=== PATIENT | female | born 1970 | race Native Hawaiian/Other Pacific Islander ===

== ENCOUNTER 2019-11-15 07:18 | Outpatient (REF) | payer OTHER, SELFPAY ==
[2019-11-15 07:58] LABS: MANUAL DIFF FLAG NO
[2019-11-15 08:08] LABS: Basophils Absolute Auto 0.1 X10*3/uL (0.0-0.2); Basophils Percent Auto 0.4 % (0-2); Eosinophils Absolute Auto 0.3 X10*3/uL (0.0-0.4); Eosinophils Percent Auto 1.7 % (0-4); Hematocrit 41.5 % (37-47); Hemoglobin 13.8 g/dl (12.0-16.0); Imm Gran Abs Auto 0.11 X10*3/uL (0.00-0.03); Imm Gran Pct Auto 0.7 % (0.0-0.4); Lymphocytes Absolute Auto 3.3 X10*3/uL (1.2-4.9); Lymphocytes Percent Auto 21.1 % (20-40); Mean Corpuscular HGB Conc 33.3 g/dl (31.0-35.0); Mean Corpuscular Hemoglobin 30.5 pg (27.0-33.0); Mean Corpuscular Volume 91.8 fL (80-98); Monocytes Absolute Auto 0.9 X10*3/uL (0.1-1.2); Monocytes Percent Auto 5.6 % (2-11); Neutrophils Absolute Auto 10.9 X10*3/uL (2.0-8.3); Neutrophils Percent Auto 70.5 % (45-73); Platelet Count 336 X10*3/uL (160-400); Red Blood Count 4.52 X10*6/uL (4.20-5.50); Red Cell Distribution Width 14.7 % (11.0-16.0); White Blood Count 15.4 X10*3/uL (4.8-10.8)
[2019-11-15 08:21] LABS: Estimated Average Glucose 126 mg/dL; Hemoglobin A1C 151.6235 umol/L
[2019-11-15 08:46] LABS: Alanine Aminotransferase 26 U/L (0-31); Albumin Level 4.1 g/dL (3.5-5.0); Alkaline Phosphatase 69 U/L (39-117); Anion Gap 11 (12-20); Aspartate Amino Transferase 15 U/L (5-31); B Type Natriuretic Peptide < 10 pg/mL (<100); Bilirubin Total 0.6 mg/dL (0.0-1.0); Blood Urea Nitrogen 15 mg/dL (9-16); Calcium 8.9 mg/dL (8.4-10.2); Carbon Dioxide 28 mmol/L (22-29); Chloride 103 mmol/L (96-108); Cholesterol 181 mg/dL; Estimated Glomerular Filt Rate > 60; Glucose Fasting 120 mg/dL (60-99); HDL Cholesterol 47 mg/dL; LDL Cholesterol Calculated 109 mg/dl; Potassium 4.3 mmol/l (3.3-5.1); Sodium 138 mmol/L (135-145); Total Protein 6.6 g/dL (6.5-8.0); Triglycerides 125 mg/dL
[2019-11-15 08:50] LABS: Vitamin D 25-OH Total 23.4 ng/mL (>30)
[2019-11-15 09:10] LABS: Erythrocyte Sedimentation Rate 6 MM/HR (0-20)
[2019-11-15 09:11] LABS: Folate 9.9 ng/mL (> or = 4.0); Vitamin B12 275 pg/mL (200-900)
== END 2019-11-15 07:19 | disposition home or self-care (01) ==
LOC: HO.LAB 07:18
PROVIDERS: PCP Internal Medicine; Visit Provider Internal Medicine
DX: R73.01 Impaired fasting glucose (principal); E78.00 Pure hypercholesterolemia, unspecified; K21.9 Gastro-esophageal reflux disease without esophagitis; J45.20 Mild intermittent asthma, uncomplicated; M96.1 Postlaminectomy syndrome, not elsewhere classified; M25.569 Pain in unspecified knee
CPT/HCPCS: 36415; 80053; 80061; 82306; 82607; 82746; 83036; 83880; 85025; 85652

== ENCOUNTER → 2020-03-12 12:57 | Outpatient (REF) | payer OTHER, SELFPAY ==
--- NOTE | 2020-03-12 12:59 | ECG_ITS ---
Hook-up date: 2020-03-12 13:11:00 Duration: 47:59:00 Test Indications: PALPITATIONS Medications: [id number] QRS complexes 14 Ventricular ectopics which represent <1 % of total QRS comp. 4 Supraventricular ectopics which represent <1 % of total QRS comp. * Paced QRS complexs which represent % of total QRS comp. VENTRICULAR ECTOPY 14 Isolated 0 Bigeminal Cycles 0 Couplets 0 Runs 0 Beats in Runs * Beats LONGEST at * BPM at :: -- * Beats FASTEST at * BPM at :: -- SUPRAVENTRICULAR ECTOPY 4 Isolated 0 Couplets 0 Runs 0 Beats in Runs * Beats LONGEST at * BPM at :: -- * Beats FASTEST at * BPM at :: -- HEART RATES 77 MIN at 00:01:16 2020-03-13 98 AVG 147 MAX at 18:16:56 2020-03-12 LONGEST RR 0.8880 secs at 05:57:39 2020-03-13 S-T LEVELS Channel 1 - 128 mm at 13:11:00 2020-03-12 - 128 mm at 13:11:00 2020-03-12 Channel 2 - 128 mm at 13:11:00 2020-03-12 - 128 mm at 13:11:00 2020-03-12 Channel 3 - 128 mm at 03:23:01 -- - 128 mm at 03:23:01 Basic rhythm Normal sinus rhythm No long pause or profound bradycardia Frequent Sinus tachycardia , 47% of time HR > 100 bpm Rare Premature ventricular complexes Patient did not report any symptoms in the diary Referred By: Duke Hale Overread By: IMMANUEL SHOEMAKER MD
== END ==
LOC: HO.CARD 12:57
PROVIDERS: PCP Internal Medicine; Visit Provider Internal Medicine
DX: R00.2 Palpitations (principal)
CPT/HCPCS: 93225; 93226

== ENCOUNTER 2020-05-01 08:26 | Outpatient (REF) | payer OTHER, SELFPAY ==
[2020-05-01 09:07] LABS: MANUAL DIFF FLAG NO
[2020-05-01 09:10] LABS: Basophils Absolute Auto 0.1 X10*3/uL (0.0-0.2); Basophils Percent Auto 0.5 % (0-2); Eosinophils Absolute Auto 0.2 X10*3/uL (0.0-0.4); Hematocrit 41.6 % (37-47); Hemoglobin 14.1 g/dl (12.0-16.0); Imm Gran Abs Auto 0.18 X10*3/uL (0.00-0.03); Imm Gran Pct Auto 0.9 % (0.0-0.4); Lymphocytes Absolute Auto 4.5 X10*3/uL (1.2-4.9); Lymphocytes Percent Auto 23.1 % (20-40); Mean Corpuscular HGB Conc 33.9 g/dl (31.0-35.0); Mean Corpuscular Hemoglobin 30.6 pg (27.0-33.0); Mean Corpuscular Volume 90.2 fL (80-98); Mean Platelet Volume 9.9 fL (9.4-12.3); Monocytes Absolute Auto 1.1 X10*3/uL (0.1-1.2); Monocytes Percent Auto 5.8 % (2-11); Neutrophils Absolute Auto 13.4 X10*3/uL (2.0-8.3); Neutrophils Percent Auto 68.7 % (45-73); Platelet Count 344 X10*3/uL (160-400); Red Blood Count 4.61 X10*6/uL (4.20-5.50); Red Cell Distribution Width 14.9 % (11.0-16.0); White Blood Count 19.4 X10*3/uL (4.8-10.8)
[2020-05-01 09:53] LABS: Glucose Urine UA NEG (NEG); Leukocyte Esterase Urine NEG (NEG); Nitrite Urine NEG (NEG); PH 6.5 (5.0-8.0); Specific Gravity - Urine 1.025 (1.005-1.025); Urine Blood 1+ (NEG); Urine Ketones 5 MG/DL (NEG); Urine Protein NEG (NEG-TRACE)
[2020-05-01 09:54] LABS: Alanine Aminotransferase 57 U/L (0-31); Albumin Level 4.6 g/dL (3.5-5.0); Alkaline Phosphatase 71 U/L (39-117); Anion Gap 12 (12-20); Aspartate Amino Transferase 21 U/L (5-31); Bilirubin Total 0.5 mg/dL (0.0-1.0); Blood Urea Nitrogen 21 mg/dL (9-16); Calcium 9.7 mg/dL (8.4-10.2); Carbon Dioxide 26 mmol/L (22-29); Chloride 102 mmol/L (96-108); Estimated Glomerular Filt Rate > 60; Glucose Random 105 mg/dL (60-115); Potassium 4.3 mmol/L (3.3-5.1); Sodium 136 mmol/L (135-145); Total Protein 7.7 g/dL (6.5-8.0)
[2020-05-01 09:55] LABS: Estimated Average Glucose 131 mg/dL; Hemoglobin A1c % 6.2 %
[2020-05-01 09:58] LABS: Appearance Urine CLEAR; Color Urine YELLOW
[2020-05-01 10:06] LABS: Free T4 (Free Thyroxine) 0.93 ng/dL (0.71-1.85); Thyroid Stimulating Hormone 0.68 uIU/mL (0.32-4.0)
[2020-05-01 10:11] LABS: Bacteria Urine TRACE /LPF; Squamous Epithelial Cell Urine 1+ /LPF; WBC Urine 0-2 /HPF (0-4)
[2020-05-01 11:15] LABS: Folate > 20.0 ng/mL (> or = 4.0); Vitamin B12 728 pg/mL (200-900)
== END 2020-05-01 08:27 | disposition home or self-care (01) ==
LOC: HO.LAB 08:26
PROVIDERS: PCP Internal Medicine; Visit Provider Internal Medicine
DX: R73.02 Impaired glucose tolerance (oral) (principal); E53.8 Deficiency of other specified B group vitamins; R00.2 Palpitations; D72.829 Elevated white blood cell count, unspecified
CPT/HCPCS: 36415; 80053; 81001; 82607; 82746; 83036; 84439; 84443; 85025

== ENCOUNTER 2020-05-16 07:30 | Outpatient (REF) | payer OTHER, SELFPAY ==
[2020-05-16 07:57] LABS: MANUAL DIFF FLAG NO
[2020-05-16 07:59] LABS: Basophils Absolute Auto 0.1 X10*3/uL (0.0-0.2); Basophils Percent Auto 0.5 % (0-2); Eosinophils Absolute Auto 0.2 X10*3/uL (0.0-0.4); Hematocrit 40.7 % (37-47); Hemoglobin 13.5 g/dl (12.0-16.0); Imm Gran Abs Auto 0.06 X10*3/uL (0.00-0.03); Imm Gran Pct Auto 0.5 % (0.0-0.4); Lymphocytes Absolute Auto 3.2 X10*3/uL (1.2-4.9); Lymphocytes Percent Auto 26.5 % (20-40); Mean Corpuscular HGB Conc 33.2 g/dl (31.0-35.0); Mean Corpuscular Hemoglobin 30.9 pg (27.0-33.0); Mean Corpuscular Volume 93.1 fL (80-98); Mean Platelet Volume 9.4 fL (9.4-12.3); Monocytes Absolute Auto 0.7 X10*3/uL (0.1-1.2); Monocytes Percent Auto 5.7 % (2-11); Neutrophils Absolute Auto 7.9 X10*3/uL (2.0-8.3); Neutrophils Percent Auto 64.8 % (45-73); Platelet Count 297 X10*3/uL (160-400); Red Blood Count 4.37 X10*6/uL (4.20-5.50); Red Cell Distribution Width 14.9 % (11.0-16.0); White Blood Count 12.2 X10*3/uL (4.8-10.8)
[2020-05-16 08:10] LABS: Glucose Urine UA NEG (NEG); Leukocyte Esterase Urine NEG (NEG); Nitrite Urine NEG (NEG); PH 7.5 (5.0-8.0); Specific Gravity - Urine 1.015 (1.005-1.025); Urine Blood 1+ (NEG); Urine Ketones NEG (NEG); Urine Protein NEG (NEG-TRACE)
[2020-05-16 08:12] LABS: Appearance Urine CLEAR; Color Urine YELLOW
[2020-05-16 08:30] LABS: Alanine Aminotransferase 53 U/L (0-31); Albumin Level 4.2 g/dL (3.5-5.0); Alkaline Phosphatase 68 U/L (39-117); Anion Gap 9 (12-20); Aspartate Amino Transferase 26 U/L (5-31); Bilirubin Total 0.7 mg/dL (0.0-1.0); Blood Urea Nitrogen 15 mg/dL (9-16); Calcium 9.2 mg/dL (8.4-10.2); Carbon Dioxide 31 mmol/L (22-29); Chloride 104 mmol/L (96-108); Estimated Glomerular Filt Rate > 60; Glucose Random 111 mg/dL (60-115); Potassium 4.4 mmol/L (3.3-5.1); Sodium 140 mmol/L (135-145); Total Protein 7.1 g/dL (6.5-8.0)
[2020-05-16 08:37] LABS: Bacteria Urine TRACE /LPF; Squamous Epithelial Cell Urine 1+ /LPF; WBC Urine 0-2 /HPF (0-4)
== END 2020-05-16 07:31 | disposition home or self-care (01) ==
LOC: HO.LAB 07:30
PROVIDERS: PCP Internal Medicine; Visit Provider Internal Medicine
DX: R73.02 Impaired glucose tolerance (oral) (principal); D72.829 Elevated white blood cell count, unspecified
CPT/HCPCS: 36415; 80053; 81001; 85025

== ENCOUNTER → 2020-09-18 14:24 | Outpatient (REF) | payer OTHER, SELFPAY | LOC: HO.SL 14:24 | PROVIDERS: PCP Internal Medicine; Visit Provider Internal Medicine | DX: R06.81 Apnea, not elsewhere classified (principal) | CPT/HCPCS: 95806 ==

== ENCOUNTER 2020-11-13 09:46 | Outpatient (REF) | payer OTHER, SELFPAY ==
--- NOTE | ~2020-11-13 | MM_ITS ---
EXAMINATION: MM SCREENING DIGITAL BREAST TOMOSYNTHESIS, BILATERAL CLINICAL INFORMATION: Screening. Asymptomatic. The lifetime risk of breast cancer based on the Tyrer-Cuzick Model is 13%. COMPARISON: Mammography: 04/29/2017, 05/22/2013 TECHNIQUE: Digital breast tomosynthesis is performed in both the craniocaudal and mediolateral oblique views along with computer-aided detection (CAD). Synthesized 2D images are generated from the tomosynthesis. Additional right MLO view is provided. FINDINGS: There are scattered areas of fibroglandular density (ACR BI-RADS breast composition Category b). There are no significant masses, abnormal calcifications, or other abnormalities. Parenchymal pattern is similar to prior studies. No significant changes. MM/MM tomosynthesis screening BI IMPRESSION: No mammographic evidence of malignancy. ASSESSMENT: BI-RADS 1: Negative RECOMMENDATION: Routine annual mammography screening. This patient's information was entered into a reminder system with a target due date for their next mammogram.
[2020-11-13 11:53] LABS: Appearance Urine HAZY; Color Urine YELLOW; Glucose Urine UA NEG (NEG); Leukocyte Esterase Urine NEG (NEG); Nitrite Urine NEG (NEG); PH 7.5 (5.0-8.0); Urine Blood TRACE (NEG); Urine Ketones NEG (NEG); Urine Protein NEG (NEG-TRACE)
[2020-11-13 12:27] LABS: RBC Urine 0-2 /HPF (0); Squamous Epithelial Cell Urine 2+ /LPF; WBC Urine 0 /HPF (0-4)
[2020-11-13 12:28] LABS: Bacteria Urine 1+ /LPF
== END 2020-11-13 09:47 | disposition home or self-care (01) ==
LOC: HO.MAMMO 09:46
PROVIDERS: PCP Internal Medicine; Visit Provider Internal Medicine
DX: Z12.31 Encounter for screening mammogram for malignant neoplasm of breast (principal); R73.02 Impaired glucose tolerance (oral)
CPT/HCPCS: 77063; 77067; 81001

== ENCOUNTER 2021-01-22 09:50 | Outpatient (REF) | payer OTHER, SELFPAY ==
[2021-01-22 10:07] LABS: MANUAL DIFF FLAG NO
[2021-01-22 10:20] LABS: Basophils Absolute Auto 0.1 X10*3/uL (0.0-0.2); Basophils Percent Auto 0.6 % (0-2); Eosinophils Absolute Auto 0.2 X10*3/uL (0.0-0.4); Eosinophils Percent Auto 1.9 % (0-4); Hematocrit 43.3 % (37.0-47.0); Hemoglobin 14.3 g/dl (12.0-16.0); Imm Gran Abs Auto 0.05 X10*3/uL (0.00-0.03); Imm Gran Pct Auto 0.5 % (0.0-0.4); Lymphocytes Absolute Auto 3.6 X10*3/uL (1.2-4.9); Lymphocytes Percent Auto 34.8 % (20-40); Mean Corpuscular Hemoglobin 30.5 pg (27.0-33.0); Mean Corpuscular Volume 92.3 fL (80.0-98.0); Mean Platelet Volume 9.8 fL (9.4-12.3); Monocytes Absolute Auto 0.7 X10*3/uL (0.1-1.2); Monocytes Percent Auto 6.9 % (2-11); Neutrophils Absolute Auto 5.7 x10*3/uL (2.0-8.3); Neutrophils Percent Auto 55.3 % (45-73); Platelet Count 310 X10*3/uL (160-400); Red Blood Count 4.69 X10*6/uL (4.20-5.50); Red Cell Distribution Width 13.8 % (11.0-16.0); White Blood Count 10.3 X10*3/uL (4.8-10.8)
[2021-01-22 10:59] LABS: Alanine Aminotransferase 65 U/L (0-31); Albumin Level 4.5 g/dL (3.5-5.0); Alkaline Phosphatase 88 U/L (39-117); Anion Gap 11 (12-20); Aspartate Amino Transferase 34 U/L (5-31); Bilirubin Total 0.3 mg/dL (0.0-1.0); Blood Urea Nitrogen 16 mg/dL (9-16); Calcium 9.8 mg/dL (8.4-10.2); Carbon Dioxide 27 mmol/L (22-29); Chloride 106 mmol/L (96-108); Cholesterol 220 mg/dL; Estimated Glomerular Filt Rate > 60; Glucose Random 108 mg/dL (60-115); HDL Cholesterol 50 mg/dL; LDL Cholesterol Calculated 143 mg/dl; Potassium 4.8 mmol/L (3.3-5.1); Sodium 139 mmol/L (135-145); Total Protein 7.6 g/dL (6.5-8.0); Triglycerides 139 mg/dL
[2021-01-22 11:23] LABS: Free T4 (Free Thyroxine) 0.89 ng/dL (0.71-1.85); Thyroid Stimulating Hormone 0.34 uIU/mL (0.32-4.0); Vitamin D 25-OH Total 28.4 ng/mL (>30)
[2021-01-22 11:38] LABS: Vitamin B12 439 pg/mL (200-900)
[2021-01-22 14:25] LABS: Estimated Average Glucose 137 mg/dL; Hemoglobin A1c % 6.4 %
== END 2021-01-22 09:51 | disposition home or self-care (01) ==
LOC: HO.LAB 09:50
PROVIDERS: PCP Internal Medicine; Visit Provider Internal Medicine
DX: R73.02 Impaired glucose tolerance (oral) (principal); E78.00 Pure hypercholesterolemia, unspecified
CPT/HCPCS: 36415; 80053; 80061; 82306; 82607; 82746; 83036; 84439; 84443; 85025

== ENCOUNTER 2021-06-19 18:18 | Outpatient (REF) | payer OTHER, SELFPAY ==
[2021-06-19 19:32] LABS: Amphetamine Screen Urine Not Detected (Not Detect); Barbiturates, Urine Not Detected (Not Detect); Benzodiazepines Screen Urine Not Detected (Not Detect); Cannabinoid Screen Urine Not Detected (Not Detect); Cocaine Screen Urine Not Detected (Not Detect); Fentanyl, urine Not Detected (Not Detect); Opiate Screen Urine POSITIVE (Not Detect); Phencyclidine Screen Urine Not Detected (Not Detect)
[2021-06-26 08:31] LABS: Oxycodone, Ur 3823; Oxymorphone, Ur 6021
[2021-06-26 08:32] LABS: Alphahydroxymidazolam,GCMS Ur NEGATIVE; Alphahydroxytriazolam, GCMS Ur NEGATIVE; Alprazolam, GCMS Urine NEGATIVE; Aminoclonazepam, GCMS Urine NEGATIVE; Codeine, Ur NEGATIVE; Flurazepam Metabolite,GCMS Ur NEGATIVE; Hydrocodone, Ur NEGATIVE; Hydromorphone, Ur NEGATIVE; Lorazepam GCMS Urine NEGATIVE; Morphine, Ur NEGATIVE; Nordiazepam, GCMS Urine NEGATIVE; Norhydrocodone, Ur NEGATIVE; Noroxycodone, Ur 8634; Oxazepam, GCMS Urine NEGATIVE; Temazepam, GCMS Urine NEGATIVE
== END 2021-06-19 18:19 | disposition home or self-care (01) ==
LOC: HO.LNP 18:18
PROVIDERS: Visit Provider Internal Medicine
DX: F11.90 Opioid use, unspecified, uncomplicated (principal); M96.1 Postlaminectomy syndrome, not elsewhere classified; R73.02 Impaired glucose tolerance (oral)
CPT/HCPCS: 80307; 80346; 80364; 80365

== ENCOUNTER 2021-09-21 09:51 | Outpatient (REF) | payer OTHER, SELFPAY ==
[2021-09-21 10:22] LABS: Estimated Average Glucose 146 mg/dL; Hemoglobin A1c % 6.7 %
[2021-09-21 10:49] LABS: Alanine Aminotransferase 47 U/L (0-31); Albumin Level 4.6 g/dL (3.5-5.0); Alkaline Phosphatase 90 U/L (39-117); Anion Gap 13 (12-20); Aspartate Amino Transferase 29 U/L (5-31); Bilirubin Total 0.7 mg/dL (0.0-1.0); Blood Urea Nitrogen 17 mg/dL (9-16); Calcium 9.6 mg/dL (8.4-10.2); Carbon Dioxide 27 mmol/L (22-29); Chloride 103 mmol/L (96-108); Cholesterol 196 mg/dL; Estimated Glomerular Filt Rate > 60; Glucose Random 101 mg/dL (60-115); HDL Cholesterol 50 mg/dL; LDL Cholesterol Calculated 119 mg/dl; Potassium 4.4 mmol/L (3.3-5.1); Sodium 139 mmol/L (135-145); Total Protein 7.5 g/dL (6.5-8.0); Triglycerides 135 mg/dL
[2021-09-21 11:02] LABS: Amphetamine Screen Urine Not Detected (Not Detect)
[2021-09-21 11:12] LABS: Free T4 (Free Thyroxine) 0.98 ng/dL (0.71-1.85); Thyroid Stimulating Hormone 0.28 uIU/mL (0.32-4.0)
[2021-09-21 11:34] LABS: Appearance Urine CLEAR; Color Urine YELLOW; Glucose Urine UA NEG (NEG); Leukocyte Esterase Urine NEG (NEG); Nitrite Urine NEG (NEG); PH 6.5 (5.0-8.0); Specific Gravity - Urine 1.025 (1.005-1.025); Urine Blood 1+ (NEG); Urine Ketones 5 MG/DL (NEG); Urine Protein NEG (NEG-TRACE)
[2021-09-21 12:09] LABS: Squamous Epithelial Cell Urine 1+ /LPF
[2021-09-21 12:10] LABS: Bacteria Urine TRACE /LPF
[2021-09-21 12:11] LABS: Mucus Urine TRACE /LPF; WBC Urine 0-2 /HPF (0-4)
== END 2021-09-21 09:52 | disposition home or self-care (01) ==
LOC: HO.LAB 09:51
PROVIDERS: PCP Internal Medicine; Visit Provider Internal Medicine
DX: R73.02 Impaired glucose tolerance (oral) (principal); F11.90 Opioid use, unspecified, uncomplicated; E78.00 Pure hypercholesterolemia, unspecified
CPT/HCPCS: 80053; 80061; 80307; 81001; 83036; 84439; 84443

== ENCOUNTER 2022-02-22 09:13 | Outpatient (REF) | payer OTHER, SELFPAY ==
[2022-02-22 10:25] LABS: Appearance Urine Clear; Color Urine Dark Yellow; Glucose Urine UA Negative (Negative); Leukocyte Esterase Urine Negative (Negative); Nitrite Urine Negative (Negative); Specific Gravity - Urine 1.025 (1.005-1.025); UMIC TRIGGER UA YES; Urine Blood Trace (Negative); Urine Ketones Trace mg/dL (Negative); Urine Protein Trace mg/dL (Neg-Trace)
[2022-02-22 10:28] LABS: Bacteria Urine None Seen (None Seen); Hyaline Casts Urine 0-2 /LPF (0-2); Squamous Epithelial Cell Urine 0-2 /HPF (0-2); WBC Urine 0-5 /HPF (0-5)
[2022-02-22 11:18] LABS: Estimated Average Glucose 148 mg/dL; Hemoglobin A1c % 6.8 %
[2022-02-22 11:19] LABS: Alanine Aminotransferase 36 U/L (0-31); Albumin Level 4.5 g/dL (3.5-5.0); Alkaline Phosphatase 99 U/L (39-117); Anion Gap 13 (12-20); Aspartate Amino Transferase 21 U/L (5-31); Bilirubin Total 0.6 mg/dL (0.0-1.0); Blood Urea Nitrogen 15 mg/dL (9-16); Calcium 10.3 mg/dL (8.4-10.2); Carbon Dioxide 27 mmol/L (22-29); Chloride 103 mmol/L (96-108); Cholesterol 224 mg/dL; Estimated Glomerular Filt Rate > 60; Glucose Random 105 mg/dL (60-115); HDL Cholesterol 61 mg/dL; LDL Cholesterol Calculated 141 mg/dl; Potassium 4.7 mmol/L (3.3-5.1); Sodium 138 mmol/L (135-145); Total Protein 7.5 g/dL (6.5-8.0); Triglycerides 112 mg/dL
[2022-02-22 12:05] LABS: Free T4 (Free Thyroxine) 0.86 ng/dL (0.71-1.85); Thyroid Stimulating Hormone 0.51 uIU/mL (0.32-4.0)
== END 2022-02-22 09:14 | disposition home or self-care (01) ==
LOC: HO.LAB 09:13
PROVIDERS: PCP Internal Medicine; Visit Provider Internal Medicine
DX: R73.02 Impaired glucose tolerance (oral) (principal); E78.00 Pure hypercholesterolemia, unspecified; R79.89 Other specified abnormal findings of blood chemistry
CPT/HCPCS: 36415; 80053; 80061; 81001; 83036; 84439; 84443

== ENCOUNTER 2022-05-21 10:59 | Outpatient (REF) | payer OTHER, SELFPAY ==
--- NOTE | ~2022-05-21 | MM_ITS ---
EXAMINATION: MM SCREENING DIGITAL BREAST TOMOSYNTHESIS, BILATERAL CLINICAL INFORMATION: Screening. Asymptomatic. The lifetime risk of breast cancer based on the Tyrer-Cuzick Model is 13%. COMPARISON: Mammography: 11/13/2020, 04/29/2017, 05/22/2013 TECHNIQUE: Digital breast tomosynthesis is performed in both the craniocaudal and mediolateral oblique views along with computer-aided detection (CAD). Synthesized 2D images are generated from the tomosynthesis. FINDINGS: There are scattered areas of fibroglandular density (ACR BI-RADS breast composition Category b). There are no significant masses, abnormal calcifications, or other abnormalities. Parenchymal pattern is similar to prior studies. There is no developing density or architectural abnormality. The axilla and skin contours are unremarkable. No significant changes. MM/MM tomosynthesis screening BI IMPRESSION: No mammographic evidence of malignancy. ASSESSMENT: BI-RADS 1: Negative RECOMMENDATION: Routine annual mammography screening. This patient's information was entered into a reminder system with a target due date for their next mammogram.
== END 2022-05-21 11:00 | disposition home or self-care (01) ==
LOC: HO.MAMMO 10:59
PROVIDERS: PCP Internal Medicine; Visit Provider Internal Medicine
DX: Z12.31 Encounter for screening mammogram for malignant neoplasm of breast (principal)
CPT/HCPCS: 77063; 77067

== ENCOUNTER 2022-07-19 08:11 | Outpatient (REF) | payer OTHER, SELFPAY ==
[2022-07-19 08:25] LABS: MANUAL DIFF FLAG NO
[2022-07-19 08:40] LABS: Basophils Percent Auto 0.2 % (0-2); Eosinophils Absolute Auto 0.1 X10*3/uL (0.0-0.4); Eosinophils Percent Auto 0.3 % (0-4); Hematocrit 42.4 % (37.0-47.0); Imm Gran Abs Auto 0.16 X10*3/uL (0.00-0.03); Imm Gran Pct Auto 0.8 % (0.0-0.4); Lymphocytes Absolute Auto 3.7 X10*3/uL (1.2-4.9); Lymphocytes Percent Auto 18.1 % (20-40); Mean Corpuscular Hemoglobin 29.8 pg (27.0-33.0); Mean Corpuscular Volume 90.2 fL (80.0-98.0); Mean Platelet Volume 9.9 fL (9.4-12.3); Neutrophils Absolute Auto 15.7 x10*3/uL (2.0-8.3); Neutrophils Percent Auto 75.6 % (45-73); Platelet Count 291 X10*3/uL (160-400); Red Cell Distribution Width 14.3 % (11.0-16.0); White Blood Count 20.7 X10*3/uL (4.8-10.8)
[2022-07-19 08:50] LABS: Estimated Average Glucose 148 mg/dL; Hemoglobin A1c % 6.8 %
[2022-07-19 09:09] LABS: Alanine Aminotransferase 43 U/L (0-31); Albumin Level 4.4 g/dL (3.5-5.0); Alkaline Phosphatase 89 U/L (39-117); Anion Gap 12 (12-20); Aspartate Amino Transferase 20 U/L (5-31); Bilirubin Total 0.8 mg/dL (0.0-1.0); Blood Urea Nitrogen 19 mg/dL (9-16); Calcium 9.8 mg/dL (8.4-10.2); Carbon Dioxide 28 mmol/L (22-29); Chloride 105 mmol/L (96-108); Cholesterol 207 mg/dL; Estimated Glomerular Filt Rate > 60; Glucose Random 154 mg/dL (60-115); HDL Cholesterol 57 mg/dL; LDL Cholesterol Calculated 121 mg/dl; Sodium 141 mmol/L (135-145); Total Protein 7.3 g/dL (6.5-8.0); Triglycerides 148 mg/dL
== END 2022-07-19 08:12 | disposition home or self-care (01) ==
LOC: HO.LAB 08:11
PROVIDERS: PCP Internal Medicine; Visit Provider Internal Medicine
DX: E11.65 Type 2 diabetes mellitus with hyperglycemia (principal); E78.00 Pure hypercholesterolemia, unspecified
CPT/HCPCS: 36415; 80053; 80061; 83036; 85025

== ENCOUNTER 2022-10-20 13:22 | Outpatient (AMB) | payer OTHER, SELFPAY ==
[2022-10-20 13:39] VITALS: BP 136/72; PULSE 101; O2SAT 98; BMI 29.9
--- NOTE | 2022-10-20 13:39 | MHC.PC.OV ---
Vital Signs 10/20/22 13:39 Height 5 ft 1 in Weight 158 lb BMI 29.9 BP 136/72 Blood Pressure Location Lt brachial Position Sitting Pulse 101 H Pulse Source Pulse Oximeter Pulse Oximetry (%) 98 Oxygen Delivery Method Room Air Intake Visit Reasons: Med Review Allergies topiramate [From TOPAMAX] Allergy (Severe, Verified 10/20/22 13:42) RASH, ITCH, DIFF BREATHING pineapple [Pineapple] Allergy (Mild, Verified 10/20/22 13:42) THROAT SWELLING duloxetine [Cymbalta] Allergy (Unknown, Verified 10/20/22 13:42) dizziness,vomiting levetiracetam Allergy (Unknown, Verified 10/20/22 13:42) Hives milnacipran [Savella] Allergy (Unknown, Verified 10/20/22 13:42) rash pregabalin Allergy (Unknown, Verified 10/20/22 13:42) nausous quetiapine [Seroquel] Allergy (Unknown, Verified 10/20/22 13:42) Hives sumatriptan [Imitrex] Allergy (Unknown, Verified 10/20/22 13:42) rash simvastatin Adverse Reaction (Intermediate, Verified 10/20/22 13:42) Nausea and Vomiting Seafood Allergy (Mild, Uncoded 10/20/22 13:42) RASH Tobacco use date assessed: 10/20/22 HPI Med Review HPI Details 52-year-old overweight female smoker with diabetes mellitus hypertension situational depression obstructive sleep apnea asthma hypercholesterolemia and history of failed back syndrome on narcotic pain medication. Patient also has GERD comes in for follow-up. August 2022 last seen. Last hemoglobin A1c was 6.8 in July 2022 [facility] Medical History (Updated 10/20/22 @ 13:52 by Duke Hale MD) Acute bacterial pharyngitis Acute bacterial tonsillitis Acute gastroenteritis Asthma Bilateral hand pain Bipolar disorder Blood pressure elevated without history of HTN Breast cancer screening by mammogram Chronic interstitial cystitis Closed fibular fracture Colon cancer screening COVID-19 virus infection Dysuria Encounter for removal of maria r Failed back syndrome Folliculitis Gastroesophageal reflux disease Groin abscess Headache History of CREST syndrome History of seizures Hypercholesterolemia Insomnia Knee effusion, left Lateral malleolar fracture Leukocytosis Microscopic hematuria Palpitations Scalp laceration Shingles Subclinical hyperthyroidism Uterine fibroid Vitamin B 12 deficiency Witnessed apneic spells Wrist pain Surgical History History of carpal tunnel release History of section History of pelvic surgery History of tubal ligation Family History Father CVD (cardiovascular disease) Myocardial infarction Mother COPD (chronic obstructive pulmonary disease) Rheumatoid arthritis Renal failure Family/Other History of uterine cancer History of breast cancer History of ovarian cancer Other Mental health disorder Mental illness in member of household Social History Housing: Apartment Alcohol intake: former Patient Tobacco Use Status: Former Tobacco user Tobacco use type: Cigarette Cigarette Packs Per Day: 1 e-Cigarette/Vaping Use: Never Used Second Hand Smoke Exposure: No service: No Current occupational status: disabled Cognitive needs: No Hearing needs: No Vision needs: Yes Questionnaire Thrive Questionnaire Date Thrive assessed: 02/23/22 AUDIT C Alcohol Use Questionnaire (AUDIT-C) 1. How often do you have a drink containing alcohol?: Never 3. How often do you have six or more drinks on one occasion?: Never Total Score: 0 OLGA-7 AMB Questionnaire OLGA-7 Date OLGA - 7 assessed: 02/23/22 Source: Developed by Drs. Joshua Sorensen, Salma Nagy, Scot Luciano and colleagues, with an educational georges from [employer]. Physical exam (Primary Care) Vital Signs: Last Vital Signs Pulse 101 H 10/20/22 13:39 BP 136/72 10/20/22 13:39 Pulse Ox 98 10/20/22 13:39 Oxygen Delivery Method Room Air 10/20/22 13:39 BMI result Body Mass Index 29.9 Tobacco/Smoking Status: Tobacco use Status Tobacco use date assessed 10/20/22 10/20/22 13:44 Patient Tobacco Use Status Former Tobacco user 10/20/22 13:39 Tobacco use type Cigarette 10/20/22 13:39 e-Cigarette/Vaping Use Never Used 10/20/22 13:39 Thrive Assessment: Date of Thrive Assessment Date Thrive assessed 02/23/22 10/20/22 13:39 Const General: alert; No acute distress Eyes Conjunctivae: conjunctivae normal Resp Auscultation: clear to auscultation bilaterally Cardio Rate: regular rate Rhythm: regular rhythm GI Inspection: Yes normal to inspection Extrem General: Yes normal to inspection and No edema Results AMB Hemoglobin A1c AMB Hemoglobin A1c 6.7 % Last Edit by Alan Montana on 10/20/22 14:08 Assessment and Plan Assessment & Plan (1) Type 2 diabetes mellitus with hyperglycemia: Code(s): E11.65 - Type 2 diabetes mellitus with hyperglycemia Plan: Decrease the amount of carbohydrate intake, pasta, bread, rice and potatoes are all sugar and that is aside from all the sweet stuff, remember that fruits are good but they are Sweet also. Hemoglobin A1c goal of less than 6.5 patient is on metformin 500 mg twice a day (2) Overweight (BMI 25.0-29.9): Code(s): E66.3 - Overweight Plan: Diet and exercise (3) Tobacco abuse: Code(s): Z72.0 - Tobacco use Plan: Patient is strongly advised to stop! (4) Hypertension: Code(s): I10 - Essential (primary) hypertension Plan: Continue with blood pressure medication. Decrease salt intake and exercise patient takes lisinopril 5 mg once a day (5) Obstructive sleep apnea hypopnea, severe: Comment: CPAP Code(s): G47.33 - Obstructive sleep apnea (adult) (pediatric) Plan: Continue to use the CPAP more than 4 hours a night and benefits from this (6) Hypercholesterolemia: Code(s): E78.00 - Pure hypercholesterolemia, unspecified Plan: Avoid fried foods, chicken skin, eggs, butter margarine, pastries and meat. Be it pork or beef they have a lot of cholesterol LDL goal of less than 100. Patient is on pravastatin 40 mg once a day July 2022 121 (7) Gastroesophageal reflux disease: Code(s): K21.9 - Gastro-esophageal reflux disease without esophagitis Qualifiers: Esophagitis presence: without esophagitis Qualified Code(s): K21.9 - Gastro-esophageal reflux disease without esophagitis Plan: Avoid the foods that causes that usually spicy foods, tomato products, juices, coffee, soda and foods that your sensitive to. After eating do not lie down, allow 3-4 hours before in lie down. And keep the head of bed above 30 degrees to avoid the acid from going up. Stop smoking! 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 Novak, dorsal column stimulator Dr. Herrera 09/15/2011, 11/2015 Code(s): M96.1 - Postlaminectomy syndrome, not elsewhere classified Plan: Narcotic pain meds: Is being prescribed with the understanding that these medications are potentially addictive and should be used only when absolutely necessary and must always be secured. Any remaining pills should be safely disposed off appropriately. Patient is advised that narcotics can impaired judgment and one should not drive or operate heavy machinery while taking these medications. Never share these medications with anybody and do not leave them unattended. They will not be replaced under any circumstances. Orders: Orders AMB Hemoglobin A1c Today E11.65 - Type 2 diabetes mellitus with hyperglycemia Medications: Changed From metformin 500 mg PO BIDWMEAL 60 tabs 2RF E11.65 - Type 2 diabetes mellitus with hyperglycemia To metformin 1,000 mg PO BIDWMEAL 60 tabs 4RF E11.65 - Type 2 diabetes mellitus with hyperglycemia Refilled meloxicam 15 mg PO DAILY 90 days 90 tabs 1RF M96.1 - Postlaminectomy syndrome, not elsewhere classified Coding Level of Care Code Est Pt Level 4 (98566) Diagnoses Type 2 diabetes mellitus with hyperglycemia E11.65 Overweight (BMI 25.0-29.9) E66.3 Tobacco abuse Z72.0 Hypertension I10 Obstructive sleep apnea hypopnea, severe G47.33 Hypercholesterolemia E78.00 Gastroesophageal reflux disease K21.9 Esophagitis presence: without esophagitis Asthma J45.909 Situational depression F43.21 Failed back syndrome M96.1
== END 2022-10-20 14:37 | disposition home or self-care (01) ==
PROVIDERS: PCP Internal Medicine; Visit Provider Internal Medicine
DX: I10 Essential (primary) hypertension (principal); E11.65 Type 2 diabetes mellitus with hyperglycemia; K21.9 Gastro-esophageal reflux disease without esophagitis; F43.21 Adjustment disorder with depressed mood; J45.909 Unspecified asthma, uncomplicated; E66.3 Overweight; Z72.0 Tobacco use; G47.33 Obstructive sleep apnea (adult) (pediatric); E78.00 Pure hypercholesterolemia, unspecified; M96.1 Postlaminectomy syndrome, not elsewhere classified
CPT/HCPCS: 83036; 99214

== ENCOUNTER 2022-11-19 10:53 | Outpatient (AMB) | payer OTHER, SELFPAY ==
[2022-11-19 11:07] VITALS: BP 136/70; PULSE 88; O2SAT 98; BMI 28.7
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
== END 2022-11-19 12:26 | disposition home or self-care (01) ==
PROVIDERS: PCP Internal Medicine; Visit Provider Internal Medicine
DX: M96.1 Postlaminectomy syndrome, not elsewhere classified (principal); T30.0 Burn of unspecified body region, unspecified degree; E66.3 Overweight; Z68.28 Body mass index [BMI] 28.0-28.9, adult
CPT/HCPCS: 99214

== ENCOUNTER 2022-12-20 10:04 | Outpatient (AMB) | payer OTHER, SELFPAY ==
[2022-12-20 10:23] VITALS: BP 138/76; PULSE 80; O2SAT 98; BMI 28.7
--- NOTE | 2022-12-20 10:23 | MHC.PC.OV ---
Vital Signs 12/20/22 10:23 Height 5 ft 1 in Weight 152 lb BMI 28.7 BP 138/76 Blood Pressure Location Lt brachial Position Sitting Pulse 80 Pulse Source Pulse Oximeter Pulse Oximetry (%) 98 Oxygen Delivery Method Room Air Intake Visit Reasons: Med Review Allergies topiramate [From TOPAMAX] Allergy (Severe, Verified 12/20/22 10:24) RASH, ITCH, DIFF BREATHING pineapple [Pineapple] Allergy (Mild, Verified 12/20/22 10:24) THROAT SWELLING duloxetine [Cymbalta] Allergy (Unknown, Verified 12/20/22 10:24) dizziness,vomiting levetiracetam Allergy (Unknown, Verified 12/20/22 10:24) Hives milnacipran [Savella] Allergy (Unknown, Verified 12/20/22 10:24) rash pregabalin Allergy (Unknown, Verified 12/20/22 10:24) nausous quetiapine [Seroquel] Allergy (Unknown, Verified 12/20/22 10:24) Hives sumatriptan [Imitrex] Allergy (Unknown, Verified 12/20/22 10:24) rash simvastatin Adverse Reaction (Intermediate, Verified 12/20/22 10:24) Nausea and Vomiting Seafood Allergy (Mild, Uncoded 12/20/22 10:24) RASH Tobacco use date assessed: 10/20/22 Dental Screening Dental Screen Date: 12/20/22 Did you have a dental visit in the last 12 months?: Yes Did you have a dental problem in the last 6 months where you did not have access to dental care?: No Was dental information given to patient?: Patient has dentist HPI Med Review HPI Details 52-year-old overweight female smoker with diabetes mellitus hypercholesterolemia obstructive sleep apnea hypertension with failed back syndrome on narcotic pain medication. Comes in monthly for refill. Complains of having some swelling on the periungual area of the right pinky finger and right middle toe area patient does have manicure and pedicure done. Otherwise uses the CPAP regularly and feels better with it [facility] Medical History (Updated 12/20/22 @ 10:44 by Duke Hale MD) Acute bacterial tonsillitis Acute bacterial pharyngitis Acute gastroenteritis Shingles Encounter for removal of maria r Scalp laceration Knee effusion, left Blood pressure elevated without history of HTN Wrist pain COVID-19 virus infection Witnessed apneic spells Colon cancer screening Breast cancer screening by mammogram Dysuria Bilateral hand pain Folliculitis Headache Leukocytosis Palpitations Vitamin B 12 deficiency Groin abscess Closed fibular fracture Microscopic hematuria Insomnia Subclinical hyperthyroidism History of CREST syndrome Lateral malleolar fracture Chronic interstitial cystitis Uterine fibroid History of seizures Bipolar disorder Asthma Gastroesophageal reflux disease Hypercholesterolemia Failed back syndrome Surgical History History of pelvic surgery History of carpal tunnel release History of section History of tubal ligation Family History Father CVD (cardiovascular disease) Myocardial infarction Mother COPD (chronic obstructive pulmonary disease) Rheumatoid arthritis Renal failure Family/Other History of uterine cancer History of breast cancer History of ovarian cancer Other Mental health disorder Mental illness in member of household Social History Housing: Apartment Alcohol intake: former Patient Tobacco Use Status: Former Tobacco user Tobacco use type: Cigarette Cigarette Packs Per Day: 1 e-Cigarette/Vaping Use: Never Used Second Hand Smoke Exposure: No service: No Current occupational status: disabled Cognitive needs: No Hearing needs: No Vision needs: Yes Questionnaire PHQ-9 Over the last 2 weeks, how often have you been bothered by any of the following problems? 1. Little interest or pleasure in doing things: not at all 2. Feeling down, depressed, or hopeless: not at all 3. Trouble falling or staying asleep, or sleeping too much: not at all 4. Feeling tired or having little energy: not at all 5. Poor appetite or overeating: not at all 6. Feeling bad about yourself - or that you are a failure or have let yourself or your family down: not at all 7. Trouble concentrating on things, such as reading the newspaper or watching television: not at all 8. Moving or speaking so slowly that other people could have noticed. Or the opposite - being so fidgety or restless that you have been moving around a lot more than usual: not at all 9. Thoughts that you would be better off or of hurting yourself in some way: not at all Total score: 0 Depression Screening Interpretation: Negative Depression Screening Done: Yes Source: Developed by Drs. Joshua Sorensen, Salma Nagy, Scot Luciano and colleagues, with an educational georges from [employer]. Thrive Questionnaire Date Thrive assessed: 02/23/22 AUDIT C Alcohol Use Questionnaire (AUDIT-C) 1. How often do you have a drink containing alcohol?: Never 3. How often do you have six or more drinks on one occasion?: Never Total Score: 0 OLGA-7 AMB Questionnaire OLGA-7 Date OLGA - 7 assessed: 02/23/22 Source: Developed by Drs. Joshua Sorensen, Salma Nagy, Scot Luciano and colleagues, with an educational georges from [employer]. Physical exam (Primary Care) Vital Signs: Last Vital Signs Pulse 80 12/20/22 10:23 BP 138/76 12/20/22 10:23 Pulse Ox 98 12/20/22 10:23 Oxygen Delivery Method Room Air 12/20/22 10:23 BMI result Body Mass Index 28.7 Tobacco/Smoking Status: Tobacco use Status Tobacco use date assessed 10/20/22 12/20/22 10:25 Patient Tobacco Use Status Former Tobacco user 12/20/22 10:25 Tobacco use type Cigarette 12/20/22 10:25 e-Cigarette/Vaping Use Never Used 12/20/22 10:25 PHQ-9: PHQ-9 Score PHQ-9: Total score 0 12/20/22 10:30 Depression Screening Interpretation: Negative Thrive Assessment: Date of Thrive Assessment Date Thrive assessed 02/23/22 12/20/22 10:25 Const General: alert; No acute distress Eyes Conjunctivae: conjunctivae normal Resp Auscultation: clear to auscultation bilaterally Cardio Rate: regular rate Rhythm: regular rhythm GI Inspection: Yes normal to inspection Extrem Other: Right pinky finger mild redness in the periungual area mild redness on the 3rd right toe Assessment and Plan Assessment & Plan (1) Ingrown toenail: Code(s): L60.0 - Ingrowing nail Plan: and nail infection- antibiotic sent in declined podiatry referral (2) Tobacco abuse: Comment: stopped 12/16/2022 Code(s): Z72.0 - Tobacco use Plan: advised to continue with stopping smoking! (3) Type 2 diabetes mellitus with hyperglycemia: Code(s): E11.65 - Type 2 diabetes mellitus with hyperglycemia Plan: Decrease the amount of carbohydrate intake, pasta, bread, rice and potatoes are all sugar and that is aside from all the sweet stuff, remember that fruits are good but they are Sweet also. 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 Novak, dorsal column stimulator Dr. Herrera 09/15/2011, 11/2015 Code(s): M96.1 - Postlaminectomy syndrome, not elsewhere classified Plan: Narcotic pain meds: Is being prescribed with the understanding that these medications are potentially addictive and should be used only when absolutely necessary and must always be secured. Any remaining pills should be safely disposed off appropriately. Patient is advised that narcotics can impaired judgment and one should not drive or operate heavy machinery while taking these medications. Never share these medications with anybody and do not leave them unattended. They will not be replaced under any circumstances. Medications: New amoxicillin-pot clavulanate 875-125 mg 1 tab PO BID 14 tabs 0RF L60.0 - Ingrowing nail Refilled oxycodone-acetaminophen 7.5-325 mg (Percocet) partial fill upon request 1 tab PO Q8H PRN 84 tabs 0RF pain M96.1 - Postlaminectomy syndrome, not elsewhere classified meloxicam 15 mg PO DAILY 90 days 90 tabs 1RF M96.1 - Postlaminectomy syndrome, not elsewhere classified Discontinued oxycodone-acetaminophen 5-325 mg (Percocet) Partial Fill upon patient request. Discontinued Reason: Patient Completed Course 1 tab PO Q6H PRN 28 tabs 0RF pain Coding Level of Care Code Est Pt Level 4 (49326) Diagnoses Ingrown toenail L60.0 Tobacco abuse Z72.0 Type 2 diabetes mellitus with hyperglycemia E11.65 Obesity (BMI 30.0-34.9) E66.9 Obstructive sleep apnea hypopnea, severe G47.33 Failed back syndrome M96.1
== END 2022-12-20 13:40 | disposition home or self-care (01) ==
PROVIDERS: PCP Internal Medicine; Visit Provider Internal Medicine
DX: L60.0 Ingrowing nail (principal); E11.65 Type 2 diabetes mellitus with hyperglycemia; G47.33 Obstructive sleep apnea (adult) (pediatric); M96.1 Postlaminectomy syndrome, not elsewhere classified
CPT/HCPCS: 99214

== ENCOUNTER 2023-01-14 11:37 | Outpatient (AMB) | payer OTHER, SELFPAY ==
[2023-01-14 11:41] VITALS: BP 130/78; PULSE 89; O2SAT 100; BMI 28.5
--- NOTE | 2023-01-14 11:41 | MHC.PC.OV ---
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 Allergies topiramate [From TOPAMAX] Allergy (Severe, Verified 01/14/23 11:41) RASH, ITCH, DIFF BREATHING pineapple [Pineapple] Allergy (Mild, Verified 01/14/23 11:41) THROAT SWELLING duloxetine [Cymbalta] Allergy (Unknown, Verified 01/14/23 11:41) dizziness,vomiting levetiracetam Allergy (Unknown, Verified 01/14/23 11:41) Hives milnacipran [Savella] Allergy (Unknown, Verified 01/14/23 11:41) rash pregabalin Allergy (Unknown, Verified 01/14/23 11:41) nausous quetiapine [Seroquel] Allergy (Unknown, Verified 01/14/23 11:41) Hives sumatriptan [Imitrex] Allergy (Unknown, Verified 01/14/23 11:41) rash simvastatin Adverse Reaction (Intermediate, Verified 01/14/23 11:41) Nausea and Vomiting Seafood Allergy (Mild, Uncoded 01/14/23 11:41) RASH Medication List - Last Reconciled 01/14/23 by Duke Hale MD acetaminophen (Tylenol Extra Strength) 500 mg PO QID PRN albuterol sulfate 90 mcg/actuation (Ventolin HFA) 2 puffs inhalation Q6H PRN amitriptyline 10 mg PO BEDTIME [AUTOPAP 6-20 cm H20 humidified Air As directed] blood pressure monitor (Blood Pressure Kit) As directed blood sugar diagnostic (FreeStyle Lite Strips) As directed check the QD blood-glucose meter (FreeStyle Lite Meter kit) As directed cetirizine 10 mg PO DAILY cyanocobalamin (vitamin B-12) 1,000 mcg PO DAILY cyclobenzaprine 5 mg PO BEDTIME PRN 90 days diclofenac sodium 1% (Arthritis Pain (diclofenac)) 4 grams topical QID duloxetine 20 mg PO DAILY fluticasone propionate 50 mcg/actuation 1 spray intranasal DAILY folic acid 1 mg PO DAILY gabapentin 600 mg PO TID 90 days ketotifen fumarate 0.025%(0.035%) 1 drp ophthalmic (eye) BID lancets (FreeStyle Lancets) As directed check BS QD lidocaine 5% 2 patches topical DAILY 15 days lisinopril 5 mg PO DAILY lorazepam 0.5 mg PO DAILY PRN meloxicam 15 mg PO DAILY 90 days metformin 1,000 mg PO BIDWMEAL omeprazole 20 mg PO DAILY 90 days ondansetron HCl 4 mg PO Q6H oxycodone-acetaminophen 7.5-325 mg (Percocet) 1 tab PO Q8H PRN pravastatin 40 mg PO BEDTIME 90 days ranitidine HCl 300 mg PO BEDTIME silver sulfadiazine 1% (Silvadene) 1 appl topical BID valacyclovir 1,000 mg PO Q8H 7 days Tobacco use date assessed: 01/14/23 Dental Screening Dental Screen Date: 01/14/23 Did you have a dental visit in the last 12 months?: Yes Did you have a dental problem in the last 6 months where you did not have access to dental care?: No Was dental information given to patient?: Patient has dentist HPI Med Review HPI Details 52-year-old overweight female smoker with diabetes mellitus obstructive sleep apnea failed back syndrome coming in for follow-up. Last seen in December 2022 hemoglobin A1c today is 6.5. Patient is up-to-date with mammogram. Patient comes in for refill on the pain medication. complains of myalgia - has been diagnosed with fibromyalgia and using gabapentin stating a lot of stress at home does require refill on the pain medication as well as amitriptyline. Otherwise no nausea no vomiting no chest pains no shortness of breath no bowel problems. [facility] Medical History (Updated 01/14/23 @ 12:15 by Duke Hale MD) Acute bacterial tonsillitis Acute bacterial pharyngitis Acute gastroenteritis Shingles Encounter for removal of maria r Scalp laceration Knee effusion, left Blood pressure elevated without history of HTN Wrist pain COVID-19 virus infection Witnessed apneic spells Colon cancer screening Breast cancer screening by mammogram Dysuria Bilateral hand pain Folliculitis Headache Leukocytosis Palpitations Vitamin B 12 deficiency Groin abscess Closed fibular fracture Microscopic hematuria Insomnia Subclinical hyperthyroidism History of CREST syndrome Lateral malleolar fracture Chronic interstitial cystitis Uterine fibroid History of seizures Bipolar disorder Asthma Gastroesophageal reflux disease Hypercholesterolemia Failed back syndrome Surgical History History of pelvic surgery History of carpal tunnel release History of section History of tubal ligation Family History Father CVD (cardiovascular disease) Myocardial infarction Mother COPD (chronic obstructive pulmonary disease) Rheumatoid arthritis Renal failure Family/Other History of uterine cancer History of breast cancer History of ovarian cancer Other Mental health disorder Mental illness in member of household Social History Housing: Apartment Alcohol intake: former Patient Tobacco Use Status: Former Tobacco user Tobacco use type: Cigarette Cigarette Packs Per Day: 1 e-Cigarette/Vaping Use: Never Used Second Hand Smoke Exposure: No service: No Current occupational status: disabled Cognitive needs: No Hearing needs: No Vision needs: Yes Questionnaire PHQ-9 Over the last 2 weeks, how often have you been bothered by any of the following problems? 1. Little interest or pleasure in doing things: not at all 2. Feeling down, depressed, or hopeless: not at all 3. Trouble falling or staying asleep, or sleeping too much: not at all 4. Feeling tired or having little energy: not at all 5. Poor appetite or overeating: not at all 6. Feeling bad about yourself - or that you are a failure or have let yourself or your family down: not at all 7. Trouble concentrating on things, such as reading the newspaper or watching television: not at all 8. Moving or speaking so slowly that other people could have noticed. Or the opposite - being so fidgety or restless that you have been moving around a lot more than usual: not at all 9. Thoughts that you would be better off or of hurting yourself in some way: not at all Total score: 0 Depression Screening Interpretation: Negative Depression Screening Done: Yes Source: Developed by Drs. Joshua Sorensen, Salma Nagy, Scot Luciano and colleagues, with an educational georges from [employer]. Thrive Questionnaire Date Thrive assessed: 02/23/22 AUDIT C Alcohol Use Questionnaire (AUDIT-C) 1. How often do you have a drink containing alcohol?: Never 3. How often do you have six or more drinks on one occasion?: Never Total Score: 0 OLGA-7 AMB Questionnaire OLGA-7 Date OLGA - 7 assessed: 02/23/22 Source: Developed by Drs. Joshua Sorensen, Salma Nagy, Scot Luciano and colleagues, with an educational georges from [employer]. Physical exam (Primary Care) Vital Signs: Last Vital Signs Pulse 89 01/14/23 11:41 BP 130/78 01/14/23 11:41 Pulse Ox 100 01/14/23 11:41 Oxygen Delivery Method Room Air 01/14/23 11:41 BMI result Body Mass Index 28.5 Tobacco/Smoking Status: Tobacco use Status Tobacco use date assessed 01/14/23 01/14/23 11:43 Patient Tobacco Use Status Former Tobacco user 01/14/23 11:43 Tobacco use type Cigarette 01/14/23 11:43 e-Cigarette/Vaping Use Never Used 01/14/23 11:43 PHQ-9: PHQ-9 Score PHQ-9: Total score 0 01/14/23 12:01 Depression Screening Interpretation: Negative Thrive Assessment: Date of Thrive Assessment Date Thrive assessed 02/23/22 01/14/23 11:43 Const General: alert; No acute distress Eyes Conjunctivae: conjunctivae normal Resp Auscultation: clear to auscultation bilaterally Cardio Rate: regular rate Rhythm: regular rhythm GI Inspection: Yes normal to inspection Extrem General: Yes normal to inspection and No edema Results AMB Hemoglobin A1c AMB Hemoglobin A1c 6.5 % Last Edit by BART Chang on 01/14/23 12:02 Results Reviewed Results Reviewed: Laboratory Last Values Hgb A1c (Clinic) 6.5 % (4.0-6.0) H 01/14/23 11:13 Assessment and Plan Assessment & Plan (1) Overweight (BMI 25.0-29.9): Code(s): E66.3 - Overweight Plan: Diet and exercise (2) Tobacco abuse: Comment: stopped 12/16/2022 Code(s): Z72.0 - Tobacco use Plan: Patient has stopped smoking December 2022 (3) Type 2 diabetes mellitus with hyperglycemia: Code(s): E11.65 - Type 2 diabetes mellitus with hyperglycemia Plan: Decrease the amount of carbohydrate intake, pasta, bread, rice and potatoes are all sugar and that is aside from all the sweet stuff, remember that fruits are good but they are Sweet also. Hemoglobin A1c goal of less than 6.5. 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 Novak, dorsal column stimulator Dr. Herrera 09/15/2011, 11/2015 Code(s): M96.1 - Postlaminectomy syndrome, not elsewhere classified Plan: Narcotic pain meds: Is being prescribed with the understanding that these medications are potentially addictive and should be used only when absolutely necessary and must always be secured. Any remaining pills should be safely disposed off appropriately. Patient is advised that narcotics can impaired judgment and one should not drive or operate heavy machinery while taking these medications. Never share these medications with anybody and do not leave them unattended. They will not be replaced under any circumstances. (5) Hypercholesterolemia: Code(s): E78.00 - Pure hypercholesterolemia, unspecified Plan: Avoid fried foods, chicken skin, eggs, butter margarine, pastries and meat. Be it pork or beef they have a lot of cholesterol LDL goal of less than 100 mg and triglyceride of less than 150. Patient on pravastatin 40 mg once a day (6) Hypertension: Code(s): I10 - Essential (primary) hypertension Plan: Continue with blood pressure medication. Decrease salt intake and exercise patient on lisinopril 5 mg once a day (7) Obstructive sleep apnea hypopnea, severe: Comment: CPAP Code(s): G47.33 - Obstructive sleep apnea (adult) (pediatric) Plan: Uses CPAP more than 4 hours a night and benefits from this (8) Fibromyalgia: Code(s): M79.7 - Fibromyalgia Orders: Orders AMB Hemoglobin A1c Today E11.65 - Type 2 diabetes mellitus with hyperglycemia Medications: New duloxetine 20 mg PO DAILY 30 caps 3RF M79.7 - Fibromyalgia Refilled amitriptyline 10 mg PO BEDTIME 90 tabs 2RF R51.9 - Headache, unspecified oxycodone-acetaminophen 7.5-325 mg (Percocet) partial fill upon request 1 tab PO Q8H PRN 84 tabs 0RF pain M96.1 - Postlaminectomy syndrome, not elsewhere classified Coding Level of Care Code Est Pt Level 4 (36276) Diagnoses Overweight (BMI 25.0-29.9) E66.3 Tobacco abuse Z72.0 Type 2 diabetes mellitus with hyperglycemia E11.65 Failed back syndrome M96.1 Hypercholesterolemia E78.00 Hypertension I10 Obstructive sleep apnea hypopnea, severe G47.33 Fibromyalgia M79.7
== END 2023-01-14 12:21 | disposition home or self-care (01) ==
PROVIDERS: PCP Internal Medicine; Visit Provider Internal Medicine
DX: E11.65 Type 2 diabetes mellitus with hyperglycemia (principal); E66.3 Overweight; Z68.28 Body mass index [BMI] 28.0-28.9, adult; Z72.0 Tobacco use; M96.1 Postlaminectomy syndrome, not elsewhere classified; E78.00 Pure hypercholesterolemia, unspecified; I10 Essential (primary) hypertension; G47.33 Obstructive sleep apnea (adult) (pediatric); M79.7 Fibromyalgia
CPT/HCPCS: 83036; 99214

== ENCOUNTER 2023-03-11 10:43 | Outpatient (AMB) | payer OTHER, SELFPAY ==
--- NOTE | 2023-03-11 10:56 | MHC.PC.OV ---
Vital Signs 03/11/23 10:57 Height 5 ft 1 in Weight 160 lb 0.2 oz BMI 30.2 BP 122/80 Blood Pressure Location Lt brachial Position Sitting Pulse 95 Pulse Source Pulse Oximeter Pulse Oximetry (%) 97 Oxygen Delivery Method Room Air Intake Visit Reasons: Follow up Allergies topiramate [From TOPAMAX] Allergy (Severe, Verified 03/11/23 10:57) RASH, ITCH, DIFF BREATHING pineapple [Pineapple] Allergy (Mild, Verified 03/11/23 10:57) THROAT SWELLING duloxetine [Cymbalta] Allergy (Unknown, Verified 03/11/23 10:57) dizziness,vomiting levetiracetam Allergy (Unknown, Verified 03/11/23 10:57) Hives milnacipran [Savella] Allergy (Unknown, Verified 03/11/23 10:57) rash pregabalin Allergy (Unknown, Verified 03/11/23 10:57) nausous quetiapine [Seroquel] Allergy (Unknown, Verified 03/11/23 10:57) Hives sumatriptan [Imitrex] Allergy (Unknown, Verified 03/11/23 10:57) rash simvastatin Adverse Reaction (Intermediate, Verified 03/11/23 10:57) Nausea and Vomiting Seafood Allergy (Mild, Uncoded 03/11/23 10:57) RASH Tobacco use date assessed: 03/11/23 Dental Screening Dental Screen Date: 03/11/23 HPI Follow up HPI Details 52-year-old obese female smoker with diabetes mellitus failed back syndrome on narcotic pain medication hypertension obstructive sleep apnea coming in for follow-up. Last seen in January 2023. Noted weight gain. Mammograms up-to-date patient the concerns about the sugar being elevated patient on maximum of metformin discussed about the she additional medication but patient declined additional medication. Patient knows had indiscriminate eating during the holidays and will be behaving better. As for the blood work for cholesterol not done she had excuses of the car broke down her daughter had problems and so was not able to do the blood work. Patient knows to get blood work done. Patient needs refills on the narcotic pain medication and states had some problems with joint pains also has a history of fibromyalgia and wants a referral to Rheumatology. [facility], [facility] Medical History (Updated 03/11/23 @ 11:54 by Duke Hale MD) Tobacco abuse Acute bacterial tonsillitis Acute bacterial pharyngitis Acute gastroenteritis Shingles Encounter for removal of maria r Scalp laceration Knee effusion, left Blood pressure elevated without history of HTN Wrist pain COVID-19 virus infection Witnessed apneic spells Colon cancer screening Breast cancer screening by mammogram Dysuria Bilateral hand pain Folliculitis Headache Leukocytosis Palpitations Vitamin B 12 deficiency Groin abscess Closed fibular fracture Microscopic hematuria Insomnia Subclinical hyperthyroidism History of CREST syndrome Lateral malleolar fracture Chronic interstitial cystitis Uterine fibroid History of seizures Bipolar disorder Asthma Gastroesophageal reflux disease Hypercholesterolemia Failed back syndrome Surgical History History of pelvic surgery History of carpal tunnel release History of section History of tubal ligation Family History Father CVD (cardiovascular disease) Myocardial infarction Mother COPD (chronic obstructive pulmonary disease) Rheumatoid arthritis Renal failure Family/Other History of uterine cancer History of breast cancer History of ovarian cancer Other Mental health disorder Mental illness in member of household Social History Housing: Apartment Alcohol intake: former Patient Tobacco Use Status: Former Tobacco user Tobacco use type: Cigarette Cigarette Packs Per Day: 1 Cigarettes Per Day: 20.0 e-Cigarette/Vaping Use: Never Used Second Hand Smoke Exposure: No service: No Current occupational status: disabled Cognitive needs: No Hearing needs: No Vision needs: Yes Questionnaire Thrive Questionnaire Date Thrive assessed: 03/11/23 I am a: Patient What is your living situation today?: I have a steady place to live Within the past 12 months, did the food you bought not last and you didn't have the money to get more?: Never true Within the past 12 months, did you worry whether your food would run out before you got money to buy more?: Never true Do you have trouble paying for medicines?: No Do you have trouble getting transportation to medical appointments?: No Do you have trouble paying your heating and electricity bill?: No Do you have trouble taking care of your child, family member or friend?: No Do you have trouble with day-to-day activities such as bathing, preparing meals, shopping, managing finances, etc.?: No Are you currently unemployed and looking for a job?: No Are you interested in more education?: No Please select the resources that you would like help with: None THRIVE Score: 0 AUDIT C Alcohol Use Questionnaire (AUDIT-C) 1. How often do you have a drink containing alcohol?: Never 3. How often do you have six or more drinks on one occasion?: Never Total Score: 0 OLGA-7 AMB Questionnaire OLGA-7 Date OLGA - 7 assessed: 03/11/23 Source: Developed by Drs. Joshua Sorensen, Salma Nagy, Scot Luciano and colleagues, with an educational georges from [employer]. Physical exam (Primary Care) Vital Signs: Last Vital Signs Pulse 95 03/11/23 10:57 BP 122/80 03/11/23 10:57 Pulse Ox 97 03/11/23 10:57 Oxygen Delivery Method Room Air 03/11/23 10:57 BMI result Body Mass Index 30.2 Tobacco/Smoking Status: Tobacco use Status Tobacco use date assessed 03/11/23 03/11/23 10:58 Patient Tobacco Use Status Former Tobacco user 03/11/23 10:58 Tobacco use type Cigarette 03/11/23 10:58 e-Cigarette/Vaping Use Never Used 03/11/23 10:58 Thrive Assessment: Date of Thrive Assessment Date Thrive assessed 03/11/23 03/11/23 10:58 Const General: alert; No acute distress Eyes Conjunctivae: conjunctivae normal Resp Auscultation: clear to auscultation bilaterally Cardio Rate: regular rate Rhythm: regular rhythm GI Inspection: Yes normal to inspection Extrem General: Yes normal to inspection and No edema Results AMB Hemoglobin A1c AMB Hemoglobin A1c 6.7 % Last Edit by BART Chang on 03/11/23 11:23 Results Reviewed Results Reviewed: Laboratory Last Values Hgb A1c (Clinic) 6.7 % (4.0-6.0) H 03/11/23 10:56 Assessment and Plan Assessment & Plan (1) Type 2 diabetes mellitus with hyperglycemia: Code(s): E11.65 - Type 2 diabetes mellitus with hyperglycemia Plan: Decrease the amount of carbohydrate intake, pasta, bread, rice and potatoes are all sugar and that is aside from all the sweet stuff, remember that fruits are good but they are Sweet also. Hemoglobin A1c goal of less than 6.5 patient presently on metformin a 1000 mg twice a day (2) Obesity (BMI 30.0-34.9): Code(s): E66.9 - Obesity, unspecified Plan: Diet and exercise (3) Obstructive sleep apnea hypopnea, severe: Comment: CPAP Code(s): G47.33 - Obstructive sleep apnea (adult) (pediatric) Plan: Continue to use the CPAP more than 4 hours a night and benefits from the (4) Hypercholesterolemia: Code(s): E78.00 - Pure hypercholesterolemia, unspecified Plan: Avoid fried foods, chicken skin, eggs, butter margarine, pastries and meat. Be it pork or beef they have a lot of cholesterol LDL goal of less than 100 and triglyceride of less than 150 patient on pravastatin 40 mg at bedtime. 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 Novak, dorsal column stimulator Dr. Herrera 09/15/2011, 11/2015 Code(s): M96.1 - Postlaminectomy syndrome, not elsewhere classified Plan: Narcotic pain meds: Is being prescribed with the understanding that these medications are potentially addictive and should be used only when absolutely necessary and must always be secured. Any remaining pills should be safely disposed off appropriately. Patient is advised that narcotics can impaired judgment and one should not drive or operate heavy machinery while taking these medications. Never share these medications with anybody and do not leave them unattended. They will not be replaced under any circumstances. Orders: Orders AMB Hemoglobin A1c Today E11.65 - Type 2 diabetes mellitus with hyperglycemia Complete Blood Count Auto Diff Today D72.829 - Elevated white blood cell count, unspecified Referrals Rheumatology Referral M79.7 - Fibromyalgia Medications: Refilled cyclobenzaprine 5 mg PO BEDTIME PRN 90 tabs 2RF muscle spasm 90 days M96.1 - Postlaminectomy syndrome, not elsewhere classified oxycodone-acetaminophen 7.5-325 mg (Percocet) partial fill upon request 1 tab PO Q8H PRN 84 tabs 0RF pain M96.1 - Postlaminectomy syndrome, not elsewhere classified Coding Level of Care Code Est Pt Level 4 (27568) Diagnoses Type 2 diabetes mellitus with hyperglycemia E11.65 Obesity (BMI 30.0-34.9) E66.9 Obstructive sleep apnea hypopnea, severe G47.33 Hypercholesterolemia E78.00 Failed back syndrome M96.1
[2023-03-11 10:57] VITALS: BP 122/80; PULSE 95; O2SAT 97; BMI 30.2
== END 2023-03-11 12:25 | disposition home or self-care (01) ==
PROVIDERS: PCP Internal Medicine; Visit Provider Internal Medicine
DX: E11.65 Type 2 diabetes mellitus with hyperglycemia (principal); E66.9 Obesity, unspecified; Z68.30 Body mass index [BMI] 30.0-30.9, adult; G47.33 Obstructive sleep apnea (adult) (pediatric); E78.00 Pure hypercholesterolemia, unspecified; M96.1 Postlaminectomy syndrome, not elsewhere classified; I10 Essential (primary) hypertension
CPT/HCPCS: 83036; 99214

== ENCOUNTER 2023-04-06 07:57 | Outpatient (REF) | payer OTHER, SELFPAY ==
[2023-04-06 09:09] LABS: Estimated Average Glucose 134 mg/dL; Hemoglobin A1c % 6.3 % (<6.0)
[2023-04-06 09:16] LABS: Alanine Aminotransferase 25 U/L (0-31); Albumin Level 4.3 g/dL (3.5-5.0); Alkaline Phosphatase 74 U/L (39-117); Anion Gap 12 (12-20); Aspartate Amino Transferase 16 U/L (5-31); Bilirubin Total 0.4 mg/dL (0.0-1.0); Blood Urea Nitrogen 22 mg/dL (9-16); Calcium 9.5 mg/dL (8.4-10.2); Carbon Dioxide 28 mmol/L (22-29); Chloride 104 mmol/L (96-108); Cholesterol 182 mg/dL (<200); Estimated Glomerular Filt Rate > 60; Glucose Random 152 mg/dL (60-115); HDL Cholesterol 51 mg/dL (>40); LDL Cholesterol Calculated 107 mg/dL (<100); Potassium 4.3 mmol/L (3.3-5.1); Sodium 140 mmol/L (135-145); Total Protein 7.3 g/dL (6.5-8.0); Triglycerides 122 mg/dL (<150)
== END 2023-04-06 07:58 | disposition home or self-care (01) ==
LOC: HO.LAB 07:57
PROVIDERS: PCP Internal Medicine; Visit Provider Internal Medicine
DX: E11.65 Type 2 diabetes mellitus with hyperglycemia (principal); E78.00 Pure hypercholesterolemia, unspecified
CPT/HCPCS: 36415; 80053; 80061; 83036

== ENCOUNTER 2023-04-11 10:49 | Outpatient (AMB) | payer OTHER, SELFPAY ==
[2023-04-11 10:53] VITALS: BP 130/72; PULSE 89; O2SAT 95; BMI 31.0
--- NOTE | 2023-04-11 10:53 | A.OFFPC_ITS ---
Vital Signs 04/11/23 10:53 Height 5 ft 1 in Weight 164 lb 0.8 oz BMI 31.0 BP 130/72 Blood Pressure Location Lt brachial Position Sitting Pulse 89 Pulse Source Pulse Oximeter Pulse Oximetry (%) 95 Oxygen Delivery Method Room Air Intake Visit Reasons: Follow up Intake Note: Patient is here to follow up on medication. 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 President Required: No Allergies topiramate [From TOPAMAX] Allergy (Severe, Verified 04/11/23 10:53) RASH, ITCH, DIFF BREATHING pineapple [Pineapple] Allergy (Mild, Verified 04/11/23 10:53) THROAT SWELLING duloxetine [Cymbalta] Allergy (Unknown, Verified 04/11/23 10:53) dizziness,vomiting levetiracetam Allergy (Unknown, Verified 04/11/23 10:53) Hives milnacipran [Savella] Allergy (Unknown, Verified 04/11/23 10:53) rash pregabalin Allergy (Unknown, Verified 04/11/23 10:53) nausous quetiapine [Seroquel] Allergy (Unknown, Verified 04/11/23 10:53) Hives sumatriptan [Imitrex] Allergy (Unknown, Verified 04/11/23 10:53) rash simvastatin Adverse Reaction (Intermediate, Verified 04/11/23 10:53) Nausea and Vomiting Seafood Allergy (Mild, Uncoded 04/11/23 10:53) RASH Tobacco use date assessed: 04/11/23 HPI Follow up HPI Details 53-year-old obese female with diabetes m ellitus uncontrolled obstructive sleep apnea hypercholesterolemia failed back syndrome on narcotic pain medication last seen in February 2023. Hemoglobin A1c goal of less than 6.5 and her number in February was 6.7. Mammogram is up-to-date. Patient comes in for refill on the pain medication. [facility] Medical History (Updated 03/11/23 @ 11:54 by Duke Hale MD) Tobacco abuse Acute bacterial tonsillitis Acute bacterial pharyngitis Acute gastroenteritis Shingles Encounter for removal of maria r Scalp laceration Knee effusion, left Blood pressure elevated without history of HTN Wrist pain COVID-19 virus infection Witnessed apneic spells Colon cancer screening Breast cancer screening by mammogram Dysuria Bilateral hand pain Folliculitis Headache Leukocytosis Palpitations Vitamin B 12 deficiency Groin abscess Closed fibular fracture Microscopic hematuria Insomnia Subclinical hyperthyroidism History of CREST syndrome Lateral malleolar fracture Chronic interstitial cystitis Uterine fibroid History of seizures Bipolar disorder Asthma Gastroesophageal reflux disease Hypercholesterolemia Failed back syndrome Surgical History History of pelvic surgery History of carpal tunnel release History of section History of tubal ligation Family History Father CVD (cardiovascular disease) Myocardial infarction Mother COPD (chronic obstructive pulmonary disease) Rheumatoid arthritis Renal failure Family/Other History of uterine cancer History of breast cancer History of ovarian cancer Other Mental health disorder Mental illness in member of household Social History Housing: Apartment Alcohol intake: former Patient Tobacco Use Status: Former Tobacco user Tobacco use type: Cigarette Cigarette Packs Per Day: 1 Cigarettes Per Day: 20.0 e-Cigarette/Vaping Use: Never Used Second Hand Smoke Exposure: No service: No Current occupational status: disabled Cognitive needs: No Hearing needs: No Vision needs: Yes Questionnaire Thrive Questionnaire Date Thrive assessed: 03/11/23 AUDIT C Alcohol Use Questionnaire (AUDIT-C) 1. How often do you have a drink containing alcohol?: Never 3. How often do you have six or more drinks on one occasion?: Never Total Score: 0 OLGA-7 AMB Questionnaire OLGA-7 Date OLGA - 7 assessed: 03/11/23 Source: Developed by Drs. Joshua Sorensen, Salma Nagy, Scot Luciano and colleagues, with an educational georges from [employer]. Physical exam (Primary Care) Vital Signs: Last Vital Signs Pulse 89 04/11/23 10:53 BP 130/72 04/11/23 10:53 Pulse Ox 95 04/11/23 10:53 Oxygen Delivery Method Room Air 04/11/23 10:53 BMI result Body Mass Index 31.0 Tobacco/Smoking Status: Tobacco use Status Tobacco use date assessed 04/11/23 04/11/23 11:21 Patient Tobacco Use Status Former Tobacco user 04/11/23 11:21 Tobacco use type Cigarette 04/11/23 11:21 e-Cigarette/Vaping Use Never Used 04/11/23 11:21 Thrive Assessment: Date of Thrive Assessment Date Thrive assessed 03/11/23 04/11/23 11:21 Const General: alert; No acute distress Eyes Conjunctivae: conjunctivae normal Resp Auscultation: clear to auscultation bilaterally Cardio Rate: regular rate Rhythm: regular rhythm GI Inspection: Yes normal to inspection Extrem General: Yes normal to inspection and No edema Assessment and Plan Assessment & Plan (1) Type 2 diabetes mellitus with hyperglycemia: Code(s): E11.65 - Type 2 diabetes mellitus with hyperglycemia Plan: Decrease the amount of carbohydrate intake, pasta, bread, rice and potatoes are all sugar and that is aside from all the sweet stuff, remember that fruits are good but they are Sweet also. Hemoglobin A1c goal of less than 6.5 presently on metformin a 1000 mg twice a day (2) Hypertension: Code(s): I10 - Essential (primary) hypertension Plan: Continue with blood pressure medication. Decrease salt intake and exercise patient takes lisinopril 5 mg once a day (3) Obesity (BMI 30.0-34.9): Code(s): E66.9 - Obesity, unspecified Plan: Diet and exercise noted weight gain (4) Hypercholesterolemia: Code(s): E78.00 - Pure hypercholesterolemia, unspecified Plan: Avoid fried foods, chicken skin, eggs, butter margarine, pastries and meat. Be it pork or beef they have a lot of cholesterol LDL goal of less than 100 and triglyceride of less than 150 presently on pravastatin 40 mg once a day the LDL not at goal yet will increase the dose. 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 Novak, dorsal column stimulator Dr. Herrera 09/15/2011, 11/2015 Code(s): M96.1 - Postlaminectomy syndrome, not elsewhere classified Plan: Narcotic pain meds: Is being prescribed with the understanding that these medications are potentially addictive and should be used only when absolutely necessary and must always be secured. Any remaining pills should be safely disposed off appropriately. Patient is advised that narcotics can impaired judgment and one should not drive or operate heavy machinery while taking these medications. Never share these medications with anybody and do not leave them unattended. They will not be replaced under any circumstances. Orders: Orders Lipid Panel 3 Months E78.00 - Pure hypercholesterolemia, unspecified Hemoglobin A1c 3 Months E11.65 - Type 2 diabetes mellitus with hyperglycemia Comprehensive Met. Panel 3 Months E11.65 - Type 2 diabetes mellitus with hyperglycemia Medications: Changed From pravastatin 40 mg PO BEDTIME 90 days 90 tabs 1RF E78.00 - Pure hypercholesterolemia, unspecified To pravastatin 80 mg PO BEDTIME 90 days 90 tabs 1RF E78.00 - Pure hypercholesterolemia, unspecified Refilled oxycodone-acetaminophen 7.5-325 mg (Percocet) partial fill upon request 1 tab PO Q8H PRN 84 tabs 0RF pain M96.1 - Postlaminectomy syndrome, not elsewhere classified Coding Level of Care Code Est Pt Level 4 (99074) Diagnoses Type 2 diabetes mellitus with hyperglycemia E11.65 Hypertension I10 Obesity (BMI 30.0-34.9) E66.9 Hypercholesterolemia E78.00 Failed back syndrome M96.1
== END 2023-04-11 12:46 | disposition home or self-care (01) ==
PROVIDERS: PCP Internal Medicine; Visit Provider Internal Medicine
DX: E11.65 Type 2 diabetes mellitus with hyperglycemia (principal); I10 Essential (primary) hypertension; E66.9 Obesity, unspecified; Z68.31 Body mass index [BMI] 31.0-31.9, adult; E78.00 Pure hypercholesterolemia, unspecified; M96.1 Postlaminectomy syndrome, not elsewhere classified
CPT/HCPCS: 99214

== ENCOUNTER 2023-04-22 10:42 | Outpatient (AMB) | payer OTHER, SELFPAY ==
[2023-04-22 10:44] VITALS: BP 132/70; PULSE 95; O2SAT 96
--- NOTE | 2023-04-22 10:44 | MHC.PC.OV ---
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 Professor Required: No Allergies topiramate [From TOPAMAX] Allergy (Severe, Verified 04/22/23 10:44) RASH, ITCH, DIFF BREATHING pineapple [Pineapple] Allergy (Mild, Verified 04/22/23 10:44) THROAT SWELLING duloxetine [Cymbalta] Allergy (Unknown, Verified 04/22/23 10:44) dizziness,vomiting levetiracetam Allergy (Unknown, Verified 04/22/23 10:44) Hives milnacipran [Savella] Allergy (Unknown, Verified 04/22/23 10:44) rash pregabalin Allergy (Unknown, Verified 04/22/23 10:44) nausous quetiapine [Seroquel] Allergy (Unknown, Verified 04/22/23 10:44) Hives sumatriptan [Imitrex] Allergy (Unknown, Verified 04/22/23 10:44) rash simvastatin Adverse Reaction (Intermediate, Verified 04/22/23 10:44) Nausea and Vomiting Seafood Allergy (Mild, Uncoded 04/22/23 10:44) RASH Tobacco use date assessed: 04/22/23 Dental Screening Dental Screen Date: 04/22/23 HPI Vascular Referral, had fall on 04/19 HPI Details 53-year-old obese female with uncontrolled diabetes mellitus hypertension hypercholesterolemia with a failed back syndrome last seen in 04/11/2023 coming in for follow-up. Patient has an acute problem. Patient complains of left groin pain and keeps on insisting that she needs a vascular surgeon. Patient has had in 2009 problem on the spine and has had surgery and was told that the problem of the pain is because of an iliac aneurysm and so she had been following up with the vascular until the physician retired and now wants new vascular surgeon. Patient insists that the problem of the groin is because of the vascular problem declined physical therapy declined any x-rays declined any testing to be done. She also complains of having bilateral leg burning sensation with a check on the pulse and they were equal and strong. Discussed that this is not vascular and testing for the nerve advised. Discussed that this may be part of the diabetes problem or because of the chronic lumbar failed back syndrome part of it. [facility] Medical History (Updated 04/22/23 @ 11:13 by Duke Hale MD) Tobacco abuse Acute bacterial tonsillitis Acute bacterial pharyngitis Acute gastroenteritis Shingles Encounter for removal of maria r Scalp laceration Knee effusion, left Blood pressure elevated without history of HTN Wrist pain COVID-19 virus infection Witnessed apneic spells Colon cancer screening Breast cancer screening by mammogram Dysuria Bilateral hand pain Folliculitis Headache Leukocytosis Palpitations Vitamin B 12 deficiency Groin abscess Closed fibular fracture Microscopic hematuria Insomnia Subclinical hyperthyroidism History of CREST syndrome Lateral malleolar fracture Chronic interstitial cystitis Uterine fibroid History of seizures Bipolar disorder Asthma Gastroesophageal reflux disease Hypercholesterolemia Failed back syndrome Surgical History History of pelvic surgery History of carpal tunnel release History of section History of tubal ligation Family History Father CVD (cardiovascular disease) Myocardial infarction Mother COPD (chronic obstructive pulmonary disease) Rheumatoid arthritis Renal failure Family/Other History of uterine cancer History of breast cancer History of ovarian cancer Other Mental health disorder Mental illness in member of household Social History Housing: Apartment Alcohol intake: former Patient Tobacco Use Status: Former Tobacco user Tobacco use type: Cigarette Cigarette Packs Per Day: 1 Cigarettes Per Day: 20.0 e-Cigarette/Vaping Use: Never Used Second Hand Smoke Exposure: No service: No Current occupational status: disabled Cognitive needs: No Hearing needs: No Vision needs: Yes Questionnaire Thrive Questionnaire Date Thrive assessed: 03/11/23 AUDIT C Alcohol Use Questionnaire (AUDIT-C) 1. How often do you have a drink containing alcohol?: Never 3. How often do you have six or more drinks on one occasion?: Never Total Score: 0 OLGA-7 AMB Questionnaire OLGA-7 Date OLGA - 7 assessed: 03/11/23 Source: Developed by Drs. Joshua Sorensen, Salma Nagy, Scot Luciano and colleagues, with an educational georges from [employer]. Physical exam (Primary Care) Vital Signs: Last Vital Signs Pulse 95 04/22/23 10:44 BP 132/70 04/22/23 10:44 Pulse Ox 96 04/22/23 10:44 Oxygen Delivery Method Room Air 04/22/23 10:44 Tobacco/Smoking Status: Tobacco use Status Tobacco use date assessed 04/22/23 04/22/23 10:45 Patient Tobacco Use Status Former Tobacco user 04/22/23 10:45 Tobacco use type Cigarette 04/22/23 10:45 e-Cigarette/Vaping Use Never Used 04/22/23 10:45 Thrive Assessment: Date of Thrive Assessment Date Thrive assessed 03/11/23 04/22/23 10:45 Const General: alert; No acute distress Eyes Conjunctivae: conjunctivae normal Resp Auscultation: clear to auscultation bilaterally Cardio Rate: regular rate Rhythm: regular rhythm GI Inspection: Yes normal to inspection Extrem General: Yes normal to inspection and No edema Assessment and Plan Assessment & Plan (1) Iliac aneurysm: Code(s): I72.3 - Aneurysm of iliac artery Plan: PAtient insist of wanting to see vascular (2) Leg numbness: Comment: bilateral Code(s): R20.0 - Anesthesia of skin Plan: Numbness of the leg will do nerve conduction test and EMG. (3) Left groin pain: Code(s): R10.32 - Left lower quadrant pain Plan: Patient insist that the groin pain is from the iliac aneurysm. Referral to vascular surgeon done Orders: Orders NE electromyogram (EMG) Today R20.0 - Anesthesia of skin NE nerve conduction velocity Today R20.0 - Anesthesia of skin Referrals Vascular Surgery Referral I72.3 - Aneurysm of iliac artery Coding Level of Care Code Est Pt Level 4 (06260) Diagnoses Iliac aneurysm I72.3 Leg numbness R20.0 Left groin pain R10.32
== END 2023-04-22 12:43 | disposition home or self-care (01) ==
PROVIDERS: PCP Internal Medicine; Visit Provider Internal Medicine
DX: I72.3 Aneurysm of iliac artery (principal); R20.0 Anesthesia of skin; R10.32 Left lower quadrant pain
CPT/HCPCS: 99214

== ENCOUNTER 2023-05-06 10:48 | Outpatient (REF) | payer OTHER, SELFPAY ==
--- NOTE | 2023-05-06 10:50 | EMG_ITS ---
Chief complaint: Bilateral leg pain and numbness, history of lumbar fusion 2009 Reason for referral: Evaluate for neuropathy Referred by: Dr. Hale Procedure done: Bilateral lower extremity NCS/EMG Precautions and/or limitations: None The limb temperature was monitored continuously and remained between 32-36 degrees C during the performance of the NCS. Nerve Conduction Studies Anti Sensory Summary Table ?Stim Site NR Onset (ms) Norm Onset (ms) Peak (ms) Norm Peak (ms) O-P Amp (?V) Norm O-P Amp Site1 Site2 Delta-0 (ms) Dist (cm) Tamir (m/s) Norm Tamir (m/s) Left Sural Anti Sensory (Lat Mall) Calf ? 2.7 3.3 <4.0 19.4 >5.0 Calf Lat Mall 2.7 14.0 52 Right Sural Anti Sensory (Lat Mall) Calf ? 2.8 3.5 <4.0 10.2 >5.0 Calf Lat Mall 2.8 14.0 50 Motor Summary Table ?Stim Site NR Onset (ms) Norm Onset (ms) O-P Amp (mV) Norm O-P Amp iAmp (mV) Amp (1st) (%) Site1 Site2 Delta-0 (ms) Dist (cm) Tamir (m/s) Norm Tamir (m/s) Left Peroneal Motor (Ext Dig Brev) Ankle ? 4.0 <4.0 4.8 >2.5 6.1 100.0 Ankle Ext Dig Brev 4.0 0.0 B Fib ? 9.5 5.5 6.9 114.6 B Fib Ankle 5.5 30.0 55 >40 Poplt ? 10.4 5.5 6.9 114.6 Poplt B Fib 0.9 6.0 67 >40 Right Peroneal Motor (Ext Dig Brev) Ankle ? 3.8 <4.0 5.8 >2.5 7.3 100.0 Ankle Ext Dig Brev 3.8 0.0 B Fib ? 10.0 5.7 7.1 98.3 B Fib Ankle 6.2 32.0 52 >40 Poplt ? 10.5 5.9 7.9 101.7 Poplt B Fib 0.5 5.0 100 >40 Left Tibial Motor (Abd Lee Brev) Ankle ? 3.3 <5 5.2 >2.5 10.0 100.0 Ankle Abd Lee Brev 3.3 0.0 Knee ? 10.5 5.4 9.0 103.8 Knee Ankle 7.2 35.0 49 >40 Right Tibial Motor (Abd Lee Brev) Ankle ? 3.2 <5 7.4 >2.5 12.3 100.0 Ankle Abd Lee Brev 3.2 0.0 Knee ? 10.0 6.1 10.1 82.4 Knee Ankle 6.8 35.0 51 >40 EMG ?Side Muscle Nerve Root Ins Act Fibs Psw Amp Dur Poly Recrt Int Pat Comment Right AbdHallucis MedPlantar S1-2 Nml Nml Nml Nml Nml 0 Nml Complete Right AntTibialis Dp Br Peron L4-5 Nml Nml Nml Nml Nml 0 Nml Complete Right PostTibialis Tibial L5, S1 Nml Nml Nml Nml Nml 0 Nml Complete Right MedGastroc Tibial S1-2 Nml Nml Nml Nml Nml 0 Nml Complete Right VastusMed Femoral L2-4 Nml Nml Nml Nml Nml 0 Nml Complete Left AbdHallucis MedPlantar S1-2 Nml Nml Nml Nml Nml 0 Nml Complete Left AntTibialis Dp Br Peron L4-5 Nml Nml Nml Nml Nml 0 Nml Complete Left PostTibialis Tibial L5, S1 Nml Nml Nml Nml Nml 0 Nml Complete Left MedGastroc Tibial S1-2 Nml Nml Nml Nml Nml 0 Nml Complete Left VastusMed Femoral L2-4 Nml Nml Nml Nml Nml 0 Nml Complete FINDINGS: All motor and sensory nerves tested showed normal latencies, amplitudes and conduction velocities. Concentric needle EMG was performed in selected muscles of the bilateral lower extremity. Study delete did not reveal signs of electric abnormalities as shown in the table below. IMPRESSION: 1. This is a normal study. 2. There is no electrodiagnostic evidence for peroneal neuropathy, tibial neuropathy, lumbosacral plexopathy, lumbar radiculopathy, or peripheral neuropathy. Thank you for your kind referral. Berna Richards MD, KAREN Board Certified, [place] [employer] and [employer] (ABPMR) Board Certified, [place] [employer] Electrodiagnostic Medicine (ABEM) CODIN 64089 x 2 MTDD
== END 2023-05-06 10:49 | disposition home or self-care (01) ==
LOC: HO.NEURO 10:48
PROVIDERS: PCP Internal Medicine; Visit Provider Internal Medicine
DX: R20.0 Anesthesia of skin (principal)
CPT/HCPCS: 95886; 95909

== ENCOUNTER → 2023-05-06 10:50 | Outpatient (BNV) | payer OTHER, SELFPAY | PROVIDERS: PCP Internal Medicine; Visit Provider Physical Medicine & Rehabilitation | DX: M79.604 Pain in right leg (principal); M79.605 Pain in left leg; R20.2 Paresthesia of skin | CPT/HCPCS: 95886; 95909 ==

== ENCOUNTER 2023-05-10 11:11 | Outpatient (AMB) | payer OTHER, SELFPAY ==
[2023-05-10 11:16] VITALS: BP 132/78; PULSE 83; O2SAT 96
--- NOTE | 2023-05-10 11:16 | A.OFFPC_ITS ---
Vital Signs 05/10/23 11:16 Height 5 ft 1 in Weight 159 lb 0.8 oz BMI 30.0 BP 132/78 Blood Pressure Location Lt brachial Position Sitting Pulse 83 Pulse Source Pulse Oximeter Pulse Oximetry (%) 96 Oxygen Delivery Method Room Air Intake Visit Reasons: Follow up Intake Note: Patient is here to follow up Log Cooker Required: No Allergies topiramate [From TOPAMAX] Allergy (Severe, Verified 05/10/23 11:17) RASH, ITCH, DIFF BREATHING pineapple [Pineapple] Allergy (Mild, Verified 05/10/23 11:17) THROAT SWELLING duloxetine [Cymbalta] Allergy (Unknown, Verified 05/10/23 11:17) dizziness,vomiting levetiracetam Allergy (Unknown, Verified 05/10/23 11:17) Hives milnacipran [Savella] Allergy (Unknown, Verified 05/10/23 11:17) rash pregabalin Allergy (Unknown, Verified 05/10/23 11:17) nausous quetiapine [Seroquel] Allergy (Unknown, Verified 05/10/23 11:17) Hives sumatriptan [Imitrex] Allergy (Unknown, Verified 05/10/23 11:17) rash simvastatin Adverse Reaction (Intermediate, Verified 05/10/23 11:17) Nausea and Vomiting Seafood Allergy (Mild, Uncoded 05/10/23 11:17) RASH Medication List - Last Reconciled 05/10/23 by Duke Hale MD acetaminophen (Tylenol Extra Strength) 500 mg PO QID PRN albuterol sulfate 90 mcg/actuation (Ventolin HFA) 2 puffs inhalation Q6H PRN amitriptyline 10 mg PO BEDTIME [AUTOPAP 6-20 cm H20 humidified Air As directed] blood pressure monitor (Blood Pressure Kit) As directed blood sugar diagnostic (FreeStyle Lite Strips) As directed check the BS QD blood-glucose meter (FreeStyle Lite Meter kit) As directed cetirizine 10 mg PO DAILY cyanocobalamin (vitamin B-12) 1,000 mcg PO DAILY cyclobenzaprine 5 mg PO BEDTIME PRN 90 days diclofenac sodium 1% (Arthritis Pain (diclofenac)) 4 grams topical QID duloxetine 20 mg PO DAILY fluticasone propionate 50 mcg/actuation 1 spray intranasal DAILY folic acid 1 mg PO DAILY gabapentin 600 mg PO TID 90 days ketotifen fumarate 0.025%(0.035%) 1 drp ophthalmic (eye) BID lancets (FreeStyle Lancets) As directed check BS QD lidocaine 5% 2 patches topical DAILY 15 days lisinopril 5 mg PO DAILY lorazepam 0.5 mg PO DAILY PRN meloxicam 15 mg PO DAILY 90 days metformin 1,000 mg PO BID omeprazole 20 mg PO DAILY 90 days ondansetron HCl 4 mg PO Q6H oxycodone-acetaminophen 7.5-325 mg (Percocet) 1 tab PO Q8H PRN pravastatin 80 mg PO BEDTIME 90 days ranitidine HCl 300 mg PO BEDTIME silver sulfadiazine 1% (Silvadene) 1 appl topical BID valacyclovir 1,000 mg PO Q8H 7 days Tobacco use date assessed: 05/10/23 HPI Follow up HPI Details 53-year-old obese female with uncontroll ed diabetes mellitus hypercholesterolemia GERD obstructive sleep apnea hypertension and failed back syndrome comes in monthly for refill on the narcotic pain medication. Last seen in April 21 for concerns about groin pain and leg numbness. And nerve conduction test was requested this is negative. [facility] Medical History (Updated 04/22/23 @ 11:13 by Duke Hale MD) Tobacco abuse Acute bacterial tonsillitis Acute bacterial pharyngitis Acute gastroenteritis Shingles Encounter for removal of maria r Scalp laceration Knee effusion, left Blood pressure elevated without history of HTN Wrist pain COVID-19 virus infection Witnessed apneic spells Colon cancer screening Breast cancer screening by mammogram Dysuria Bilateral hand pain Folliculitis Headache Leukocytosis Palpitations Vitamin B 12 deficiency Groin abscess Closed fibular fracture Microscopic hematuria Insomnia Subclinical hyperthyroidism History of CREST syndrome Lateral malleolar fracture Chronic interstitial cystitis Uterine fibroid History of seizures Bipolar disorder Asthma Gastroesophageal reflux disease Hypercholesterolemia Failed back syndrome Surgical History History of pelvic surgery History of carpal tunnel release History of section History of tubal ligation Family History Father CVD (cardiovascular disease) Myocardial infarction Mother COPD (chronic obstructive pulmonary disease) Rheumatoid arthritis Renal failure Family/Other History of uterine cancer History of breast cancer History of ovarian cancer Other Mental health disorder Mental illness in member of household Social History Housing: Apartment Alcohol intake: former Patient Tobacco Use Status: Former Tobacco user Tobacco use type: Cigarette Cigarette Packs Per Day: 1 Cigarettes Per Day: 20.0 e-Cigarette/Vaping Use: Never Used Second Hand Smoke Exposure: No service: No Current occupational status: disabled Cognitive needs: No Hearing needs: No Vision needs: Yes Questionnaire Thrive Questionnaire Date Thrive assessed: 03/11/23 I am a: Patient What is your living situation today?: I have a steady place to live Within the past 12 months, did the food you bought not last and you didn't have the money to get more?: Never true Within the past 12 months, did you worry whether your food would run out before you got money to buy more?: Never true Do you have trouble paying for medicines?: No Do you have trouble getting transportation to medical appointments?: No Do you have trouble paying your heating and electricity bill?: No Do you have trouble taking care of your child, family member or friend?: No Do you have trouble with day-to-day activities such as bathing, preparing meals, shopping, managing finances, etc.?: No Are you currently unemployed and looking for a job?: No Are you interested in more education?: No Please select the resources that you would like help with: None THRIVE Score: 0 AUDIT C Alcohol Use Questionnaire (AUDIT-C) 1. How often do you have a drink containing alcohol?: Never 3. How often do you have six or more drinks on one occasion?: Never Total Score: 0 OLGA-7 AMB Questionnaire OLGA-7 Date OLGA - 7 assessed: 03/11/23 Source: Developed by Drs. Joshua Sorensen, Salma Nagy, Scot Luciano and colleagues, with an educational georges from [employer]. Physical exam (Primary Care) Vital Signs: Last Vital Signs Pulse 83 05/10/23 11:16 BP 132/78 05/10/23 11:16 Pulse Ox 96 05/10/23 11:16 Oxygen Delivery Method Room Air 05/10/23 11:16 BMI result Body Mass Index 30.0 Tobacco/Smoking Status: Tobacco use Status Tobacco use date assessed 05/10/23 05/10/23 11:17 Patient Tobacco Use Status Former Tobacco user 05/10/23 11:17 Tobacco use type Cigarette 05/10/23 11:17 e-Cigarette/Vaping Use Never Used 05/10/23 11:17 Thrive Assessment: Date of Thrive Assessment Date Thrive assessed 03/11/23 05/10/23 11:17 Const General: alert; No acute distress Eyes Conjunctivae: conjunctivae normal Resp Auscultation: clear to auscultation bilaterally Cardio Rate: regular rate Rhythm: regular rhythm GI Inspection: Yes normal to inspection Extrem General: Yes normal to inspection and No edema Assessment and Plan Assessment & Plan (1) Type 2 diabetes mellitus with hyperglycemia: Code(s): E11.65 - Type 2 diabetes mellitus with hyperglycemia Plan: Decrease the amount of carbohydrate intake, pasta, bread, rice and potatoes are all sugar and that is aside from all the sweet stuff, remember that fruits are good but they are Sweet also. Hemoglobin A1c goal of less than 6.5. Presently on metformin 1000 mg twice a day (2) Hypertension: Code(s): I10 - Essential (primary) hypertension Plan: Continue with blood pressure medication. Decrease salt intake and exercise patient on lisinopril 5 mg once a day (3) Hypercholesterolemia: Code(s): E78.00 - Pure hypercholesterolemia, unspecified Plan: Avoid fried foods, chicken skin, eggs, butter margarine, pastries and meat. 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 Novak, dorsal column stimulator Dr. Herrera 09/15/2011, 11/2015 Code(s): M96.1 - Postlaminectomy syndrome, not elsewhere classified Plan: Narcotic pain meds: Is being prescribed with the understanding that these medications are potentially addictive and should be used only when absolutely necessary and must always be secured. Any remaining pills should be safely disposed off appropriately. Patient is advised that narcotics can impaired judgment and one should not drive or operate heavy machinery while taking these medications. Never share these medications with anybody and do not leave them unattended. They will not be replaced under any circumstances. (5) Obesity (BMI 30.0-34.9): Code(s): E66.9 - Obesity, unspecified Plan: Noted weight loss, continue with diet and exercise Medications: Refilled oxycodone-acetaminophen 7.5-325 mg (Percocet) partial fill upon request 1 tab PO Q8H PRN 84 tabs 0RF pain M96.1 - Postlaminectomy syndrome, not elsewhere classified omeprazole 20 mg PO DAILY 90 caps 3RF 90 days K21.9 - Gastro-esophageal reflux disease without esophagitis Coding Level of Care Code Est Pt Level 4 (23984) Diagnoses Type 2 diabetes mellitus with hyperglycemia E11.65 Hypertension I10 Hypercholesterolemia E78.00 Failed back syndrome M96.1 Obesity (BMI 30.0-34.9) E66.9
== END 2023-05-10 12:47 | disposition home or self-care (01) ==
PROVIDERS: PCP Internal Medicine; Visit Provider Internal Medicine
DX: E11.65 Type 2 diabetes mellitus with hyperglycemia (principal); I10 Essential (primary) hypertension; E66.9 Obesity, unspecified; Z68.30 Body mass index [BMI] 30.0-30.9, adult; E78.00 Pure hypercholesterolemia, unspecified; M96.1 Postlaminectomy syndrome, not elsewhere classified
CPT/HCPCS: 99214

== ENCOUNTER 2023-06-10 11:05 | Outpatient (AMB) | payer OTHER, SELFPAY ==
--- NOTE | 2023-06-10 11:36 | MHC.PC.OV ---
Vital Signs 06/10/23 11:38 Height 5 ft 1 in Weight 157 lb 2 oz BMI 29.7 BP 138/90 H Blood Pressure Location Lt brachial Position Sitting Intake Visit Reasons: Follow up Intake Note: Patient is here to follow up on DM, HTN, Asthma. Filler And Trimmer Required: No Competitive Intelligence Analyst: Not Required per policy Accompanied by: Self / Same As Patient Allergies topiramate [From TOPAMAX] Allergy (Severe, Verified 06/10/23 11:38) RASH, ITCH, DIFF BREATHING pineapple [Pineapple] Allergy (Mild, Verified 06/10/23 11:38) THROAT SWELLING duloxetine [Cymbalta] Allergy (Unknown, Verified 06/10/23 11:38) dizziness,vomiting levetiracetam Allergy (Unknown, Verified 06/10/23 11:38) Hives milnacipran [Savella] Allergy (Unknown, Verified 06/10/23 11:38) rash pregabalin Allergy (Unknown, Verified 06/10/23 11:38) nausous quetiapine [Seroquel] Allergy (Unknown, Verified 06/10/23 11:38) Hives sumatriptan [Imitrex] Allergy (Unknown, Verified 06/10/23 11:38) rash simvastatin Adverse Reaction (Intermediate, Verified 06/10/23 11:38) Nausea and Vomiting Seafood Allergy (Mild, Uncoded 06/10/23 11:38) RASH Tobacco use date assessed: 06/10/23 Dental Screening Dental Screen Date: 04/22/23 HPI Follow up HPI Details 53-year-old overweight female with diabetes mellitus hypertension hypercholesterolemia coming in for follow-up has a history of failed back syndrome on narcotic pain medication. [facility] Medical History (Updated 04/22/23 @ 11:13 by Duke Hale MD) Tobacco abuse Acute bacterial tonsillitis Acute bacterial pharyngitis Acute gastroenteritis Shingles Encounter for removal of maria r Scalp laceration Knee effusion, left Blood pressure elevated without history of HTN Wrist pain COVID-19 virus infection Witnessed apneic spells Colon cancer screening Breast cancer screening by mammogram Dysuria Bilateral hand pain Folliculitis Headache Leukocytosis Palpitations Vitamin B 12 deficiency Groin abscess Closed fibular fracture Microscopic hematuria Insomnia Subclinical hyperthyroidism History of CREST syndrome Lateral malleolar fracture Chronic interstitial cystitis Uterine fibroid History of seizures Bipolar disorder Asthma Gastroesophageal reflux disease Hypercholesterolemia Failed back syndrome Surgical History History of pelvic surgery History of carpal tunnel release History of section History of tubal ligation Family History Father CVD (cardiovascular disease) Myocardial infarction Mother COPD (chronic obstructive pulmonary disease) Rheumatoid arthritis Renal failure Family/Other History of uterine cancer History of breast cancer History of ovarian cancer Other Mental health disorder Mental illness in member of household Social History Housing: Apartment Alcohol intake: former Patient Tobacco Use Status: Former Tobacco user Tobacco use type: Cigarette Cigarette Packs Per Day: 1 Cigarettes Per Day: 20.0 e-Cigarette/Vaping Use: Never Used Second Hand Smoke Exposure: No service: No Current occupational status: disabled Cognitive needs: No Hearing needs: No Vision needs: Yes Questionnaire PHQ-9 Over the last 2 weeks, how often have you been bothered by any of the following problems? 1. Little interest or pleasure in doing things: not at all 2. Feeling down, depressed, or hopeless: not at all 3. Trouble falling or staying asleep, or sleeping too much: not at all 4. Feeling tired or having little energy: not at all 5. Poor appetite or overeating: not at all 6. Feeling bad about yourself - or that you are a failure or have let yourself or your family down: not at all 7. Trouble concentrating on things, such as reading the newspaper or watching television: not at all 8. Moving or speaking so slowly that other people could have noticed. Or the opposite - being so fidgety or restless that you have been moving around a lot more than usual: not at all 9. Thoughts that you would be better off or of hurting yourself in some way: not at all Total score: 0 Depression Screening Interpretation: Negative Depression Screening Done: Yes Source: Developed by Drs. Joshua Sorensen, Salma Nagy, Scot Luciano and colleagues, with an educational georges from [employer]. Thrive Questionnaire Date Thrive assessed: 03/11/23 OLGA-7 AMB Questionnaire OLGA-7 Date OLGA - 7 assessed: 03/11/23 Source: Developed by Drs. Joshua Sorensen, Salma Nagy, Scot Luciano and colleagues, with an educational georges from [employer]. Physical exam (Primary Care) Vital Signs: Last Vital Signs BP 138/90 H 06/10/23 11:38 BMI result Body Mass Index 29.7 Tobacco/Smoking Status: Tobacco use Status Tobacco use date assessed 06/10/23 06/10/23 11:43 Patient Tobacco Use Status Former Tobacco user 06/10/23 11:43 Tobacco use type Cigarette 06/10/23 11:43 e-Cigarette/Vaping Use Never Used 06/10/23 11:43 PHQ-9: PHQ-9 Score PHQ-9: Total score 0 06/10/23 11:43 Depression Screening Interpretation: Negative Thrive Assessment: Date of Thrive Assessment Date Thrive assessed 03/11/23 06/10/23 11:43 Const General: alert; No acute distress Eyes Conjunctivae: conjunctivae normal Resp Auscultation: clear to auscultation bilaterally Cardio Rate: regular rate Rhythm: regular rhythm GI Inspection: Yes normal to inspection Extrem General: Yes normal to inspection and No edema Assessment and Plan Assessment & Plan (1) Failed back syndrome: Comment: L5-S1 a LIF 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 Novak, dorsal column stimulator Dr. Herrera 09/15/2011, 11/2015 Code(s): M96.1 - Postlaminectomy syndrome, not elsewhere classified Plan: Narcotic pain meds: Is being prescribed with the understanding that these medications are potentially addictive and should be used only when absolutely necessary and must always be secured. Any remaining pills should be safely disposed off appropriately. Patient is advised that narcotics can impaired judgment and one should not drive or operate heavy machinery while taking these medications. Never share these medications with anybody and do not leave them unattended. They will not be replaced under any circumstances. (2) Type 2 diabetes mellitus with hyperglycemia: Code(s): E11.65 - Type 2 diabetes mellitus with hyperglycemia Plan: Decrease the amount of carbohydrate intake, pasta, bread, rice and potatoes are all sugar and that is aside from all the sweet stuff, remember that fruits are good but they are Sweet also. Hemoglobin A1c goal of less than 6.5. Patient is at goal March 2023 last test 6.3 (3) Overweight (BMI 25.0-29.9): Code(s): E66.3 - Overweight Plan: Diet and exercise (4) Obstructive sleep apnea hypopnea, severe: Comment: CPAP Code(s): G47.33 - Obstructive sleep apnea (adult) (pediatric) Plan: Continue to use the CPAP more than 4 hours a night and benefits from the (5) Hypercholesterolemia: Code(s): E78.00 - Pure hypercholesterolemia, unspecified Plan: Avoid fried foods, chicken skin, eggs, butter margarine, pastries and meat. Be it pork or beef they have a lot of cholesterol LDL goal of less than 100 and triglyceride of less than 150 patient presently on pravastatin 80 mg once a day but the LDL was slightly above 100 continue to follow-up Medications: Refilled acetaminophen (Tylenol Extra Strength) 500 mg PO QID PRN 30 tabs 0RF pain R51.9 - Headache, unspecified oxycodone-acetaminophen 7.5-325 mg (Percocet) partial fill upon request 1 tab PO Q8H PRN 84 tabs 0RF pain M96.1 - Postlaminectomy syndrome, not elsewhere classified Coding Level of Care Code Est Pt Level 4 (64846) Diagnoses Failed back syndrome M96.1 Type 2 diabetes mellitus with hyperglycemia E11.65 Overweight (BMI 25.0-29.9) E66.3 Obstructive sleep apnea hypopnea, severe G47.33 Hypercholesterolemia E78.00
[2023-06-10 11:38] VITALS: BP 138/90; BMI 29.7
== END 2023-06-10 12:10 | disposition home or self-care (01) ==
PROVIDERS: PCP Internal Medicine; Visit Provider Internal Medicine
DX: E11.65 Type 2 diabetes mellitus with hyperglycemia (principal); M96.1 Postlaminectomy syndrome, not elsewhere classified; E66.3 Overweight; G47.33 Obstructive sleep apnea (adult) (pediatric); E78.00 Pure hypercholesterolemia, unspecified
CPT/HCPCS: 99214

== ENCOUNTER 2023-07-08 10:58 | Outpatient (AMB) | payer OTHER, SELFPAY ==
[2023-07-08 11:00] VITALS: BP 130/82; PULSE 90; O2SAT 95; BMI 29.7
--- NOTE | 2023-07-08 11:00 | MHC.PC.OV ---
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 Allergies topiramate [From TOPAMAX] Allergy (Severe, Verified 07/08/23 11:00) RASH, ITCH, DIFF BREATHING pineapple [Pineapple] Allergy (Mild, Verified 07/08/23 11:00) THROAT SWELLING duloxetine [Cymbalta] Allergy (Unknown, Verified 07/08/23 11:00) dizziness,vomiting levetiracetam Allergy (Unknown, Verified 07/08/23 11:00) Hives milnacipran [Savella] Allergy (Unknown, Verified 07/08/23 11:00) rash pregabalin Allergy (Unknown, Verified 07/08/23 11:00) nausous quetiapine [Seroquel] Allergy (Unknown, Verified 07/08/23 11:00) Hives sumatriptan [Imitrex] Allergy (Unknown, Verified 07/08/23 11:00) rash simvastatin Adverse Reaction (Intermediate, Verified 07/08/23 11:00) Nausea and Vomiting Seafood Allergy (Mild, Uncoded 07/08/23 11:00) RASH Tobacco use date assessed: 07/08/23 Dental Screening Dental Screen Date: 04/22/23 HPI Follow up HPI Details 53 year old female with a history of diabetes mellitus severe obstructive sleep apnea hypercholesterolemia and failed back syndrome on narcotic pain medication last seen last month year for refill. Hemoglobin A1c last tested March 22.3 [facility] Medical History (Updated 04/22/23 @ 11:13 by Duke Hale MD) Tobacco abuse Acute bacterial tonsillitis Acute bacterial pharyngitis Acute gastroenteritis Shingles Encounter for removal of maria r Scalp laceration Knee effusion, left Blood pressure elevated without history of HTN Wrist pain COVID-19 virus infection Witnessed apneic spells Colon cancer screening Breast cancer screening by mammogram Dysuria Bilateral hand pain Folliculitis Headache Leukocytosis Palpitations Vitamin B 12 deficiency Groin abscess Closed fibular fracture Microscopic hematuria Insomnia Subclinical hyperthyroidism History of CREST syndrome Lateral malleolar fracture Chronic interstitial cystitis Uterine fibroid History of seizures Bipolar disorder Asthma Gastroesophageal reflux disease Hypercholesterolemia Failed back syndrome Surgical History History of pelvic surgery History of carpal tunnel release History of section History of tubal ligation Family History Father CVD (cardiovascular disease) Myocardial infarction Mother COPD (chronic obstructive pulmonary disease) Rheumatoid arthritis Renal failure Family/Other History of uterine cancer History of breast cancer History of ovarian cancer Other Mental health disorder Mental illness in member of household Social History Housing: Apartment Alcohol intake: former Patient Tobacco Use Status: Former Tobacco user Tobacco use type: Cigarette Cigarette Packs Per Day: 1 Cigarettes Per Day: 20.0 e-Cigarette/Vaping Use: Never Used Second Hand Smoke Exposure: No service: No Current occupational status: disabled Cognitive needs: No Hearing needs: No Vision needs: Yes Questionnaire Thrive Questionnaire Date Thrive assessed: 03/11/23 AUDIT C Alcohol Use Questionnaire (AUDIT-C) 1. How often do you have a drink containing alcohol?: Never 3. How often do you have six or more drinks on one occasion?: Never Total Score: 0 OLGA-7 AMB Questionnaire OLGA-7 Date OLGA - 7 assessed: 03/11/23 Source: Developed by Drs. Joshua Sorensen, Salma Nagy, Scot Luciano and colleagues, with an educational georges from [employer]. Physical exam (Primary Care) Vital Signs: Last Vital Signs Pulse 90 07/08/23 11:00 BP 130/82 07/08/23 11:00 Pulse Ox 95 07/08/23 11:00 Oxygen Delivery Method Room Air 07/08/23 11:00 BMI result Body Mass Index 29.7 Tobacco/Smoking Status: Tobacco use Status Tobacco use date assessed 07/08/23 07/08/23 11:01 Patient Tobacco Use Status Former Tobacco user 07/08/23 11:01 Tobacco use type Cigarette 07/08/23 11:01 e-Cigarette/Vaping Use Never Used 07/08/23 11:01 Thrive Assessment: Date of Thrive Assessment Date Thrive assessed 03/11/23 07/08/23 11:01 Const General: alert; No acute distress Eyes Conjunctivae: conjunctivae normal Resp Auscultation: clear to auscultation bilaterally Cardio Rate: regular rate Rhythm: regular rhythm GI Inspection: Yes normal to inspection Extrem General: Yes normal to inspection and No edema Results AMB Hemoglobin A1c AMB Hemoglobin A1c 7.1 % Last Edit by BART Chang on 07/08/23 11:18 Assessment and Plan Assessment & Plan (1) Type 2 diabetes mellitus with hyperglycemia: Code(s): E11.65 - Type 2 diabetes mellitus with hyperglycemia Plan: Decrease the amount of carbohydrate intake, pasta, bread, rice and potatoes are all sugar and that is aside from all the sweet stuff, remember that fruits are good but they are Sweet also. Hemoglobin A1c goal of less than 6.5. Patient is taking metformin a 1000 mg twice a day (2) Overweight (BMI 25.0-29.9): Code(s): E66.3 - Overweight Plan: Diet and exercise (3) Hypercholesterolemia: Code(s): E78.00 - Pure hypercholesterolemia, unspecified Plan: Avoid fried foods, chicken skin, eggs, butter margarine, pastries and meat. Be it pork or beef they have a lot of cholesterol LDL goal of less than 100 and triglyceride of less than 150. Patient has been requested to get blood work done since the last test in March had an LDL of 107. On pravastatin 80 mg once a day Orders: Orders AMB Hemoglobin A1c Today E11.65 - Type 2 diabetes mellitus with hyperglycemia Medications: New dapagliflozin propanediol (Farxiga) 5 mg PO DAILY 30 tabs 4RF E11.65 - Type 2 diabetes mellitus with hyperglycemia Refilled oxycodone-acetaminophen 7.5-325 mg (Percocet) partial fill upon request 1 tab PO Q8H PRN 84 tabs 0RF pain M96.1 - Postlaminectomy syndrome, not elsewhere classified Coding Level of Care Code Est Pt Level 4 (44919) Diagnoses Type 2 diabetes mellitus with hyperglycemia E11.65 Overweight (BMI 25.0-29.9) E66.3 Hypercholesterolemia E78.00
== END 2023-07-08 13:52 | disposition home or self-care (01) ==
PROVIDERS: PCP Internal Medicine; Visit Provider Internal Medicine
DX: E11.65 Type 2 diabetes mellitus with hyperglycemia (principal); E66.3 Overweight; E78.00 Pure hypercholesterolemia, unspecified
CPT/HCPCS: 83036; 99214

== ENCOUNTER 2023-09-05 07:38 | Outpatient (REF) | payer OTHER, SELFPAY ==
[2023-09-05 08:08] LABS: Estimated Average Glucose 146 mg/dL; Hemoglobin A1c % 6.7 % (<6.0)
[2023-09-05 08:37] LABS: Alanine Aminotransferase 30 U/L (0-31); Albumin Level 4.3 g/dL (3.5-5.0); Alkaline Phosphatase 75 U/L (39-117); Anion Gap 13 (12-20); Aspartate Amino Transferase 17 U/L (5-31); Bilirubin Total 0.2 mg/dL (0.0-1.0); Blood Urea Nitrogen 22 mg/dL (9-16); Calcium 9.9 mg/dL (8.4-10.2); Carbon Dioxide 27 mmol/L (22-29); Chloride 106 mmol/L (96-108); Cholesterol 142 mg/dL (<200); Estimated Glomerular Filt Rate > 60; Glucose Random 148 mg/dL (60-115); HDL Cholesterol 51 mg/dL (>40); LDL Cholesterol Calculated 71 mg/dL (<100); Potassium 4.6 mmol/L (3.3-5.1); Sodium 141 mmol/L (135-145); Total Protein 7.2 g/dL (6.5-8.0); Triglycerides 101 mg/dL (<150)
== END 2023-09-05 07:39 | disposition home or self-care (01) ==
LOC: HO.LAB 07:38
PROVIDERS: PCP Internal Medicine; Visit Provider Internal Medicine
DX: E11.65 Type 2 diabetes mellitus with hyperglycemia (principal); E78.00 Pure hypercholesterolemia, unspecified
CPT/HCPCS: 36415; 80053; 80061; 83036

== ENCOUNTER 2023-09-09 10:45 | Outpatient (AMB) | payer OTHER, SELFPAY ==
[2023-09-09 11:08] VITALS: BP 146/90; PULSE 88; O2SAT 98; BMI 29.7
--- NOTE | 2023-09-09 11:08 | A.OFFPC_ITS ---
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 Allergies topiramate [From TOPAMAX] Allergy (Severe, Verified 07/08/23 11:00) RASH, ITCH, DIFF BREATHING pineapple [Pineapple] Allergy (Mild, Verified 07/08/23 11:00) THROAT SWELLING duloxetine [Cymbalta] Allergy (Unknown, Verified 07/08/23 11:00) dizziness,vomiting levetiracetam Allergy (Unknown, Verified 07/08/23 11:00) Hives milnacipran [Savella] Allergy (Unknown, Verified 07/08/23 11:00) rash pregabalin Allergy (Unknown, Verified 07/08/23 11:00) nausous quetiapine [Seroquel] Allergy (Unknown, Verified 07/08/23 11:00) Hives sumatriptan [Imitrex] Allergy (Unknown, Verified 07/08/23 11:00) rash simvastatin Adverse Reaction (Intermediate, Verified 07/08/23 11:00) Nausea and Vomiting Seafood Allergy (Mild, Uncoded 07/08/23 11:00) RASH Tobacco use date assessed: 07/08/23 Dental Screening Dental Screen Date: 04/22/23 HPI Follow up HPI Details 53-year-old overweight female with uncon trolled diabetes mellitus hypercholesterolemia failed back syndrome on narcotic pain medication coming in for refill. Last seen in June 2023. Patient's mammogram is due. And has a schedule next week. [facility] Medical History (Updated 09/09/23 @ 12:12 by Duke Hale MD) Breast cancer screening by mammogram Tobacco abuse Acute bacterial tonsillitis Acute bacterial pharyngitis Acute gastroenteritis Shingles Encounter for removal of maria r Scalp laceration Knee effusion, left Blood pressure elevated without history of HTN Wrist pain COVID-19 virus infection Witnessed apneic spells Colon cancer screening Dysuria Bilateral hand pain Folliculitis Headache Leukocytosis Palpitations Vitamin B 12 deficiency Groin abscess Closed fibular fracture Microscopic hematuria Insomnia Subclinical hyperthyroidism History of CREST syndrome Lateral malleolar fracture Chronic interstitial cystitis Uterine fibroid History of seizures Bipolar disorder Asthma Gastroesophageal reflux disease Hypercholesterolemia Failed back syndrome Surgical History History of pelvic surgery History of carpal tunnel release History of section History of tubal ligation Family History Father CVD (cardiovascular disease) Myocardial infarction Mother COPD (chronic obstructive pulmonary disease) Rheumatoid arthritis Renal failure Family/Other History of uterine cancer History of breast cancer History of ovarian cancer Other Mental health disorder Mental illness in member of household Social History Housing: Apartment Alcohol intake: former Patient Tobacco Use Status: Former Tobacco user Tobacco use type: Cigarette Cigarette Packs Per Day: 1 Cigarettes Per Day: 20.0 e-Cigarette/Vaping Use: Never Used Second Hand Smoke Exposure: No service: No Current occupational status: disabled Cognitive needs: No Hearing needs: No Vision needs: Yes Questionnaire Thrive Questionnaire Date Thrive assessed: 03/11/23 AUDIT C Alcohol Use Questionnaire (AUDIT-C) 1. How often do you have a drink containing alcohol?: Never 3. How often do you have six or more drinks on one occasion?: Never Total Score: 0 OLGA-7 AMB Questionnaire OLGA-7 Date OLGA - 7 assessed: 03/11/23 Source: Developed by Drs. Joshua Sorensen, Salma Nagy, Scot Luciano and colleagues, with an educational georges from [email or web address]. Physical exam (Primary Care) Vital Signs: Last Vital Signs Pulse 88 09/09/23 11:08 BP 146/90 H 09/09/23 11:08 Pulse Ox 98 09/09/23 11:08 Oxygen Delivery Method Room Air 09/09/23 11:08 BMI result Body Mass Index 29.7 Tobacco/Smoking Status: Tobacco use Status Tobacco use date assessed 07/08/23 09/09/23 11:13 Patient Tobacco Use Status Former Tobacco user 09/09/23 11:13 Tobacco use type Cigarette 09/09/23 11:13 e-Cigarette/Vaping Use Never Used 09/09/23 11:13 Thrive Assessment: Date of Thrive Assessment Date Thrive assessed 03/11/23 09/09/23 11:13 Const General: alert; No acute distress Eyes Conjunctivae: conjunctivae normal Resp Auscultation: clear to auscultation bilaterally Cardio Rate: regular rate Rhythm: regular rhythm GI Inspection: Yes normal to inspection Extrem General: Yes normal to inspection and No edema Assessment and Plan Assessment & Plan (1) Type 2 diabetes mellitus with hyperglycemia: Code(s): E11.65 - Type 2 diabetes mellitus with hyperglycemia Plan: Decrease the amount of carbohydrate intake, pasta, bread, rice and potatoes are all sugar and that is aside from all the sweet stuff, remember that fruits are good but they are Sweet also. Hemoglobin A1c goal of less than 6.5. Patient on Farxiga 5 mg once a day metformin 1000 mg twice a day aic still high increase farxiga (2) Hypercholesterolemia: Code(s): E78.00 - Pure hypercholesterolemia, unspecified Plan: Avoid fried foods, chicken skin, eggs, butter margarine, pastries and meat. 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 Novak, dorsal column stimulator Dr. Herrera 09/15/2011, 11/2015 Code(s): M96.1 - Postlaminectomy syndrome, not elsewhere classified Plan: Narcotic pain meds: Is being prescribed with the understanding that these medications are potentially addictive and should be used only when absolutely necessary and must always be secured. Any remaining pills should be safely disposed off appropriately. Patient is advised that narcotics can impaired judgment and one should not drive or operate heavy machinery while taking these medications. Never share these medications with anybody and do not leave them unattended. They will not be replaced under any circumstances. (4) Hypertension: Code(s): I10 - Essential (primary) hypertension Plan: Continue with blood pressure medication. Decrease salt intake and exercise on lisinopril 5 mg once a day. in pain for now and will continue to monitor (5) Tendon cysts: Comment: L wrist Code(s): M67.80 - Other specified disorders of synovium and tendon, unspecified site Plan: referral to ortho Orders: Referrals Orthopedics Referral M67.80 - Other specified disorders of synovium and tendon, unspecified site Medications: Changed From dapagliflozin propanediol (Farxiga) 5 mg PO DAILY 30 tabs 4RF E11.65 - Type 2 diabetes mellitus with hyperglycemia To dapagliflozin propanediol 10 mg PO DAILY 30 tabs 3RF E11.65 - Type 2 diabetes mellitus with hyperglycemia Coding Level of Care Code Est Pt Level 4 (75990) Diagnoses Type 2 diabetes mellitus with hyperglycemia E11.65 Hypercholesterolemia E78.00 Failed back syndrome M96.1 Hypertension I10 Tendon cysts M67.80
== END 2023-09-09 13:09 | disposition home or self-care (01) ==
PROVIDERS: PCP Internal Medicine; Visit Provider Internal Medicine
DX: E11.65 Type 2 diabetes mellitus with hyperglycemia (principal); E78.00 Pure hypercholesterolemia, unspecified; M96.1 Postlaminectomy syndrome, not elsewhere classified; I10 Essential (primary) hypertension; M67.80 Other specified disorders of synovium and tendon, unspecified site
CPT/HCPCS: 99214

== ENCOUNTER 2023-09-19 10:43 | Outpatient (AMB) | payer OTHER, SELFPAY ==
[2023-09-19 11:17] VITALS: BP 132/78; PULSE 78; O2SAT 96; BMI 30.2
--- NOTE | 2023-09-19 11:17 | MHC.OFFVIS ---
Vital Signs 09/19/23 11:17 Height 5 ft 1 in Weight 160 lb 0.889 oz BMI 30.2 BP 132/78 Blood Pressure Location Lt brachial Position Sitting Pulse 78 Pulse Source Pulse Oximeter Pulse Oximetry (%) 96 Oxygen Delivery Method Room Air Intake Visit Reasons: Fibromyalgia/CM Intake Note: New patient presents today for Fibromyalgia consult, internally referred by PCP Dr Hale. C/o pain in her whole body with swelling, symptoms started years ago. Has tried percocet, she states it helps her back, but her joints, not much, has tried GAbapentin, that does not work for her. Allergies topiramate [From TOPAMAX] Allergy (Severe, Verified 09/19/23 11:21) RASH, ITCH, DIFF BREATHING pineapple [Pineapple] Allergy (Mild, Verified 09/19/23 11:21) THROAT SWELLING duloxetine [Cymbalta] Allergy (Unknown, Verified 09/19/23 11:21) dizziness,vomiting levetiracetam Allergy (Unknown, Verified 09/19/23 11:21) Hives milnacipran [Savella] Allergy (Unknown, Verified 09/19/23 11:21) rash pregabalin Allergy (Unknown, Verified 09/19/23 11:21) nausous quetiapine [Seroquel] Allergy (Unknown, Verified 09/19/23 11:21) Hives sumatriptan [Imitrex] Allergy (Unknown, Verified 09/19/23 11:21) rash simvastatin Adverse Reaction (Intermediate, Verified 09/19/23 11:21) Nausea and Vomiting Seafood Allergy (Mild, Uncoded 09/19/23 11:21) RASH Medication List - Last Reconciled 09/19/23 by Zach Charles MD acetaminophen (Tylenol Extra Strength) 500 mg PO QID PRN albuterol sulfate 90 mcg/actuation (Ventolin HFA) 2 puffs inhalation Q6H PRN amitriptyline 10 mg PO BEDTIME [AUTOPAP 6-20 cm H20 humidified Air As directed] blood pressure monitor (Blood Pressure Kit) As directed blood sugar diagnostic (FreeStyle Lite Strips) As directed check the BS QD blood-glucose meter (FreeStyle Lite Meter kit) As directed cetirizine 10 mg PO DAILY cyanocobalamin (vitamin B-12) 1,000 mcg PO DAILY cyclobenzaprine 5 mg PO BEDTIME PRN 90 days dapagliflozin propanediol 10 mg PO DAILY diclofenac sodium 1% (Arthritis Pain (diclofenac)) 4 grams topical QID duloxetine 20 mg PO DAILY fluticasone propionate 50 mcg/actuation 1 spray intranasal DAILY folic acid 1 mg PO DAILY gabapentin 600 mg PO TID 90 days ketotifen fumarate 0.025%(0.035%) 1 drp ophthalmic (eye) BID lancets (FreeStyle Lancets) As directed check BS QD lidocaine 5% 2 patches topical DAILY 15 days lisinopril 5 mg PO DAILY lorazepam 0.5 mg PO DAILY PRN meloxicam 15 mg PO DAILY 90 days metformin 1,000 mg PO BID omeprazole 20 mg PO DAILY 90 days ondansetron HCl 4 mg PO Q6H oxycodone-acetaminophen 7.5-325 mg (Percocet) 1 tab PO Q8H PRN pravastatin 80 mg PO BEDTIME 90 days ranitidine HCl 300 mg PO BEDTIME silver sulfadiazine 1% (Silvadene) 1 appl topical BID valacyclovir 1,000 mg PO Q8H 7 days HPI Comments Details: This is a 53-year-old female with fibromyalgia and limited scleroderma who presents for follow-up. She was diagnosed in [address] Meraz but she never followed up afterwards. She states that she took multiple meds for fibromyalgia in the past, especially the Baez, she could not take it due to significant cognitive defects. She states that she has pain and swelling of her hands, wrists, knuckles, knees, ankle and feet. Morning stiffness lasting hours, she denies any significant acid reflux, denies any chest pain or shortness of breath. She has known significant degenerative disease of her spine and has a stimulator. [facility] Medical History Breast cancer screening by mammogram Tobacco abuse Acute bacterial tonsillitis Acute bacterial pharyngitis Acute gastroenteritis Shingles Encounter for removal of maria r Scalp laceration Knee effusion, left Blood pressure elevated without history of HTN Wrist pain COVID-19 virus infection Witnessed apneic spells Colon cancer screening Dysuria Bilateral hand pain Folliculitis Headache Leukocytosis Palpitations Vitamin B 12 deficiency Groin abscess Closed fibular fracture Microscopic hematuria Insomnia Subclinical hyperthyroidism History of CREST syndrome Lateral malleolar fracture Chronic interstitial cystitis Uterine fibroid History of seizures Bipolar disorder Asthma Gastroesophageal reflux disease Hypercholesterolemia Failed back syndrome Surgical History History of pelvic surgery History of carpal tunnel release History of section History of tubal ligation Family History Father CVD (cardiovascular disease) Myocardial infarction Mother COPD (chronic obstructive pulmonary disease) Rheumatoid arthritis Renal failure Family/Other History of uterine cancer History of breast cancer History of ovarian cancer Daughter Lupus Brother Lupus Other Mental health disorder Mental illness in member of household Social History Housing: Apartment Alcohol intake: former Patient Tobacco Use Status: Former Tobacco user Tobacco use type: Cigarette Cigarette Packs Per Day: 1 Cigarettes Per Day: 20.0 e-Cigarette/Vaping Use: Never Used Second Hand Smoke Exposure: No service: No Current occupational status: disabled Cognitive needs: No Hearing needs: No Vision needs: Yes Review of Systems Musc Reports back pain, Reports arthralgias, Reports joint swelling and Reports stiffness Physical Exam Vital Signs: Last Vital Signs Pulse 78 09/19/23 11:17 BP 132/78 09/19/23 11:17 Pulse Ox 96 09/19/23 11:17 Oxygen Delivery Method Room Air 09/19/23 11:17 BMI result Body Mass Index 30.2 Const General: cooperative, healthy appearing and comfortable Nutritional Appearance: overweight Orientation/consciousness: patient oriented x3 Limitations: no limitations HEENT Head: Yes normocephalic and Yes atraumatic Mouth: moist mucous membranes Resp Effort & Inspection: normal respiratory effort and able to speak in complete sentences Auscultation: clear to auscultation bilaterally Cardio Rate: regular rate Rhythm: regular rhythm Skin Other: Subtle telangiectasias on lower lip Neuro General: patient oriented x3 Extrem Other: Bilateral sclerodactyly Puffiness of MCPs, fingers, will are tender to palpation Bilateral elbow pain with full extension Bilateral knee pain with flexion-extension Normal nailfold capillaroscopy Assessment & Plan Assessment & Plan (1) Limited scleroderma: Comment: dx 2018 (Raynaud's, sclerodactyly, telangiectasias, ++ centromere antibody) Code(s): M34.9 - Systemic sclerosis, unspecified Category: Medical Plan: This is a 53-year-old female with limited scleroderma and fibromyalgia who presents for as a new patient. He is not on any DMARDs. On exam she has multiple swollen joints. Will need to start a DMARD. Has risks and benefits of hydroxychloroquine. Patient agreed to proceed. Start hydroxychloroquine 400 mg x 5 days a week and 200 mg x 2 days a week. Start prednisone taper Check labs . 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 Plan I spent 48 minutes reviewing patient's chart, evaluating patient, ordering diagnostic workup, counseling patient and documenting in the chart Orders: Orders Anti Extractable Nuclear Ag Today M32.9 - Systemic lupus erythematosus, unspecified Anti DNA DS Antibody Today M32.9 - Systemic lupus erythematosus, unspecified Complement C4 Today M32.9 - Systemic lupus erythematosus, unspecified Protein Creatinine Ratio, Ur Today M32.9 - Systemic lupus erythematosus, unspecified Complete Blood Count Auto Diff Today M32.9 - Systemic lupus erythematosus, unspecified Comprehensive Met. Panel Today M32.9 - Systemic lupus erythematosus, unspecified Hepatitis A,B,C Profile Today Z11.59 - Encounter for screening for other viral diseases Immunofixation Pnl, Serum Today M32.9 - Systemic lupus erythematosus, unspecified PFT pulmonary function test Today R06.02 - Shortness of breath NATHANIEL Reflex Titer and Pattern Today M32.9 - Systemic lupus erythematosus, unspecified Complement C3 Today M32.9 - Systemic lupus erythematosus, unspecified DNA Double Stranded-Crithidia Today M32.9 - Systemic lupus erythematosus, unspecified Erythrocyte Sedimentation Rate Today M32.9 - Systemic lupus erythematosus, unspecified C Reactive Protein Today M32.9 - Systemic lupus erythematosus, unspecified Sjogren's Antibodies Today M32.9 - Systemic lupus erythematosus, unspecified UA w Microscopic Today M32.9 - Systemic lupus erythematosus, unspecified Protein Electrophoresis, Serum Today M32.9 - Systemic lupus erythematosus, unspecified T Spot TB Today Z11.7 - Encounter for testing for latent tuberculosis infection CA echo transthoracic complete Today M34.9 - Systemic sclerosis, unspecified Medications: New prednisone Take 3 tabs daily for 1 week, 2 tabs daily for 1 week, 1 tab daily for 1 week then stop 42 tabs 0RF hydroxychloroquine Take 2 tabs a day x5 days a week and 1 tab a day x2 days a week 48 tabs 1RF Coding Level of Care Code New Pt Level 4 (51271) Diagnoses Limited scleroderma M34.9 Long-term use of hydroxychloroquine Z79.899
== END 2023-09-19 11:54 | disposition home or self-care (01) ==
PROVIDERS: PCP Internal Medicine; Visit Provider Student in an Organized Health Care Education/Training Program
DX: M34.9 Systemic sclerosis, unspecified (principal); Z79.899 Other long term (current) drug therapy
CPT/HCPCS: 99204

== ENCOUNTER → 2023-09-19 10:43 | Outpatient (BNVA) | payer OTHER, SELFPAY | PROVIDERS: PCP Internal Medicine; Visit Provider Student in an Organized Health Care Education/Training Program | DX: M79.7 Fibromyalgia (principal); M34.9 Systemic sclerosis, unspecified; M32.9 Systemic lupus erythematosus, unspecified; R06.02 Shortness of breath; Z79.899 Other long term (current) drug therapy | CPT/HCPCS: 99202 ==

== ENCOUNTER 2023-10-10 10:51 | Outpatient (AMB) | payer OTHER, SELFPAY ==
[2023-10-10 10:54] VITALS: BP 162/88; PULSE 89; O2SAT 96; BMI 29.5
--- NOTE | 2023-10-10 10:54 | A.OFFPC_ITS ---
Vital Signs 10/10/23 10:54 Height 5 ft 1 in Weight 156 lb BMI 29.5 BP 162/88 H Blood Pressure Location Lt brachial Position Sitting Pulse 89 Pulse Source Pulse Oximeter Pulse Oximetry (%) 96 Oxygen Delivery Method Room Air Intake Visit Reasons: Follow up Intake Note: Patient did drink coffee prior to coming in.\ Allergies topiramate [From TOPAMAX] Allergy (Severe, Verified 10/10/23 10:54) RASH, ITCH, DIFF BREATHING pineapple [Pineapple] Allergy (Mild, Verified 10/10/23 10:54) THROAT SWELLING duloxetine [Cymbalta] Allergy (Unknown, Verified 10/10/23 10:54) dizziness,vomiting levetiracetam Allergy (Unknown, Verified 10/10/23 10:54) Hives milnacipran [Savella] Allergy (Unknown, Verified 10/10/23 10:54) rash pregabalin Allergy (Unknown, Verified 10/10/23 10:54) nausous quetiapine [Seroquel] Allergy (Unknown, Verified 10/10/23 10:54) Hives sumatriptan [Imitrex] Allergy (Unknown, Verified 10/10/23 10:54) rash simvastatin Adverse Reaction (Intermediate, Verified 10/10/23 10:54) Nausea and Vomiting Seafood Allergy (Mild, Uncoded 10/10/23 10:54) RASH Tobacco use date assessed: 07/08/23 Dental Screening Dental Screen Date: 04/22/23 HPI Follow up HPI Details 53-year-old overweight female(noted 4 lb weight loss) with diabetes mellitus hypercholesterolemia hypertension and failed back syndrome coming in for follow-up. Patient is seen for refill on the narcotic pain medication but the same time following with diabetes. Last hemoglobin A1c was in August.7. Patient is due for mammogram. And colonoscopy. Review of the notes has seen Nephrology in 09/29/2023 diagnosis of hypertension has a diagnosis of crest syndrome workup being done for hematuria. Renal ultrasound and complement testing. Patient also has seen Rheumatology concern about diagnosis of limited scleroderma(Raynaud's, sclerodactyly, telangiectasias, +2 centromere antibody) advised to start on DMARD hydroxychloroquine 400 mg x5 days a week and 200 mg x 2 days a week and started on prednisone. PFSH Medical History Breast cancer screening by mammogram Tobacco abuse Acute bacterial tonsillitis Acute bacterial pharyngitis Acute gastroenteritis Shingles Encounter for removal of maria r Scalp laceration Knee effusion, left Blood pressure elevated without history of HTN Wrist pain COVID-19 virus infection Witnessed apneic spells Colon cancer screening Dysuria Bilateral hand pain Folliculitis Headache Leukocytosis Palpitations Vitamin B 12 deficiency Groin abscess Closed fibular fracture Microscopic hematuria Insomnia Subclinical hyperthyroidism History of CREST syndrome Lateral malleolar fracture Chronic interstitial cystitis Uterine fibroid History of seizures Bipolar disorder Asthma Gastroesophageal reflux disease Hypercholesterolemia Failed back syndrome Surgical History History of pelvic surgery History of carpal tunnel release History of section History of tubal ligation Family History Father CVD (cardiovascular disease) Myocardial infarction Mother COPD (chronic obstructive pulmonary disease) Rheumatoid arthritis Renal failure Family/Other History of uterine cancer History of breast cancer History of ovarian cancer Daughter Lupus Brother Lupus Other Mental health disorder Mental illness in member of household Social History Housing: Apartment Alcohol intake: former Patient Tobacco Use Status: Former Tobacco user Tobacco use type: Cigarette Cigarette Packs Per Day: 1 Cigarettes Per Day: 20.0 e-Cigarette/Vaping Use: Never Used Second Hand Smoke Exposure: No service: No Current occupational status: disabled Cognitive needs: No Hearing needs: No Vision needs: Yes Questionnaire PHQ-9 Over the last 2 weeks, how often have you been bothered by any of the following problems? 1. Little interest or pleasure in doing things: not at all 2. Feeling down, depressed, or hopeless: not at all 3. Trouble falling or staying asleep, or sleeping too much: not at all 4. Feeling tired or having little energy: not at all 5. Poor appetite or overeating: not at all 6. Feeling bad about yourself - or that you are a failure or have let yourself or your family down: not at all 7. Trouble concentrating on things, such as reading the newspaper or watching television: not at all 8. Moving or speaking so slowly that other people could have noticed. Or the opposite - being so fidgety or restless that you have been moving around a lot more than usual: not at all 9. Thoughts that you would be better off or of hurting yourself in some way: not at all Total score: 0 Depression Screening Interpretation: Negative Depression Screening Done: Yes Source: Developed by Drs. Joshua Sorensen, Scot Guerrero and colleagues, with an educational georges from [employer]. Thrive Questionnaire Date Thrive assessed: 03/11/23 AUDIT C Alcohol Use Questionnaire (AUDIT-C) 1. How often do you have a drink containing alcohol?: Never 3. How often do you have six or more drinks on one occasion?: Never Total Score: 0 OLGA-7 AMB Questionnaire OLGA-7 Date OLGA - 7 assessed: 03/11/23 Source: Developed by Drs. Joshua Sorensen, Salma Nagy, Scot Luciano and colleagues, with an educational georges from [employer]. Physical exam (Primary Care) Vital Signs: Last Vital Signs Pulse 89 10/10/23 10:54 BP 162/88 H 10/10/23 10:54 Pulse Ox 96 10/10/23 10:54 Oxygen Delivery Method Room Air 10/10/23 10:54 BMI result Body Mass Index 29.5 Tobacco/Smoking Status: Tobacco use Status Tobacco use date assessed 07/08/23 10/10/23 10:57 Patient Tobacco Use Status Former Tobacco user 10/10/23 10:57 Tobacco use type Cigarette 10/10/23 10:57 e-Cigarette/Vaping Use Never Used 10/10/23 10:57 PHQ-9: PHQ-9 Score PHQ-9: Total score 0 10/10/23 11:23 Depression Screening Interpretation: Negative Thrive Assessment: Date of Thrive Assessment Date Thrive assessed 03/11/23 10/10/23 10:57 Const General: alert; No acute distress Eyes Conjunctivae: conjunctivae normal Resp Auscultation: clear to auscultation bilaterally Cardio Rate: regular rate Rhythm: regular rhythm GI Inspection: Yes normal to inspection Extrem General: Yes normal to inspection and No edema Assessment and Plan Assessment & Plan (1) Limited scleroderma: Comment: dx 2018 (Raynaud's, sclerodactyly, telangiectasias, ++ centromere antibody) Code(s): M34.9 - Systemic sclerosis, unspecified Plan: Patient is being followed up by Rheumatology and has started on DMARDs hydroxychloroquine and prednisone (2) Breast cancer screening by mammogram: Code(s): Z12.31 - Encounter for screening mammogram for malignant neoplasm of breast Plan: Patient is reminded about the mammogram (3) Type 2 diabetes mellitus with hyperglycemia: Code(s): E11.65 - Type 2 diabetes mellitus with hyperglycemia Plan: Decrease the amount of carbohydrate intake, pasta, bread, rice and potatoes are all sugar and that is aside from all the sweet stuff, remember that fruits are good but they are Sweet also. Hemoglobin A1c is 6.7 and with the steroids though expect blood sugars to run up higher (4) Obstructive sleep apnea hypopnea, severe: Comment: CPAP Code(s): G47.33 - Obstructive sleep apnea (adult) (pediatric) Plan: Continue to use the CPAP more than 4 hours a night and benefits from this (5) Asthma: Comment: 30 years x1 pack per day quit July 2015 Code(s): J45.909 - Unspecified asthma, uncomplicated Plan: Continue with the inhalers as needed (6) Gastroesophageal reflux disease: Code(s): K21.9 - Gastro-esophageal reflux disease without esophagitis Qualifiers: Esophagitis presence: without esophagitis Qualified Code(s): K21.9 - Gastro-esophageal reflux disease without esophagitis Plan: Avoid the foods that causes that usually spicy foods, tomato products, juices, coffee, soda and foods that your sensitive to. After eating do not lie down, allow 3-4 hours before in lie down. And keep the head of bed above 30 degrees to avoid the acid from going up. (7) Hypercholesterolemia: Code(s): E78.00 - Pure hypercholesterolemia, unspecified Plan: Avoid fried foods, chicken skin, eggs, butter margarine, pastries and meat. Be it pork or beef they have a lot of cholesterol 09/03/2023 blood work is within normal limits on pravastatin 80 mg once a day LDL goal of less than 100. 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 Novak, dorsal column stimulator Dr. Herrera 09/15/2011, 11/2015 Code(s): M96.1 - Postlaminectomy syndrome, not elsewhere classified Plan: Narcotic pain meds: Is being prescribed with the understanding that these medications are potentially addictive and should be used only when absolutely necessary and must always be secured. Any remaining pills should be safely disposed off appropriately. Patient is advised that narcotics can impaired judgment and one should not drive or operate heavy machinery while taking these medications. Never share these medications with anybody and do not leave them unattended. They will not be replaced under any circumstances. Medications: Refilled oxycodone-acetaminophen 7.5-325 mg (Percocet) partial fill upon request 1 tab PO Q8H PRN 84 tabs 0RF pain M96.1 - Postlaminectomy syndrome, not elsewhere classified Discontinued prednisone Discontinued Reason: Patient Completed Course Take 3 tabs daily for 1 week, 2 tabs daily for 1 week, 1 tab daily for 1 week then stop 42 tabs 0RF Coding Level of Care Code Est Pt Level 4 (63912) Diagnoses Limited scleroderma M34.9 Breast cancer screening by mammogram Z12.31 Type 2 diabetes mellitus with hyperglycemia E11.65 Obstructive sleep apnea hypopnea, severe G47.33 Asthma J45.909 Gastroesophageal reflux disease without esophagitis K21.9 Esophagitis presence: without esophagitis Hypercholesterolemia E78.00 Failed back syndrome M96.1
== END 2023-10-10 16:05 | disposition home or self-care (01) ==
PROVIDERS: PCP Internal Medicine; Visit Provider Internal Medicine
DX: E11.65 Type 2 diabetes mellitus with hyperglycemia (principal); M34.9 Systemic sclerosis, unspecified; Z12.31 Encounter for screening mammogram for malignant neoplasm of breast; G47.33 Obstructive sleep apnea (adult) (pediatric); J45.909 Unspecified asthma, uncomplicated; K21.9 Gastro-esophageal reflux disease without esophagitis; E78.00 Pure hypercholesterolemia, unspecified; M96.1 Postlaminectomy syndrome, not elsewhere classified
CPT/HCPCS: 99214

== ENCOUNTER 2023-11-10 09:29 | Outpatient (REF) | payer OTHER, SELFPAY ==
[2023-11-10 09:58] LABS: MANUAL DIFF FLAG NO
[2023-11-10 11:00] LABS: Basophils Absolute Auto 0.1 X10*3/uL (0.0-0.2); Basophils Percent Auto 0.6 % (0-2); Eosinophils Absolute Auto 0.1 X10*3/uL (0.0-0.4); Eosinophils Percent Auto 1.3 % (0-4); Hematocrit 43.6 % (37.0-47.0); Hemoglobin 14.6 g/dl (12.0-16.0); Imm Gran Abs Auto 0.05 X10*3/uL (0.00-0.03); Imm Gran Pct Auto 0.5 % (0.0-0.4); Lymphocytes Absolute Auto 3.1 X10*3/uL (1.2-4.9); Lymphocytes Percent Auto 32.2 % (20-40); Mean Corpuscular HGB Conc 33.5 g/dl (31.0-35.0); Mean Corpuscular Hemoglobin 30.5 pg (27.0-33.0); Mean Platelet Volume 10.7 fL (9.4-12.3); Monocytes Absolute Auto 0.6 X10*3/uL (0.1-1.2); Monocytes Percent Auto 6.2 % (2-11); Neutrophils Absolute Auto 5.7 x10*3/uL (2.0-8.3); Neutrophils Percent Auto 59.2 % (45-73); Platelet Count 267 X10*3/uL (160-400); Red Blood Count 4.79 X10*6/uL (4.20-5.50); Red Cell Distribution Width 14.2 % (11.0-16.0); White Blood Count 9.7 X10*3/uL (4.8-10.8)
[2023-11-10 11:08] LABS: Appearance Urine Clear; Color Urine Yellow; Glucose Urine UA >=1000 mg/dL (Negative); Leukocyte Esterase Urine Negative (Negative); Nitrite Urine Negative (Negative); Specific Gravity - Urine 1.025 (1.005-1.025); UMIC TRIGGER UA YES; Urine Blood Trace (Negative); Urine Ketones Negative (Negative); Urine Protein Negative (Neg-Trace)
[2023-11-10 11:14] LABS: Bacteria Urine Trace (None Seen); Hyaline Casts Urine 0-2 /LPF (0-2); RBC Urine 0-2 /HPF (0-2); WBC Urine 0-5 /HPF (0-5)
[2023-11-10 11:23] LABS: Alanine Aminotransferase 33 U/L (0-31); Albumin Level 4.6 g/dL (3.5-5.0); Alkaline Phosphatase 77 U/L (39-117); Anion Gap 13 (12-20); Aspartate Amino Transferase 20 U/L (5-31); Bilirubin Total 0.4 mg/dL (0.0-1.0); Blood Urea Nitrogen 13 mg/dL (9-16); Calcium 9.9 mg/dL (8.4-10.2); Carbon Dioxide 25 mmol/L (22-29); Chloride 105 mmol/L (96-108); Estimated Glomerular Filt Rate > 60; Glucose Random 93 mg/dL (60-115); Potassium 4.3 mmol/L (3.3-5.1); Sodium 139 mmol/L (135-145); Total Protein 7.7 g/dL (6.5-8.0)
[2023-11-10 11:40] LABS: Creatinine Urine 80.21 mg/dL; Protein/Creatinine Ratio, Ur 0.14 (<0.2); Total Protein Urine Random 11 mg/dL (<12)
[2023-11-10 11:40] LABS: HBc Num1 0.14 S/CO (0.00-0.79); HBsAGNum1 0.43 S/CO (0.00-0.99); Hepatitis A Antibody IgM 0.11 Index (0-0.79); Hepatitis B Core Antibody Nonreactive (Nonreactive); Hepatitis B Surface Antigen Negative (Negative); ~HepC Num1 0.11 S/CO (0.00-0.79); ~Hepatitis A Antibody IgM Nonreactive (Nonreactive); ~Hepatitis B Surface Antibody NONREACTIVE (Nonreactive); ~Hepatitis C Antibody Nonreactive (Nonreactive)
[2023-11-10 11:48] LABS: Erythrocyte Sedimentation Rate 2 MM/HR (0-20)
[2023-11-11 14:27] LABS: Complement C3 156 mg/dL (83-193)
[2023-11-11 18:38] LABS: IgA 103 mg/dL (47-310); IgG 1144 mg/dL (600-1640); IgM 37 mg/dL (50-300)
[2023-11-13 05:39] LABS: TS Negative Control Passed; TS Panel A 0; TS Panel B 2; TS Positive Control Passed; TSpotTB Negative (Negative)
[2023-11-15 12:49] LABS: Prot Elec - Albumin 4.5 g/dL (3.8-4.8); Prot Elec - Alpha1 0.3 g/dL (0.2-0.3); Prot Elec - Alpha2 0.7 g/dL (0.5-0.9); Prot Elec - Beta 1 0.4 g/dL (0.4-0.6); Prot Elec - Beta 2 0.4 g/dL (0.2-0.5); Prot Elec - Gamma 1.1 g/dL (0.8-1.7); Prot Elec - Total Protein 7.3 g/dL (6.1-8.1)
[2023-11-15 17:33] LABS: DNAds, Crithidia Antibody Negative (Negative)
[2023-11-15 17:54] LABS: Anti DNA DS Antibody <1 IU/mL; Antibody to SS-A Antigen <1.0 NEG AI (<1.0 NEG); Antibody to SS-B Antigen <1.0 NEG AI (<1.0 NEG); SM/Ribonucleoprotein Ab <1.0 NEG AI (<1.0 NEG); Smith Protein <1.0 NEG AI (<1.0 NEG)
[2023-11-16 11:48] LABS: Anti Nuclear Antibody Pattern Nuclear, Centromere; Anti Nuclear Antibody Screen POSITIVE (NEGATIVE)
== END 2023-11-10 09:30 | disposition home or self-care (01) ==
LOC: HO.LAB 09:29
PROVIDERS: Absent Provider Student in an Organized Health Care Education/Training Program; PCP Internal Medicine; Visit Provider Internal Medicine
DX: M96.1 Postlaminectomy syndrome, not elsewhere classified (principal); E78.00 Pure hypercholesterolemia, unspecified; K21.9 Gastro-esophageal reflux disease without esophagitis; J45.909 Unspecified asthma, uncomplicated; G47.33 Obstructive sleep apnea (adult) (pediatric); E11.65 Type 2 diabetes mellitus with hyperglycemia; I10 Essential (primary) hypertension; M34.9 Systemic sclerosis, unspecified; Z79.891 Long term (current) use of opiate analgesic; Z79.899 Other long term (current) drug therapy; Z99.89 Dependence on other enabling machines and devices; M32.9 Systemic lupus erythematosus, unspecified; Z11.59 Encounter for screening for other viral diseases; Z11.7 Encounter for testing for latent tuberculosis infection
CPT/HCPCS: 36415; 80053; 81001; 82570; 82784; 84156; 84165; 85025; 85652; 86038; 86039; 86140; 86160; 86225; 86235; 86255; 86334; 86481; 86704; 86706; 86709; 86803; 87340; 96127; 99212

== ENCOUNTER 2023-11-10 10:15 | Outpatient (AMB) | payer OTHER, SELFPAY ==
--- NOTE | 2023-11-10 10:32 | A.OFFPC_ITS ---
Vital Signs 11/10/23 10:34 Height 5 ft 1 in Weight 154 lb BMI 29.1 BP 132/74 Blood Pressure Location Lt brachial Position Sitting Intake Visit Reasons: Med Follow Up District [facility] Administrator Required: No Accompanied by: Self / Same As Patient Allergies topiramate [From TOPAMAX] Allergy (Severe, Verified 11/10/23 10:37) RASH, ITCH, DIFF BREATHING pineapple [Pineapple] Allergy (Mild, Verified 11/10/23 10:37) THROAT SWELLING duloxetine [Cymbalta] Allergy (Unknown, Verified 11/10/23 10:37) dizziness,vomiting levetiracetam Allergy (Unknown, Verified 11/10/23 10:37) Hives milnacipran [Savella] Allergy (Unknown, Verified 11/10/23 10:37) rash pregabalin Allergy (Unknown, Verified 11/10/23 10:37) nausous quetiapine [Seroquel] Allergy (Unknown, Verified 11/10/23 10:37) Hives sumatriptan [Imitrex] Allergy (Unknown, Verified 11/10/23 10:37) rash simvastatin Adverse Reaction (Intermediate, Verified 11/10/23 10:37) Nausea and Vomiting Seafood Allergy (Mild, Uncoded 10/10/23 10:54) RASH Tobacco use date assessed: 07/08/23 Dental Screening Dental Screen Date: 04/22/23 HPI Med Follow Up HPI Details 53-year-old overweight female with faile d back syndrome on narcotic pain medication has history of diabetes mellitus obstructive sleep apnea asthma GERD hypercholesterolemia coming in for follow-up. Last seen in October 10 2023. Patient has limited scleroderma and has been followed up by Rheumatology in placed on hydroxychloroquine. Patient's mammogram is due . Patient does complain of back pain as well as joint pains but has seen Rheumatology was explained that this immune problem is causing it. Refill on narcotic pain medication today. [facility] Medical History Breast cancer screening by mammogram Tobacco abuse Acute bacterial tonsillitis Acute bacterial pharyngitis Acute gastroenteritis Shingles Encounter for removal of maria r Scalp laceration Knee effusion, left Blood pressure elevated without history of HTN Wrist pain COVID-19 virus infection Witnessed apneic spells Colon cancer screening Dysuria Bilateral hand pain Folliculitis Headache Leukocytosis Palpitations Vitamin B 12 deficiency Groin abscess Closed fibular fracture Microscopic hematuria Insomnia Subclinical hyperthyroidism History of CREST syndrome Lateral malleolar fracture Chronic interstitial cystitis Uterine fibroid History of seizures Bipolar disorder Asthma Gastroesophageal reflux disease Hypercholesterolemia Failed back syndrome Surgical History History of pelvic surgery History of carpal tunnel release History of section History of tubal ligation Family History Father CVD (cardiovascular disease) Myocardial infarction Mother COPD (chronic obstructive pulmonary disease) Rheumatoid arthritis Renal failure Family/Other History of uterine cancer History of breast cancer History of ovarian cancer Daughter Lupus Brother Lupus Other Mental health disorder Mental illness in member of household Social History Housing: Apartment Alcohol intake: former Patient Tobacco Use Status: Former Tobacco user Tobacco use type: Cigarette Cigarette Packs Per Day: 1 Cigarettes Per Day: 20.0 e-Cigarette/Vaping Use: Never Used Second Hand Smoke Exposure: No service: No Current occupational status: disabled Cognitive needs: No Hearing needs: No Vision needs: Yes Questionnaire PHQ-9 Over the last 2 weeks, how often have you been bothered by any of the following problems? 1. Little interest or pleasure in doing things: not at all 2. Feeling down, depressed, or hopeless: not at all 3. Trouble falling or staying asleep, or sleeping too much: not at all 4. Feeling tired or having little energy: not at all 5. Poor appetite or overeating: not at all 6. Feeling bad about yourself - or that you are a failure or have let yourself or your family down: not at all 7. Trouble concentrating on things, such as reading the newspaper or watching television: not at all 8. Moving or speaking so slowly that other people could have noticed. Or the opposite - being so fidgety or restless that you have been moving around a lot more than usual: not at all 9. Thoughts that you would be better off or of hurting yourself in some way: not at all Total score: 0 Source: Developed by Drs. Joshua L. Edu, Scot Guerrero and colleagues, with an educational georges from [employer]. Thrive Questionnaire Date Thrive assessed: 11/10/23 I am a: Patient What is your living situation today?: I have a steady place to live Within the past 12 months, did the food you bought not last and you didn't have the money to get more?: Never true Within the past 12 months, did you worry whether your food would run out before you got money to buy more?: Never true Do you have trouble paying for medicines?: No Do you have trouble getting transportation to medical appointments?: No Do you have trouble paying your heating and electricity bill?: No Do you have trouble taking care of your child, family member or friend?: No Do you have trouble with day-to-day activities such as bathing, preparing meals, shopping, managing finances, etc.?: No Are you currently unemployed and looking for a job?: No Are you interested in more education?: No Please select the resources that you would like help with: None Currently or been in a relationship where the following occur: No concerns rep orted THRIVE Score: 0 AUDIT C Alcohol Use Questionnaire (AUDIT-C) 1. How often do you have a drink containing alcohol?: Never Total Score: 0 OLGA-7 AMB Questionnaire OLGA-7 Date OLGA - 7 assessed: 11/10/23 Feeling nervous, anxious, or on edge: 0 = Not at all Not being able to stop or control worryin = Not at all Worrying too much about different things: 0 = Not at all Trouble relaxin = Not at all Being so restless that it is hard to sit still: 0 = Not at all Becoming easily annoyed or irritable: 0 = Not at all Feeling afraid as if something awful might happen: 0 = Not at all Total OLGA-7 score (0-4 normal; 5-9 mild; 10-14 moderate; 15-21 severe): 0 Source: Developed by Drs. Joshua Sorensen, Scot Guerrero and colleagues, with an educational georges from [employer]. Physical exam (Primary Care) Vital Signs: Last Vital Signs BP 132/74 11/10/23 10:34 BMI result Body Mass Index 29.1 Tobacco/Smoking Status: Tobacco use Status Tobacco use date assessed 07/08/23 11/10/23 10:35 Patient Tobacco Use Status Former Tobacco user 11/10/23 10:35 Tobacco use type Cigarette 11/10/23 10:35 e-Cigarette/Vaping Use Never Used 11/10/23 10:35 PHQ-9: PHQ-9 Score PHQ-9: Total score 0 11/10/23 10:35 Thrive Assessment: Date of Thrive Assessment Date Thrive assessed 11/10/23 11/10/23 10:35 Currently or been in a relationship where the following occur: No concerns reported Const General: alert; No acute distress Eyes Conjunctivae: conjunctivae normal Resp Auscultation: clear to auscultation bilaterally Cardio Rate: regular rate Rhythm: regular rhythm GI Inspection: Yes normal to inspection Extrem General: Yes normal to inspection and No edema Assessment and Plan Assessment & Plan (1) Failed back syndrome: Comment: L5-S1 a LIF 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 Novak, dorsal column stimulator Dr. Herrera 09/15/2011, 11/2015 Code(s): M96.1 - Postlaminectomy syndrome, not elsewhere classified Plan: Narcotic pain meds: Is being prescribed with the understanding that these medications are potentially addictive and should be used only when absolutely necessary and must always be secured. Any remaining pills should be safely disposed off appropriately. Patient is advised that narcotics can impaired judgment and one should not drive or operate heavy machinery while taking these medications. Never share these medications with anybody and do not leave them unattended. They will not be replaced under any circumstances. (2) Hypercholesterolemia: Code(s): E78.00 - Pure hypercholesterolemia, unspecified Plan: Avoid fried foods, chicken skin, eggs, butter margarine, pastries and meat. Be it pork or beef they have a lot of cholesterol August 2023 last blood work LDL goal of less than 100 and triglyceride of less than 150 patient is on pravastatin 80 mg once a day (3) Gastroesophageal reflux disease: Code(s): K21.9 - Gastro-esophageal reflux disease without esophagitis Qualifiers: Esophagitis presence: without esophagitis Qualified Code(s): K21.9 - Gastro-esophageal reflux disease without esophagitis Plan: Avoid the foods that causes that usually spicy foods, tomato products, juices, coffee, soda and foods that your sensitive to. After eating do not lie down, allow 3-4 hours before in lie down. And keep the head of bed above 30 degrees to avoid the acid from going up. (4) Asthma: Comment: 30 years x1 pack per day quit July 2015 Code(s): J45.909 - Unspecified asthma, uncomplicated Plan: Patient is on the inhalers albuterol as needed (5) Obstructive sleep apnea hypopnea, severe: Comment: CPAP Code(s): G47.33 - Obstructive sleep apnea (adult) (pediatric) Plan: Continue to use the CPAP more than 4 hours a night and benefits from this. (6) Type 2 diabetes mellitus with hyperglycemia: Comment: [facility] Code(s): E11.65 - Type 2 diabetes mellitus with hyperglycemia Plan: Decrease the amount of carbohydrate intake, pasta, bread, rice and potatoes are all sugar and that is aside from all the sweet stuff, remember that fruits are good but they are Sweet also. Hemoglobin A1c goal of less than 6.5. 09/03/2023 for last blood work on metformin (7) Hypertension: Code(s): I10 - Essential (primary) hypertension Plan: Continue with blood pressure medication. Decrease salt intake and exercise on lisinopril 5 mg once a day (8) Limited scleroderma: Comment: dx 2018 (Raynaud's, sclerodactyly, telangiectasias, ++ centromere antibody) Code(s): M34.9 - Systemic sclerosis, unspecified Plan: Continue to follow-up with Rheumatology discussed about eye exam with Plaquenil and folic acid (9) Breast cancer screening by mammogram: Code(s): Z12.31 - Encounter for screening mammogram for malignant neoplasm of breast Plan: Reminded about mammogram and colonoscopy Orders: Orders MM tomosynthesis screening BI Today Z12.31 - Encounter for screening mammogram for malignant neoplasm of breast Referrals Gastroenterology Referral Z12.11 - Encounter for screening for malignant neoplasm of colon Medications: Refilled oxycodone-acetaminophen 7.5-325 mg (Percocet) partial fill upon request 1 tab PO Q8H PRN 84 tabs 0RF pain M96.1 - Postlaminectomy syndrome, not elsewhere classified Coding Level of Care Code Est Pt Level 4 (84898) Complex EM visit Add On G2211 Diagnoses Failed back syndrome M96.1 Hypercholesterolemia E78.00 Gastroesophageal reflux disease without esophagitis K21.9 Esophagitis presence: without esophagitis Asthma J45.909 Obstructive sleep apnea hypopnea, severe G47.33 Type 2 diabetes mellitus with hyperglycemia E11.65 Hypertension I10 Limited scleroderma M34.9 Breast cancer screening by mammogram Z12.31
[2023-11-10 10:34] VITALS: BP 132/74; BMI 29.1
== END 2023-11-10 12:46 | disposition home or self-care (01) ==
PROVIDERS: PCP Internal Medicine; Visit Provider Internal Medicine
DX: E11.65 Type 2 diabetes mellitus with hyperglycemia (principal); M34.9 Systemic sclerosis, unspecified; M96.1 Postlaminectomy syndrome, not elsewhere classified; E78.00 Pure hypercholesterolemia, unspecified; K21.9 Gastro-esophageal reflux disease without esophagitis; J45.909 Unspecified asthma, uncomplicated; G47.33 Obstructive sleep apnea (adult) (pediatric); I10 Essential (primary) hypertension; Z12.31 Encounter for screening mammogram for malignant neoplasm of breast

== ENCOUNTER 2023-11-17 10:46 | Outpatient (AMB) | payer OTHER, SELFPAY ==
--- NOTE | 2023-11-17 10:50 | A.OFFVIS_ITS ---
Vital Signs 11/17/23 10:54 Height 5 ft 1 in Weight 153 lb 3.54 oz BMI 28.9 BP 122/80 Blood Pressure Location Lt brachial Position Sitting Pulse 89 Pulse Source Pulse Oximeter Pulse Oximetry (%) 96 Oxygen Delivery Method Room Air Intake Visit Reasons: scleroderma Intake Note: Patient presents for Scleroderma. Allergies topiramate [From TOPAMAX] Allergy (Severe, Verified 11/17/23 10:54) RASH, ITCH, DIFF BREATHING pineapple [Pineapple] Allergy (Mild, Verified 11/17/23 10:54) THROAT SWELLING duloxetine [Cymbalta] Allergy (Unknown, Verified 11/17/23 10:54) dizziness,vomiting levetiracetam Allergy (Unknown, Verified 11/17/23 10:54) Hives milnacipran [Savella] Allergy (Unknown, Verified 11/17/23 10:54) rash pregabalin Allergy (Unknown, Verified 11/17/23 10:54) nausous quetiapine [Seroquel] Allergy (Unknown, Verified 11/17/23 10:54) Hives sumatriptan [Imitrex] Allergy (Unknown, Verified 11/17/23 10:54) rash simvastatin Adverse Reaction (Intermediate, Verified 11/17/23 10:54) Nausea and Vomiting Seafood Allergy (Mild, Uncoded 10/10/23 10:54) RASH Medication List - Last Reconciled 11/17/23 by Zach Charles MD acetaminophen (Tylenol Extra Strength) 500 mg PO QID PRN albuterol sulfate 90 mcg/actuation (Ventolin HFA) 2 puffs inhalation Q6H PRN amitriptyline 10 mg PO BEDTIME [AUTOPAP 6-20 cm H20 humidified Air As directed] blood pressure monitor (Blood Pressure Kit) As directed blood sugar diagnostic (FreeStyle Lite Strips) As directed check the BS QD blood-glucose meter (FreeStyle Lite Meter kit) As directed cetirizine 10 mg PO DAILY cyanocobalamin (vitamin B-12) 1,000 mcg PO DAILY cyclobenzaprine 5 mg PO BEDTIME PRN 90 days dapagliflozin propanediol 10 mg PO DAILY diclofenac sodium 1% (Arthritis Pain (diclofenac)) 4 grams topical QID duloxetine 20 mg PO DAILY fluticasone propionate 50 mcg/actuation 1 spray intranasal DAILY folic acid 1 mg PO DAILY gabapentin 600 mg PO TID 90 days hydroxychloroquine Take 2 tabs a day x5 days a week and 1 tab a day x2 days a we ek ketotifen fumarate 0.025%(0.035%) 1 drp ophthalmic (eye) BID lancets (FreeStyle Lancets) As directed check BS QD lidocaine 5% 2 patches topical DAILY 15 days lisinopril 5 mg PO DAILY lorazepam 0.5 mg PO DAILY PRN meloxicam 15 mg PO DAILY 90 days metformin 1,000 mg PO BID omeprazole 40 mg PO BID ondansetron HCl 4 mg PO Q6H oxycodone-acetaminophen 7.5-325 mg (Percocet) 1 tab PO Q8H PRN pravastatin 80 mg PO BEDTIME 90 days silver sulfadiazine 1% (Silvadene) 1 appl topical BID valacyclovir 1,000 mg PO Q8H 7 days HPI Comments Details: 53-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 She has been taking hydroxychloroquine as prescribed for the last 2 months or so. She states that she feels about the same overall. She continues to have pain and morning stiffness and swelling of her hands. She states that her pains are better controlled now as she took her Percocet. Has not had any Raynaud's episodes. She states that it gets worse when it gets colder. She has significant acid reflux. She takes omeprazole 20 mg daily but it does not help much. She denies any dysphagia. She sleeps almost completely upright due to her significant back pain. Initial history: This is a 53-year-old female with fibromyalgia and limited scleroderma who presents for follow-up. She was diagnosed in [address] Meraz but she never followed up afterwards. She states that she took multiple meds for fibromyalgia in the past, especially gabapentin, she could not take it due to significant cognitive defects. She states that she has pain and swelling of her hands, wrists, knuckles, knees, ankle and feet. Morning stiffness lasting hours, she denies any significant acid reflux, denies any chest pain or shortness of breath. She has known significant degenerative disease of her spine and has a stimulator. [facility] Medical History Colon cancer screening Breast cancer screening by mammogram Tobacco abuse Acute bacterial tonsillitis Acute bacterial pharyngitis Acute gastroenteritis Shingles Encounter for removal of maria r Scalp laceration Knee effusion, left Blood pressure elevated without history of HTN Wrist pain COVID-19 virus infection Witnessed apneic spells Dysuria Bilateral hand pain Folliculitis Headache Leukocytosis Palpitations Vitamin B 12 deficiency Groin abscess Closed fibular fracture Microscopic hematuria Insomnia Subclinical hyperthyroidism History of CREST syndrome Lateral malleolar fracture Chronic interstitial cystitis Uterine fibroid History of seizures Bipolar disorder Asthma Gastroesophageal reflux disease Hypercholesterolemia Failed back syndrome Surgical History History of pelvic surgery History of carpal tunnel release History of section History of tubal ligation Family History Father CVD (cardiovascular disease) Myocardial infarction Mother COPD (chronic obstructive pulmonary disease) Rheumatoid arthritis Renal failure Family/Other History of uterine cancer History of breast cancer History of ovarian cancer Daughter Lupus Brother Lupus Other Mental health disorder Mental illness in member of household Social History Housing: Apartment Alcohol intake: former Patient Tobacco Use Status: Former Tobacco user Tobacco use type: Cigarette Cigarette Packs Per Day: 1 Cigarettes Per Day: 20.0 e-Cigarette/Vaping Use: Never Used Second Hand Smoke Exposure: No service: No Current occupational status: disabled Cognitive needs: No Hearing needs: No Vision needs: Yes Review of Systems Musc Reports back pain, Reports arthralgias, Reports joint swelling and Reports stiffness Physical Exam Vital Signs: Last Vital Signs Pulse 89 11/17/23 10:54 BP 122/80 11/17/23 10:54 Pulse Ox 96 11/17/23 10:54 Oxygen Delivery Method Room Air 11/17/23 10:54 BMI result Body Mass Index 28.9 Const General: cooperative, healthy appearing and comfortable Nutritional Appearance: overweight Orientation/consciousness: patient oriented x3 Limitations: no limitations HEENT Head: Yes normocephalic and Yes atraumatic Mouth: moist mucous membranes Resp Effort & Inspection: normal respiratory effort and able to speak in complete sentences Auscultation: clear to auscultation bilaterally Cardio Rate: regular rate Rhythm: regular rhythm Skin Other: Subtle telangiectasias on lower lip Neuro General: patient oriented x3 Extrem Other: Bilateral sclerodactyly Left 2nd and 3rd MCP puffiness Left 2nd and 3rd finger swelling and left 2nd through 5th PIP tenderness Right elbow pain with full extension Bilateral knee crepitus and pain with full flexion-extension Bilateral knee pain with flexion-extension Normal nailfold capillaroscopy Assessment & Plan Assessment & Plan (1) Limited scleroderma: Comment: dx 2018 (arthralgias, Raynaud's, sclerodactyly, telangiectasias, ++ centromere antibody) [facility] 09/2023 Code(s): M34.9 - Systemic sclerosis, unspecified Category: Medical Plan: This is a 53-year-old female with limited scleroderma and fibromyalgia who presents for follow-up. Has been taking hydroxychloroquine regularly for the last 2 months with improvement. There is less swollen and tender joints on exam. Continue with hydroxychloroquine as prescribed If no improvement, will consider adding methotrexate next visit We'll schedule PFTs and 2D echo. To screen for ILD/PAH Raynaud's has not been a problem recently Worsening GERD, no dysphagia, may have underlying esophageal dysmotility. Patient sleeps elevated almost upright due to her significant spinal arthritis. 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 Plan I spent 35 minutes reviewing patient's chart, evaluating patient, ordering diagnostic workup, counseling patient and documenting in the chart Orders: Orders Comprehensive Met. Panel 3 Months M32.9 - Systemic lupus erythematosus, unspecified C Reactive Protein 3 Months M32.9 - Systemic lupus erythematosus, unspecified Complete Blood Count Auto Diff 3 Months M32.9 - Systemic lupus erythematosus, unspecified Erythrocyte Sedimentation Rate 3 Months M32.9 - Systemic lupus erythematosus, unspecified Creatine Kinase Total 3 Months M32.9 - Systemic lupus erythematosus, unspecified UA w Microscopic 3 Months M32.9 - Systemic lupus erythematosus, unspecified Protein Creatinine Ratio, Ur 3 Months M32.9 - Systemic lupus erythematosus, unspecified Medications: Changed From omeprazole 20 mg PO DAILY 90 days 90 caps 3RF K21.9 - Gastro-esophageal reflux disease without esophagitis To omeprazole 30 minutes before meals 40 mg PO BID 180 caps 3RF K21.9 - Gastro-esophageal reflux disease without esophagitis Coding Level of Care Code Est Pt Level 5 (86961) Diagnoses Limited scleroderma M34.9 Long-term use of hydroxychloroquine Z79.899
[2023-11-17 10:54] VITALS: BP 122/80; PULSE 89; O2SAT 96; BMI 28.9
== END 2023-11-17 11:54 | disposition home or self-care (01) ==
PROVIDERS: PCP Internal Medicine; Visit Provider Student in an Organized Health Care Education/Training Program
DX: M34.9 Systemic sclerosis, unspecified (principal); Z79.899 Other long term (current) drug therapy
CPT/HCPCS: 99214

== ENCOUNTER → 2023-11-17 10:46 | Outpatient (BNVA) | payer OTHER, SELFPAY | PROVIDERS: PCP Internal Medicine; Visit Provider Student in an Organized Health Care Education/Training Program | DX: M34.9 Systemic sclerosis, unspecified (principal); Z79.899 Other long term (current) drug therapy | CPT/HCPCS: 99212 ==

== ENCOUNTER → 2023-12-07 10:12 | Outpatient (REF) | payer OTHER, SELFPAY | LOC: HO.CARD 10:12 | PROVIDERS: PCP Internal Medicine; Visit Provider Student in an Organized Health Care Education/Training Program | DX: Z13.89 Encounter for screening for other disorder (principal) ==

== ENCOUNTER 2024-01-09 09:58 | Outpatient (REF) | payer OTHER, SELFPAY ==
[2024-01-09 11:11] LABS: Blood Urea Nitrogen 14 mg/dL (9-16); Estimated Glomerular Filt Rate > 60
== END 2024-01-09 09:59 | disposition home or self-care (01) ==
LOC: HO.LAB 09:58
PROVIDERS: PCP Internal Medicine; Visit Provider Student in an Organized Health Care Education/Training Program
DX: R10.32 Left lower quadrant pain (principal)
CPT/HCPCS: 36415; 82565; 84520

== ENCOUNTER 2024-02-07 10:55 | Outpatient (AMB) | payer OTHER, SELFPAY ==
[2024-02-07 11:03] VITALS: BP 128/82; PULSE 93; O2SAT 96; BMI 29.9
--- NOTE | 2024-02-07 11:03 | MHC.PC.OV ---
Vital Signs 02/07/24 11:03 Height 5 ft 1 in Weight 158 lb 4 oz BMI 29.9 BP 128/82 Blood Pressure Location Lt brachial Position Sitting Pulse 93 Pulse Source Pulse Oximeter Pulse Oximetry (%) 96 Oxygen Delivery Method Room Air Intake Visit Reasons: Follow up Allergies topiramate [From TOPAMAX] Allergy (Severe, Verified 02/07/24 11:07) RASH, ITCH, DIFF BREATHING pineapple [Pineapple] Allergy (Mild, Verified 02/07/24 11:07) THROAT SWELLING duloxetine [Cymbalta] Allergy (Unknown, Verified 02/07/24 11:07) dizziness,vomiting levetiracetam Allergy (Unknown, Verified 02/07/24 11:07) Hives milnacipran [Savella] Allergy (Unknown, Verified 02/07/24 11:07) rash pregabalin Allergy (Unknown, Verified 02/07/24 11:07) nausous quetiapine [Seroquel] Allergy (Unknown, Verified 02/07/24 11:07) Hives sumatriptan [Imitrex] Allergy (Unknown, Verified 02/07/24 11:07) rash simvastatin Adverse Reaction (Intermediate, Verified 02/07/24 11:07) Nausea and Vomiting Seafood Allergy (Mild, Uncoded 02/07/24 11:07) RASH Tobacco use date assessed: 02/07/24 Dental Screening Dental Screen Date: 02/07/24 Did you have a dental visit in the last 12 months?: Yes Did you have a dental problem in the last 6 months where you did not have access to dental care?: No Was dental information given to patient?: Patient has dentist HPI Follow up HPI Details The patient is a 53-year-old female presenting with rheumatoid arthritis, with concerns over the current therapeutic approach. Historically, hydroxychloroquine has been utilized, although it appears to lack sufficient efficacy. Recent instructions include undergoing lung function tests and an echocardiogram prior to considering alterations in medication due to potential side effects and complications. The patient has struggled with adherence to recommendations for medical imaging due to environmental concerns during the testing process. Additionally, the patient has a history of type 2 diabetes mellitus managed with metformin and Farxiga. The patient expresses concerns about recent weight fluctuations and worries about diet-related complications aggravated by evening eating habits. There is a prospective medication adjustment to enhance glycemic control while ensuring patient comfort with oral medications versus injectable options. Furthermore, a diagnosis of left carpal tunnel syndrome is in place, with surgical intervention scheduled for May. This diagnosis is complicated by additional growths on the hands and tendon complications requiring surgical replacement. The patient reports an episode of RSV affecting household members, which resulted in a missed appointment due to symptoms, despite not being confirmed as an infection of the patient. Regarding preventive care, the patient expresses reluctance towards the flu vaccine following a prior adverse reaction, but is noted to be up-to-date with pneumonia and tetanus vaccinations. A pending colonoscopy has been discussed but remains uncoordinated. [facility] Medical History Colon cancer screening Breast cancer screening by mammogram Tobacco abuse Acute bacterial tonsillitis Acute bacterial pharyngitis Acute gastroenteritis Shingles Encounter for removal of maria r Scalp laceration Knee effusion, left Blood pressure elevated without history of HTN Wrist pain COVID-19 virus infection Witnessed apneic spells Dysuria Bilateral hand pain Folliculitis Headache Leukocytosis Palpitations Vitamin B 12 deficiency Groin abscess Closed fibular fracture Microscopic hematuria Insomnia Subclinical hyperthyroidism History of CREST syndrome Lateral malleolar fracture Chronic interstitial cystitis Uterine fibroid History of seizures Bipolar disorder Asthma Gastroesophageal reflux disease Hypercholesterolemia Failed back syndrome Surgical History History of pelvic surgery History of carpal tunnel release History of section History of tubal ligation Family History Father CVD (cardiovascular disease) Myocardial infarction Mother COPD (chronic obstructive pulmonary disease) Rheumatoid arthritis Renal failure Family/Other History of uterine cancer History of breast cancer History of ovarian cancer Daughter Lupus Brother Lupus Other Mental health disorder Mental illness in member of household Social History Housing: Apartment Alcohol intake: former Patient Tobacco Use Status: Former Tobacco user Tobacco use type: Cigarette Cigarette Packs Per Day: 1 Cigarettes Per Day: 20.0 e-Cigarette/Vaping Use: Never Used Second Hand Smoke Exposure: No service: No Current occupational status: disabled Cognitive needs: No Hearing needs: No Vision needs: Yes Questionnaire PHQ-9 Over the last 2 weeks, how often have you been bothered by any of the following problems? 1. Little interest or pleasure in doing things: not at all 2. Feeling down, depressed, or hopeless: not at all 3. Trouble falling or staying asleep, or sleeping too much: not at all 4. Feeling tired or having little energy: not at all 5. Poor appetite or overeating: not at all 6. Feeling bad about yourself - or that you are a failure or have let yourself or your family down: not at all 7. Trouble concentrating on things, such as reading the newspaper or watching television: not at all 8. Moving or speaking so slowly that other people could have noticed. Or the opposite - being so fidgety or restless that you have been moving around a lot more than usual: not at all 9. Thoughts that you would be better off or of hurting yourself in some way: not at all Total score: 0 Depression Screening Interpretation: Negative Depression Screening Done: Yes 44090 - PHQ-9 Billing: Yes Source: Developed by Drs. Joshua Sorensen, Salma Nagy, Scot Luciano and colleagues, with an educational georges from [employer]. Thrive Questionnaire Date Thrive assessed: 02/07/24 I am a: Patient What is your living situation today?: I have a steady place to live Within the past 12 months, did the food you bought not last and you didn't have the money to get more?: Never true Within the past 12 months, did you worry whether your food would run out before you got money to buy more?: Never true Do you have trouble paying for medicines?: No Do you have trouble getting transportation to medical appointments?: No Do you have trouble paying your heating and electricity bill?: No Do you have trouble taking care of your child, family member or friend?: No Do you have trouble with day-to-day activities such as bathing, preparing meals, shopping, managing finances, etc.?: No Are you currently unemployed and looking for a job?: No Are you interested in more education?: No Please select the resources that you would like help with: None Currently or been in a relationship where the following occur: No concerns reported THRIVE Score: 0 AUDIT C Alcohol Use Questionnaire (AUDIT-C) 1. How often do you have a drink containing alcohol?: Never 3. How often do you have six or more drinks on one occasion?: Never Total Score: 0 OLGA-7 AMB Questionnaire OLGA-7 Date OLGA - 7 assessed: 02/07/24 Feeling nervous, anxious, or on edge: 0 = Not at all Not being able to stop or control worryin = Not at all Worrying too much about different things: 0 = Not at all Trouble relaxin = Not at all Being so restless that it is hard to sit still: 0 = Not at all Becoming easily annoyed or irritable: 0 = Not at all Feeling afraid as if something awful might happen: 0 = Not at all Total OLGA-7 score (0-4 normal; 5-9 mild; 10-14 moderate; 15-21 severe): 0 Source: Developed by Drs. Joshua Sorensen, Salma Nagy, Soct Luciano and colleagues, with an educational georges from [employer]. Physical exam (Primary Care) Vital Signs: Last Vital Signs Pulse 93 02/07/24 11:03 BP 128/82 02/07/24 11:03 Pulse Ox 96 02/07/24 11:03 Oxygen Delivery Method Room Air 02/07/24 11:03 BMI result Body Mass Index 29.9 Tobacco/Smoking Status: Tobacco use Status Tobacco use date assessed 02/07/24 02/07/24 11:07 Patient Tobacco Use Status Former Tobacco user 02/07/24 11:07 Tobacco use type Cigarette 02/07/24 11:07 e-Cigarette/Vaping Use Never Used 02/07/24 11:07 PHQ-9: PHQ-9 Score PHQ-9: Total score 0 02/07/24 11:07 Depression Screening Interpretation: Negative Thrive Assessment: Date of Thrive Assessment Date Thrive assessed 02/07/24 02/07/24 11:07 Currently or been in a relationship where the following occur: No concerns reported Const General: alert; No acute distress Eyes Conjunctivae: conjunctivae normal Resp Auscultation: clear to auscultation bilaterally Cardio Rate: regular rate Rhythm: regular rhythm GI Inspection: Yes normal to inspection Extrem General: Yes normal to inspection and No edema Results AMB Hemoglobin A1c AMB Hemoglobin A1c 6.9 % Last Edit by Kimberlyn Ojeda CMA on 02/07/24 11:12 Results Reviewed Results Reviewed: Laboratory Last Values Hgb A1c (Clinic) 6.9 % (4.0-6.0) H 02/07/24 11:11 Coding Level of Care Code Est Pt Level 4 (92799) Complex EM visit Add On G2211 Diagnoses Type 2 diabetes mellitus with hyperglycemia E11.65 Hypercholesterolemia E78.00 Gastroesophageal reflux disease without esophagitis K21.9 Esophagitis presence: without esophagitis Hypertension I10 Obesity (BMI 30.0-34.9) E66.9 Failed back syndrome M96.1 Breast cancer screening by mammogram Z12.31 Limited scleroderma M34.9 Colon cancer screening Z12.11 Left carpal tunnel syndrome G56.02 Additional Codes PHQ-9 - 49265 - PHQ-9 Billing: Yes ([id number]) Assessment & Plan Assessment & Plan (1) Type 2 diabetes mellitus with hyperglycemia: Comment: Panchito duggan Code(s): E11.65 - Type 2 diabetes mellitus with hyperglycemia Category: Medical Plan: Decrease the amount of carbohydrate intake, pasta, bread, rice and potatoes are all sugar and that is aside from all the sweet stuff, remember that fruits are good but they are Sweet also. Hemoglobin A1c goal of less than 6.5. Patient is on Farxiga 10 mg once a day metformin a 1000 mg twice a day (2) Hypercholesterolemia: Code(s): E78.00 - Pure hypercholesterolemia, unspecified Category: Medical Plan: Avoid fried foods, chicken skin, eggs, butter margarine, pastries and meat. Be it pork or beef they have a lot of cholesterol 09/03/2023 last blood work patient is taking pravastatin 80 mg once a day (3) Gastroesophageal reflux disease: Code(s): K21.9 - Gastro-esophageal reflux disease without esophagitis Category: Medical Qualifiers: Esophagitis presence: without esophagitis Qualified Code(s): K21.9 - Gastro-esophageal reflux disease without esophagitis Plan: Avoid the foods that causes that usually spicy foods, tomato products, juices, coffee, soda and foods that your sensitive to. After eating do not lie down, allow 3-4 hours before in lie down. And keep the head of bed above 30 degrees to avoid the acid from going up. Patient recently saw Rheumatology and has increased omeprazole to 40 mg twice a day advised to see Gastroenterology (4) Hypertension: Code(s): I10 - Essential (primary) hypertension Category: Medical Plan: Continue with blood pressure medication. 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 Novak, dorsal column stimulator Dr. Herrera 09/15/2011, 11/2015 Code(s): M96.1 - Postlaminectomy syndrome, not elsewhere classified Category: Medical Plan: Narcotic pain meds: Is being prescribed with the understanding that these medications are potentially addictive and should be used only when absolutely necessary and must always be secured. Any remaining pills should be safely disposed off appropriately. Patient is advised that narcotics can impaired judgment and one should not drive or operate heavy machinery while taking these medications. Never share these medications with anybody and do not leave them unattended. They will not be replaced under any circumstances. (7) Breast cancer screening by mammogram: Code(s): Z12.31 - Encounter for screening mammogram for malignant neoplasm of breast Category: Medical Plan: Patient is reminded about mammogram (8) Limited scleroderma: Comment: dx 2018 (arthralgias, Raynaud's, sclerodactyly, telangiectasias, ++ centromere antibody) [facility] 09/2023 Code(s): M34.9 - Systemic sclerosis, unspecified Category: Medical Plan: Continue to follow-up with Rheumatology on hydroxychloroquine, recommend to have PFT and 2D echo. Ophthalmology regularly (9) Colon cancer screening: Code(s): Z12.11 - Encounter for screening for malignant neoplasm of colon Category: Medical Plan: Reminded about colonoscopy (10) Left carpal tunnel syndrome: Code(s): G56.02 - Carpal tunnel syndrome, left upper limb Category: Medical Plan: seeing Dr. Dickerson and 05/2024 planned surgery Plan - Continue management of rheumatoid arthritis; review and optimize treatment protocols with consideration for alternative medications pending lung function tests and echocardiogram results. - Maintain management of diabetes mellitus with metformin and Farxiga; discuss potential addition of Januvia to improve glycemic control without resorting to injectables. - Schedule and prepare for left carpal tunnel surgical intervention in May; address associated hand nodules and tendon replacement as needed. - Monitor for any respiratory symptoms following RSV exposure; continue preventive measures against flu. - Reinforce weight management through dietary counseling focusing on limiting night-time caloric intake. - Coordinate scheduling of colonoscopy for routine colorectal cancer screening. - Stay updated on vaccinations, particularly considering seasonal prevalence of influenza; evaluate risk-benefit ratio of flu vaccination in the future. - Maintain adherence to CPAP use as indicated for obstructive sleep apnea. - Follow-up ophthalmologic evaluation to monitor potential hydroxychloroquine-related retinal changes and diabetes-induced ocular impacts. Orders: Orders AMB Hemoglobin A1c Today Z13.9 - Encounter for screening, unspecified MM tomosynthesis screening BI Today Z12.31 - Encounter for screening mammogram for malignant neoplasm of breast Medications: New sitagliptin phosphate (Januvia) 100 mg PO DAILY 30 tabs 3RF E11.65 - Type 2 diabetes mellitus with hyperglycemia Refilled oxycodone-acetaminophen 7.5-325 mg (Percocet) partial fill upon request 1 tab PO Q8H PRN 84 tabs 0RF pain M96.1 - Postlaminectomy syndrome, not elsewhere classified
== END 2024-02-07 11:52 | disposition home or self-care (01) ==
PROVIDERS: PCP Internal Medicine; Visit Provider Internal Medicine
DX: E11.65 Type 2 diabetes mellitus with hyperglycemia (principal); M34.9 Systemic sclerosis, unspecified; Z68.29 Body mass index [BMI] 29.0-29.9, adult; E66.9 Obesity, unspecified; E78.00 Pure hypercholesterolemia, unspecified; K21.9 Gastro-esophageal reflux disease without esophagitis; I10 Essential (primary) hypertension; M96.1 Postlaminectomy syndrome, not elsewhere classified; Z12.31 Encounter for screening mammogram for malignant neoplasm of breast; Z12.11 Encounter for screening for malignant neoplasm of colon; G56.02 Carpal tunnel syndrome, left upper limb

== ENCOUNTER → 2024-02-07 10:55 | Outpatient (BNVA) | payer OTHER, SELFPAY | PROVIDERS: PCP Internal Medicine; Visit Provider Internal Medicine | DX: E11.65 Type 2 diabetes mellitus with hyperglycemia (principal); M06.9 Rheumatoid arthritis, unspecified; G56.02 Carpal tunnel syndrome, left upper limb; E78.00 Pure hypercholesterolemia, unspecified; K21.9 Gastro-esophageal reflux disease without esophagitis; I10 Essential (primary) hypertension; E66.9 Obesity, unspecified; M96.1 Postlaminectomy syndrome, not elsewhere classified; M34.9 Systemic sclerosis, unspecified; Z79.84 Long term (current) use of oral hypoglycemic drugs; Z79.899 Other long term (current) drug therapy; Z79.891 Long term (current) use of opiate analgesic | CPT/HCPCS: 83036; 96127; 99212 ==

== ENCOUNTER 2024-02-25 09:15 | Outpatient (REF) | payer OTHER, SELFPAY | END 2024-02-25 09:16 | disposition home or self-care (01) | LOC: HO.MAMMO 09:15 | PROVIDERS: PCP Internal Medicine; Visit Provider Internal Medicine | DX: Z12.31 Encounter for screening mammogram for malignant neoplasm of breast (principal) | CPT/HCPCS: 77063; 77067 ==

== ENCOUNTER → 2024-02-25 10:00 | Outpatient (BNV) | payer OTHER, SELFPAY | PROVIDERS: PCP Internal Medicine; Visit Provider Internal Medicine | DX: Z12.31 Encounter for screening mammogram for malignant neoplasm of breast (principal) | CPT/HCPCS: 77063; 77067 ==

== ENCOUNTER 2024-03-09 10:51 | Outpatient (AMB) | payer OTHER, SELFPAY ==
--- NOTE | 2024-03-09 11:03 | MHC.PC.OV ---
Vital Signs 03/09/24 11:06 Height 5 ft 1 in Weight 159 lb 2 oz BMI 30.1 BP 130/70 Blood Pressure Location Lt brachial Position Sitting Pulse 96 Pulse Source Pulse Oximeter Temp 97.3 F Temp Source Skin Pulse Oximetry (%) 84 L Oxygen Delivery Method Room Air Intake Visit Reasons: med f/u Intake Note: Patient is here to follow up on med review. 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 [employer] Required: No Channel Opener Outsoles: Not Required per policy Accompanied by: Self / Same As Patient Allergies topiramate [From TOPAMAX] Allergy (Severe, Verified 03/09/24 11:05) RASH, ITCH, DIFF BREATHING pineapple [Pineapple] Allergy (Mild, Verified 03/09/24 11:05) THROAT SWELLING duloxetine [Cymbalta] Allergy (Unknown, Verified 03/09/24 11:05) dizziness,vomiting levetiracetam Allergy (Unknown, Verified 03/09/24 11:05) Hives milnacipran [Savella] Allergy (Unknown, Verified 03/09/24 11:05) rash pregabalin Allergy (Unknown, Verified 03/09/24 11:05) nausous quetiapine [Seroquel] Allergy (Unknown, Verified 03/09/24 11:05) Hives sumatriptan [Imitrex] Allergy (Unknown, Verified 03/09/24 11:05) rash simvastatin Adverse Reaction (Intermediate, Verified 03/09/24 11:05) Nausea and Vomiting Seafood Allergy (Mild, Uncoded 03/09/24 11:05) RASH Tobacco use date assessed: 03/09/24 Dental Screening Dental Screen Date: 03/09/24 Did you have a dental visit in the last 12 months?: Yes Did you have a dental problem in the last 6 months where you did not have access to dental care?: No Was dental information given to patient?: Patient has dentist HPI med f/u HPI Details The patient is a 53-year-old female presenting with concerns regarding a skin condition and ear pain, in addition to a history of diabetes mellitus type 2. She reports a worsening skin condition identified as scleroderma, initially mistaken for eczema or a fungal infection. She has been applying a cream prescribed for fungus without improvement. Her daughter, who works in a hospital, confirmed the diagnosis of scleroderma. The patient also reports right ear pain with swelling, which has been persistent with redness but no reported infection in the left ear. She has not experienced fever, sore throat, shortness of breath, or cough. Her niece, a nurse, has advised her to avoid outdoor exposure due to concerns about viral infections. She is being treated for type 2 diabetes mellitus with Farxiga, a form of metformin, and Januvia. Her last Hemoglobin A1c was elevated above the target of 6.5%. The patient states she is compliant with her CPAP machine for sleep apnea. [facility] Medical History Colon cancer screening Breast cancer screening by mammogram Tobacco abuse Acute bacterial tonsillitis Acute bacterial pharyngitis Acute gastroenteritis Shingles Encounter for removal of maria r Scalp laceration Knee effusion, left Blood pressure elevated without history of HTN Wrist pain COVID-19 virus infection Witnessed apneic spells Dysuria Bilateral hand pain Folliculitis Headache Leukocytosis Palpitations Vitamin B 12 deficiency Groin abscess Closed fibular fracture Microscopic hematuria Insomnia Subclinical hyperthyroidism History of CREST syndrome Lateral malleolar fracture Chronic interstitial cystitis Uterine fibroid History of seizures Bipolar disorder Asthma Gastroesophageal reflux disease Hypercholesterolemia Failed back syndrome Surgical History History of pelvic surgery History of carpal tunnel release History of section History of tubal ligation Family History Father CVD (cardiovascular disease) Myocardial infarction Mother COPD (chronic obstructive pulmonary disease) Rheumatoid arthritis Renal failure Family/Other History of uterine cancer History of breast cancer History of ovarian cancer Daughter Lupus Brother Lupus Other Mental health disorder Mental illness in member of household Social History Housing: Apartment Alcohol intake: former Patient Tobacco Use Status: Former Tobacco user Tobacco use type: Cigarette Cigarette Packs Per Day: 1 Cigarettes Per Day: 20.0 e-Cigarette/Vaping Use: Never Used Second Hand Smoke Exposure: Yes service: No Current occupational status: disabled Cognitive needs: No Hearing needs: No Vision needs: Yes Questionnaire PHQ-9 Over the last 2 weeks, how often have you been bothered by any of the following problems? 1. Little interest or pleasure in doing things: not at all 2. Feeling down, depressed, or hopeless: not at all 3. Trouble falling or staying asleep, or sleeping too much: not at all 4. Feeling tired or having little energy: not at all 5. Poor appetite or overeating: not at all 6. Feeling bad about yourself - or that you are a failure or have let yourself or your family down: not at all 7. Trouble concentrating on things, such as reading the newspaper or watching television: not at all 8. Moving or speaking so slowly that other people could have noticed. Or the opposite - being so fidgety or restless that you have been moving around a lot more than usual: not at all 9. Thoughts that you would be better off or of hurting yourself in some way: not at all Total score: 0 Depression Screening Interpretation: Negative Depression Screening Done: Yes Source: Developed by Drs. Joshua Sorensen, Salma Nagy, Scot Luciano and colleagues, with an educational georges from [employer]. Thrive Questionnaire Date Thrive assessed: 03/09/24 I am a: Patient What is your living situation today?: I have a steady place to live Within the past 12 months, did the food you bought not last and you didn't have the money to get more?: Never true Within the past 12 months, did you worry whether your food would run out before you got money to buy more?: Never true Do you have trouble paying for medicines?: No Do you have trouble getting transportation to medical appointments?: No Do you have trouble paying your heating and electricity bill?: No Do you have trouble taking care of your child, family member or friend?: No Do you have trouble with day-to-day activities such as bathing, preparing meals, shopping, managing finances, etc.?: No Are you currently unemployed and looking for a job?: No Are you interested in more education?: No Please select the resources that you would like help with: None Currently or been in a relationship where the following occur: No concerns reported THRIVE Score: 0 AUDIT C Alcohol Use Questionnaire (AUDIT-C) 1. How often do you have a drink containing alcohol?: Never Total Score: 0 OLGA-7 AMB Questionnaire OLGA-7 Date OLGA - 7 assessed: 03/09/24 Feeling nervous, anxious, or on edge: 0 = Not at all Not being able to stop or control worryin = Not at all Worrying too much about different things: 0 = Not at all Trouble relaxin = Not at all Being so restless that it is hard to sit still: 0 = Not at all Becoming easily annoyed or irritable: 0 = Not at all Feeling afraid as if something awful might happen: 0 = Not at all Total OLGA-7 score (0-4 normal; 5-9 mild; 10-14 moderate; 15-21 severe): 0 Source: Developed by Drs. Joshua Sorensen, Salma Nagy, Scot Luciano and colleagues, with an educational georges from [employer]. Physical exam (Primary Care) Vital Signs: Last Vital Signs Temp 97.3 F 03/09/24 11:06 Pulse 96 03/09/24 11:06 BP 130/70 03/09/24 11:06 Pulse Ox 84 L 03/09/24 11:06 Oxygen Delivery Method Room Air 03/09/24 11:06 BMI result Body Mass Index 30.1 Tobacco/Smoking Status: Tobacco use Status Tobacco use date assessed 03/09/24 03/09/24 11:13 Patient Tobacco Use Status Former Tobacco user 03/09/24 11:13 Tobacco use type Cigarette 03/09/24 11:13 e-Cigarette/Vaping Use Never Used 03/09/24 11:13 PHQ-9: PHQ-9 Score PHQ-9: Total score 0 03/09/24 11:18 Depression Screening Interpretation: Negative Thrive Assessment: Date of Thrive Assessment Date Thrive assessed 03/09/24 03/09/24 11:13 Currently or been in a relationship where the following occur: No concerns reported Const General: alert; No acute distress Eyes Conjunctivae: conjunctivae normal Resp Auscultation: clear to auscultation bilaterally Cardio Rate: regular rate Rhythm: regular rhythm GI Inspection: Yes normal to inspection Extrem General: Yes normal to inspection and No edema Coding Level of Care Code Est Pt Level 4 (86292) Complex EM visit Add On G2211 Diagnoses Type 2 diabetes mellitus with hyperglycemia E11.65 Obesity (BMI 30.0-34.9) E66.9 Obstructive sleep apnea hypopnea, severe G47.33 Hypercholesterolemia E78.00 Gastroesophageal reflux disease without esophagitis K21.9 Esophagitis presence: without esophagitis Situational depression F43.21 Hypertension I10 Failed back syndrome M96.1 Eczematous dermatitis L30.9 Otitis externa of right ear H60.91 Assessment & Plan Assessment & Plan (1) Type 2 diabetes mellitus with hyperglycemia: Comment: [facility] Code(s): E11.65 - Type 2 diabetes mellitus with hyperglycemia Category: Medical (2) Obesity (BMI 30.0-34.9): Code(s): E66.9 - Obesity, unspecified Category: Medical (3) Obstructive sleep apnea hypopnea, severe: Comment: CPAP Code(s): G47.33 - Obstructive sleep apnea (adult) (pediatric) Category: Medical (4) Hypercholesterolemia: Code(s): E78.00 - Pure hypercholesterolemia, unspecified Category: Medical (5) Gastroesophageal reflux disease: Code(s): K21.9 - Gastro-esophageal reflux disease without esophagitis Category: Medical Qualifiers: Esophagitis presence: without esophagitis Qualified Code(s): K21.9 - Gastro-esophageal reflux disease without esophagitis (6) Situational depression: Code(s): F43.21 - Adjustment disorder with depressed mood Category: Medical (7) Hypertension: Code(s): I10 - Essential (primary) hypertension Category: Medical (8) Failed back syndrome: Comment: L5-S1 a LIF 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 Novak, dorsal column stimulator Dr. Herrera 09/15/2011, 11/2015 Code(s): M96.1 - Postlaminectomy syndrome, not elsewhere classified Category: Medical (9) Eczematous dermatitis: Code(s): L30.9 - Dermatitis, unspecified Category: Medical (10) Otitis externa of right ear: Code(s): H60.91 - Unspecified otitis externa, right ear Category: Medical Plan - For scleroderma, continue using prescribed topical agents and monitor skin condition. Re-evaluation in case of worsening or new symptoms. - For otitis externa, prescribe ear drops, with instructions for four drops three times a day for 7-10 days. - For diabetes mellitus, continue current medication regimen of Farxiga, metformin, and Januvia. Retest Hemoglobin A1c in April and advise dietary and lifestyle modifications to help improve glycemic control. - Suggest using [id number]-lysvjfn sinus rinse for symptomatic relief of allergic rhinitis. - Patient advised on infection prevention measures and to limit exposure given current viral outbreak concerns. Medications: New triamcinolone acetonide 0.5% 1 appl topical DAILY 45 grams 0RF L30.9 - Dermatitis, unspecified dyikvsgk-ohzgjzagb-UP 3.5-10,000-1 mg/mL-unit/mL-% 4 drps otic (ear) left Q8H 10 mL 0RF 10 days H60.91 - Unspecified otitis externa, right ear Refilled oxycodone-acetaminophen 7.5-325 mg (Percocet) partial fill upon request 1 tab PO Q8H PRN 84 tabs 0RF pain M96.1 - Postlaminectomy syndrome, not elsewhere classified
[2024-03-09 11:06] VITALS: BP 130/70; PULSE 96; TEMP 36.3; O2SAT 84; BMI 30.1
--- OUTSIDE RECORDS SUMMARY | 2024-03-09 12:44 | XMS_ITS | Encounter Summary ---
Author Organization [facility] Address [address] [place] [address] Phone Care Team Providers Care Mechanical Cad Designer Name Role Phone Duek Hale MD Primary Care Provider [phone] Encounter Details Date Type Department Care Team (Late st Contact Info) Description 08/19/2023 Documentation Only [facility], [address] [place] [address] [place] [address] [place] [address] Social History Tobacco Use Types Packs/Day Years Used Date Smoking Tobacco: Former Comments Unknown Sex and Gender Information Value Date Recorded Sex Assigned at Not on file Legal Sex Female 4:36 PM EST Gender Identity Not on file Sexual Orientation Not on file documented as of this encounter Plan of Treatment Not on file documented as of this encounter Visit Diagnoses Not on filedocumented in this encounter Care Teams Mechanical Cad Designer Relationship Specialty Start Date End Date Duke Hale MD [facility] INTERNAL ID [address] [place], [place] PCP - General Internal Medicine 03/07/19 documented as of this encounter
--- OUTSIDE RECORDS SUMMARY | 2024-03-09 12:44 | XMS_ITS | Clinical Summary ---
Author Organization [address] [facility] Address [address] [place] [address] Phone Care Team Providers Care Enterostomal Nurse Name Role Phone Duke Hale MD Primary Care Provider [phone] Allergies Active Allergy Reactions Criticality Noted Date Comments Duloxetine Hcl 03/07/2019 Fish Containing Products 01/24/2024 Seafood/shellfish Levetiracetam 03/07/2019 Milnacipran 03/07/2019 Pineapple 01/24/2024 Pregabalin 03/07/2019 Quetiapine 03/07/2019 Sumatriptan 03/07/2019 Topiramate 03/07/2019 Medications Medication Sig Dispensed Refills Start Date End Date Status gabapentin (NEURONTIN) 600 mg tablet 1 tablet (600 mg total). Active metFORMIN (GLUCOPHAGE) 1,000 mg tablet 01/15/2024 Active meloxicam (MOBIC) 15 mg tablet TAKE 1 TABLET (15 MG) ORALLY DAILY FOR 90 DAYS 12/16/2023 Active pravastatin (PRAVACHOL) 80 mg tablet Take 1 tablet (80 mg total) by mouth at bedtime. 01/03/2024 Active oxyCODONE-acetaminop hen (PERCOCET) 7.5-325 mg per tablet Take 1 tablet by mouth every 8 (eight) hours if needed. for pain Max Daily Amount: 3 tablets Active lisinopriL (PRINIVIL,ZESTRIL) 5 mg tablet Take 1 tablet (5 mg total) by mouth 1 (one) time each day. 11/04/2023 Active omeprazole (PriLOSEC) [address] capsule TAKE 1 CAPSULE ORALLY 2 TIMES A DAY 30 MINUTES BEFORE MEALS 11/17/2023 Active hydroxychloroquine (PLAQUENIL) 200 mg tablet TAKE 2 TABLETS A DAY X5 DAYS A WEEK AND 1 TAB A DAY X 2 DAYS A WEEK 11/21/2023 Active folic acid (FOLVITE) 1 mg tablet Take 1 tablet (1,000 mcg total) by mouth 1 (one) time each day. Active fluticasone propionate (FLONASE) 50 mcg/actuation nasal spray Administer 1 spray into affected nostril(s) 1 (one) time each day. Active ergocalciferol (VITAMIN D-2) 1,250 mcg (50,000 unit) capsule Take 1 capsule (50,000 Units total) by mouth. 02/18/2017 Active Farxiga 10 mg tablet Take 1 tablet (10 mg total) by mouth 1 (one) time each day. 09/12/2023 Active cyclobenzaprine (FLEXERIL) 5 mg tablet 01/23/2024 Active cyanocobalamin (VITAMIN B-12) 1,000 mcg tablet Take 1 tablet (1,000 mcg total) by mouth 1 (one) time each day. Active amitriptyline (ELAVIL) 10 mg tablet Take 1 tablet (10 mg total) by mouth. at bedtime. 01/03/2024 Active Ventolin HFA 90 mcg/actuation inhaler INHALE 2 PUFFS EVERY 6 HOURS NEEDED FOR SHORTNESS OF BREATH OR WHEEZING 08/31/2023 Active Active Problems Problem Noted Date Diagnosed Date Carpal tunnel syndrome of left wrist 01/25/2024 Radial styloid tenosynovitis 01/25/2024 Rupture of extensor tendon of left hand 01/25/20 24 Encounters Date Type Department Care Team Description 01/24/2024 11:45 AM EST Office Visit Orthopedic Surgery - [address] [address] Kellie Dickerson MD Carpal tunnel syndrome of left wrist (Primary Dx); Rupture of extensor tendon of left hand, sequela; Radial styloid tenosynovitis from Last 3 Months Surgical History Surgery Date Site/Laterality Comments BACK SURGERY PROCEDURE: HISTORICAL BACK SURGERY Medical History Medical History Date Comments Arthritis DX:Arthritis Social History Tobacco Use Types Packs/Day Years Used Date Smoking Tobacco: Every Day Smokeless Tobacco: Never Alcohol Use Standard Drinks/Week Comments Never 0 (1 standard drink = 0.6 oz pur e alcohol) Sex and Gender Information Value Date Recorded Sex Assigned at Not on file Gender Identity Not on file Sexual Orientation Not on file Job Start Date Occupation Industry Not on file Not on file Not on file Obstetrics History Last Filed Vital Signs Vital Sign Reading Time Taken Comments Blood Pressure - - Pulse - - Temperature - - Respiratory Rate - - Oxygen Saturation - - Inhaled Oxygen Concentration - - Weight 72.6 kg (160 lb) 01/24/2024 11:41 AM EST Height 154.9 cm (5' 1 ) 01/24/2024 11:41 AM EST Body Mass Index 30.23 01/24/2024 11:41 AM EST Plan of Treatment Upcoming Encounters Date Type Department Care Team (Latest Contact Info) Description 05/30/2024 10:45 AM EDT Hospital Encounter [facility] OR [address] [place] [id number] Kellie Dickerson MD [address] [phone] 05/30/2024 10:45 AM EDT - 05/30/2024 12:00 PM EDT Surgery [facility] OR [address] [place] [phone] Kellie Dickerson MD [address] [phone] RELEASE CARPAL TUNNEL ENDOSCOPIC; release first dorsal compartment left; EIP to EPL transfer for the thumb [31045 (CPT??) +2 more] Scheduled Procedures Name Priority Associated Diagnoses Date/Ti me RELEASE CARPAL TUNNEL ENDOSCOPIC Carpal tunnel syndrome of left wrist Rupture of extensor tendon of left hand, sequela Radial styloid tenosynovitis 05/30/2024 10:45 AM EDT Health Maintenance Due Date Last Done Comments Breast Cancer Screening 1970 COVID-19 Vaccine (#1) 1975 Hepatitis B Vaccines (1 of 3 - 19+ 3-dose series) 1989 Cervical Cancer Screening: Pap Smear 1991 Pneumococcal Vaccine: Pediatrics (0 to 5 Years) and At-Risk Patients (6 to 64 Years) (2 of 2 - PCV) 12/15/2016 12/16/2015 Zoster Vaccines (1 of 2) 2020 Cholesterol Screening (Lipid Panel) 01/24/2022 Colorectal Cancer Screening: Colonoscopy 01/24/2022 Depression Screening 01/24/2022 HIV Screening 01/24/2022 Hepatitis C Screening 01/24/2022 Social Influencers of Health Screening 01/24/2022 Influenza Vaccine (#1) 2023 9, 11/24/2017, 10/20/2016, Additional history exists Hypertension/CHF/CAD Annual BMP Blood Test 01/23/2024 DTaP,Tdap,and Td Vaccines (2 - Td or Tdap) 10/29/2031 10/28/2021 HIB Vaccines Aged Out No longer eligi ble based on patient's age to complete this topic HPV Vaccines Aged Out No longer eligi ble based on patient's age to complete this topic Hepatitis A Vaccines Aged Out No long er eligible based on patient's age to complete this topic IPV Vaccines Aged Out No longer eligi ble based on patient's age to complete this topic MMR Vaccines Aged Out No longer eligi ble based on patient's age to complete this topic Meningococcal ACWY Vaccine Aged Out N o longer eligible based on patient's age to complete this topic RSV Immunization Patients Under 20 months Aged Out No longer eligible based on patient's age to complete this topic Varicella Vaccines Aged Out No longer eligible based on patient's age to complete this topic Care Teams Enterostomal Nurse Relationship Specialty Start Date End Date Po, MD Duke [address] [place] [address] Dr [address] [facility] [place] [address] PCP - General Internal Medicine 05/03/11
--- OUTSIDE RECORDS SUMMARY | 2024-03-09 12:44 | XMS_ITS | Clinical Summary ---
Author Organization [facility], Address [address] [place] [address] [place] [address] Phone Care Team Providers Care Ibm Websphere Commerce Developer Name Role Phone Duke Hale MD Primary Care Provider [phone] Allergies Active Allergy Reactions Criticality Noted Date Comments Duloxetine Hcl 03/07/2019 Sumatriptan 03/07/2019 Levetiracetam 03/07/2019 Pregabalin 03/07/2019 Milnacipran 03/07/2019 Quetiapine 03/07/2019 Shellfish Allergy 01/28/2021 Topiramate 03/07/2019 Medications fluticasone (FLONASE) 50 MCG/ACT nasal spray Administer 1 spray into each nostril 1 (one) time each day Active raNITIdine (ZANTAC) 300 MG tablet Take 300 mg by mouth every night Active gabapentin (NEURONTIN) 600 MG tablet Take 600 mg by mouth 3 (three) times a day Active folic acid (FOLVITE) 1 MG tablet Take 1 mg by mouth 1 (one) time each day Active cyanocobalamin (VITAMIN B-12) 1000 MCG tablet Take 1,000 mcg by mouth 1 (one) time each day Active meloxicam (MOBIC) 15 MG tablet Take 15 mg by mouth daily 0 Active oxyCODONE-aceta minophen (PERCOCET) 7.5-325 MG per tablet Take 1 tablet by mouth every 8 (eight) hours if needed 0 Active Active Problems Problem Noted Date Diagnosed Date Dysuria 01/25/2020 Other abnormal clinical findings 03/07/2019 Overview (03/07/2019): L common iliac vein aneurysm, scleroderma Right flank pain 03/07/2019 Hyperlipidemia Hypertension Microscopic hematuria Vitamin D deficiency Family History Medical History Relation Comments Autosomal Dominant Polycystic Kidney Disease Mot her COPD Mother Hypertension Mother Kidney disease Mother Rheum arthritis Mother Breast cancer Sibling Ovarian cancer Sibling Uterine cancer Sibling Relation Status Comments Mother Sibling Social History Tobacco Use Types Packs/Day Years Used Date Smoking Tobacco: Former Comments Unknown Sex and Gender Information Value Date Recorded Sex Assigned at Not on file Legal Sex Female 4:36 PM EST Gender Identity Not on file Sexual Orientation Not on file Last Filed Vital Signs Vital Sign Reading Time Taken Comments Blood Pressure 110/56 09/29/2023 4:55 PM EDT Pulse 72 09/29/2023 4:55 PM EDT Temperature - - Respiratory Rate - - Oxygen Saturation - - Inhaled Oxygen Concentration - - Weight 72.6 kg (160 lb) 03/03/2017 12:00 PM EST Height 154.9 cm (5' 1 ) 03/03/2017 12:00 PM EST Body Mass Index 30.23 03/03/2017 12:00 PM EST Plan of Treatment Health Maintenance Due Date Last Done Comments Breast Cancer Screening 1970 Hepatitis B Vaccine (1 of 3 - 19+ 3-dose series) 1989 Colorectal Cancer Screening: Annual FOBT 2019 Colorectal Cancer Screening: Colonoscopy 2019 Colorectal Cancer Screening: Sigmoidoscopy 2019 Influenza Vaccine (#1) 2023 Pneumococcal Vaccine: Pediat rics (0 to 5 Years) and At-Risk Patients (6 to 64 Years) Aged Out No longer eligible b ased on patient's age to complete this topic Insurance [employer] Care Teams Ibm Websphere Commerce Developer Relationship Specialty Start Date End Date Duke Hale MD [facility] INTERNAL DC [address] [place], [place] PCP - General Internal Medicine 03/07/19
--- OUTSIDE RECORDS SUMMARY | 2024-03-09 12:44 | XMS_ITS | Clinical Summary ---
Author Organization [facility] Address [address] [place] [address] Care Team Providers Care Supplier Quality Manager Name Role Phone Margie Leonard Primary Care Provider [phone] Allergies No known active allergies Medications Medication Sig Dispensed Refills Start Date End Date Status ergocalciferol (VITAMIN D2) capsule 77204 units TAKE ONE CAPSULE BY MOUTH ONCE WEEKLY 1 02/18/2017 Active gabapentin (NEURONTIN) 600 MG tablet Take 1,200 mg by mouth 3 (three) times a day. 3 02/19/2017 Active oxyCODONE-acetaminophe n (PERCOCET) 7.5-325 MG per tablet TAKE 1 TABLET BY MOUTH NEEDED EVERY 8 HOURS FOR 30 DAYS. 0 02/27/2017 Active raNITIdine (ZANTAC) 300 MG tablet TAKE 1 TABLET BY MOUTH AT BEDTIME 1 01/13/2017 Active duloxetine (CYMBALTA) DR capsule 20 mg 0 Active ciprofloxacin (CIPRO) 500 MG tablet Take 500 mg by mouth 2 (two) times a day. 0 08/03/2017 Active Active Problems Problem Noted Date Diagnosed Date Ankle stiffness, left 08/19/2017 Closed fracture of distal en d of left fibula with routine healing 03/25/2017 Social History Tobacco Use Types Packs/Day Years Used Date Smoking Tobacco: Unknown Smokeless Tobacco: Never Sex and Gender Information Value Date Recorded Sex Assigned at Not on file Gender Identity Not on file Sexual Orientation Not on file Last Filed Vital Signs Vital Sign Reading Time Taken Comments Blood Pressure - - Pulse - - Temperature - - Respiratory Rate - - Oxygen Saturation - - Inhaled Oxygen Concentration - - Weight 68.5 kg (151 lb 0.2 oz) 08/19/2017 11:46 AM EDT Height 154.9 cm (5' 0.98 ) 08/19/2017 11:46 AM E DT Body Mass Index 28.55 08/19/2017 11:46 AM EDT Plan of Treatment Health Maintenance Due Date Last Done Comments Hepatitis B Vaccines (1 of 3 - 3-dose series) 1970 Hepatitis C Screening 1970 COVID-19 Vaccine (#1) 1970 Depression Screening 1982 Preventative Health Evaluation 1988 DTap / Tdap / Td (1 - Tdap) 1989 Cervical Cancer Screening (P ap Smear) 1991 Colon Cancer Screening (Colonoscopy) 2015 Breast Cancer Screening (Mammogram) 2020 Shingrix-Zoster Vaccine (1 of 2) 2020 Influenza Vaccine (#1) 2023 Pneumococcal Vaccine Aged Out No long er eligible based on patient's age to complete this topic RSV Ped < 20 months Aged Out No longe r eligible based on patient's age to complete this topic Care Teams Supplier Quality Manager Relationship Specialty Start Date End Date Margie Leonard DO PCP - General Family Medicine 03/25/17
== END 2024-03-09 11:58 | disposition home or self-care (01) ==
PROVIDERS: PCP Internal Medicine; Visit Provider Internal Medicine
DX: E11.65 Type 2 diabetes mellitus with hyperglycemia (principal); E66.9 Obesity, unspecified; Z68.30 Body mass index [BMI] 30.0-30.9, adult; G47.33 Obstructive sleep apnea (adult) (pediatric); E78.00 Pure hypercholesterolemia, unspecified; K21.9 Gastro-esophageal reflux disease without esophagitis; F43.21 Adjustment disorder with depressed mood; I10 Essential (primary) hypertension; M96.1 Postlaminectomy syndrome, not elsewhere classified; L30.9 Dermatitis, unspecified; H60.91 Unspecified otitis externa, right ear

== ENCOUNTER → 2024-03-09 10:51 | Outpatient (BNVA) | payer OTHER, SELFPAY | PROVIDERS: PCP Internal Medicine; Visit Provider Internal Medicine | DX: E11.65 Type 2 diabetes mellitus with hyperglycemia (principal); E66.9 Obesity, unspecified; G47.33 Obstructive sleep apnea (adult) (pediatric); E78.00 Pure hypercholesterolemia, unspecified; K21.9 Gastro-esophageal reflux disease without esophagitis; F43.21 Adjustment disorder with depressed mood; I10 Essential (primary) hypertension; M96.1 Postlaminectomy syndrome, not elsewhere classified; L30.9 Dermatitis, unspecified; H60.91 Unspecified otitis externa, right ear | CPT/HCPCS: 99212 ==

== ENCOUNTER 2024-04-06 11:35 | Outpatient (AMB) | payer OTHER, SELFPAY ==
[2024-04-06 11:39] VITALS: BP 130/80; PULSE 77; O2SAT 98; BMI 28.3
--- NOTE | 2024-04-06 11:39 | A.OFFPC_ITS ---
Vital Signs 04/06/24 11:39 Height 5 ft 1 in Weight 150 lb BMI 28.3 BP 130/80 Blood Pressure Location Lt brachial Position Sitting Pulse 77 Pulse Source Pulse Oximeter Pulse Oximetry (%) 98 Oxygen Delivery Method Room Air Intake Visit Reasons: med f/u Allergies topiramate [From TOPAMAX] Allergy (Severe, Verified 04/06/24 11:39) RASH, ITCH, DIFF BREATHING pineapple [Pineapple] Allergy (Mild, Verified 04/06/24 11:39) THROAT SWELLING duloxetine [Cymbalta] Allergy (Unknown, Verified 04/06/24 11:39) dizziness,vomiting levetiracetam Allergy (Unknown, Verified 04/06/24 11:39) Hives milnacipran [Savella] Allergy (Unknown, Verified 04/06/24 11:39) rash pregabalin Allergy (Unknown, Verified 04/06/24 11:39) nausous quetiapine [Seroquel] Allergy (Unknown, Verified 04/06/24 11:39) Hives sumatriptan [Imitrex] Allergy (Unknown, Verified 04/06/24 11:39) rash simvastatin Adverse Reaction (Intermediate, Verified 04/06/24 11:39) Nausea and Vomiting Seafood Allergy (Mild, Uncoded 04/06/24 11:39) RASH Tobacco use date assessed: 03/09/24 Dental Screening Dental Screen Date: 03/09/24 HPI med f/u HPI Details noted rash on the chest and leg was told scleroderma. pruritus patient was treated last month with steroid cream but this did not resolve. The patient is a 54-year-old female presenting for a follow-up visit to manage multiple chronic health conditions. The patient has a history of obesity, with a notable recent weight loss of 9 pounds. She has been diagnosed with diabetes mellitus, which is currently being monitored with treatment including Farxiga and Metformin. The most recent hemoglobin A1c, recorded in January 2024, was 6.9%, with a targeted goal of less than 6.5%. The patient also has a longstanding history of hypercholesterolemia, with recent blood work in August demonstrating an LDL level of 71. She is also managing gastroesophageal reflux disease (GERD) and asthma, both contributing to her overall health status. In addition, the patient's history includes obstructive sleep apnea, for which she utilizes CPAP therapy for more than four hours a night and reports deriving benefits. She experiences situational depression and essential hypertension, which are both under treatment. 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 All past conditions and their management are assessed in this follow-up to ensure proper control and adjustment of therapeutic interventions. The patient's mammogram is up to date, and she is scheduled for a gastroenterology appointment in June 2024. [facility] Medical History Colon cancer screening Breast cancer screening by mammogram Tobacco abuse Acute bacterial tonsillitis Acute bacterial pharyngitis Acute gastroenteritis Shingles Encounter for removal of maria r Scalp laceration Knee effusion, left Blood pressure elevated without history of HTN Wrist pain COVID-19 virus infection Witnessed apneic spells Dysuria Bilateral hand pain Folliculitis Headache Leukocytosis Palpitations Vitamin B 12 deficiency Groin abscess Closed fibular fracture Microscopic hematuria Insomnia Subclinical hyperthyroidism History of CREST syndrome Lateral malleolar fracture Chronic interstitial cystitis Uterine fibroid History of seizures Bipolar disorder Asthma Gastroesophageal reflux disease Hypercholesterolemia Failed back syndrome Surgical History History of pelvic surgery History of carpal tunnel release History of section History of tubal ligation Family History Father CVD (cardiovascular disease) Myocardial infarction Mother COPD (chronic obstructive pulmonary disease) Rheumatoid arthritis Renal failure Family/Other History of uterine cancer History of breast cancer History of ovarian cancer Daughter Lupus Brother Lupus Other Mental health disorder Mental illness in member of household Social History Housing: Apartment Alcohol intake: former Patient Tobacco Use Status: Former Tobacco user Tobacco use type: Cigarette Cigarette Packs Per Day: 1 Cigarettes Per Day: 20.0 e-Cigarette/Vaping Use: Never Used Second Hand Smoke Exposure: Yes service: No Current occupational status: disabled Cognitive needs: No Hearing needs: No Vision needs: Yes Questionnaire PHQ-9 Over the last 2 weeks, how often have you been bothered by any of the following problems? 1. Little interest or pleasure in doing things: not at all 2. Feeling down, depressed, or hopeless: not at all 3. Trouble falling or staying asleep, or sleeping too much: not at all 4. Feeling tired or having little energy: not at all 5. Poor appetite or overeating: not at all 6. Feeling bad about yourself - or that you are a failure or have let yourself or your family down: not at all 7. Trouble concentrating on things, such as reading the newspaper or watching television: not at all 8. Moving or speaking so slowly that other people could have noticed. Or the opposite - being so fidgety or restless that you have been moving around a lot more than usual: not at all 9. Thoughts that you would be better off or of hurting yourself in some way: not at all Total score: 0 Depression Screening Interpretation: Negative Depression Screening Done: Yes Source: Developed by Drs. Joshua Sorensen, Salma Nagy, Scot Luciano and colleagues, with an educational georges from [employer]. Thrive Questionnaire Date Thrive assessed: 03/09/24 OLGA-7 AMB Questionnaire OLGA-7 Date OLGA - 7 assessed: 03/09/24 Source: Developed by Drs. Joshua Sorensen, Salma Nagy, Scot Luciano and colleagues, with an educational georges from [employer]. Physical exam (Primary Care) Vital Signs: Last Vital Signs Pulse 77 04/06/24 11:39 BP 130/80 04/06/24 11:39 Pulse Ox 98 04/06/24 11:39 Oxygen Delivery Method Room Air 04/06/24 11:39 BMI result Body Mass Index 28.3 Tobacco/Smoking Status: Tobacco use Status Tobacco use date assessed 03/09/24 04/06/24 11:45 Patient Tobacco Use Status Former Tobacco user 04/06/24 11:45 Tobacco use type Cigarette 04/06/24 11:45 e-Cigarette/Vaping Use Never Used 04/06/24 11:45 PHQ-9: PHQ-9 Score PHQ-9: Total score 0 04/06/24 11:45 Depression Screening Interpretation: Negative Thrive Assessment: Date of Thrive Assessment Date Thrive assessed 03/09/24 04/06/24 11:45 Const General: alert; No acute distress Eyes Conjunctivae: conjunctivae normal Resp Auscultation: clear to auscultation bilaterally Cardio Rate: regular rate Rhythm: regular rhythm GI Inspection: Yes normal to inspection Skin Other: With a maculopapular rash on the chest the size of about 5 x 3 in noted also on the right thigh with the smaller area 2 x 3 in and on the left thigh Extrem General: Yes normal to inspection and No edema Coding Level of Care Code Est Pt Level 4 (32715) Diagnoses Colon cancer screening Z12.11 Type 2 diabetes mellitus with hyperglycemia E11.65 Obstructive sleep apnea hypopnea, severe G47.33 Failed back syndrome M96.1 Eczematous dermatitis L30.9 Assessment & Plan Assessment & Plan (1) Colon cancer screening: Code(s): Z12.11 - Encounter for screening for malignant neoplasm of colon Category: Medical Plan: Patient has a gastroenterology schedule in June 2024 (2) Type 2 diabetes mellitus with hyperglycemia: Comment: [facility] Code(s): E11.65 - Type 2 diabetes mellitus with hyperglycemia Category: Medical Plan: Decrease the amount of carbohydrate intake, pasta, bread, rice and potatoes are all sugar and that is aside from all the sweet stuff, remember that fruits are good but they are Sweet also. 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 Novak, dorsal column stimulator Dr. Herrera 09/15/2011, 11/2015 Code(s): M96.1 - Postlaminectomy syndrome, not elsewhere classified Category: Medical Plan: Narcotic pain meds: Is being prescribed with the understanding that these medications are potentially addictive and should be used only when absolutely necessary and must always be secured. Any remaining pills should be safely disposed off appropriately. Patient is advised that narcotics can impaired judgment and one should not drive or operate heavy machinery while taking these medications. Never share these medications with anybody and do not leave them unattended. They will not be replaced under any circumstances. (5) Eczematous dermatitis: Comment: chest and thigh bilateral Code(s): L30.9 - Dermatitis, unspecified Category: Medical Plan Obstructive Sleep Apnea Effective use of CPAP therapy for over 4 hours nightly is documented, with noted benefits. Regular follow-up to assess treatment efficacy is recommended. Essential Hypertension Ongoing blood pressure monitoring and adjustment of antihypertensive medications are advised to maintain target blood pressure levels. Hypercholesterolemia The patient's LDL level of 71 is considered optimal. Continuous lipid monitoring is important, alongside dietary management and possible pharmacotherapy to sustain lipid control. Fell Back Syndrome Management involves analgesic therapy with narcotic pain medications. Monitoring pain levels and adjusting medications for effective pain control would be evaluated continuously. Asthma Maintenance inhalers as prescribed, along with avoidance of known triggers, are de león. Regular monitoring of lung function and symptom severity is advised. Diabetes Mellitus Current treatment includes Farxiga and Metformin, with an aim to achieve a hemoglobin A1c level below 6.5%. Continuous monitoring of HbA1c is recommended to adjust medications as necessary for optimal glycemic control. Orders: Referrals Dermatology Referral L30.9 - Dermatitis, unspecified
--- OUTSIDE RECORDS SUMMARY | 2024-04-06 12:40 | XMS_ITS | Clinical Summary ---
Author Organization [address] [facility] Address [address] [place] [address] Phone Care Team Providers Care Line Servicer Name Role Phone Duke Hale MD Primary Care Provider [phone] Allergies Active Allergy Reactions Criticality Noted Date Comments Duloxetine Hcl 03/07/2019 Fish Containing Products 01/24/2024 Seafood/shellfish Levetiracetam 03/07/2019 Milnacipran 03/07/2019 Pineapple 01/24/2024 Pregabalin 03/07/2019 Quetiapine 03/07/2019 Sumatriptan 03/07/2019 Topiramate 03/07/2019 Medications gabapentin (NEURONTIN) 600 mg tablet 1 tablet (600 mg total). Active metFORMIN (GLUCOPHAGE) 1,000 mg tablet 4 Active meloxicam (MOBIC) 15 mg tablet TAKE 1 TABLET (15 MG) ORALLY DAILY FOR 90 DAYS 4 Active pravastatin (PRAVACHOL) 80 mg tablet Take 1 tablet (80 mg total) by mouth at bedtime. 4 Active oxyCODONE-aceta minophen (PERCOCET) 7.5-325 mg per tablet Take 1 tablet by mouth every 8 (eight) hours if needed. for pain Max Daily Amount: 3 tablets Active lisinopriL (PRINIVIL,ZESTR IL) 5 mg tablet Take 1 tablet (5 mg total) by mouth 1 (one) time each day. 4 Active omeprazole (PriLOSEC) [address] capsule TAKE 1 CAPSULE ORALLY 2 TIMES A DAY 30 MINUTES BEFORE MEALS 4 Active hydroxychloroqu ine (PLAQUENIL) 200 mg tablet TAKE 2 TABLETS A DAY X5 DAYS A WEEK AND 1 TAB A DAY X 2 DAYS A WEEK 4 Active folic acid (FOLVITE) 1 mg tablet Take 1 tablet (1,000 mcg total) by mouth 1 (one) time each day. Active fluticasone propionate (FLONASE) 50 mcg/actuation nasal spray Administer 1 spray into affected nostril(s) 1 (one) time each day. Active ergocalciferol (VITAMIN D-2) 1,250 mcg (50,000 unit) capsule Take 1 capsule (50,000 Units total) by mouth. 8 Active Farxiga 10 mg tablet Take 1 tablet (10 mg total) by mouth 1 (one) time each day. 4 Active cyclobenzaprine (FLEXERIL) 5 mg tablet 4 Active cyanocobalamin (VITAMIN B-12) 1,000 mcg tablet Take 1 tablet (1,000 mcg total) by mouth 1 (one) time each day. Active amitriptyline (ELAVIL) 10 mg tablet Take 1 tablet (10 mg total) by mouth. at bedtime. 4 Active Ventolin HFA 90 mcg/actuation inhaler INHALE 2 PUFFS EVERY 6 HOURS NEEDED FOR SHORTNESS OF BREATH OR WHEEZING 4 Active Active Problems Problem Noted Date Diagnosed Date Carpal tunnel syndrome of left wrist 01/25/2024 Radial styloid tenosynovitis 01/25/2024 Rupture of extensor tendon of left hand 01/25/20 24 Encounters Date Type Department Care Team Description 01/24/2024 11:45 AM EST Office Visit Orthopedic Surgery - [address] [address] Kellie Dickerson MD Carpal tunnel [...] drink = 0.6 oz pur e alcohol) Comments Unknown Sex and Gender Information Value Date Recorded Sex Assigned at Not on file Legal Sex Female 2:12 AM EST Gender Identity Not on file Sexual Orientation Not on file Obstetrics History Last Filed [...] Description 05/30/2024 10:45 AM EDT Hospital Encounter [facility] [place] [address] [place] [id number] Kellie Dickerson MD [address] [phone] 05/30/2024 10:45 AM EDT - 05/30/2024 12:00 PM EDT Surgery [facility] [place] [address] [place] [phone] Kellie Dickerson MD [address] [phone] RELEASE CARPAL TUNNEL ENDOSCOPIC; release first dorsal compartment left; EIP to EPL transfer for the thumb [64110 (CPT??) +2 more] Scheduled Procedures Name Priority [...] Cancer Screening: Pap Smear 1991 Pneumococcal Vaccine: 50+ Years (2 of 2 - PCV) 12/15/2016 12/16/2015 Pneumococcal Vaccine: Pediatrics (0 to 5 Years) [...] patient's age to complete this topic Meningococcal B Vacine Aged Out No lo nger eligible based on patient's age to complete this topic RSV Immunization Patients Under 20 months Aged Out No longer eligible based on patient's age to complete this topic Varicella Vaccines Aged Out No longer eligible based on patient's age to complete this topic Insurance [employer] Care Teams Line Servicer Relationship Specialty Start Date End Date Duke Hale MD [address] [facility] [address] [facility] [place] [address] PCP - General Internal Medicine 05/03/11
--- OUTSIDE RECORDS SUMMARY | 2024-04-06 12:41 | XMS_ITS | Clinical Summary ---
Author Organization [facility], Address [address] [place] [address] [place] [address] Phone Care Team Providers Care Automatic Mounter Name Role Phone Duke Hale MD Primary Care Provider [phone] Allergies Active Allergy Reactions Criticality Noted Date [...] complete this topic Insurance [employer] Care Teams Automatic Mounter Relationship Specialty Start Date End Date Duke Hale MD [facility] [place] [address] [place], [place] PCP - General Internal Medicine 03/07/19
--- OUTSIDE RECORDS SUMMARY | 2024-04-06 12:41 | XMS_ITS | Clinical Summary ---
Author Organization [facility] Address [address] [place] [address] Care Team Providers Care Immigration Services Officer Name Role Phone Margie Leonard Primary Care Provider [phone] Allergies No known active allergies Medications Medication Sig Dispensed Refills Start Date End Date Status ergocalciferol (VITAMIN D2) capsule 46976 units TAKE ONE CAPSULE BY MOUTH ONCE [...] age to complete this topic Care Teams Immigration Services Officer Relationship Specialty Start Date End Date Margie Leonard DO PCP - General Family Medicine 03/25/17
--- OUTSIDE RECORDS SUMMARY | 2024-04-06 12:41 | XMS_ITS | Encounter Summary ---
Author Organization [facility] Address [address] [place] [address] Phone Care Team Providers Care Information Security Director Name Role Phone Duke Hale MD Primary Care Provider [phone] Encounter Details Date Type Department Care Team (Late st Contact Info) Description 08/19/2023 Documentation Only [facility], [address] [place] [address] [place] [address] [place] [address] Social History Tobacco Use Types [...] on filedocumented in this encounter Care Teams Information Security Director Relationship Specialty Start Date End Date Duke Hale MD [facility] [place] [address] [place], [place] PCP - General Internal Medicine 03/07/19 documented as of this encounter
== END 2024-04-06 16:51 | disposition home or self-care (01) ==
PROVIDERS: PCP Internal Medicine; Visit Provider Internal Medicine
DX: Z12.11 Encounter for screening for malignant neoplasm of colon (principal); E11.65 Type 2 diabetes mellitus with hyperglycemia; G47.33 Obstructive sleep apnea (adult) (pediatric); M96.1 Postlaminectomy syndrome, not elsewhere classified; L30.9 Dermatitis, unspecified

== ENCOUNTER → 2024-04-06 11:35 | Outpatient (BNVA) | payer OTHER, SELFPAY | PROVIDERS: PCP Internal Medicine; Visit Provider Internal Medicine | DX: E11.65 Type 2 diabetes mellitus with hyperglycemia (principal); G47.33 Obstructive sleep apnea (adult) (pediatric); L30.9 Dermatitis, unspecified; M96.1 Postlaminectomy syndrome, not elsewhere classified | CPT/HCPCS: 99212 ==

== ENCOUNTER 2024-04-12 09:56 | Outpatient (AMB) | payer OTHER, SELFPAY ==
[2024-04-12 10:08] VITALS: BP 124/64; PULSE 88; O2SAT 97; BMI 28.5
--- NOTE | 2024-04-12 10:08 | A.OFFVIS_ITS ---
Vital Signs 04/12/24 10:08 Height 5 ft 1 in Weight 150 lb 12.739 oz BMI 28.5 BP 124/64 Pulse 88 Pulse Source Pulse Oximeter Pulse Oximetry (%) 97 Oxygen Delivery Method Room Air Intake Visit Reasons: LSSc Intake Note: Patient is here for follow up on scleroderma. Hands are really swollen making it hard to close pt also states that she has been breaking out in a rash on chest and right leg. Allergies topiramate [From TOPAMAX] Allergy (Severe, Verified 04/12/24 10:10) RASH, ITCH, DIFF BREATHING pineapple [Pineapple] Allergy (Mild, Verified 04/12/24 10:10) THROAT SWELLING duloxetine [Cymbalta] Allergy (Unknown, Verified 04/12/24 10:10) dizziness,vomiting levetiracetam Allergy (Unknown, Verified 04/12/24 10:10) Hives milnacipran [Savella] Allergy (Unknown, Verified 04/12/24 10:10) rash pregabalin Allergy (Unknown, Verified 04/12/24 10:10) nausous quetiapine [Seroquel] Allergy (Unknown, Verified 04/12/24 10:10) Hives sumatriptan [Imitrex] Allergy (Unknown, Verified 04/12/24 10:10) rash simvastatin Adverse Reaction (Intermediate, Verified 04/12/24 10:10) Nausea and Vomiting Seafood Allergy (Mild, Uncoded 04/06/24 11:39) RASH HPI HPI LSSc: Details: Morning stiffness is hours. Hands are swollen. No change in HCQ. She had an eye exam last year 2 weeks after clinic visit. She has an upcoming eye exam. Intermittent dyspnea. No fevers, oral or genital ulcers, sicca symptoms, worsening skin tightening, dysphagia. Her GERD is better controlled on omeprazole 40 mg daily. She has been experiencing dry mouth in the last week. She received prednisone course with resolution of symptoms of joint pain and swelling but symptoms returned. She recently developed a new rash on left extensor surface of forearm, anterior chest, abdomen and right thigh. She saw PCP last Tuesday who prescribed a topical steroid that she was using at home from her daughter without benefit. No recent infections. [facility] Medical History Colon cancer screening Breast cancer screening by mammogram Tobacco abuse Acute bacterial tonsillitis Acute bacterial pharyngitis Acute gastroenteritis Shingles Encounter for removal of maria r Scalp laceration Knee effusion, left Blood pressure elevated without history of HTN Wrist pain COVID-19 virus infection Witnessed apneic spells Dysuria Bilateral hand pain Folliculitis Headache Leukocytosis Palpitations Vitamin B 12 deficiency Groin abscess Closed fibular fracture Microscopic hematuria Insomnia Subclinical hyperthyroidism History of CREST syndrome Lateral malleolar fracture Chronic interstitial cystitis Uterine fibroid History of seizures Bipolar disorder Asthma Gastroesophageal reflux disease Hypercholesterolemia Failed back syndrome Surgical History History of pelvic surgery History of carpal tunnel release History of section History of tubal ligation Family History Father CVD (cardiovascular disease) Myocardial infarction Mother COPD (chronic obstructive pulmonary disease) Rheumatoid arthritis Renal failure Family/Other History of uterine cancer History of breast cancer History of ovarian cancer Daughter Lupus Brother Lupus Other Mental health disorder Mental illness in member of household Social History Housing: Apartment Alcohol intake: former Patient Tobacco Use Status: Former Tobacco user Tobacco use type: Cigarette Cigarette Packs Per Day: 1 Cigarettes Per Day: 20.0 e-Cigarette/Vaping Use: Never Used Second Hand Smoke Exposure: Yes service: No Current occupational status: disabled Cognitive needs: No Hearing needs: No Vision needs: Yes Review of Systems Const All systems reviewed & are unremarkable except as noted in HPI and below Physical Exam Vital Signs: Last Vital Signs Pulse 88 04/12/24 10:08 BP 124/64 04/12/24 10:08 Pulse Ox 97 04/12/24 10:08 Oxygen Delivery Method Room Air 04/12/24 10:08 BMI result Body Mass Index 28.5 Const Other: General: Comfortable CVS: RRR Respiratory: clear to auscultation bilaterally. Good respiratory effort Skin: No lesions seen. No discoloration of fingertips. No digital ulcers. MSK: Sclerodactyly present. She has chronic synovial thickening right 2nd and 3rd MCP and synovitis 2nd PIP right hand. Tender to palpate MCPs and PIP of right hand. Unable to platinum smith my hands. Good range of motion of shoulders. Tender trochanteric bursae bilateral. Limited full external rotation of bilateral hips. She has mild valgus deformity of knees bilaterally. Crepitus of bilateral knees. Knee flexion 90 degrees bilateral. Tender bilateral ankles and MTPs. Slight edema on ankles. 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 No change in symptoms on hydroxychloroquine. We discussed next steps in therapy. Discussed side effects, benefits and drug monitoring on methotrexate as add on DMARD treatment. Rheumatology history: Dx 2018 (arthralgias, Raynaud's, sclerodactyly, telangiectasias, ++ centromere antibody). [facility] 09/2023- Code(s): M34.9 - Systemic sclerosis, unspecified Category: Medical Plan: Ordered additional labs to workup inflammatory arthritis and hand x-rays After lab results are back, I will start methotrexate 12.5 mg once weekly and folic acid 1 mg daily. She will need labs for drug monitoring 4 weeks after starting methotrexate Continue hydroxychloroquine 400 mg daily 5 days a week and 200 mg daily 2 days a week. She has an upcoming eye exam for hydroxychloroquine surveillance. I have requested her to request that sterile process coordinator/irrigation flume layer since me clinic note from exam. Change meloxicam to Celebrex 200 mg twice a day I am avoiding prednisone due to increased risk of scleroderma renal crisis in individuals with systemic sclerosis. I have ordered RNA polymerase 3 to further assess her risk of developing scleroderma renal crisis PFTs and echocardiogram ordered to evaluate for pulmonary hypertension in systemic sclerosis [facility] Return to clinic in 3 months (2) Long-term use of hydroxychloroquine: Code(s): Z79.899 - Other fpc (current) drug therapy Category: Medical Plan: See above (3) Knee pain, bilateral: Comment: Chronic with clinical signs of osteoarthritis. Code(s): M25.561 - Pain in right knee; M25.562 - Pain in left knee Category: Medical Plan: X-ray ordered Meloxicam changed to Celebrex 200 mg twice a day (4) Inflammatory arthritis: Code(s): M19.90 - Unspecified osteoarthritis, unspecified site Category: Medical Plan: See above Orders: Orders CA echo transthoracic complete 04/12/24 M34.9 - Systemic sclerosis, unspecified XR knee RT 2V 04/12/24 M17.0 - Bilateral primary osteoarthritis of knee Alanine Aminotransferase 04/12/24 Z79.60 - terminal computer operator (current) use of unspecified immunomodulators and immunosuppressants Creatinine 04/12/24 Z79.60 - terminal computer operator (current) use of unspecified immunomodulators and immunosuppressants RNA Polymerase III Ab 04/12/24 M34.9 - Systemic sclerosis, unspecified Scleroderma 70 Antibody Today M34.9 - Systemic sclerosis, unspecified Rheumatoid Factor Today M19.90 - Unspecified osteoarthritis, unspecified site Creatinine 1 Month Z79.60 - long-term (current) use of unspecified immunomodulators and immunosuppressants PFT pulmonary function test 04/12/24 R06.02 - Shortness of breath XR knee LT 2V 04/12/24 M17.0 - Bilateral primary osteoarthritis of knee Complete Blood Count Auto Diff 04/12/24 Z79.60 - long-term (current) use of unspecified immunomodulators and immunosuppressants Aspartate Amino Transferase 04/12/24 Z79.60 - terminal computer operator (current) use of unspecified immunomodulators and immunosuppressants Erythrocyte Sedimentation Rate 04/12/24 Z79.899 - Other fpc (current) drug therapy C Reactive Protein 04/12/24 Z79.899 - Other laborer marine terminal (current) drug therapy Anti-Centromere B Antibodies Today M34.9 - Systemic sclerosis, unspecified Cyclic Citrullinated Peptide Today M19.90 - Unspecified osteoarthritis, unspecified site XR hand LT min 3V Today M19.90 - Unspecified osteoarthritis, unspecified site, M34.9 - Systemic sclerosis, unspecified XR hand RT min 3V Today M19.90 - Unspecified osteoarthritis, unspecified site Alanine Aminotransferase 1 Month Z79.60 - long-term (current) use of unspecified immunomodulators and immunosuppressants Aspartate Amino Transferase 1 Month Z79.60 - long-term (current) use of unspe cified immunomodulators and immunosuppressants Complete Blood Count Auto Diff 1 Month Z79.60 - terminal computer operator (current) use of unspecified immunomodulators and immunosuppressants Medications: New celecoxib Take with food. Replace meloxicam. 200 mg PO BID 60 caps 2RF methotrexate sodium Labs due in 4 weeks for drug monitoring at [facility] lab. 12.5 mg (5 x 2.5 mg) PO QWEEK 28 days 20 tabs 0RF Changed 2 From hydroxychloroquine Take 2 tabs a day x5 days a week and 1 tab a day x2 days a week 144 tabs 1RF To hydroxychloroquine Take 2 tabs a day x5 days a week and 1 tab a day x2 days a week Replace previous prescriptions 144 tabs 1RF Refilled folic acid 1 mg PO DAILY 90 tabs 3RF Discontinued meloxicam Discontinued Reason: Doctor's Order 15 mg PO DAILY 90 days 90 tabs 1RF M96.1 - Postlaminectomy syndrome, not elsewhere classified Coding Level of Care Code Est Pt Level 5 (36490) Complex EM visit Add On G2211 Diagnoses Limited scleroderma M34.9 Long-term use of hydroxychloroquine Z79.899 Knee pain, bilateral M25.561; M25.562 Inflammatory arthritis M19.90
--- OUTSIDE RECORDS SUMMARY | 2024-04-12 11:25 | XMS_ITS | Clinical Summary ---
Author Organization [address] [facility] Address [address] [place] [address] Phone Care Team Providers Care Center Aisle Cashier Name Role Phone Duke Hale MD Primary Care Provider [phone] Allergies Active Allergy Reactions Criticality Noted Date [...] AM EST Office Visit Orthopedic Surgery - [address] [address] Kellie Dickerson MD Carpal tunnel [...] Description 05/30/2024 10:45 AM EDT Hospital Encounter [facility] [place] [address] [place] [phone] Kellie Dickerson MD [address] [phone] 05/30/2024 10:45 AM EDT - 05/30/2024 12:00 PM EDT Surgery [facility] [place] [address] [place] [phone] Kellie Dickerson MD [address] [phone] RELEASE CARPAL TUNNEL ENDOSCOPIC; release first dorsal compartment left; EIP to EPL transfer for the thumb [49240 (CPT??) +2 more] Scheduled Procedures Name Priority [...] this topic Insurance HEALTH PLAN Care Teams Center Aisle Cashier Relationship Specialty Start Date End Date Duke Hale MD [address] [facility] [address] [facility] [place] [address] PCP - General Internal Medicine 05/03/11
--- OUTSIDE RECORDS SUMMARY | 2024-04-12 11:25 | XMS_ITS | Clinical Summary ---
Author Organization [facility], Address [address] [place] [address] [place] [address] Phone Care Team Providers Care Machine Assembler For Puller Over Name Role Phone Duke Hale MD Primary Care Provider [phone] Allergies Active Allergy Reactions Criticality Noted Date [...] complete this topic Insurance [employer] Care Teams Machine Assembler For Puller Over Relationship Specialty Start Date End Date Duke Hale MD [facility] [place] [address] [place], [place] PCP - General Internal Medicine 03/07/19
--- OUTSIDE RECORDS SUMMARY | 2024-04-12 11:25 | XMS_ITS | Clinical Summary ---
Author Organization [facility] Address [address] [place] [address] Care Team Providers Care Taping Foreman Name Role Phone Margie Leonard Primary Care Provider [phone] Allergies No known active allergies Medications Medication Sig Dispensed Refills Start Date End Date Status ergocalciferol (VITAMIN D2) capsule 79166 units TAKE ONE CAPSULE BY MOUTH ONCE [...] age to complete this topic Care Teams Taping Foreman Relationship Specialty Start Date End Date Margie Leonard DO PCP - General Family Medicine 03/25/17
--- OUTSIDE RECORDS SUMMARY | 2024-04-12 11:25 | XMS_ITS | Encounter Summary ---
Author Organization [facility] Address [address] [place] [address] Phone Care Team Providers Care Tank Setter Name Role Phone Duke Hale MD Primary Care Provider [phone] Encounter Details Date Type Department Care Team (Late st Contact Info) Description 08/19/2023 Documentation Only [facility], [address] [place] [address] [place] [address] [place] [address] Social History Tobacco Use Types [...] on filedocumented in this encounter Care Teams Tank Setter Relationship Specialty Start Date End Date Duke Hale MD [facility] [place] [address] [place], [place] PCP - General Internal Medicine 03/07/19 documented as of this encounter
== END 2024-04-12 10:54 | disposition home or self-care (01) ==
PROVIDERS: PCP Internal Medicine; Visit Provider Internal Medicine Rheumatology
DX: M34.9 Systemic sclerosis, unspecified (principal); Z79.899 Other long term (current) drug therapy; M25.561 Pain in right knee; M25.562 Pain in left knee; M19.90 Unspecified osteoarthritis, unspecified site
CPT/HCPCS: 99215; G2211

== ENCOUNTER 2024-04-12 09:56 | Outpatient (REF) | payer OTHER, SELFPAY ==
--- OUTSIDE RECORDS SUMMARY | 2024-04-12 13:05 | XMS_ITS | Clinical Summary ---
Author Organization 175 [facility] Address [address] [place] [address] Phone Care Team Providers Care Commercial Tire Service Technician Name Role Phone Duke Hale MD Primary Care Provider [phone] Allergies Active Allergy Reactions Criticality Noted Date [...] AM EST Office Visit Orthopedic Surgery - [address] [address] Kellie Dickerson MD Carpal tunnel [...] Description 05/30/2024 10:45 AM EDT Hospital Encounter [facility] [place] [address] [place] [phone] Kellie Dickerson MD [address] [phone] 05/30/2024 10:45 AM EDT - 05/30/2024 12:00 PM EDT Surgery [facility] [place] [address] [place] [phone] Kellie Dickerson MD [address] [phone] RELEASE CARPAL TUNNEL ENDOSCOPIC; release first dorsal compartment left; EIP to EPL transfer for the thumb [98447 (CPT??) +2 more] Scheduled Procedures Name Priority [...] this topic Insurance HEALTH PLAN Care Teams Commercial Tire Service Technician Relationship Specialty Start Date End Date Duke Hale MD [address] [facility] [address] [place] [facility] [place] [id number] PCP - General Internal Medicine 05/03/11
--- OUTSIDE RECORDS SUMMARY | 2024-04-12 13:05 | XMS_ITS | Clinical Summary ---
Author Organization [facility], Address [address] [place] [address] [place] [address] Phone Care Team Providers Care Ham Sawyer Name Role Phone Duke Hale MD Primary Care Provider [phone] Allergies Active Allergy Reactions Criticality Noted Date [...] complete this topic Insurance [employer] Care Teams Ham Sawyer Relationship Specialty Start Date End Date Duke Hale MD [facility] [place] [address] [place], [place] PCP - General Internal Medicine 03/07/19
--- OUTSIDE RECORDS SUMMARY | 2024-04-12 13:05 | XMS_ITS | Clinical Summary ---
Author Organization [facility] Address [address] [place] [address] Care Team Providers Care Shank Threader Name Role Phone Margie Leonard Primary Care Provider [phone] Allergies No known active allergies Medications Medication Sig Dispensed Refills Start Date End Date Status ergocalciferol (VITAMIN D2) capsule 16194 units TAKE ONE CAPSULE BY MOUTH ONCE [...] age to complete this topic Care Teams Shank Threader Relationship Specialty Start Date End Date Margie Leonard DO PCP - General Family Medicine 03/25/17
--- OUTSIDE RECORDS SUMMARY | 2024-04-12 13:05 | XMS_ITS | Encounter Summary ---
Author Organization [facility] Address [address] [place] [address] Phone Care Team Providers Care Cotton Tier Name Role Phone Duke Hale MD Primary Care Provider [phone] Encounter Details Date Type Department Care Team (Late st Contact Info) Description 08/19/2023 Documentation Only [facility], [address] [place] [address] [place] [address] [place] [address] Social History Tobacco Use Types [...] on filedocumented in this encounter Care Teams Cotton Tier Relationship Specialty Start Date End Date Duke Hale MD [facility] [place] [address] [place], [place] PCP - General Internal Medicine 03/07/19 documented as of this encounter
[2024-04-12 18:22] LABS: MANUAL DIFF FLAG NO
[2024-04-12 18:29] LABS: Basophils Absolute Auto 0.1 X10*3/uL (0.0-0.2); Basophils Percent Auto 0.5 % (0-2); Eosinophils Absolute Auto 0.3 X10*3/uL (0.0-0.4); Hematocrit 38.2 % (37.0-47.0); Hemoglobin 12.4 g/dl (12.0-16.0); Imm Gran Abs Auto 0.08 X10*3/uL (0.00-0.03); Imm Gran Pct Auto 0.5 % (0.0-0.4); Lymphocytes Absolute Auto 3.3 X10*3/uL (1.2-4.9); Lymphocytes Percent Auto 19.8 % (20-40); Mean Corpuscular HGB Conc 32.5 g/dl (31.0-35.0); Mean Corpuscular Hemoglobin 29.7 pg (27.0-33.0); Mean Corpuscular Volume 91.4 fL (80.0-98.0); Monocytes Absolute Auto 0.8 X10*3/uL (0.1-1.2); Monocytes Percent Auto 4.9 % (2-11); Neutrophils Absolute Auto 12.1 x10*3/uL (2.0-8.3); Neutrophils Percent Auto 72.3 % (45-73); Platelet Count 266 X10*3/uL (160-400); Red Blood Count 4.18 X10*6/uL (4.20-5.50); Red Cell Distribution Width 15.3 % (11.0-16.0); White Blood Count 16.8 X10*3/uL (4.8-10.8)
[2024-04-12 18:39] LABS: Alanine Aminotransferase 22 U/L (0-31); Aspartate Amino Transferase 21 U/L (5-31); C Reactive Protein 0.43 mg/dL (< or = 0.50); Estimated Glomerular Filt Rate > 60
[2024-04-12 19:06] LABS: Erythrocyte Sedimentation Rate 3 MM/HR (0-20)
== END 2024-04-12 09:57 | disposition home or self-care (01) ==
LOC: HO.HKASLDS 09:56
PROVIDERS: PCP Internal Medicine; Visit Provider Internal Medicine Rheumatology
DX: M32.9 Systemic lupus erythematosus, unspecified (principal); M34.9 Systemic sclerosis, unspecified; Z79.60 Long term (current) use of unspecified immunomodulators and immunosuppressants; Z79.899 Other long term (current) drug therapy
CPT/HCPCS: 36415; 82565; 83520; 84450; 84460; 85025; 85652; 86140; 99212

== ENCOUNTER 2024-05-02 11:33 | Outpatient (AMB) | payer OTHER, SELFPAY ==
--- NOTE | 2024-05-02 11:55 | A.OFFPC_ITS ---
Vital Signs 05/02/24 11:56 Height 5 ft 1 in Weight 147 lb 2 oz BMI 27.8 BP 130/68 Blood Pressure Location Lt brachial Position Sitting Temp 97.3 F Temp Source Temporal Artery Scan Intake Visit Reasons: med f/u Intake Note: Patient is here to follow up on med review. Regional Clinical Research Associate Required: No Business Management Professor: Not Required per policy Accompanied by: Self / Same As Patient Allergies topiramate [From TOPAMAX] Allergy (Severe, Verified 05/02/24 11:56) RASH, ITCH, DIFF BREATHING pineapple [Pineapple] Allergy (Mild, Verified 05/02/24 11:56) THROAT SWELLING duloxetine [Cymbalta] Allergy (Unknown, Verified 05/02/24 11:56) dizziness,vomiting levetiracetam Allergy (Unknown, Verified 05/02/24 11:56) Hives milnacipran [Savella] Allergy (Unknown, Verified 05/02/24 11:56) rash pregabalin Allergy (Unknown, Verified 05/02/24 11:56) nausous quetiapine [Seroquel] Allergy (Unknown, Verified 05/02/24 11:56) Hives sumatriptan [Imitrex] Allergy (Unknown, Verified 05/02/24 11:56) rash simvastatin Adverse Reaction (Intermediate, Verified 05/02/24 11:56) Nausea and Vomiting Seafood Allergy (Mild, Uncoded 05/02/24 11:56) RASH Tobacco use date assessed: 05/02/24 Dental Screening Dental Screen Date: 03/09/24 [facility] Medical History (Updated 04/13/24 @ 22:11 by Jesus Garcia MD) Colon cancer screening (~04/13/24) Breast cancer screening by mammogram Tobacco abuse Acute bacterial tonsillitis Acute bacterial pharyngitis Acute gastroenteritis Shingles Encounter for removal of maria r Scalp laceration Knee effusion, left Blood pressure elevated without history of HTN Wrist pain COVID-19 virus infection Witnessed apneic spells Dysuria Bilateral hand pain Folliculitis Headache Leukocytosis Palpitations Vitamin B 12 deficiency Groin abscess Closed fibular fracture Microscopic hematuria Insomnia Subclinical hyperthyroidism History of CREST syndrome Lateral malleolar fracture Chronic interstitial cystitis Uterine fibroid History of seizures Bipolar disorder Asthma Gastroesophageal reflux disease Hypercholesterolemia Failed back syndrome Surgical History History of pelvic surgery History of carpal tunnel release History of section History of tubal ligation Family History Father CVD (cardiovascular disease) Myocardial infarction Mother COPD (chronic obstructive pulmonary disease) Rheumatoid arthritis Renal failure Family/Other History of uterine cancer History of breast cancer History of ovarian cancer Daughter Lupus Brother Lupus Other Mental health disorder Mental illness in member of household Social History Housing: Apartment Alcohol intake: former Patient Tobacco Use Status: Former Tobacco user Tobacco use type: Cigarette Cigarette Packs Per Day: 1 Cigarettes Per Day: 20.0 e-Cigarette/Vaping Use: Never Used Second Hand Smoke Exposure: Yes service: No Current occupational status: disabled Cognitive needs: No Hearing needs: No Vision needs: Yes Questionnaire Thrive Questionnaire Date Thrive assessed: 03/09/24 OLGA-7 AMB Questionnaire OLGA-7 Date OLGA - 7 assessed: 03/09/24 Source: Developed by Drs. Joshua Sorensen, Salma Nagy, Scot Luciano and colleagues, with an educational georges from [employer]. Physical exam (Primary Care) Vital Signs: Last Vital Signs Temp 97.3 F 05/02/24 11:56 BP 130/68 05/02/24 11:56 BMI result Body Mass Index 27.8 Tobacco/Smoking Status: Tobacco use Status Tobacco use date assessed 05/02/24 05/02/24 12:00 Patient Tobacco Use Status Former Tobacco user 05/02/24 12:00 Tobacco use type Cigarette 05/02/24 12:00 e-Cigarette/Vaping Use Never Used 05/02/24 12:00 Thrive Assessment: Date of Thrive Assessment Date Thrive assessed 03/09/24 05/02/24 12:00 Const General: alert; No acute distress Eyes Conjunctivae: conjunctivae normal Resp Auscultation: clear to auscultation bilaterally Cardio Rate: regular rate Rhythm: regular rhythm GI Inspection: Yes normal to inspection Extrem General: Yes normal to inspection and No edema Coding Level of Care Code Est Pt Level 4 (70275) Complex EM visit Add On G2211 Diagnoses Failed back syndrome M96.1 Hypercholesterolemia E78.00 Gastroesophageal reflux disease without esophagitis K21.9 Esophagitis presence: without esophagitis Obstructive sleep apnea hypopnea, severe G47.33 Type 2 diabetes mellitus with hyperglycemia E11.65 Hypertension I10 Overweight (BMI 25.0-29.9) E66.3 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 Novak, dorsal column stimulator Dr. Herrera 09/15/2011, 11/2015 Code(s): M96.1 - Postlaminectomy syndrome, not elsewhere classified Category: Medical Plan: Narcotic pain meds: Is being prescribed with the understanding that these medications are potentially addictive and should be used only when absolutely necessary and must always be secured. Any remaining pills should be safely disposed off appropriately. Patient is advised that narcotics can impaired judgment and one should not drive or operate heavy machinery while taking these medications. Never share these medications with anybody and do not leave them unattended. They will not be replaced under any circumstances. (2) Hypercholesterolemia: Code(s): E78.00 - Pure hypercholesterolemia, unspecified Category: Medical Plan: Avoid fried foods, chicken skin, eggs, butter margarine, pastries and meat. Be it pork or beef they have a lot of cholesterol blood work in August last done on pravastatin 80 (3) Gastroesophageal reflux disease: Code(s): K21.9 - Gastro-esophageal reflux disease without esophagitis Category: Medical Qualifiers: Esophagitis presence: without esophagitis Qualified Code(s): K21.9 - Gastro-esophageal reflux disease without esophagitis Plan: Avoid the foods that causes that usually spicy foods, tomato products, juices, coffee, soda and foods that your sensitive to. After eating do not lie down, allow 3-4 hours before in lie down. And keep the head of bed above 30 degrees to avoid the acid from going up. (4) Obstructive sleep apnea hypopnea, severe: Comment: CPAP Code(s): G47.33 - Obstructive sleep apnea (adult) (pediatric) Category: Medical Plan: Continue to use the CPAP more than 4 hours a night and benefits from this. (5) Type 2 diabetes mellitus with hyperglycemia: Comment: [facility] Code(s): E11.65 - Type 2 diabetes mellitus with hyperglycemia Category: Medical Plan: Decrease the amount of carbohydrate intake, pasta, bread, rice and potatoes are all sugar and that is aside from all the sweet stuff, remember that fruits are good but they are Sweet also. On Januvia metformin Farxiga. (6) Hypertension: Code(s): I10 - Essential (primary) hypertension Category: Medical Plan: Continue with blood pressure medication. 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 No ch guillermo in symptoms on hydroxychloroquine. We discussed next steps in therapy. Discussed side effects, benefits and drug monitoring on methotrexate as add on DMARD treatment. Rheumatology history: Dx 2017 (arthralgias, Raynaud's, sclerodactyly, telangiectasias, ++ centromere antibody). [facility] 09/2023- Code(s): M34.9 - Systemic sclerosis, unspecified Category: Medical Plan: Patient is followed by Rheumatology and has been started on methotrexate with hydroxychloroquine. Meloxicam change to celecoxib. Plan History of Present Illness The patient is a 54-year-old female presenting for follow-up of multiple chronic conditions, including a history of fail back syndrome managed with narcotic pain medication. Her diabetes mellitus, as evidenced by a January hemoglobin A1c of 6.9%, is currently treated with Januvia, metformin, and Farxiga. The patient also notes a 3-pound weight loss recently. Her hypercholesterolemia is maintained with an LDL of 71 mg/dL, and she is on pravastatin 80 mg. The patient follows CPAP therapy for obstructive sleep apnea but finds it challenging to maintain adherence. She also manages asthma, GERD, depression, and hypertension, with Lisinopril at 5 mg daily. Limited scleroderma and inflammatory arthritis were noted in March 2024. Rheumatology initiated methotrexate therapy to complement her hydroxychloroquine treatment, swapping meloxicam for Celecoxib. The patient expresses symptoms of systemic sclerosis with particular sensitivity to dryness, supported by consultations with ophthalmology that diagnosed conjunctivitis sicca, hypertensive retinopathy, and nuclear sclerosis cataracts in April 2024. Health Maintenance - Mammogram is up to date. - CPAP usage for obstructive sleep apnea. - Scheduled appointment with swing grinder in June. Social History Review of Systems - Eye: Reports conjunctivitis sicca and cataracts. - Cardiovascular: Reports hypertensive retinopathy. - Musculoskeletal: Reports inflammatory arthritis and systemic sclerosis. - General: Reports difficulty sleeping and feeling generally unwell after starting immunosuppressants. Physical Exam Results - Labs: Leukocytosis with normal blood count in March. - Diabetes: Hemoglobin A1c was 6.9% in January. - Lipids: LDL of 71 mg/dL in August 2023. Plan The patient's extensive medical conditions require careful management, including ongoing narcotic use, with regular assessment for potential tolerance or side effects. Diabetes management is to continue as present with her current medication regimen. Lipid control is optimal, and maintenance on pravastatin is warranted. Reinforcement of CPAP therapy importance is vital in managing her obstructive sleep apnea. Hypertension control with Lisinopril, combined with continued dietary measures and exercise, is essential. The management of systemic sclerosis with methotrexate and hydroxychloroquine is pivotal, as is careful monitoring of any adverse effects due to immunosuppressants. Continued follow-up and coordination with ophthalmology should manage eye-related complications of systemic sclerosis. Patient was informed and verbally consented to the use of an ambient scribe for clinic note documentation during this visit. Discussion Notes During the visit, I emphasized the importance of maintaining diligent control of each chronic condition, especially considering the extensive overlap and potential system-wide effects. I highlighted the rationale for each medication and sought to clarify that while immunosuppressants present risks, they are crucial to managing systemic sclerosis symptoms. The patient was informed about the necessity of CPAP adherence for sleep apnea and the benefits provided by effective cholesterol and blood glucose management. I also discussed rheumatology's role and recommendations, reassuring the patient regarding potential symptom management improvements and closely managing any immune suppression risks. Plans were set for ongoing assessments and monitoring each chronic condition collaboratively with the patient. Patient Instructions - Continue using CPAP nightly for obstructive sleep apnea. - Maintain current medications: Januvia, Metformin, Farxiga, and Pravastatin. - Adhere strictly to the current hypertension and lipid control regimen. - Continue methotrexate and hydroxychloroquine per rheumatology guidance. - Monitor for signs of increased dryness and report any concerns promptly. - Follow up with the swing grinder as scheduled. - Avoid close contact with sick individuals due to immunosuppressant use. Medications: Refilled oxycodone-acetaminophen 7.5-325 mg (Percocet) partial fill upon request 1 tab PO Q8H PRN 84 tabs 0RF pain M96.1 - Postlaminectomy syndrome, not elsewhere classified
[2024-05-02 11:56] VITALS: BP 130/68; TEMP 36.3; BMI 27.8
--- OUTSIDE RECORDS SUMMARY | 2024-05-02 14:12 | XMS_ITS | Encounter Summary ---
Author Organization [facility] Address [address] [place] [address] Phone Care Team Providers Care Hydramatic Specialist Name Role Phone Duke Hale MD Primary Care Provider [phone] Encounter Details Date Type Department Care Team (Late st Contact Info) Description 08/19/2023 Documentation Only [facility], [address] [place] [address] [place], [place] [address] [place] [address] Social History Tobacco Use Types [...] on filedocumented in this encounter Care Teams Hydramatic Specialist Relationship Specialty Start Date End Date Duke Hale MD [facility] [place] [address] [place], [place] PCP - General Internal Medicine 03/07/19 documented as of this encounter
--- OUTSIDE RECORDS SUMMARY | 2024-05-02 14:12 | XMS_ITS | Clinical Summary ---
Author Organization [facility], Address [address] [place] [address] [place] [address] Phone Care Team Providers Care Follow Up Manager Name Role Phone Duke Hale MD Primary Care Provider [phone] Allergies Active Allergy Reactions Criticality Noted Date [...] complete this topic Insurance [employer] Care Teams Follow Up Manager Relationship Specialty Start Date End Date Duke Hale MD [facility] ID [address] [place], [place] PCP - General Internal Medicine 03/07/19
--- OUTSIDE RECORDS SUMMARY | 2024-05-02 14:12 | XMS_ITS | Clinical Summary ---
Author Organization [facility] Address [address] [place] [address] Phone Care Team Providers Care Date Pitter Name Role Phone Duke Hale MD Primary Care Provider [phone] Allergies Active Allergy Reactions Criticality Noted Date [...] extensor tendon of left hand 01/25/20 24 Surgical History Surgery Date Site/Laterality Comments BACK [...] 10:45 AM EDT Hospital Encounter [facility] [place] [address] [place] [id number] Kellie Dickerson MD [address] [address] 05/30/2024 10:45 AM EDT - 05/30/2024 12:00 PM EDT Surgery [facility] [place] [address] [place] [address] Kellie Dickerson MD [address] [address] RELEASE CARPAL TUNNEL ENDOSCOPIC; release first dorsal compartment left; EIP to EPL transfer for the thumb [73408 (CPT??) +2 more] Scheduled Procedures Name Priority [...] patient's age to complete this topic Insurance PLAN Care Teams Date Pitter Relationship Specialty Start Date End Date Duke Hale MD [address] [place] [address] Dr [address] [facility] [place] [address] PCP - General Internal Medicine 05/03/11
--- OUTSIDE RECORDS SUMMARY | 2024-05-02 14:12 | XMS_ITS | Clinical Summary ---
Author Organization [facility] Address [address] [place] [address] Care Team Providers Care Marine Propulsion Technician Name Role Phone Margie Leonard Primary Care Provider [phone] Allergies No known active allergies Medications Medication Sig Dispensed Refills Start Date End Date Status ergocalciferol (VITAMIN D2) capsule 97587 units TAKE ONE CAPSULE BY MOUTH ONCE [...] age to complete this topic Care Teams Marine Propulsion Technician Relationship Specialty Start Date End Date Margie Leonard DO PCP - General Family Medicine 03/25/17
== END 2024-05-02 13:28 | disposition home or self-care (01) ==
LOC: HO.HMCH 11:34
PROVIDERS: PCP Internal Medicine; Visit Provider Internal Medicine
DX: E11.65 Type 2 diabetes mellitus with hyperglycemia (principal); M34.9 Systemic sclerosis, unspecified; M96.1 Postlaminectomy syndrome, not elsewhere classified; E78.00 Pure hypercholesterolemia, unspecified; K21.9 Gastro-esophageal reflux disease without esophagitis; G47.33 Obstructive sleep apnea (adult) (pediatric); I10 Essential (primary) hypertension; E66.3 Overweight

== ENCOUNTER → 2024-05-02 11:33 | Outpatient (BNVA) | payer OTHER, SELFPAY | PROVIDERS: PCP Internal Medicine; Visit Provider Internal Medicine | DX: M96.1 Postlaminectomy syndrome, not elsewhere classified (principal); E78.00 Pure hypercholesterolemia, unspecified; K21.9 Gastro-esophageal reflux disease without esophagitis; G47.33 Obstructive sleep apnea (adult) (pediatric); E11.65 Type 2 diabetes mellitus with hyperglycemia; I10 Essential (primary) hypertension; E66.3 Overweight; M34.9 Systemic sclerosis, unspecified | CPT/HCPCS: 99212 ==

== ENCOUNTER 2024-07-11 09:56 | Outpatient (AMB) | payer OTHER, SELFPAY ==
--- NOTE | 2024-07-11 10:07 | A.OFFVIS_ITS ---
Vital Signs 07/11/24 10:08 Height 5 ft 1 in Weight 152 lb 8.958 oz BMI 28.8 BP 120/80 Blood Pressure Location Rt brachial Position Sitting Pulse 70 Pulse Source Pulse Oximeter Pulse Oximetry (%) 98 Oxygen Delivery Method Room Air Intake Visit Reasons: 3 Months Intake Note: Patient is here for follow up on scleroderma. Allergies topiramate [From TOPAMAX] Allergy (Severe, Verified 07/11/24 10:35) RASH, ITCH, DIFF BREATHING pineapple [Pineapple] Allergy (Mild, Verified 07/11/24 10:35) THROAT SWELLING duloxetine [Cymbalta] Allergy (Unknown, Verified 07/11/24 10:35) dizziness,vomiting levetiracetam Allergy (Unknown, Verified 07/11/24 10:35) Hives milnacipran [Savella] Allergy (Unknown, Verified 07/11/24 10:35) rash pregabalin Allergy (Unknown, Verified 07/11/24 10:35) nausous quetiapine [Seroquel] Allergy (Unknown, Verified 07/11/24 10:35) Hives sumatriptan [Imitrex] Allergy (Unknown, Verified 07/11/24 10:35) rash simvastatin Adverse Reaction (Intermediate, Verified 07/11/24 10:35) Nausea and Vomiting Seafood Allergy (Mild, Uncoded 05/02/24 11:56) RASH HPI HPI 3 Months: Details: She had surgery on left wrists with transposition of tendon, carpal tunnel release and clean up of arthritis. She had surgery in May and has recovered well without infection. She had methotrexate prior to surgery and then stopped it before surgery. She tolerated methotrexate without side effects. She has been taking oxycodone for pain control. She continues to have joint pain. [facility] Medical History (Updated 07/11/24 @ 12:58 by Jesus Garcia MD) De Quervain's tenosynovitis, left Tendonitis of wrist, left Colon cancer screening (~04/13/24) Breast cancer screening by mammogram Tobacco abuse Acute bacterial tonsillitis Acute bacterial pharyngitis Acute gastroenteritis Shingles Encounter for removal of maria r Scalp laceration Knee effusion, left Blood pressure elevated without history of HTN Wrist pain COVID-19 virus infection Witnessed apneic spells Dysuria Bilateral hand pain Folliculitis Headache Leukocytosis Palpitations Vitamin B 12 deficiency Groin abscess Closed fibular fracture Microscopic hematuria Insomnia Subclinical hyperthyroidism History of CREST syndrome Lateral malleolar fracture Chronic interstitial cystitis Uterine fibroid History of seizures Bipolar disorder Asthma Gastroesophageal reflux disease Hypercholesterolemia Failed back syndrome Surgical History History of pelvic surgery History of carpal tunnel release History of section History of tubal ligation Family History Father CVD (cardiovascular disease) Myocardial infarction Mother COPD (chronic obstructive pulmonary disease) Rheumatoid arthritis Renal failure Family/Other History of uterine cancer History of breast cancer History of ovarian cancer Daughter Lupus Brother Lupus Other Mental health disorder Mental illness in member of household Social History Housing: Apartment Alcohol intake: former Patient Tobacco Use Status: Former Tobacco user Tobacco use type: Cigarette Cigarette Packs Per Day: 1 Cigarettes Per Day: 20.0 e-Cigarette/Vaping Use: Never Used Second Hand Smoke Exposure: Yes service: No Current occupational status: disabled Cognitive needs: No Hearing needs: No Vision needs: Yes Physical Exam Vital Signs: Last Vital Signs Pulse 70 07/11/24 10:08 BP 120/80 07/11/24 10:08 Pulse Ox 98 07/11/24 10:08 Oxygen Delivery Method Room Air 07/11/24 10:08 BMI result Body Mass Index 28.8 Const Other: General: Comfortable CVS: RRR Respiratory: clear to auscultation bilaterally. Good respiratory effort Skin: No lesions seen. No discoloration of fingertips. No digital ulcers. Sclerodactyly present. MSK: Chronic synovial thickening and synovitis of right hand has resolved. Tender to palpate PIP knees of left hand. Left wrist is braced. Good range of motion of shoulders. Tender trochanteric bursae bilateral. Limited full external rotation of bilateral hips. She has mild valgus deformity of knees bilaterally. Crepitus of bilateral knees. Knee flexion 90 degrees bilateral. Tender bilateral ankles and MTPs. Slight edema on ankles. 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 Synovitis has resolved after starting methotrexate but only being on it for 1 month. Meloxicam was also changed to Celebrex, which would have contributed to benefit. She tolerated methotrexate without side effect. I will restart methotrexate with goal of further improving her joint symptoms. Rheumatology history: Dx 2018 (arthralgias, Raynaud's, sclerodactyly, telangiectasias, ++ centromere antibody). [facility] 09/2023- Code(s): M34.9 - Systemic sclerosis, unspecified Category: Medical Plan: Labs ordered prior to restarting methotrexate. After lab results are back, I will start methotrexate 12.5 mg once weekly and folic acid 1 mg daily. She will need labs for drug monitoring 4 weeks after starting methotrexate Start folic acid 1 mg daily Continue hydroxychloroquine 400 mg daily 5 days a week and 200 mg daily 2 days a week. She had eye exam April 2024. No OCT or visual field test. Continue Celebrex 200 mg twice a day I am avoiding prednisone due to increased risk of scleroderma renal crisis in individuals with systemic sclerosis PFTs and echocardiogram ordered to evaluate for pulmonary hypertension in systemic sclerosis Return to clinic in 3 months (2) Inflammatory arthritis: Code(s): M19.90 - Unspecified osteoarthritis, unspecified site Category: Medical Plan: See above (3) Long-term use of hydroxychloroquine: Code(s): Z79.899 - Other long-term (current) drug therapy Category: Medical Plan: See above Orders: Orders Alanine Aminotransferase Today M19.90 - Unspecified osteoarthritis, unspecified site, Z79.60 - superintendent terminal (current) use of unspecified immunomodulators and immunosuppressants, Z79.899 - Other long-term (current) drug therapy C Reactive Protein Today M19.90 - Unspecified osteoarthritis, unspecified site, Z79.899 - Other terminal computer operator (current) drug therapy Aspartate Amino Transferase Today M19.90 - Unspecified osteoarthritis, unspecified site, Z79.60 - superintendent terminal (current) use of unspecified immunomodulators and immunosuppressants, Z79.899 - Other long-term (current) drug therapy Alanine Aminotransferase 1 Month Z79.60 - [facility] (current) use of unspecified immunomodulators and immunosuppressants Creatinine 1 Month Z79.60 - superintendent terminal (current) use of unspecified immunomodulators and immunosuppressants Erythrocyte Sedimentation Rate Today M19.90 - Unspecified osteoarthritis, un specified site, Z79.899 - Other long-term (current) drug therapy Complete Blood Count Auto Diff Today M19.90 - Unspecified osteoarthritis, unspecified site, Z79.60 - superintendent terminal (current) use of unspecified immunomodulators and immunosuppressants, Z79.899 - Other long-term (current) drug therapy Creatinine Today M19.90 - Unspecified osteoarthritis, unspecified site, Z79.60 - [facility] (current) use of unspecified immunomodulators and immunosuppressants, Z79.899 - Other terminal computer operator (current) drug therapy Aspartate Amino Transferase 1 Month Z79.60 - [facility] (current) use of unspecified immunomodulators and immunosuppressants Complete Blood Count Auto Diff 1 Month Z79.60 - superintendent terminal (current) use of unspecified immunomodulators and immunosuppressants PFT pulmonary function test Today M34.9 - Systemic sclerosis, unspecified [place] echo transthoracic complete 79 Days M34.9 - Systemic sclerosis, unspecified Medications: Changed From celecoxib Take with food. Replace meloxicam. 200 mg PO BID 60 caps 2RF To celecoxib Take with food. 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
[2024-07-11 10:08] VITALS: BP 120/80; PULSE 70; O2SAT 98; BMI 28.8
--- OUTSIDE RECORDS SUMMARY | 2024-07-11 10:47 | XMS_ITS | Clinical Summary ---
Author Organization 175 [facility] Address [address] [place] [address] Phone Care Team Providers Care Incident Response Coordinator Name Role Phone Duke Hale MD Primary Care Provider [phone] Allergies Active Allergy Reactions Criticality Noted Date Comments Duloxetine Hcl 03/07/2019 Fish Containing Products 01/24/2024 Seafood/shellfish Levetiracetam 03/07/2019 Milnacipran 03/07/2019 Pineapple 01/24/2024 Pregabalin 03/07/2019 Quetiapine 03/07/2019 Sumatriptan 03/07/2019 Topiramate 03/07/2019 Medications gabapentin (NEURONTIN) 600 mg tablet 1 tablet (600 mg total) 3 (three) times a day. Active metFORMIN (GLUCOPHAGE) 1,000 mg tablet 4 Active omeprazole (PriLOSEC) [address] capsule TAKE 1 CAPSULE ORALLY 2 TIMES A DAY 30 MINUTES BEFORE MEALS 4 Active hydroxychloroqu ine (PLAQUENIL) 200 mg tablet TAKE 2 TABLETS A DAY X5 DAYS A WEEK AND 1 TAB A DAY X 2 DAYS A WEEK 4 Active fluticasone propionate (FLONASE) 50 mcg/actuation nasal [...] cyclobenzaprine (FLEXERIL) 5 mg tablet 4 Active Ventolin HFA 90 mcg/actuation inhaler INHALE 2 PUFFS EVERY 6 HOURS NEEDED FOR SHORTNESS OF BREATH OR WHEEZING 4 Active oxycodone HCl,terephth/as pirin (OXYCODONE [id number] SA ORAL) Active acetaminophen (TYLENOL 8 HOUR) 650 mg 8 hr tablet Take 1 tablet (650 mg total) by mouth 2 (two) times daily after breakfast and dinner. Do not crush, chew, or split. 30 tablet 5 Active oxyCODONE (ROXICODONE) 5 mg immediate release tablet Take 1 tablet (5 mg total) by mouth every 6 (six) hours if needed for severe pain for up to 10 doses. Max Daily Amount: 20 mg 10 tablet 5 Active Active Problems Problem Noted Date Diagnosed Date Post-operative state 06/18/2024 Carpal tunnel syndrome of left wrist 01/25/2024 Radial styloid tenosynovitis 01/25/2024 Rupture of extensor tendon of left hand 01/25/20 24 Encounters Date Type Department Care Team Description 07/02/2024 9:30 AM EDT Treatment [facility] [address] [place] [phone] Jenna Garcia OT Rupture of extensor tendon of left hand, subsequent encounter (Primary Dx) 06/18/2024 11:30 AM EDT Office Visit Orthopedic Surgery - [place] 175 [facility] [address] [place] [phone] Kellie Dickerson MD Carpal tunnel syndrome of left wrist (Primary Dx); Radial styloid tenosynovitis; Rupture of extensor tendon of left hand, sequela; Post-operative state 06/18/2024 10:45 AM EDT Treatment [facility] [address] [place] [phone] Jenna Garcia OT Rupture of extensor tendon of left hand, subsequent encounter (Primary Dx) 06/11/2024 2:30 PM EDT Evaluation [facility] [address] [place] [phone] Jenna Garcia OT Carpal tunnel syndrome of left wrist; Rupture of extensor tendon of left hand, sequela; Radial styloid tenosynovitis 06/11/2024 Plan of Care Documentation [facility] [address] [phone] 06/07/2024 1:05 AM EDT - 06/07/2024 2:05 AM EDT Emergency [facility] Emergency [address] [place] [phone] Tight cast (Primary Dx) Discharge Disposition: Home or Self Care 05/30/2024 10:45 AM EDT - 05/30/2024 12:[address] [facility] [place] [address] [place] [phone] Kellie Dickerson MD ENDOSCOPIC RELEASE CARPAL TUNNEL LEFT; release first dorsal compartment left; EIP to EPL transfer for the thumb [48500 (CPT??) +2 more] 05/30/2024 10:44 AM EDT An[address] Event [facility] OR [address] [place] [phone] Valente Lerma, Zacarias Osborne CRNA 05/30/2024 9:03 AM EDT - 05/30/2024 2:12 PM EDT Hospital Encounter [facility] [place] [address] [place] [phone] Kellie Dickerson MD Carpal tunnel syndrome of left wrist; Rupture of extensor tendon of left hand, sequela; Radial styloid tenosynovitis Discharge Disposition: Home or Self Care 05/30/2024 Telephone Orthopedic Surgery [facility] 250 175 [facility] [address] [place] [phone] Kellie Dickerson MD Medication 05/29/2024 1:00 PM EDT Consult Orthopedic Surgery [facility] 175 [facility] [address] [place] [phone] Kellie Dickerson MD Carpal tunnel syndrome of left wrist (Primary Dx); Radial styloid tenosynovitis; Rupture of extensor tendon of left hand, sequela from Last 3 Months Surgical History Surgery Date Site/Laterality Comments BACK SURGERY PROCEDURE: HISTORICAL BACK SURGERY CARPAL TUNNEL RELEASE Right SPINE SURGERY SECTION, LOW TRANSVERSE KIDNEY STONE SURGERY SPINAL CORD STIMULATOR IMPLANT HAND SURGERY 05/30/2024 Left eCTR and dorsal compartment release Medical History Medical History Date Comments Arthritis DX:Arthritis Sleep apnea Asthma Hypertension Hyperlipidemia Diabetes mellitus ([facility] V24, [facility] V28) Chronic kidney disease GERD (gastroesophageal reflux disease) Seizures ([facility] V24, [facility] V28) Anxiety Chronic pain disorder Social History Tobacco Use Types Packs/Day Years Used Date Smoking Tobacco: Every Day Smokeless Tobacco: Never Alcohol Use Standard Drinks/Week Comments Never 0 (1 standard drink = 0.6 oz pur e alcohol) Interpersonal Safety Answer Date Record ed Physical Abuse 05/30/2024 Verbal Abuse 05/30/2024 Comments No Sex and Gender Information Value Date Recorded Sex Assigned at Female 05/29/2024 12:18 PM EDT Legal Sex Female 2:12 AM EST Gender Identity Female 05/29/2024 12:18 PM EDT Sexual Orientation Straight 05/29/2024 12 :18 PM EDT Obstetrics History Last Filed Vital Signs Vital Sign Reading Time Taken Comments Blood Pressure 126/85 06/06/2024 10:47 PM EDT Pulse 92 06/06/2024 10:47 PM EDT Temperature 36.7 ??C (98 ??F) 06/06/2024 10:47 PM EDT Respiratory Rate 18 06/06/2024 10:47 PM EDT Oxygen Saturation 98% 06/06/2024 10:47 PM EDT Inhaled Oxygen Concentration - - Weight 65.8 kg (145 lb) 06/18/2024 11:26 AM EDT Height 154.9 cm (5' 1 ) 06/18/2024 11:26 AM EDT Body Mass Index 27.4 06/18/2024 11:26 AM EDT Plan of Treatment Upcoming Encounters Date Type Department Care Team (Late st Contact Info) Description 07/12/2024 9:30 AM EDT Treatment [facility] [address] [place] [phone] Jenna Garcia OT 07/16/2024 10:00 AM EDT Office Visit Orthopedic Surgery - [place] 175 [facility] [address] [place] [phone] Kellie Dickerson MD 175 [facility] [address] [place] [phone] Health Maintenance Due Date Last Done Comments [...] 01/24/2022 Social Influencers of Health Screening 01/24/2022 Hypertension/CHF/CAD Annual BMP Blood Test 01/23/2024 Influenza Vaccine (Season Ended) 2024 11/17/2018, 11/24/2017, 10/20/2016, Additional history exists DTaP,Tdap,and Td Vaccines (2 - Td or [...] age to complete this topic Meningococcal B Vaccine Aged Out No l onger eligible based on patient's age to complete this topic RSV Immunization Patients Under 20 months Aged Out No longer eligible based on patient's age to complete this topic Varicella Vaccines Aged Out No longer eligible based on patient's age to complete this topic Goals Goal Patient Goal Type Associated Problems Recent Progress Patient-Stated? Author <enter goal here> General Yes Jenna Garcia OT Note: OT PATIENT GOAL REGAIN FUNCTIONAL USE LEFT HAND FOR ALL HOUSEHOLD TASKS OT STGS 8 TO 10 VISITS General No Jenna Garcia OT Note: # 1 NO VISIBLE EDEMA # 2 FULL WOUND CLOSURE # 3 PARTICIPATE IN SCAR MANAGEMENT TO HAVE NO ADHERENCE # 4 IMPROVE SUPINATION FROM 50 TO 70 DEGREES TO RECEIVE ITEMS INTO PALM # 5 IMPROVE WRIST EXTENSION FROM 30 TO 60 DEGREES WITH GOOD STRENGTH TO WEIGHTBEAR # 6 ACHIEVE THUMB EXTENSION TO 50 DEGREES UPON REACH # 7 ACHIEVE THUMB IP FLEXION TO 40 DEGREES TO OPPOSE TO ALL DIGITS # 8 ACHIEVE ALL DIGIT FLEXION TO THE DPC # 9 ACHIVE LEFT MAGAZINE FILLER TO 23 POUNDS = 50 PERCENT OF THE RIGHT Procedures Procedure Name Priority Date/Time Associated Diagnosis Comments ED SPLINT APPLICATION Routine 06/07/2024 1:[address] APPLICATION SPLINT STATIC SHORT ARM Routine 06/07/2024 1:36 AM EDT TISSUE EXAM Routine 05/30/2024 11:28 AM EDT Carpal tunnel syndrome of left wrist Rupture of extensor tendon of left hand, sequela Radial styloid tenosynovitis CT XFER/TRNSPL TNDN CARPOMETACARPAL AREA/DORSUM HAND WO FREE GRAFT EA TNDN 05/30/2024 10:44 AM EDT Carpal tunnel syndrome of left wrist Rupture of extensor tendon of left hand, sequela Radial styloid tenosynovitis CT INCISION EXTENSOR TENDON SHEATH WRIST 05/30/2024 10:44 AM EDT Carpal tunnel syndrome of left wrist Rupture of extensor tendon of left hand, sequela Radial styloid tenosynovitis CT ENDOSCOPY WRIST SURGICAL WITH RELEASE TRANSVERSE CARPAL LIGAMENT 05/30/2024 10:44 AM EDT Carpal tunnel syndrome of left wrist Rupture of extensor tendon of left hand, sequela Radial styloid tenosynovitis TH AN NERVE BLOCK SUPRACLAVICULAR (NO CHARGE) Routine 05/30/2024 10:03 AM EDT TH AN NERVE BLOCK SUPRACLAVICULAR (CHARGE) Routine 05/30/2024 10:03 AM EDT POCT GLUCOSE BLOOD Routine 05/30/2024 9: 49 AM EDT from Last 3 Months Results * CT APPLICATION SPLINT STATIC SHORT ARM, HC APPLICATION SPLINT/CAST/STRAP (06/07/2024 1:36 AM EDT) Narrative Aileen Summers MD - 06/07/2024 1:36 AM EDT DEISY Garay ? 06/07/2024 ??1:40 AM Splint Application Date/Time: 06/07/2024 1:36 AM Performed by: DEISY Garay Authorized by: DEISY Garay ?? Consent: ??Consent obtained: ??Verbal ??Consent given by: ??Patient ??Risks, benefits, and alternatives were discussed: yes ?Risks discussed: ??Discoloration, numbness and swelling ??Alternatives discussed: ??No treatment [place] protocol: ??Procedure explained and questions answered to patient or proxy's satisfaction: yes ?Patient identity confirmed: ??Verbally with patient and arm band Pre-procedure details: ??Distal neurologic exam: ??Normal ??Distal perfusion: distal pulses strong ?? Procedure details: ??Location: ??Wrist ??Wrist location: ??L wrist ??Strapping: no ?Splint type: ??Thumb spica ??Supplies: ??Plaster Post-procedure details: ??Distal neurologic exam: ??Normal ??Procedure completion: ??Tolerated us Joshua OLIVAS IN CLINIC/BEDSIDE ORDERAB LES Final Result * Tissue exam (05/30/2024 11:28 AM EDT) Final Diagnosis Wrist, Left, first dorsal compartment tenosynovium-en doscopic release: -TENOSYNOVIAL TISSUE WITH DEGENERATIVE CHANGES 05/31/2024 1:29 PM EDT [facility] Gross Description A. Wrist, Left, first dorsal compartment tenosynovium: Labeled first taras wrist L . Received in formalin is a 1.2 x 1.0 x 0.3 cm aggregate rubbery, dee-pink to red tissue fragments, which are wrapped in paper and submitted in toto in one cassette, one piece. TS 05/31/2024 1:29 PM EDT [facility] Disclaimer Unless otherwise specified, all tissue is 10% NB formalin fixed and paraffin embedded. 05/31/2024 1:29 PM EDT [facility] Synovium Structure of left wrist region / Unknown 05/30/2024 11:28 AM EDT 05/30/2024 2:05 PM EDT us Kellie Dickerson MD LAB PATHOLOGY ORDERABLES Danielle grey Result [facility] [address] [place] [address], * TH AN NERVE BLOCK SUPRACLAVICULAR (CHARGE), TH AN NERVE BLOCK SUPRACLAVICULAR (NO CHARGE) (05/30/2024 10:03 AM EDT) Narrative Valente Lerma DO - 05/30/2024 10:03 AM EDT Valente Lerma DO ? 05/30/2024 10:19 AM Peripheral Block Patient location during procedure: holding area Start time: 05/30/2024 10:03 AM End time: 05/30/2024 10:13 AM Reason for block: post-op pain management Staffing Performed: anesthesiologist Anesthesiologist: Valente Lerma DO Preanesthetic Checklist Completed: patient identified, IV checked, site marked, risks and benefits discussed, surgical consent, monitors and equipment checked, pre-op evaluation and timeout performed Peripheral Block Patient position: sitting Prep: ChloraPrep Patient monitoring: heart rate, conveyor monitor and continuous pulse ox Block type: supraclavicular Laterality: left Injection technique: single-shot Guidance: ultrasound guided Needle Needle localization: ultrasound guidance Medications Administered ropivacaine (NAROPIN) injection 0.5 % - infiltration 20 mL - 05/30/2024 10:13:00 AM Assessment Injection assessment: no paresthesia on injection, incremental injection with negative aspiration q 5ml, local visualized surrounding nerve on ultrasound and negative aspiration for heme Additional Notes For Post operative pain management. us Valente Lerma DO ANESTHESIA ORDERABLES Edited Result - Final * (ABNORMAL) POCT Glucose, blood (05/30/2024 9:49 AM EDT) [facility] Glucose POCT 119(H) 70 - 100 mg/dL 05/30/2024 9:50 AM EDT [facility] Blood Capillary blood specimen / Unknown 05/30/2024 9:49 AM EDT 05/30/2024 9:51 AM EDT Kellie Dickerson MD LAB POINT OF CARE TE ST DOCKED DEVICE UNSOLICITED RESULTS Final Result [facility] [address] [place] [address], [place] [phone] from Last 3 Months Insurance [facility] [employer] Care Teams Incident Response Coordinator Relationship Specialty Start Date End Date Duke Hale MD [address] [place] [address] [address] [facility] [place] [address] PCP - General Internal Medicine 05/03/11
== END 2024-07-11 11:16 | disposition home or self-care (01) ==
LOC: HO.RHES 09:57
PROVIDERS: PCP Internal Medicine; Visit Provider Internal Medicine Rheumatology
DX: M34.9 Systemic sclerosis, unspecified (principal); M19.90 Unspecified osteoarthritis, unspecified site; Z79.899 Other long term (current) drug therapy
CPT/HCPCS: 99214; G2211

== ENCOUNTER → 2024-07-11 09:56 | Outpatient (BNVA) | payer OTHER, SELFPAY | PROVIDERS: PCP Internal Medicine; Visit Provider Internal Medicine Rheumatology | DX: M34.9 Systemic sclerosis, unspecified (principal); M19.90 Unspecified osteoarthritis, unspecified site; Z79.60 Long term (current) use of unspecified immunomodulators and immunosuppressants; Z79.899 Other long term (current) drug therapy | CPT/HCPCS: 99212 ==

== ENCOUNTER 2024-07-13 09:19 | Outpatient (REF) | payer OTHER, SELFPAY ==
[2024-07-13 09:35] LABS: MANUAL DIFF FLAG NO
--- OUTSIDE RECORDS SUMMARY | 2024-07-13 09:35 | XMS_ITS | Clinical Summary ---
Author Organization 175 [facility] Address [address] [place] [address] Phone Care Team Providers Care Leaf Fat Scraper Name Role Phone Duke Hale MD Primary Care Provider [phone] Allergies Active Allergy Reactions Criticality Noted Date [...] WHEEZING 4 Active oxycodone HCl,terephth/as pirin (OXYCODONE [id number] SA ORAL) Active acetaminophen (TYLENOL 8 HOUR) [...] Encounters Date Type Department Care Team Description 07/12/2024 9:30 AM EDT Treatment [facility] Occupational Therapy [address] [place] [phone] Jenna Garcia OT Rupture of extensor tendon of left hand, subsequent encounter (Primary Dx) 07/02/2024 9:30 AM EDT Treatment [facility] Occupational Therapy [address] [place] [phone] Jenna Garcia OT Rupture of extensor tendon of left hand, subsequent encounter (Primary Dx) 06/18/2024 11:30 AM EDT Office Visit Orthopedic Surgery - [place] 175 [facility] [address] [place] [phone] Kellie Dickerson MD Carpal tunnel syndrome of left wrist (Primary Dx); Radial styloid tenosynovitis; Rupture of extensor tendon of left hand, sequela; Post-operative state 06/18/2024 10:45 AM EDT Treatment [facility] Occupational Therapy [address] [place] [phone] Jenna Garcia, OT Rupture of extensor tendon of left hand, subsequent encounter (Primary Dx) 06/11/2024 2:30 PM EDT Evaluation [facility] Occupational Therapy [address] [place] [phone] Jenna Garcia, OT Carpal tunnel syndrome of left wrist; Rupture of extensor tendon of left hand, sequela; Radial styloid tenosynovitis 06/11/2024 Plan of Care Documentation [facility] Occupational Therapy [address] [phone] 06/07/2024 1:05 AM EDT - 06/07/2024 2:05 AM EDT Emergency [facility] Emergency [address] [place] [phone] Tight cast (Primary Dx) Discharge Disposition: Home or Self Care 05/30/2024 10:45 AM EDT - 05/30/2024 12:00 PM EDT Surgery [facility] Main OR [address] [place] [phone] Kellie Dickerson MD ENDOSCOPIC RELEASE CARPAL TUNNEL LEFT; release first dorsal compartment left; EIP to EPL transfer for the thumb [42499 (CPT??) +2 more] 05/30/2024 10:44 AM EDT Anesthesia Event [facility] [place] [address] [place] [phone] Valente Lerma DO Vermes, Rachie, CRNA 05/30/2024 9:03 AM EDT - 05/30/2024 2:12 PM EDT Hospital Encounter [facility] [place] [address] [place] [phone] Kellie Dickerson MD Carpal tunnel syndrome of left wrist; Rupture of extensor tendon of left hand, sequela; Radial styloid tenosynovitis Discharge Disposition: Home or Self Care 05/30/2024 [place] [facility] [address] [phone] Kellie Dickerson MD Medication 05/29/2024 1:00 PM EDT Consult Orthopedic Surgery - [address] [place] [phone] Kellie Dickerson MD Carpal tunnel syndrome [...] Asthma Hypertension Hyperlipidemia Diabetes mellitus ([facility] V24, [facility] V28) Chronic kidney disease GERD (gastroesophageal reflux disease) Seizures ([facility] V24, [facility] V28) Anxiety Chronic pain disorder Social History [...] Care Team (Late st Contact Info) Description 07/16/2024 10:00 AM EDT Office Visit Orthopedic Surgery - [place] 175 [facility] [address] [place] [phone] Kellie Dickerson MD 175 [facility] [address] [place] [phone] 07/18/2024 11:30 AM EDT Treatment [facility] [address] [phone] Jenna Garcia, OT 07/25/2024 10:00 AM EDT Treatment [facility] Occupational Therapy [address] [phone] Jenna Garcia, OT 07/31/2024 9:00 AM EDT Treatment [facility] Occupational Therapy [address] [place] [phone] Jenna Garcia, OT 08/08/2024 10:15 AM EDT Treatment [facility] Occupational Therapy [address] [phone] Jenna Garcia, OT Health Maintenance Due Date Last Done Comments [...] Author <enter goal here> General Yes Jenna Garcia, OT Note: OT PATIENT GOAL REGAIN FUNCTIONAL USE LEFT HAND FOR ALL HOUSEHOLD TASKS OT STGS 8 TO 10 VISITS General No Jenna Garcia, OT Note: # 1 NO VISIBLE EDEMA [...] TO THE DPC # 9 ACHIVE LEFT CHICKEN RAISER TO 23 POUNDS = 50 PERCENT OF THE RIGHT Procedures Procedure Name Priority Date/Time Associated Diagnosis Comments ED SPLINT APPLICATION Routine 06/07/2024 1:36 AM EDT [place] APPLICATION SPLINT STATIC SHORT ARM Routine 06/07/2024 1:36 AM EDT TISSUE EXAM Routine 05/30/2024 11:28 AM EDT Carpal tunnel syndrome of left wrist Rupture of extensor tendon of left hand, sequela Radial styloid tenosynovitis [place] XFER/TRNSPL TNDN CARPOMETACARPAL AREA/DORSUM HAND WO FREE GRAFT EA TNDN 05/30/2024 10:44 AM EDT Carpal tunnel syndrome of left wrist Rupture of extensor tendon of left hand, sequela Radial styloid tenosynovitis [place] INCISION EXTENSOR TENDON SHEATH WRIST 05/30/2024 10:44 AM EDT Carpal tunnel syndrome of left wrist Rupture of extensor tendon of left hand, sequela Radial styloid tenosynovitis [place] ENDOSCOPY WRIST SURGICAL WITH RELEASE TRANSVERSE CARPAL [...] EDT from Last 3 Months Results * [place] APPLICATION SPLINT STATIC SHORT ARM, HC APPLICATION [...] numbness and swelling ??Alternatives discussed: ??No treatment [place] protocol: ??Procedure explained and questions answered to [...] WITH DEGENERATIVE CHANGES 05/31/2024 1:29 PM EDT [facility] Gross Description A. Wrist, Left, first dorsal compartment tenosynovium: Labeled first taras wrist L . Received in formalin is a 1.2 x 1.0 x 0.3 cm aggregate rubbery, dee-pink to red tissue fragments, which are wrapped in paper and submitted in toto in one cassette, one piece. TS 05/31/2024 1:29 PM EDT [facility] Disclaimer Unless otherwise specified, all tissue is 10% NB formalin fixed and paraffin embedded. 05/31/2024 1:29 PM EDT [facility] Synovium Structure of left wrist region / Unknown 05/30/2024 11:28 AM EDT 05/30/2024 2:05 PM EDT us Kellie Dickerson MD LAB PATHOLOGY ORDERABLES Danielle grey Result [facility]) [facility] [address] [place] [address], * TH AN NERVE BLOCK SUPRACLAVICULAR (CHARGE), [...] sitting Prep: ChloraPrep Patient monitoring: heart rate, compliance monitor and continuous pulse ox Block type: [...] Additional Notes For Post operative pain management. Valente Lerma DO ANESTHESIA ORDERABLES Edited Result - Final * (ABNORMAL) POCT Glucose, blood (05/30/2024 9:49 AM EDT) Glucose POCT 119(H) 70 - 100 mg/dL 05/30/2024 9:50 AM EDT [facility] Blood Capillary blood specimen / Unknown 05/30/2024 9:49 AM EDT 05/30/2024 9:51 AM EDT Kellie Dickerson MD LAB POINT OF CARE TE ST DOCKED DEVICE UNSOLICITED RESULTS Final Result [facility] [address] [place] [address], [place] [phone] from Last 3 Months Insurance [employer] Care Teams Leaf Fat Scraper Relationship Specialty Start Date End Date Duke Hale MD [address] [place] [address] Dr Marcelo [address] [facility] [place] [address] PCP - General Internal Medicine 05/03/11
[2024-07-13 10:13] LABS: Basophils Absolute Auto 0.1 X10*3/uL (0.0-0.2); Basophils Percent Auto 0.7 % (0-2); Eosinophils Absolute Auto 0.2 X10*3/uL (0.0-0.4); Eosinophils Percent Auto 2.1 % (0-4); Hematocrit 41.1 % (37.0-47.0); Hemoglobin 13.5 g/dl (12.0-16.0); Imm Gran Abs Auto 0.09 X10*3/uL (0.00-0.03); Imm Gran Pct Auto 1.1 % (0.0-0.4); Lymphocytes Absolute Auto 2.6 X10*3/uL (1.2-4.9); Lymphocytes Percent Auto 32.3 % (20-40); Mean Corpuscular HGB Conc 32.8 g/dl (31.0-35.0); Mean Corpuscular Hemoglobin 29.7 pg (27.0-33.0); Mean Corpuscular Volume 90.5 fL (80.0-98.0); Mean Platelet Volume 10.3 fL (9.4-12.3); Monocytes Absolute Auto 0.6 X10*3/uL (0.1-1.2); Monocytes Percent Auto 7.2 % (2-11); Neutrophils Absolute Auto 4.6 x10*3/uL (2.0-8.3); Neutrophils Percent Auto 56.6 % (45-73); Platelet Count 279 X10*3/uL (160-400); Red Blood Count 4.54 X10*6/uL (4.20-5.50); Red Cell Distribution Width 14.5 % (11.0-16.0); White Blood Count 8.1 X10*3/uL (4.8-10.8)
[2024-07-13 10:42] LABS: Rheumatoid Factor < 13.0 IU/mL (<15.0)
[2024-07-13 10:45] LABS: Alanine Aminotransferase 25 U/L (0-31); Aspartate Amino Transferase 22 U/L (5-31); C Reactive Protein 0.62 mg/dL (< or = 0.50); Estimated Glomerular Filt Rate > 60
[2024-07-13 11:10] LABS: Erythrocyte Sedimentation Rate 6 MM/HR (0-20)
[2024-07-16 23:13] LABS: Scleroderma 70 Antibody <1.0 NEG AI (<1.0 NEG)
[2024-07-17 15:28] LABS: Cyclic Citrullinated Peptide <16 UNITS
[2024-07-17 17:38] LABS: Anti-Centromere B Antibodies 1.8 POS AI (<1.0 NEG)
== END 2024-07-13 09:20 | disposition home or self-care (01) ==
LOC: HO.LAB 09:19
PROVIDERS: PCP Internal Medicine; Visit Provider Internal Medicine Rheumatology
DX: M19.90 Unspecified osteoarthritis, unspecified site (principal); Z79.899 Other long term (current) drug therapy; M34.9 Systemic sclerosis, unspecified; Z79.60 Long term (current) use of unspecified immunomodulators and immunosuppressants
CPT/HCPCS: 36415; 82565; 84450; 84460; 85025; 85652; 86140; 86200; 86235; 86431

== ENCOUNTER 2024-08-03 11:18 | Outpatient (AMB) | payer OTHER, SELFPAY ==
[2024-08-03 11:20] VITALS: BP 110/68; PULSE 115; O2SAT 98; BMI 28.8
--- NOTE | 2024-08-03 11:20 | MHC.PC.OV ---
Vital Signs 08/03/24 11:20 Height 5 ft 1 in Weight 152 lb 8 oz BMI 28.8 BP 110/68 Blood Pressure Location Lt brachial Position Sitting Pulse 115 H Pulse Source Pulse Oximeter Pulse Oximetry (%) 98 Oxygen Delivery Method Room Air Intake Visit Reasons: med f/u Occupational Health And Safety Adviser Required: No Accompanied by: Self / Same As Patient Allergies topiramate (From TOPAMAX) Allergy (Severe, Verified 08/03/24 11:21) RASH, ITCH, DIFF BREATHING pineapple (Pineapple) Allergy (Mild, Verified 08/03/24 11:21) THROAT SWELLING duloxetine (Cymbalta) Allergy (Unknown, Verified 08/03/24 11:21) dizziness,vomiting levetiracetam Allergy (Unknown, Verified 08/03/24 11:21) Hives milnacipran (Savella) Allergy (Unknown, Verified 08/03/24 11:21) rash pregabalin Allergy (Unknown, Verified 08/03/24 11:21) nausous quetiapine (Seroquel) Allergy (Unknown, Verified 08/03/24 11:21) Hives sumatriptan (Imitrex) Allergy (Unknown, Verified 08/03/24 11:21) rash simvastatin Adverse Reaction (Intermediate, Verified 08/03/24 11:21) Nausea and Vomiting Seafood Allergy (Mild, Uncoded 08/03/24 11:21) RASH Tobacco use date assessed: 08/03/24 Dental Screening Dental Screen Date: 08/03/24 Did you have a dental visit in the last 12 months?: Yes Did you have a dental problem in the last 6 months where you did not have access to dental care?: No Was dental information given to patient?: Patient has dentist [facility] Medical History (Updated 07/11/24 @ 12:58 by Jesus Garcia MD) De Quervain's tenosynovitis, left Tendonitis of wrist, left Colon cancer screening (~04/13/24) Breast cancer screening by mammogram Tobacco abuse Acute bacterial tonsillitis Acute bacterial pharyngitis Acute gastroenteritis Shingles Encounter for removal of maria r Scalp laceration Knee effusion, left Blood pressure elevated without history of HTN Wrist pain COVID-19 virus infection Witnessed apneic spells Dysuria Bilateral hand pain Folliculitis Headache Leukocytosis Palpitations Vitamin B 12 deficiency Groin abscess Closed fibular fracture Microscopic hematuria Insomnia Subclinical hyperthyroidism History of CREST syndrome Lateral malleolar fracture Chronic interstitial cystitis Uterine fibroid History of seizures Bipolar disorder Asthma Gastroesophageal reflux disease Hypercholesterolemia Failed back syndrome Surgical History History of pelvic surgery History of carpal tunnel release History of section History of tubal ligation Family History Father CVD (cardiovascular disease) Myocardial infarction Mother COPD (chronic obstructive pulmonary disease) Rheumatoid arthritis Renal failure Family/Other History of uterine cancer History of breast cancer History of ovarian cancer Daughter Lupus Brother Lupus Other Mental health disorder Mental illness in member of household Social History Housing: Apartment Alcohol intake: former Patient Tobacco Use Status: Former Tobacco user Tobacco use type: Cigarette Cigarette Packs Per Day: 1 Cigarettes Per Day: 20.0 e-Cigarette/Vaping Use: Never Used Second Hand Smoke Exposure: Yes service: No Current occupational status: disabled Cognitive needs: No Hearing needs: No Vision needs: Yes Questionnaire PHQ-9 Over the last 2 weeks, how often have you been bothered by any of the following problems? 1. Little interest or pleasure in doing things: more than half the days 2. Feeling down, depressed, or hopeless: not at all 3. Trouble falling or staying asleep, or sleeping too much: several days 4. Feeling tired or having little energy: several days 5. Poor appetite or overeating: several days 6. Feeling bad about yourself - or that you are a failure or have let yourself or your family down: not at all 7. Trouble concentrating on things, such as reading the newspaper or watching television: not at all 8. Moving or speaking so slowly that other people could have noticed. Or the opposite - being so fidgety or restless that you have been moving around a lot more than usual: several days 9. Thoughts that you would be better off or of hurting yourself in some way: not at all Total score: 6 Source: Developed by Drs. Joshua Sorensen, Salma NagyScot and colleagues, with an educational georges from [employer]. Thrive Questionnaire Date Thrive assessed: 08/03/24 I am a: Patient What is your living situation today?: I have a steady place to live Within the past 12 months, did the food you bought not last and you didn't have the money to get more?: Never true Within the past 12 months, did you worry whether your food would run out before you got money to buy more?: Never true Do you have trouble paying for medicines?: No Do you have trouble getting transportation to medical appointments?: Yes Do you have trouble paying your heating and electricity bill?: No Do you have trouble taking care of your child, family member or friend?: No Do you have trouble with day-to-day activities such as bathing, preparing meals, shopping, managing finances, etc.?: Yes Are you currently unemployed and looking for a job?: No Are you interested in more education?: No Please select the resources that you would like help with: None Currently or been in a relationship where the following occur: No concerns reported THRIVE Score: 1 AUDIT C Alcohol Use Questionnaire (AUDIT-C) 1. How often do you have a drink containing alcohol?: Never 3. How often do you have six or more drinks on one occasion?: Never Total Score: 0 OLGA-7 AMB Questionnaire OLGA-7 Date OLGA - 7 assessed: 08/03/24 Feeling nervous, anxious, or on edge: 0 = Not at all Not being able to stop or control worryin = Several days Worrying too much about different things: 1 = Several days Trouble relaxin = Several days Being so restless that it is hard to sit still: 1 = Several days Becoming easily annoyed or irritable: 1 = Several days Feeling afraid as if something awful might happen: 0 = Not at all Total OLGA-7 score (0-4 normal; 5-9 mild; 10-14 moderate; 15-21 severe): 5 Source: Developed by Drs. Joshua Sorensen, Scot Guerrero and colleagues, with an educational georges from [employer]. Physical exam (Primary Care) Vital Signs: Last Vital Signs Pulse 115 H 08/03/24 11:20 BP 110/68 08/03/24 11:20 Pulse Ox 98 08/03/24 11:20 Oxygen Delivery Method Room Air 08/03/24 11:20 BMI result Body Mass Index 28.8 Tobacco/Smoking Status: Tobacco use Status Tobacco use date assessed 08/03/24 08/03/24 11:26 Patient Tobacco Use Status Former Tobacco user 08/03/24 11:26 Tobacco use type Cigarette 08/03/24 11:26 e-Cigarette/Vaping Use Never Used 08/03/24 11:26 PHQ-9: PHQ-9 Score PHQ-9: Total score 6 08/03/24 11:26 Thrive Assessment: Date of Thrive Assessment Date Thrive assessed 08/03/24 08/03/24 11:26 Currently or been in a relationship where the following occur: No concerns reported Const General: alert; No acute distress Eyes Conjunctivae: conjunctivae normal Resp Auscultation: clear to auscultation bilaterally Cardio Rate: regular rate Rhythm: regular rhythm GI Inspection: Yes normal to inspection Abdomen image:  1. Papulovesicular 2 mm groups of rash over the lateral abdomen lateral thigh on both sides but not symmetrical 2. 3. Extrem General: Yes normal to inspection and No edema Coding Level of Care Code Est Pt Level 4 (17243) Complex EM visit Add On G2211 Diagnoses Hypertension I10 Hypercholesterolemia E78.00 Type 2 diabetes mellitus with hyperglycemia E11.65 Overweight (BMI 25.0-29.9) E66.3 Gastroesophageal reflux disease without esophagitis K21.9 Esophagitis presence: without esophagitis Limited scleroderma M34.9 Failed back syndrome M96.1 Obstructive sleep apnea hypopnea, severe G47.33 Assessment & Plan Assessment & Plan (1) Hypertension: Code(s): I10 - Essential (primary) hypertension Category: Medical Plan: Continue with blood pressure medication. Decrease salt intake and exercise patient is taking lisinopril 5 mg once a day (2) Hypercholesterolemia: Code(s): E78.00 - Pure hypercholesterolemia, unspecified Category: Medical Plan: Avoid fried foods, chicken skin, eggs, butter margarine, pastries and meat. Be it pork or beef they have a lot of cholesterol on pravastatin LDL goal of less than 100 and triglyceride of less than 150. (3) Type 2 diabetes mellitus with hyperglycemia: Comment: Panchito duggan Code(s): E11.65 - Type 2 diabetes mellitus with hyperglycemia Category: Medical Plan: Decrease the amount of carbohydrate intake, pasta, bread, rice and potatoes are all sugar and that is aside from all the sweet stuff, remember that fruits are good but they are Sweet also. Patient on Januvia metformin and Farxiga (4) Overweight (BMI 25.0-29.9): Code(s): E66.3 - Overweight Category: Medical Plan: Diet and exercise (5) Gastroesophageal reflux disease: Code(s): K21.9 - Gastro-esophageal reflux disease without esophagitis Category: Medical Qualifiers: Esophagitis presence: without esophagitis Qualified Code(s): K21.9 - Gastro-esophageal reflux disease without esophagitis Plan: Avoid the foods that causes that usually spicy foods, tomato products, juices, coffee, soda and foods that your sensitive to. After eating do not lie down, allow 3-4 hours before in lie down. And keep the head of bed above 30 degrees to avoid the acid from going up. 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 Synovitis has resolved after starting methotrexate but only being on it for 1 month. Meloxicam was also changed to Celebrex, which would have contributed to benefit. She tolerated methotrexate without side effect. I will restart methotrexate with goal of further improving her joint symptoms. Rheumatology history: Dx 2018 (arthralgias, Raynaud's, sclerodactyly, telangiectasias, ++ centromere antibody). 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 Novak, dorsal column stimulator Dr. Herrera 09/15/2011, 11/2015 Code(s): M96.1 - Postlaminectomy syndrome, not elsewhere classified Category: Medical Plan: Narcotic pain meds: Is being prescribed with the understanding that these medications are potentially addictive and should be used only when absolutely necessary and must always be secured. Any remaining pills should be safely disposed off appropriately. Patient is advised that narcotics can impaired judgment and one should not drive or operate heavy machinery while taking these medications. Never share these medications with anybody and do not leave them unattended. They will not be replaced under any circumstances. (8) Obstructive sleep apnea hypopnea, severe: Comment: CPAP Code(s): G47.33 - Obstructive sleep apnea (adult) (pediatric) Category: Medical Plan: Continue to use the CPAP more than 4 hours a night and benefits from this Plan History of Present Illness The patient is a 54-year-old female presenting for a follow-up visit. She has a history of hypercholesterolemia, which is being managed with pravastatin, with a goal of maintaining LDL cholesterol below 100 mg/dL and triglycerides below 150 mg/dL. The patient also has obstructive sleep apnea and continues to use CPAP therapy for more than 4 hours a night, which she finds beneficial. She has been diagnosed with gastroesophageal reflux disease (GERD) and is currently using a reflux splint. The patient has diabetes mellitus, managed with a combination of Januvia, metformin, and Farxiga, alongside diet and exercise. Hypertension is another condition she is dealing with, for which she is taking lisinopril 5 mg daily. Recently, she was diagnosed with limited scleroderma and systemic sclerosis by rheumatology, and blood work has been requested for further evaluation. Orthopedics has diagnosed her with carpal tunnel syndrome and an extensor tendon rupture of the left hand. Health Maintenance Social History Review of Systems - Dermatological: Reports itching and rash on the buttocks and thighs, spreading and persistent despite steroid cream use. Physical Exam Results - Labs: Normal blood count, normal kidney function, normal liver function as of July 13. Plan The patient will continue with her current medication regimen for hypercholesterolemia, diabetes mellitus, and hypertension. She is advised to maintain her CPAP usage for obstructive sleep apnea and to continue using the reflux splint for GERD. Further blood work has been ordered to monitor her systemic sclerosis and limited scleroderma, with follow-up appointments scheduled with rheumatology. Orthopedic follow-up is recommended for her carpal tunnel syndrome and extensor tendon rupture. A new topical cream will be prescribed to address her dermatological symptoms, as the current steroid cream is ineffective. Patient was informed and verbally consented to the use of an ambient scribe for clinic note documentation during this visit. Discussion Notes Patient Instructions - Continue taking all prescribed medications as directed. - Use CPAP machine for at least 4 hours each night. - Apply the new topical cream as prescribed for skin symptoms. - Follow up with rheumatology and orthopedics as scheduled. Orders: Orders Comprehensive Met. Panel Today E11.65 - Type 2 diabetes mellitus with hyperglycemia Lipid Panel Today E11.65 - Type 2 diabetes mellitus with hyperglycemia, E78.00 - Pure hypercholesterolemia, unspecified Vitamin B12 and Folate Today E11.65 - Type 2 diabetes mellitus with hyperglycemia Microalbumin, Random (w Creat) Today E11.65 - Type 2 diabetes mellitus with hyperglycemia Prostate Specific Antigen Scr Today E11.65 - Type 2 diabetes mellitus with hyperglycemia Vitamin D 25-OH Total Today E11.65 - Type 2 diabetes mellitus with hyperglycemia Complete Blood Count Auto Diff Today E11.65 - Type 2 diabetes mellitus with hyperglycemia Hemoglobin A1c Today E11.65 - Type 2 diabetes mellitus with hyperglycemia Free T4 (Free Thyroxine) Today E11.65 - Type 2 diabetes mellitus with hyperglycemia Thyroid Stimulating Hormone Today E11.65 - Type 2 diabetes mellitus with hyperglycemia Creatinine Urine Today E11.65 - Type 2 diabetes mellitus with hyperglycemia UA CC w/rflx Micro + Cult Today E11.65 - Type 2 diabetes mellitus with hyperglycemia, R30.0 - Dysuria Medications: New clotrimazole-betamethasone 1-0.05 % 1 appl topical BID 45 grams 0RF 4 weeks L30.9 - Dermatitis, unspecified
== END 2024-08-03 12:07 | disposition home or self-care (01) ==
LOC: HO.HMCH 11:18
PROVIDERS: PCP Internal Medicine; Visit Provider Internal Medicine
DX: E11.65 Type 2 diabetes mellitus with hyperglycemia (principal); M34.9 Systemic sclerosis, unspecified; E66.3 Overweight; Z68.28 Body mass index [BMI] 28.0-28.9, adult; I10 Essential (primary) hypertension; E78.00 Pure hypercholesterolemia, unspecified; K21.9 Gastro-esophageal reflux disease without esophagitis; M96.1 Postlaminectomy syndrome, not elsewhere classified; G47.33 Obstructive sleep apnea (adult) (pediatric)

== ENCOUNTER → 2024-08-03 11:18 | Outpatient (BNVA) | payer OTHER, SELFPAY | PROVIDERS: PCP Internal Medicine; Visit Provider Internal Medicine | DX: I10 Essential (primary) hypertension (principal); E78.00 Pure hypercholesterolemia, unspecified; E11.65 Type 2 diabetes mellitus with hyperglycemia; E66.3 Overweight; K21.9 Gastro-esophageal reflux disease without esophagitis; M34.9 Systemic sclerosis, unspecified; M96.1 Postlaminectomy syndrome, not elsewhere classified; G47.33 Obstructive sleep apnea (adult) (pediatric); Z68.28 Body mass index [BMI] 28.0-28.9, adult | CPT/HCPCS: 99212 ==

== ENCOUNTER 2024-08-31 10:42 | Outpatient (AMB) | payer OTHER, SELFPAY ==
--- NOTE | 2024-08-31 11:07 | MHC.PC.OV ---
Vital Signs 08/31/24 11:10 Height 5 ft 1 in Weight 154 lb 8 oz BMI 29.2 BP 128/70 Blood Pressure Location Lt brachial Position Sitting Pulse 89 Pulse Source Pulse Oximeter Temp 97.3 F Temp Source Temporal Artery Scan Pulse Oximetry (%) 96 Oxygen Delivery Method Room Air Intake Visit Reasons: med f/u Allergies topiramate (From TOPAMAX) Allergy (Severe, Verified 08/31/24 11:07) RASH, ITCH, DIFF BREATHING pineapple (Pineapple) Allergy (Mild, Verified 08/31/24 11:07) THROAT SWELLING duloxetine (Cymbalta) Allergy (Unknown, Verified 08/31/24 11:07) dizziness,vomiting levetiracetam Allergy (Unknown, Verified 08/31/24 11:07) Hives milnacipran (Savella) Allergy (Unknown, Verified 08/31/24 11:07) rash pregabalin Allergy (Unknown, Verified 08/31/24 11:07) nausous quetiapine (Seroquel) Allergy (Unknown, Verified 08/31/24 11:07) Hives sumatriptan (Imitrex) Allergy (Unknown, Verified 08/31/24 11:07) rash simvastatin Adverse Reaction (Intermediate, Verified 08/31/24 11:07) Nausea and Vomiting Seafood Allergy (Mild, Uncoded 08/31/24 11:07) RASH Tobacco use date assessed: 08/31/24 Dental Screening Dental Screen Date: 08/03/24 Did you have a dental visit in the last 12 months?: Yes Did you have a dental problem in the last 6 months where you did not have access to dental care?: No Was dental information given to patient?: Patient has dentist [facility] Medical History De Quervain's tenosynovitis, left Tendonitis of wrist, left Colon cancer screening (~04/13/24) Breast cancer screening by mammogram Tobacco abuse Acute bacterial tonsillitis Acute bacterial pharyngitis Acute gastroenteritis Shingles Encounter for removal of maria r Scalp laceration Knee effusion, left Blood pressure elevated without history of HTN Wrist pain COVID-19 virus infection Witnessed apneic spells Dysuria Bilateral hand pain Folliculitis Headache Leukocytosis Palpitations Vitamin B 12 deficiency Groin abscess Closed fibular fracture Microscopic hematuria Insomnia Subclinical hyperthyroidism History of CREST syndrome Lateral malleolar fracture Chronic interstitial cystitis Uterine fibroid History of seizures Bipolar disorder Asthma Gastroesophageal reflux disease Hypercholesterolemia Failed back syndrome Surgical History (Reviewed 08/31/24 @ 11:07 by Kimberlyn Ojeda [facility]) History of pelvic surgery History of carpal tunnel release History of section History of tubal ligation Family History (Reviewed 08/31/24 @ 11:07 by Kimberlyn Ojeda [facility]) Father CVD (cardiovascular disease) Myocardial infarction Mother COPD (chronic obstructive pulmonary disease) Rheumatoid arthritis Renal failure Family/Other History of uterine cancer History of breast cancer History of ovarian cancer Daughter Lupus Brother Lupus Other Mental health disorder Mental illness in member of household Social History (Reviewed 08/31/24 @ 11:07 by Kimberlyn Ojeda [facility]) Housing: Apartment Alcohol intake: former Patient Tobacco Use Status: Former Tobacco user Tobacco use type: Cigarette Cigarette Packs Per Day: 1 Cigarettes Per Day: 20.0 e-Cigarette/Vaping Use: Never Used Second Hand Smoke Exposure: Yes service: No Current occupational status: disabled Cognitive needs: No Hearing needs: No Vision needs: Yes Questionnaire PHQ-9 Over the last 2 weeks, how often have you been bothered by any of the following problems? 1. Little interest or pleasure in doing things: more than half the days 2. Feeling down, depressed, or hopeless: not at all 3. Trouble falling or staying asleep, or sleeping too much: several days 4. Feeling tired or having little energy: several days 5. Poor appetite or overeating: several days 6. Feeling bad about yourself - or that you are a failure or have let yourself or your family down: not at all 7. Trouble concentrating on things, such as reading the newspaper or watching television: not at all 8. Moving or speaking so slowly that other people could have noticed. Or the opposite - being so fidgety or restless that you have been moving around a lot more than usual: several days 9. Thoughts that you would be better off or of hurting yourself in some way: not at all Total score: 6 Source: Developed by Drs. Joshua Sorensen, Salma Nagy, Scot Luciano and colleagues, with an educational georges from [employer]. Thrive Questionnaire Date Thrive assessed: 07/27/24 I am a: Patient What is your living situation today?: I have a steady place to live Within the past 12 months, did the food you bought not last and you didn't have the money to get more?: Never true Within the past 12 months, did you worry whether your food would run out before you got money to buy more?: Never true Do you have trouble paying for medicines?: No Do you have trouble getting transportation to medical appointments?: Yes Do you have trouble paying your heating and electricity bill?: No Do you have trouble taking care of your child, family member or friend?: No Do you have trouble with day-to-day activities such as bathing, preparing meals, shopping, managing finances, etc.?: Yes Are you currently unemployed and looking for a job?: No Are you interested in more education?: No Please select the resources that you would like help with: None Currently or been in a relationship where the following occur: No concerns reported THRIVE Score: 1 AUDIT C Alcohol Use Questionnaire (AUDIT-C) 1. How often do you have a drink containing alcohol?: Never 3. How often do you have six or more drinks on one occasion?: Never Total Score: 0 OLGA-7 AMB Questionnaire OLGA-7 Date OLGA - 7 assessed: 08/03/24 Feeling nervous, anxious, or on edge: 0 = Not at all Not being able to stop or control worryin = Several days Worrying too much about different things: 1 = Several days Trouble relaxin = Several days Being so restless that it is hard to sit still: 1 = Several days Becoming easily annoyed or irritable: 1 = Several days Feeling afraid as if something awful might happen: 0 = Not at all Total OLGA-7 score (0-4 normal; 5-9 mild; 10-14 moderate; 15-21 severe): 5 Source: Developed by Drs. Joshua Sorensen, Salma Nagy, Scot Luciano and colleagues, with an educational georges from [employer]. Physical exam (Primary Care) Vital Signs: Last Vital Signs Temp 97.3 F 08/31/24 11:10 Pulse 89 08/31/24 11:10 BP 128/70 08/31/24 11:10 Pulse Ox 96 08/31/24 11:10 Oxygen Delivery Method Room Air 08/31/24 11:10 BMI result Body Mass Index 29.2 Tobacco/Smoking Status: Tobacco use Status Tobacco use date assessed 08/31/24 08/31/24 11:08 Patient Tobacco Use Status Former Tobacco user 08/31/24 11:08 Tobacco use type Cigarette 08/31/24 11:08 e-Cigarette/Vaping Use Never Used 08/31/24 11:08 PHQ-9: PHQ-9 Score PHQ-9: Total score 6 08/31/24 12:11 Thrive Assessment: Date of Thrive Assessment Date Thrive assessed 07/27/24 08/31/24 11:08 Currently or been in a relationship where the following occur: No concerns reported Const General: alert; No acute distress Eyes Conjunctivae: conjunctivae normal Resp Auscultation: clear to auscultation bilaterally Cardio Rate: regular rate Rhythm: regular rhythm GI Inspection: Yes normal to inspection Extrem General: Yes normal to inspection and No edema Results AMB Hemoglobin A1c AMB Hemoglobin A1c 6.3 % Last Edit by Kimberlyn Ojeda CMA on 08/31/24 11:18 Results Reviewed Results Reviewed: Laboratory Last Values Hgb A1c (Clinic) 6.3 % (4.0-6.0) H 08/31/24 11:14 Coding Level of Care Code Est Pt Level 4 (89560) Complex EM visit Add On G2211 Diagnoses Type 2 diabetes mellitus with hyperglycemia E11.65 Obesity (BMI 30.0-34.9) E66.9 Hypercholesterolemia E78.00 Hypertension I10 Failed back syndrome M96.1 Obstructive sleep apnea hypopnea, severe G47.33 Assessment & Plan Assessment & Plan (1) Type 2 diabetes mellitus with hyperglycemia: Comment: Panchito duggan Code(s): E11.65 - Type 2 diabetes mellitus with hyperglycemia Category: Medical Plan: Decrease the amount of carbohydrate intake, pasta, bread, rice and potatoes are all sugar and that is aside from all the sweet stuff, remember that fruits are good but they are Sweet also. Hemoglobin A1c goal of less than 6.5. Patient on Januvia 100 mg once a day metformin a 1000 mg twice a day and Jardiance at 10 mg once a day (2) Obesity (BMI 30.0-34.9): Code(s): E66.9 - Obesity, unspecified Category: Medical Plan: Diet and exercise (3) Hypercholesterolemia: Code(s): E78.00 - Pure hypercholesterolemia, unspecified Category: Medical Plan: Avoid fried foods, chicken skin, eggs, butter margarine, pastries and meat. Be it pork or beef they have a lot of cholesterol patient will need blood work LDL goal of less than 100 and triglyceride of less than 150 on pravastatin 80 mg once a day (4) Hypertension: Code(s): I10 - Essential (primary) hypertension Category: Medical Plan: Continue with blood pressure medication. 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 Novak, dorsal column stimulator Dr. Herrera 09/15/2011, 11/2015 Code(s): M96.1 - Postlaminectomy syndrome, not elsewhere classified Category: Medical Plan: Narcotic pain meds: Is being prescribed with the understanding that these medications are potentially addictive and should be used only when absolutely necessary and must always be secured. Any remaining pills should be safely disposed off appropriately. Patient is advised that narcotics can impaired judgment and one should not drive or operate heavy machinery while taking these medications. Never share these medications with anybody and do not leave them unattended. They will not be replaced under any circumstances. (6) Obstructive sleep apnea hypopnea, severe: Comment: CPAP Code(s): G47.33 - Obstructive sleep apnea (adult) (pediatric) Category: Medical Plan: Continue to use the CPAP more than 4 hours a night and benefits from this Plan History of Present Illness The patient is a 54-year-old female presenting for management of chronic conditions and preventative care. The patient has a history of diabetes mellitus, with a recent hemoglobin A1c of 6.3, indicating good control. She is currently on Januvia 100 mg once daily, Metformin 1000 mg twice daily, and Jardiance 10 mg once daily, along with diet and exercise recommendations. The patient also has hypertension, managed with Lisinopril 5 mg once daily. Her blood pressure management plan includes regular monitoring and medication adherence. Hypercholesterolemia is another chronic condition, with a treatment plan involving Pravastatin 80 mg once daily. The goal is to maintain LDL cholesterol below 100 mg/dL and triglycerides below 150 mg/dL. The patient has obstructive sleep apnea and uses a CPAP machine for more than 4 hours a night, which she finds beneficial. Preventative care measures include a scheduled colonoscopy for colon cancer screening in September 2024. Her last mammogram was completed in February 2024. Health Maintenance - Colon cancer screening scheduled for September 2024 - Mammogram completed in February 2024 Social History - Travel: Patient traveled to [place] three years ago and prefers to stay home due to dislike of heat. Review of Systems Physical Exam Results - Labs: Hemoglobin A1c 6.3% Plan The management plan for diabetes mellitus includes maintaining the current medication regimen of Januvia, Metformin, and Jardiance, along with diet and exercise. Regular monitoring of hemoglobin A1c is advised to ensure continued control. For hypertension, the patient will continue Lisinopril 5 mg daily, with regular blood pressure monitoring to ensure effective management. Hypercholesterolemia management involves continuing Pravastatin 80 mg daily, with goals to maintain LDL cholesterol below 100 mg/dL and triglycerides below 150 mg/dL. The patient is advised to continue using the CPAP machine for obstructive sleep apnea, as it provides significant benefits. Preventative care includes completing the scheduled colonoscopy in September 2024 and ensuring regular mammograms. Patient was informed and verbally consented to the use of an ambient scribe for clinic note documentation during this visit. Discussion Notes Patient Instructions - Continue taking Januvia, Metformin, and Jardiance as prescribed. - Maintain a healthy diet and regular exercise routine. - Monitor blood pressure regularly and continue Lisinopril. - Continue Pravastatin for cholesterol management. - Use CPAP machine nightly for sleep apnea. - Complete scheduled colonoscopy in September 2024. - Ensure regular mammograms. Orders: Orders AMB Hemoglobin A1c Today Z13.9 - Encounter for screening, unspecified Complete Blood Count Auto Diff Today E11.65 - Type 2 diabetes mellitus with hyperglycemia Free T4 (Free Thyroxine) Today E11.65 - Type 2 diabetes mellitus with hyperglycemia Microalbumin, Random (w Creat) Today E11.65 - Type 2 diabetes mellitus with hyperglycemia Vitamin B12 and Folate Today E11.65 - Type 2 diabetes mellitus with hyperglycemia Vitamin D 25-OH Total Today E11.65 - Type 2 diabetes mellitus with hyperglycemia Hemoglobin A1c Today E11.65 - Type 2 diabetes mellitus with hyperglycemia Comprehensive Met. Panel Today E11.65 - Type 2 diabetes mellitus with hyperglycemia Thyroid Stimulating Hormone Today E11.65 - Type 2 diabetes mellitus with hyperglycemia Creatinine Urine Today E11.65 - Type 2 diabetes mellitus with hyperglycemia Lipid Panel Today E11.65 - Type 2 diabetes mellitus with hyperglycemia, E78.00 - Pure hypercholesterolemia, unspecified
[2024-08-31 11:10] VITALS: BP 128/70; PULSE 89; TEMP 36.3; O2SAT 96; BMI 29.2
--- OUTSIDE RECORDS SUMMARY | 2024-08-31 11:14 | XMS_ITS | Clinical Summary ---
Author Organization 175 [facility] Address [address] [place] [address] Phone Care Team Providers Care Polisher Aluminum Name Role Phone Duke Hale MD Primary Care Provider [phone] Allergies Active Allergy Reactions Criticality Noted Date [...] WHEEZING 4 Active oxycodone HCl,terephth/as pirin (OXYCODONE [id number] SA ORAL) Active acetaminophen (TYLENOL 8 HOUR) [...] Encounters Date Type Department Care Team Description 07/31/2024 11:00 AM EDT Office Visit Orthopedic Surgery [facility] 175 [facility] [address] [place] [phone] Kellie Dickerson MD Post-operative state (Primary Dx); Radial styloid tenosynovitis; Carpal tunnel syndrome of left wrist 07/31/2024 9:00 AM EDT [facility] [address] [phone] Jenna Garcia OT Rupture of extensor tendon of left hand, subsequent encounter (Primary Dx) 07/27/2024 9:15 AM EDT [facility] [address] [place] [phone] Jenna Garcia OT Rupture of extensor tendon of left hand, subsequent encounter (Primary Dx); Carpal tunnel syndrome of left wrist 07/16/2024 Telephone Orthopedic [facility] [address] [facility] [address] [place] [phone] Kati Hrenandez 07/12/2024 9:30 AM EDT Treatment [facility] Occupational Therapy [address] [phone] Jenna Garcia, CRISTIAN Rupture of extensor tendon of left hand, subsequent encounter (Primary Dx) 07/02/2024 9:30 AM EDT Treatment [facility] Occupational [facility] [address] [phone] Jenna Garcia, OT Rupture of extensor tendon of left hand, subsequent encounter (Primary Dx) 06/18/2024 11:30 AM EDT Office Visit Orthopedic Surgery - [place] [address] [phone] Kellie Dickerson MD Carpal tunnel syndrome of left wrist (Primary Dx); Radial styloid tenosynovitis; Rupture of extensor tendon of left hand, sequela; Post-operative state 06/18/2024 10:45 AM EDT Treatment [facility] Occupational [facility] [address] [phone] Jenna Garcia OT Rupture of extensor tendon of left hand, subsequent encounter (Primary Dx) 06/11/2024 2:30 PM EDT Evaluation [facility] Occupational Therapy [address] [place] [phone] Jenna Garcia, OT Carpal tunnel syndrome of left wrist; Rupture of extensor tendon of left hand, sequela; Radial styloid tenosynovitis 06/11/2024 Plan of Care Documentation [facility] Occupational Therapy [address] [phone] 06/07/2024 1:05 AM EDT - 06/07/2024 2:05 AM EDT Emergency [facility] Emergency [address] [place] [address] Tight cast (Primary Dx) Discharge Disposition: Home or Self Care from Last 3 Months Surgical History Surgery Date Site/Laterality Comments BACK SURGERY PROCEDURE: HISTORICAL BACK SURGERY CARPAL TUNNEL RELEASE Right SPINE SURGERY SECTION, LOW TRANSVERSE KIDNEY STONE SURGERY SPINAL CORD STIMULATOR IMPLANT HAND SURGERY 05/30/2024 Left eCTR and dorsal compartment release Medical History Medical History Date Comments Arthritis DX:Arthritis Sleep apnea Asthma Hypertension Hyperlipidemia Diabetes mellitus ([facility] V24, [facility] V28) Chronic kidney disease GERD (gastroesophageal reflux disease) Seizures ([facility] V24, [facility] V28) Anxiety Chronic pain disorder [...] 92 06/06/2024 10:47 PM EDT Temperature 36.7 C (98 F) 06/06/2024 10:47 PM EDT Respiratory Rate 18 06/06/2024 10:47 PM EDT Oxygen Saturation 98% 06/06/2024 10:47 PM EDT Inhaled Oxygen Concentration - - Weight 65.8 kg (145 lb) 07/31/2024 10:47 AM EDT Height 154.9 cm (5' 1 ) 07/31/2024 10:47 AM EDT Body Mass Index 27.4 07/31/2024 10:47 AM EDT Plan of Treatment Upcoming Encounters Date Type Department Care Team (Late st Contact Info) Description 10/01/2024 9:45 AM EDT Office Visit Orthopedic Surgery - [place] [address] [phone] Kellie Dickerson MD 175 [facility] [address] [place] [address] Health Maintenance Due Date Last Done Comments Breast Cancer Screening 1970 COVID-19 Vaccine (#1) 1975 Hepatitis B Vaccines (1 of 3 - 19+ 3-dose series) 1989 Zoster Vaccines (1 of 2) 1989 Cervical Cancer Screening: Pap Smear 1991 Pneumococcal Vaccine: 50+ Years (2 of 2 - PCV) 12/15/2016 12/16/2015 Cholesterol Screening (Lipid Panel) 01/24/2022 Colorectal Cancer Screening: Colonoscopy 01/24/2022 Depression Screening 01/24/2022 HIV Screening 01/24/2022 Hepatitis C Screening 01/24/2022 Social Influencers of Health Screening 01/24/2022 Hypertension/CHF/CAD Annual BMP Blood Test 01/23/2024 Influenza Vaccine (#1) 2024 9, 11/24/2017, 10/20/2016, Additional history exists DTaP,Tdap,and Td [...] OT STGS 8 TO 10 VISITS General On track( 025 9:54 AM EDT) No Jenna Garcia OT Note: # 1 [...] TO THE DPC # 9 ACHIVE LEFT DIRECTOR OF GROUP COUNSELING PROGRAM TO 23 POUNDS = 50 PERCENT OF THE RIGHT Procedures Procedure Name Priority Date/Time Associated Diagnosis Comments ED SPLINT APPLICATION Routine 06/07/2024 1:36 AM EDT NM APPLICATION SPLINT STATIC SHORT ARM Routine 06/07/2024 1:36 AM EDT from Last 3 Months Results * NM APPLICATION SPLINT STATIC SHORT ARM, HC APPLICATION SPLINT/CAST/STRAP (06/07/2024 1:36 AM EDT) Narrative Aileen Summers MD - 06/07/2024 1:36 AM EDT DEISY Garay 06/07/2024 1:40 AM Splint Application Date/Time: 06/07/2024 1:36 AM Performed by: DEISY Garay Authorized by: DEISY Garay Consent: Consent obtained: Verbal Consent given by: Patient Risks, benefits, and alternatives were discussed: yes Risks discussed: Discoloration, numbness and swelling Alternatives discussed: No treatment [place] protocol: Procedure explained and questions answered to patient or proxy's satisfaction: yes Patient identity confirmed: Verbally with patient and arm band Pre-procedure details: Distal neurologic exam: Normal Distal perfusion: distal pulses strong Procedure details: Location: Wrist Wrist location: L wrist Strapping: no Splint type: Thumb spica Supplies: Plaster Post-procedure details: Distal neurologic exam: Normal Procedure completion: Tolerated us Joshua OLIVAS IN CLINIC/BEDSIDE ORDERAB LES Final Result from Last 3 Months Insurance Care Teams Polisher Aluminum Relationship Specialty Start Date End Date Duke Hale MD [address] [place] [address] [address] [facility] [place] [address] PCP - General Internal Medicine 05/03/11
--- OUTSIDE RECORDS SUMMARY | 2024-08-31 11:14 | XMS_ITS | Clinical Summary ---
Author Organization [facility] Address [address] [place] [address] Care Team Providers Care Leakage Tester Name Role Phone Margie Leonard Primary Care Provider [phone] Allergies No known active allergies Medications Medication Sig Dispensed Refills Start Date End Date Status ergocalciferol (VITAMIN D2) capsule 76494 units TAKE ONE CAPSULE BY MOUTH ONCE [...] (1 of 2) 2020 Influenza Vaccine (#1) 2024 Pneumococcal Vaccine Aged Out No long er eligible based on patient's age to complete this topic RSV Ped < 20 months Aged Out No longe r eligible based on patient's age to complete this topic Care Teams Leakage Tester Relationship Specialty Start Date End Date Margie Leonard DO PCP - General Family Medicine 03/25/17
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
--- OUTSIDE RECORDS SUMMARY | 2024-08-31 11:14 | XMS_ITS | Encounter Summary ---
Author Organization [facility] Address [address] [place] [address] Phone Care Team Providers Care Lock Operator Name Role Phone Duke Hale MD Primary Care Provider [phone] Encounter Details Date Type Department Care Team (Late st Contact Info) Description 08/19/2023 Documentation Only [facility], [address] [place] [address] [place], [place] [address] [place] [address] Social History Tobacco Use Types [...] on filedocumented in this encounter Care Teams Lock Operator Relationship Specialty Start Date End Date Duke Hale MD [facility] [place] [address] [place], [place] PCP - General Internal Medicine 03/07/19 documented as of this encounter
== END 2024-08-31 12:41 | disposition home or self-care (01) ==
LOC: HO.HMCH 10:43
PROVIDERS: PCP Internal Medicine; Visit Provider Internal Medicine
DX: E11.65 Type 2 diabetes mellitus with hyperglycemia (principal); E66.9 Obesity, unspecified; Z68.29 Body mass index [BMI] 29.0-29.9, adult; E78.00 Pure hypercholesterolemia, unspecified; I10 Essential (primary) hypertension; M96.1 Postlaminectomy syndrome, not elsewhere classified; G47.33 Obstructive sleep apnea (adult) (pediatric)

== ENCOUNTER → 2024-08-31 10:42 | Outpatient (BNVA) | payer OTHER, SELFPAY | PROVIDERS: PCP Internal Medicine; Visit Provider Internal Medicine | DX: E11.65 Type 2 diabetes mellitus with hyperglycemia (principal); E66.9 Obesity, unspecified; E78.00 Pure hypercholesterolemia, unspecified; I10 Essential (primary) hypertension; M96.1 Postlaminectomy syndrome, not elsewhere classified; G47.33 Obstructive sleep apnea (adult) (pediatric); Z79.84 Long term (current) use of oral hypoglycemic drugs; Z79.899 Other long term (current) drug therapy; Z13.30 Encounter for screening examination for mental health and behavioral disorders, unspecified | CPT/HCPCS: 83036; 99212 ==

== ENCOUNTER 2024-09-05 09:23 | Outpatient (AMB) | payer OTHER, SELFPAY ==
--- NOTE | 2024-09-05 09:26 | A.OFFVIS_ITS ---
Vital Signs 09/05/24 09:27 Height 5 ft 1 in Pulse 76 Pulse Source Pulse Oximeter Pulse Oximetry (%) 96 Oxygen Delivery Method Room Air Intake Visit Reasons: follow up Intake Note: Patient is here for follow up on scleroderma. Allergies topiramate (From TOPAMAX) Allergy (Severe, Verified 09/05/24 09:27) RASH, ITCH, DIFF BREATHING pineapple (Pineapple) Allergy (Mild, Verified 09/05/24 09:27) THROAT SWELLING duloxetine (Cymbalta) Allergy (Unknown, Verified 09/05/24 09:27) dizziness,vomiting levetiracetam Allergy (Unknown, Verified 09/05/24 09:27) Hives milnacipran (Savella) Allergy (Unknown, Verified 09/05/24 09:27) rash pregabalin Allergy (Unknown, Verified 09/05/24 09:27) nausous quetiapine (Seroquel) Allergy (Unknown, Verified 09/05/24 09:27) Hives sumatriptan (Imitrex) Allergy (Unknown, Verified 09/05/24 09:27) rash simvastatin Adverse Reaction (Intermediate, Verified 09/05/24 09:27) Nausea and Vomiting Seafood Allergy (Mild, Uncoded 08/31/24 11:07) RASH HPI HPI follow up: Details: She has reduced function with her hands. She is using Epson salt baths without benefit. [facility] Medical History De Quervain's tenosynovitis, left Tendonitis of wrist, left Colon cancer screening (~04/13/24) Breast cancer screening by mammogram Tobacco abuse Acute bacterial tonsillitis Acute bacterial pharyngitis Acute gastroenteritis Shingles Encounter for removal of maria r Scalp laceration Knee effusion, left Blood pressure elevated without history of HTN Wrist pain COVID-19 virus infection Witnessed apneic spells Dysuria Bilateral hand pain Folliculitis Headache Leukocytosis Palpitations Vitamin B 12 deficiency Groin abscess Closed fibular fracture Microscopic hematuria Insomnia Subclinical hyperthyroidism History of CREST syndrome Lateral malleolar fracture Chronic interstitial cystitis Uterine fibroid History of seizures Bipolar disorder Asthma Gastroesophageal reflux disease Hypercholesterolemia Failed back syndrome Surgical History History of pelvic surgery History of carpal tunnel release History of section History of tubal ligation Family History Father CVD (cardiovascular disease) Myocardial infarction Mother COPD (chronic obstructive pulmonary disease) Rheumatoid arthritis Renal failure Family/Other History of uterine cancer History of breast cancer History of ovarian cancer Daughter Lupus Brother Lupus Other Mental health disorder Mental illness in member of household Social History Housing: Apartment Alcohol intake: former Patient Tobacco Use Status: Former Tobacco user Tobacco use type: Cigarette Cigarette Packs Per Day: 1 Cigarettes Per Day: 20.0 e-Cigarette/Vaping Use: Never Used Second Hand Smoke Exposure: Yes service: No Current occupational status: disabled Cognitive needs: No Hearing needs: No Vision needs: Yes Physical Exam Vital Signs: Last Vital Signs Pulse 76 09/05/24 09:27 Pulse Ox 96 09/05/24 09:27 Oxygen Delivery Method Room Air 09/05/24 09:27 Const Other: General: Comfortable CVS: RRR Respiratory: clear to auscultation bilaterally. Good respiratory effort Skin: No lesions seen. No discoloration of fingertips. No digital ulcers. Sclerodactyly present. MSK: Chronic synovial thickening and synovitis of right hand has resolved. Tender to palpate PIP bilateral. Good range of motion of shoulders. Limited full external rotation of bilateral hips. She has mild valgus deformity of knees bilaterally. Crepitus of bilateral knees. Knee flexion 90 degrees bilateral. Tender bilateral ankles and MTPs. 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 Synovitis in her hands have returned. No benefit with Celebrex. She tolerated methotrexate without side effect but did not return for labs for drug monitoring. I will restart methotrexate with goal of further improving her joint symptoms. I discussed side effects of prednisone use in patients with systemic sclerosis. She had benefit on prednisone in the past and is requesting it. I will monitor kidney function closely and prescriber [id number] dose prednisone course with taper. Patient agrees with berry. Rheumatology history: Dx 2018 (arthralgias, Raynaud's, sclerodactyly, telangiectasias, ++ centromere antibody). HCQ 09/2023-. Failed Celebrex and m eloxicam. Code(s): M34.9 - Systemic sclerosis, unspecified Category: Medical Plan: restart methotrexate 12.5 mg once weekly and folic acid 1 mg daily. She will need labs for drug monitoring 4 weeks after starting methotrexate Start folic acid 1 mg daily Continue hydroxychloroquine 400 mg daily 5 days a week and 200 mg daily 2 days a week. She had eye exam April 2024. No OCT or visual field test. Requesting patient to schedule eye exam. d/c Celebrex 200 mg twice a day Prednisone course prescribed with close monitoring of renal crisis in individuals with systemic sclerosis - creatinine in 1 month PFTs and echocardiogram ordered to evaluate for pulmonary hypertension in systemic sclerosis Return to clinic in 3 months (2) Inflammatory arthritis: Code(s): M19.90 - Unspecified osteoarthritis, unspecified site Category: Medical Plan: See above (3) Long-term use of hydroxychloroquine: Code(s): Z79.899 - Other intermediate accountant (current) drug therapy Category: Medical Plan: See above Medications: New prednisone Take 3 tablets daily 5 days, 2 tablets daily 5 days, 1 tablet daily 5 days then stop. Take prednisone with food. Discontinue celebrex. 5 mg PO DIRECTED 30 tabs 0RF Changed From methotrexate sodium Labs due in 4 weeks for drug monitoring at [facility] lab. 12.5 mg (5 x 2.5 mg) PO QWEEK 28 days 20 tabs 0RF To methotrexate sodium Labs due October 03 12.5 mg (5 x 2.5 mg) PO QWEEK 20 tabs 0RF 28 days Discontinued celecoxib Take with food. Discontinued Reason: Doctor's Order 200 mg PO BID 60 caps 2RF Coding Level of Care Code Est Pt Level 4 (50382) Complex EM visit Add On G2211 Diagnoses Limited scleroderma M34.9 Inflammatory arthritis M19.90 Long-term use of hydroxychloroquine Z79.899
[2024-09-05 09:27] VITALS: PULSE 76; O2SAT 96
--- OUTSIDE RECORDS SUMMARY | 2024-09-05 09:53 | XMS_ITS | Clinical Summary ---
Author Organization [facility] Address [address] [place] [address] Phone Care Team Providers Care Bass Fisher Name Role Phone Duke Hale MD Primary Care Provider [phone] Allergies Active Allergy Reactions Criticality Noted Date [...] ACO ACO ACO ACO ACO Care Teams Bass Fisher Relationship Specialty Start Date End Date Po, Duke Collins MD [address] [place] [phone] PCP - General Internal Medicine 07/18/22 Additional Source Comments The information contained in this document represents components of the legal health record. It is not the complete legal health record.[facility]
--- OUTSIDE RECORDS SUMMARY | 2024-09-05 09:53 | XMS_ITS | Clinical Summary ---
Author Organization [facility] Address [address] [place] [address] Care Team Providers Care Wire Strander Name Role Phone Margie Leonard Primary Care Provider [phone] Allergies No known active allergies Medications Medication Sig Dispensed Refills Start Date End Date Status ergocalciferol (VITAMIN D2) capsule 83807 units TAKE ONE CAPSULE BY MOUTH ONCE [...] age to complete this topic Care Teams Wire Strander Relationship Specialty Start Date End Date Margie Leonard DO PCP - General Family Medicine 03/25/17
--- OUTSIDE RECORDS SUMMARY | 2024-09-05 09:53 | XMS_ITS | Encounter Summary ---
Author Organization [facility] Address [address] [place] [address] Phone Care Team Providers Care Swim Instructor Name Role Phone Duke Hale MD Primary Care Provider [phone] Encounter Details Date Type Department Care Team (Late st Contact Info) Description 08/19/2023 Documentation Only [facility], [address] [place] [address] [place], [place] [address] [place] [address] Social History Tobacco Use Types [...] on filedocumented in this encounter Care Teams Swim Instructor Relationship Specialty Start Date End Date Duke Hale MD [facility] [address] [place], [place] PCP - General Internal Medicine 03/07/19 documented as of this encounter
--- OUTSIDE RECORDS SUMMARY | 2024-09-05 09:53 | XMS_ITS | Clinical Summary ---
Author Organization [address] [facility] Address [address] [place] [address] Phone Care Team Providers Care Fisheries Enforcement Officer Name Role Phone Duke Hale MD Primary Care Provider [phone] Allergies Active Allergy Reactions Criticality Noted Date [...] WHEEZING 4 Active oxycodone HCl,terephth/as pirin (OXYCODONE [id number] SA ORAL) Active acetaminophen (TYLENOL 8 HOUR) [...] 11:00 AM EDT Office Visit Orthopedic Surgery [facility] 175 [facility] [address] [place] [phone] Kellie Dickerson MD Post-operative state (Primary Dx); Radial styloid tenosynovitis; Carpal tunnel syndrome of left wrist 07/31/2024 9:00 AM EDT Treatment [facility] [address] [phone] Jenna Garcia OT Rupture of extensor tendon of left hand, subsequent encounter (Primary Dx) 07/27/2024 9:15 AM EDT Treatment [facility] [address] [place] [phone] Jenna Garcia OT Rupture of extensor tendon of left hand, subsequent encounter (Primary Dx); Carpal tunnel syndrome of left wrist 07/16/2024 Telephone Orthopedic [facility] [address] [facility] [address] [place] [phone] Kati Hernandez 07/12/2024 9:30 AM EDT Treatment [facility] [address] [phone] Jenna Garcia, CRISTIAN Rupture of extensor tendon of left hand, subsequent encounter (Primary Dx) 07/02/2024 9:30 AM EDT Treatment [facility] [address] [phone] Jenna Garcia, OT Rupture of extensor tendon of left hand, subsequent encounter (Primary Dx) 06/18/2024 11:30 AM EDT Office Visit [facility] [place] [address] [phone] Kellie Dickerson MD Carpal tunnel syndrome of left wrist (Primary Dx); Radial styloid tenosynovitis; Rupture of extensor tendon of left hand, sequela; Post-operative state 06/18/2024 10:45 AM EDT Treatment [facility] [address] [phone] Jenna Garcia OT Rupture of extensor tendon of left hand, subsequent encounter (Primary Dx) 06/11/2024 2:30 PM EDT Evaluation [facility] [address] [place] [phone] Jenna Garcia, OT Carpal tunnel syndrome of left wrist; Rupture of extensor tendon of left hand, sequela; Radial styloid tenosynovitis 06/11/2024 Plan of Care Documentation [facility] [address] [phone] 06/07/2024 1:05 AM EDT - 06/07/2024 2:05 AM EDT Emergency [facility] [address] [place] [address] Tight cast (Primary Dx) Discharge Disposition: Home [...] Sleep apnea Asthma Hypertension Hyperlipidemia Diabetes mellitus ([facility] V24, [facility] V28) Chronic kidney disease GERD (gastroesophageal reflux disease) Seizures ([facility] V24, [facility] V28) Anxiety Chronic pain disorder Social History [...] AM EDT Office Visit [facility] [place] [address] [phone] Kellie Dickerson MD 175 [facility] [address] [place] [address] Health Maintenance Due Date Last Done Comments Breast Cancer Screening 1970 COVID-19 Vaccine (#1) 1975 Hepatitis B Vaccines (1 of 3 - 19+ 3-dose series) 1989 Zoster Vaccines (1 of 2) 1989 Cervical Cancer Screening: Pap Smear 1991 Pneumococcal Vaccine: 50+ Years (2 of 2 - PCV) 12/15/2016 12/16/2015 Cholesterol Screening (Lipid Panel) 01/24/2022 Colorectal Cancer Screening: Colonoscopy 01/24/2022 HIV Screening 01/24/2022 Hepatitis C Screening 01/24/2022 Social Influencers of Health Screening 01/24/2022 Hypertension/CHF/CAD Annual BMP Blood Test 01/23/2024 Depression Screening 02/15/2024 Influenza Vaccine (#1) 2024 9, 11/24/2017, 10/20/2016, [...] TO THE DPC # 9 ACHIVE LEFT TECHNOLOGY METHODOLOGY CONSULTANT TO 23 POUNDS = 50 PERCENT OF THE RIGHT Procedures Procedure Name Priority Date/Time Associated Diagnosis Comments ED SPLINT APPLICATION Routine 06/07/2024 1:36 AM EDT [place] APPLICATION SPLINT STATIC SHORT ARM Routine 06/07/2024 1:36 AM EDT from Last 3 Months Results * NV APPLICATION SPLINT STATIC SHORT ARM, HC APPLICATION [...] numbness and swelling Alternatives discussed: No treatment [place] protocol: Procedure explained and questions answered to [...] from Last 3 Months Insurance Care Teams Fisheries Enforcement Officer Relationship Specialty Start Date End Date Duke Hale MD [address] [place] [address] [address] [facility] [place] [address] PCP - General Internal Medicine 05/03/11
== END 2024-09-05 10:06 | disposition home or self-care (01) ==
PROVIDERS: PCP Internal Medicine; Visit Provider Internal Medicine Rheumatology
DX: M34.9 Systemic sclerosis, unspecified (principal); M19.90 Unspecified osteoarthritis, unspecified site; Z79.899 Other long term (current) drug therapy
CPT/HCPCS: 99214; G2211

== ENCOUNTER → 2024-09-05 09:23 | Outpatient (BNVA) | payer OTHER, SELFPAY | PROVIDERS: PCP Internal Medicine; Visit Provider Internal Medicine Rheumatology | DX: M34.89 Other systemic sclerosis (principal); M65.942 Unspecified synovitis and tenosynovitis, left hand; M65.941 Unspecified synovitis and tenosynovitis, right hand; Z79.631 Long term (current) use of antimetabolite agent; Z79.899 Other long term (current) drug therapy | CPT/HCPCS: 99212 ==

== ENCOUNTER 2024-10-01 10:49 | Outpatient (AMB) | payer OTHER, SELFPAY ==
[2024-10-01 10:55] VITALS: BP 138/72; PULSE 83; O2SAT 94; BMI 29.7
--- NOTE | 2024-10-01 10:55 | A.OFFPC_ITS ---
Vital Signs 10/01/24 10:55 Height 5 ft 1 in Weight 157 lb BMI 29.7 BP 138/72 Blood Pressure Location Lt brachial Position Sitting Pulse 83 Pulse Source Pulse Oximeter Pulse Oximetry (%) 94 Oxygen Delivery Method Room Air Intake Visit Reasons: annual exam/med visit- A1C needed Allergies topiramate (From TOPAMAX) Allergy (Severe, Verified 10/01/24 10:56) RASH, ITCH, DIFF BREATHING pineapple (Pineapple) Allergy (Mild, Verified 10/01/24 10:56) THROAT SWELLING duloxetine (Cymbalta) Allergy (Unknown, Verified 10/01/24 10:56) dizziness,vomiting levetiracetam Allergy (Unknown, Verified 10/01/24 10:56) Hives milnacipran (Savella) Allergy (Unknown, Verified 10/01/24 10:56) rash pregabalin Allergy (Unknown, Verified 10/01/24 10:56) nausous quetiapine (Seroquel) Allergy (Unknown, Verified 10/01/24 10:56) Hives sumatriptan (Imitrex) Allergy (Unknown, Verified 10/01/24 10:56) rash simvastatin Adverse Reaction (Intermediate, Verified 10/01/24 10:56) Nausea and Vomiting Seafood Allergy (Mild, Uncoded 10/01/24 10:56) RASH Medication List - Last Reconciled 10/01/24 by Duke Hale MD acetaminophen (Tylenol Extra Strength) 500 mg PO QID PRN albuterol sulfate 90 mcg/actuation (Ventolin HFA) 2 puffs inhalation Q6H PRN amitriptyline 10 mg PO BEDTIME [AUTOPAP 6-20 cm H20 humidified Air As directed] blood pressure monitor (Blood Pressure Kit) As directed blood sugar diagnostic (FreeStyle Lite Strips) As directed check the BS QD blood-glucose meter (FreeStyle Lite Meter kit) As directed cetirizine 10 mg PO DAILY clotrimazole-betamethasone 1-0.05 % 1 appl topical BID 4 weeks cyanocobalamin (vitamin B-12) 1,000 mcg PO DAILY cyclobenzaprine 5 mg PO BEDTIME PRN 90 days dapagliflozin propanediol 10 mg PO DAILY diclofenac sodium 1% (Arthritis Pain (diclofenac)) 4 grams topical QID duloxetine 20 mg PO DAILY fluticasone propionate 50 mcg/actuation 1 spray intranasal DAILY folic acid 1 mg PO DAILY gabapentin 600 mg PO TID 90 days hydroxychloroquine Take 2 tabs a day x5 days a week and 1 tab a day x2 days a week Replace previous prescriptions ketotifen fumarate 0.025%(0.035%) 1 drp ophthalmic (eye) BID lancets (FreeStyle Lancets) As directed check BS QD lidocaine 5% 2 patches topical DAILY 15 days lisinopril 5 mg PO DAILY lorazepam 0.5 mg PO DAILY PRN metformin 1,000 mg PO BID methotrexate sodium 12.5 mg (5 x 2.5 mg) PO QWEEK 28 days omeprazole 40 mg PO BID ondansetron HCl 4 mg PO Q6H oxycodone-acetaminophen 7.5-325 mg (Percocet) 1 tab PO Q8H PRN pravastatin 80 mg PO BEDTIME 90 days silver sulfadiazine 1% (Silvadene) 1 appl topical BID sitagliptin phosphate (Januvia) 100 mg PO DAILY triamcinolone acetonide 0.5% 1 appl topical DAILY valacyclovir 1,000 mg PO Q8H 7 days Tobacco use date assessed: 08/31/24 Dental Screening Dental Screen Date: 08/03/24 HPI annual exam/med visit- A1C needed HPI Details dizzy, occ dizziness, decline therapist 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, [facility] Medical History De Quervain's tenosynovitis, left Tendonitis of wrist, left Colon cancer screening (~04/13/24) Breast cancer screening by mammogram Tobacco abuse Acute bacterial tonsillitis Acute bacterial pharyngitis Acute gastroenteritis Shingles Encounter for removal of maria r Scalp laceration Knee effusion, left Blood pressure elevated without history of HTN Wrist pain COVID-19 virus infection Witnessed apneic spells Dysuria Bilateral hand pain Folliculitis Headache Leukocytosis Palpitations Vitamin B 12 deficiency Groin abscess Closed fibular fracture Microscopic hematuria Insomnia Subclinical hyperthyroidism History of CREST syndrome Lateral malleolar fracture Chronic interstitial cystitis Uterine fibroid History of seizures Bipolar disorder Asthma Gastroesophageal reflux disease Hypercholesterolemia Failed back syndrome Surgical History History of pelvic surgery History of carpal tunnel release History of section History of tubal ligation Family History Father CVD (cardiovascular disease) Myocardial infarction Mother COPD (chronic obstructive pulmonary disease) Rheumatoid arthritis Renal failure Family/Other History of uterine cancer History of breast cancer History of ovarian cancer Daughter Lupus Brother Lupus Other Mental health disorder Mental illness in member of household Social History (Updated 10/01/24 @ 11:24 by Duke Hale MD) Housing: Apartment Alcohol intake: former Comment: last 2004 Patient Tobacco Use Status: Former Tobacco user Tobacco use type: Cigarette Cigarette Packs Per Day: 1 Cigarettes Per Day: 20.0 Years Smoked: had puff of cigaretttes once @ 2 weeks e-Cigarette/Vaping Use: Never Used Second Hand Smoke Exposure: Yes service: No Current occupational status: disabled Cognitive needs: No Hearing needs: No Vision needs: Yes Questionnaire PHQ-9 Over the last 2 weeks, how often have you been bothered by any of the following problems? 1. Little interest or pleasure in doing things: more than half the days 2. Feeling down, depressed, or hopeless: not at all 3. Trouble falling or staying asleep, or sleeping too much: several days 4. Feeling tired or having little energy: several days 5. Poor appetite or overeating: several days 6. Feeling bad about yourself - or that you are a failure or have let yourself or your family down: not at all 7. Trouble concentrating on things, such as reading the newspaper or watching television: not at all 8. Moving or speaking so slowly that other people could have noticed. Or the opposite - being so fidgety or restless that you have been moving around a lot more than usual: several days 9. Thoughts that you would be better off or of hurting yourself in some way: not at all Total score: 6 Depression Screening Interpretation: Positive Depression Screening Done: Yes Source: Developed by Drs. Joshua Sorensen, Salma Nagy, Scot Luciano and colleagues, with an educational georges from [employer] Thrive Questionnaire Date Thrive assessed: 10/01/24 I am a: Patient What is your living situation today?: I have a steady place to live Within the past 12 months, did the food you bought not last and you didn't have the money to get more?: Never true Within the past 12 months, did you worry whether your food would run out before you got money to buy more?: Never true Do you have trouble paying for medicines?: No Do you have trouble getting transportation to medical appointments?: Yes Do you have trouble paying your heating and electricity bill?: No Do you have trouble taking care of your child, family member or friend?: No Do you have trouble with day-to-day activities such as bathing, preparing meals, shopping, managing finances, etc.?: Yes Are you currently unemployed and looking for a job?: No Are you interested in more education?: No Please select the resources that you would like help with: None Currently or been in a relationship where the following occur: No concerns reported THRIVE Score: 1 AUDIT C Alcohol Use Questionnaire (AUDIT-C) 1. How often do you have a drink containing alcohol?: Never 3. How often do you have six or more drinks on one occasion?: Never Total Score: 0 OLGA-7 AMB Questionnaire OLGA-7 Date OLGA - 7 assessed: 10/01/24 Feeling nervous, anxious, or on edge: 0 = Not at all Not being able to stop or control worryin = Several days Worrying too much about different things: 1 = Several days Trouble relaxin = Several days Being so restless that it is hard to sit still: 1 = Several days Becoming easily annoyed or irritable: 1 = Several days Feeling afraid as if something awful might happen: 0 = Not at all Total OLGA-7 score (0-4 normal; 5-9 mild; 10-14 moderate; 15-21 severe): 5 Source: Developed by Drs. Joshua Sorensen, Salma Nagy, Scot Luciano and colleagues, with an educational georges from [employer] OLGA-7 Assessment Billing OLGA-7 Assessment Tool: OLGA-7 Assessment 38546 Review of Systems Const Denies poor appetite and Denies weakness Eyes Denies no additional complaints ENT Reports Normal hearing present, Denies dizziness, Denies nasal congestion, Denies tinnitus and Denies sore throat Card Denies chest pain, Denies syncope, Denies rapid heart rate and Denies dyspnea Resp Denies cough and Denies dyspnea GI Denies change in stool character, Reports constipation, Denies diarrhea, Denies nausea and Denies vomiting Denies urinary frequency, Denies difficulty voiding and Denies dysuria Neuro Reports Normal hearing present, Denies confusion, Denies dizziness, Denies syncope and Denies weakness Psych Denies confusion Physical exam (Primary Care) Vital Signs: Last Vital Signs Pulse 83 10/01/24 10:55 BP 138/72 10/01/24 10:55 Pulse Ox 94 10/01/24 10:55 Oxygen Delivery Method Room Air 10/01/24 10:55 BMI result Body Mass Index 29.7 Tobacco/Smoking Status: Tobacco use Status Tobacco use date assessed 08/31/24 10/01/24 10:57 Patient Tobacco Use Status Former Tobacco user 10/01/24 11:24 Tobacco use type Cigarette 10/01/24 11:24 e-Cigarette/Vaping Use Never Used 10/01/24 11:24 PHQ-9: PHQ-9 Score PHQ-9: Total score 6 10/01/24 11:19 Depression Screening Interpretation: Positive Thrive Assessment: Date of Thrive Assessment Date Thrive assessed 10/01/24 10/01/24 10:57 Currently or been in a relationship where the following occur: No concerns reported Const General: No confusion Orientation/consciousness: No confusion HENMT Head: Yes normocephalic Ears: external ears normal and TM's normal bilaterally Face and sinus: Yes normal facial exam Mouth: moist mucous membranes Throat: Yes tonsils normal Eyes Conjunctivae: conjunctivae normal Pupils: Equal, round and reactive pupils present and Pupil accommodation reflex normal Direct Ophthalmoscopy: normal light reflex Neck Neck: No lymphadenopathy Thyroid: Thyroid normal Chest Chest palpation & inspection: normal inspection of the chest Resp Effort & Inspection: normal respiratory effort and no audible wheezes Auscultation: clear to auscultation bilaterally, no crackles, no wheezes and lung sounds not diminished Cardio Rate: regular rate Rhythm: regular rhythm Peripheral pulses: radial pulses present and dorsalis pedis present GI Palpation (GI): no masses Auscultation: normal bowel sounds and normoactive bowel sounds Rectal Exam - Female: deferred Skin General skin exam: no rashes or lesions noted Rashes: no rashes Neuro General: No confusion Cranial nerves: Yes Equal, round and reactive pupils present and Yes Normal hearing present Cognition (Neuro): normal cognition Gait exam (Neuro): Normal gait present Motor exam (neuro): 5/5 motor strength present throughout Deep tendon reflexes (DTR's): Right brachioradialis reflex intensity grade: 2+, Left brachioradialis reflex intensity grade: 2+, Right patellar reflex intensity grade: 2+ and Left patellar reflex intensity grade: 2+ Extrem General: No edema Coding Level of Care Code Est Pt Prev Care 40-64y(23420) Diagnoses Annual physical exam Z00.00 Type 2 diabetes mellitus with hyperglycemia E11.65 Hypercholesterolemia E78.00 Hypertension I10 Overweight (BMI 25.0-29.9) E66.3 Gastroesophageal reflux disease without esophagitis K21.9 Esophagitis presence: without esophagitis Limited scleroderma M34.9 Failed back syndrome M96.1 Asthma J45.909 Obstructive sleep apnea hypopnea, severe G47.33 Additional Codes OLGA-7 Assessment Billing - OLGA-7 Assessment Tool: OLGA-7 Assessment 09149 ([id number]) Assessment & Plan Assessment & Plan (1) Annual physical exam: Code(s): Z00.00 - Encounter for general adult medical examination without abnormal findings Category: Medical Plan: Patient is advised to eat healthy, keep well hydrated, keep active and have cayden quate sleep. (2) Type 2 diabetes mellitus with hyperglycemia: Comment: [facility] Code(s): E11.65 - Type 2 diabetes mellitus with hyperglycemia Category: Medical Plan: Decrease the amount of carbohydrate intake, pasta, bread, rice and potatoes are all sugar and that is aside from all the sweet stuff, remember that fruits are good but they are Sweet also. Hemoglobin A1c goal of less than 6.5. Patient is on Farxiga 10 mg once a day metformin a 1000 mg twice a day Januvia at 100 mg once a day (3) Hypercholesterolemia: Code(s): E78.00 - Pure hypercholesterolemia, unspecified Category: Medical Plan: Avoid fried foods, chicken skin, eggs, butter margarine, pastries and meat. Be it pork or beef they have a lot of cholesterol LDL goal of less than 100 and triglyceride of less than 150. On pravastatin 80 mg once a day (4) Hypertension: Code(s): I10 - Essential (primary) hypertension Category: Medical Plan: Continue with blood pressure medication. Decrease salt intake and exercise patient takes lisinopril 5 mg once a day (5) Overweight (BMI 25.0-29.9): Code(s): E66.3 - Overweight Category: Medical Plan: Diet and exercise (6) Gastroesophageal reflux disease: Code(s): K21.9 - Gastro-esophageal reflux disease without esophagitis Category: Medical Qualifiers: Esophagitis presence: without esophagitis Qualified Code(s): K21.9 - Gastro-esophageal reflux disease without esophagitis Plan: Avoid the foods that causes that usually spicy foods, tomato products, juices, coffee, soda and foods that your sensitive to. After eating do not lie down, allow 3-4 hours before in lie down. And keep the head of bed above 30 degrees to avoid the acid from going up. 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 Synovitis in her hands have returned. No benefit with Celebrex. She tolerated methotrexate without side effect but did not return for labs for drug monitoring. I will restart methotrexate with goal of further improving her joint symptoms. I discussed side effects of prednisone use in patients with systemic sclerosis. She had benefit on prednisone in the past and is requesting it. I will monitor kidney function closely and prescriber [id number] dose prednisone course with taper. Patient agrees with berry. Rheumatology history: Dx 2018 (arthralgias, Raynaud's, sclerodactyly, telangiectasias, ++ centromere antibody). HCQ 09/2023-. Failed Celebrex and meloxicam. Code(s): M34.9 - Systemic sclerosis, unspecified Category: Medical Plan: Patient follows up with Rheumatology on methotrexate was given a prednisone taper on hydroxychloroquine. 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 Novak, dorsal column stimulator Dr. Herrera 09/15/2011, 11/2015 Code(s): M96.1 - Postlaminectomy syndrome, not elsewhere classified Category: Medical Plan: Narcotic pain meds: Is being prescribed with the understanding that these medications are potentially addictive and should be used only when absolutely necessary and must always be secured. Any remaining pills should be safely disposed off appropriately. Patient is advised that narcotics can impaired judgment and one should not drive or operate heavy machinery while taking these medications. Never share these medications with anybody and do not leave them unattended. They will not be replaced under any circumstances. (9) Asthma: Comment: 30 years x1 pack per day quit July 2015 Code(s): J45.909 - Unspecified asthma, uncomplicated Category: Medical Plan: Continue with albuterol as needed. (10) Obstructive sleep apnea hypopnea, severe: Comment: CPAP Code(s): G47.33 - Obstructive sleep apnea (adult) (pediatric) Category: Medical Plan: Continue to use the CPAP more than 4 hours a night and benefits from this Plan History of Present Illness The patient is a 54-year-old female presenting for a physical examination and management of chronic conditions. She has a history of hypercholesterolemia, diabetes mellitus, asthma, gastroesophageal reflux disease, obstructive sleep apnea, depression, hypertension, and limited scleroderma. The patient has been experiencing a 3- pound weight gain and is noted to be overweight. The patient has cutaneous systemic sclerosis with inflammatory arthritis and synovitis, for which she is on methotrexate and hydroxychloroquine. She has been non-adherent with methotrexate due to not returning for labs and has been advised to restart it along with folic acid supplementation. Her last blood work was done on July 13, showing normal blood counts with no anemia, and her hemoglobin A1c was 6.3. The patient is on a regimen of Farxiga, metformin, and Januvia for diabetes management, with a goal of maintaining hemoglobin A1c below 6.5. For hypercholesterolemia, the patient is on pravastatin with an LDL goal of less than 100 mg/dL and triglycerides less than 150 mg/dL. She is also on lisinopril for hypertension management. The patient has been advised to discontinue Celebrex and was prescribed a course of prednisone. She continues to use CPAP for obstructive sleep apnea and benefits from it. Preventative care measures include an up-to-date mammogram as of February 2024 and an eye exam as of April 2024. Health Maintenance - Mammogram up to date as of February 2024 - Eye exam up to date as of April 2024 - Advised to discontinue Celebrex - Prescribed a course of prednisone - Continues to use CPAP for obstructive sleep apnea Social History - Denies alcohol consumption for over 20 years - Denies tobacco use Review of Systems - General: Denies fever, nausea, or vomiting - Cardiovascular: Reports occasional chest heaviness, denies syncope - Respiratory: Denies dyspnea or cough - Gastrointestinal: Denies dysphagia - Neurological: Denies dizziness, reports no balance issues - Psychiatric: Denies anxiety, denies seeing a psychiatrist or therapist - Genitourinary: Reports normal urination, denies nocturia Physical Exam General: Cooperative, overweight, comfortable, no acute distress and well developed Orientation: Patient oriented x3 Limitations: Limited due to pain in the leg Head: Normal to inspection Ears: Hearing grossly normal bilaterally, right ear pain noted Nose: Normal external nose present Face and sinus: Normal facial exam Eyes: Appearance normal, both eyes and all related structures Neck: Normal visual inspection and Yes full ROM Respiratory: Normal respiratory effort and able to speak in complete sentences. Clear to auscultation bilaterally Cardiovascular: Regular rate and rhythm. Normal S1 and S2 GI: Normal to inspection. Soft to palpation and nontender Skin: No rashes or lesions noted Neuro: Patient oriented x3, dizziness reported Extremities: Pain in the leg, difficulty with balance, no lumps or bumps noted, able to remove socks with assistance Results - Labs: Normal blood counts with no anemia as of July 13 - Labs: Hemoglobin A1c was 6.3 Plan The patient will continue with her current medication regimen for diabetes, including Farxiga, metformin, and Januvia, aiming to maintain her hemoglobin A1c below 6.5. For hypercholesterolemia, she will remain on pravastatin with goals of LDL less than 100 mg/dL and triglycerides less than 150 mg/dL. The patient is advised to restart methotrexate and begin folic acid supplementation, with a follow-up on lab work to monitor her condition. She has been advised to discontinue Celebrex and has been prescribed a course of prednisone. Continued use of CPAP is recommended for her obstructive sleep apnea, and she is encouraged to maintain regular follow-ups with her healthcare providers. Patient was informed and verbally consented to the use of an ambient scribe for clinic note documentation during this visit. Discussion Notes During the visit, I discussed with the patient the importance of medication adherence, particularly with methotrexate, and the need for regular lab monitoring to ensure efficacy and safety. We reviewed her current medication regimen for diabetes and hypercholesterolemia, emphasizing the goals for hemoglobin A1c and lipid levels. I advised discontinuing Celebrex and starting a prednisone course to manage her symptoms. The patient was reminded to continue using CPAP for her obstructive sleep apnea and to maintain regular follow-ups with her healthcare providers. Patient Instructions - Continue taking Farxiga, metformin, and Januvia as prescribed. - Restart methotrexate and begin folic acid supplementation. - Discontinue Celebrex and start the prescribed prednisone course. - Use CPAP every night for at least 4 hours. - Schedule and complete lab work as requested. Orders: Referrals Podiatry Referral E11.65 - Type 2 diabetes mellitus with hyperglycemia
--- OUTSIDE RECORDS SUMMARY | 2024-10-01 11:52 | XMS_ITS | Encounter Summary ---
Author Organization [facility] Address [address] [place] [address] Phone Care Team Providers Care Steam Shovel Runner Name Role Phone Duke Hale MD Primary Care Provider [phone] Encounter Details Date Type Department Care Team (Late st Contact Info) Description 08/19/2023 Documentation Only [facility], [address] [place] [address] [place] [address] [place] [address] Social History Tobacco Use Types [...] on filedocumented in this encounter Care Teams Steam Shovel Runner Relationship Specialty Start Date End Date Duke Hale MD [facility] [address] [place], [place] PCP - General Internal Medicine 03/07/19 documented as of this encounter
--- OUTSIDE RECORDS SUMMARY | 2024-10-01 11:52 | XMS_ITS | Clinical Summary ---
Author Organization [facility] Address [address] [place] [id number] Phone Care Team Providers Care Curer Foam Rubber Name Role Phone Duke Hale MD Primary Care Provider [phone] Allergies Active Allergy Reactions Criticality Noted Date [...] ACO ACO ACO ACO ACO Care Teams Curer Foam Rubber Relationship Specialty Start Date End Date Po, Duke Collins MD [address] [place] [id number] PCP - General Internal Medicine 07/18/22 Additional Source Comments The information contained in this document represents components of the legal health record. It is not the complete legal health record.[facility]
--- OUTSIDE RECORDS SUMMARY | 2024-10-01 11:52 | XMS_ITS | Clinical Summary ---
Author Organization [facility] Address [address] [place] [address] Care Team Providers Care Pillow Filler Name Role Phone Margie Leonard Primary Care Provider [phone] Allergies No known active allergies Medications Medication Sig Dispensed Refills Start Date End Date Status ergocalciferol (VITAMIN D2) capsule 65000 units TAKE ONE CAPSULE BY MOUTH ONCE [...] age to complete this topic Care Teams Pillow Filler Relationship Specialty Start Date End Date Margie Leonard DO PCP - General Family Medicine 03/25/17
--- OUTSIDE RECORDS SUMMARY | 2024-10-01 11:52 | XMS_ITS | Clinical Summary ---
Author Organization [facility] Address [address] [place] [address] Phone Care Team Providers Care Packing Attendant Name Role Phone Duke Hale MD Primary Care Provider [phone] Allergies Active Allergy Reactions Criticality Noted Date Comments Duloxetine Hcl 03/07/2019 Fish Containing Products 01/24/2024 Seafood/shellfish Levetiracetam 03/07/2019 Milnacipran 03/07/2019 Pineapple 01/24/2024 Pregabalin 03/07/2019 Quetiapine 03/07/2019 Sumatriptan 03/07/2019 Topiramate 03/07/2019 Medications gabapentin (NEURONTIN) 600 mg tablet 1 tablet (600 mg total) 3 (three) times a day. Active metFORMIN (GLUCOPHAGE) 1,000 mg tablet 01/15/20 24 Active omeprazole (PriLOSEC) [address] capsule TAKE 1 CAPSULE ORALLY 2 TIMES A DAY 30 MINUTES BEFORE MEALS 11/17/19 24 Active hydroxychloroq uine (PLAQUENIL) 200 mg tablet TAKE 2 TABLETS A DAY X5 DAYS A WEEK AND 1 TAB A DAY X 2 DAYS A WEEK 11/21/19 24 Active fluticasone propionate (FLONASE) 50 mcg/actuation nasal spray Administer 1 spray into affected nostril(s) 1 (one) time each day. Active ergocalciferol (VITAMIN D-2) 1,250 mcg (50,000 unit) capsule Take 1 capsule (50,000 Units total) by mouth. 02/18/19 18 Active Farxiga 10 mg tablet Take 1 tablet (10 mg total) by mouth 1 (one) time each day. 09/12/19 24 Active cyclobenzaprin e (FLEXERIL) 5 mg tablet 01/23/20 24 Active Ventolin HFA 90 mcg/actuation inhaler INHALE 2 PUFFS EVERY 6 HOURS NEEDED FOR SHORTNESS OF BREATH OR WHEEZING 08/31/19 24 Active oxycodone HCl,terephth/a spirin (OXYCODONE HCL-OXYCODONE- ASA ORAL) Active acetaminophen (TYLENOL 8 HOUR) 650 mg 8 hr tablet Take 1 tablet (650 mg total) by mouth 2 (two) times daily after breakfast and dinner. Do not crush, chew, or split. 30 tablet 05/31/19 25 Active oxyCODONE (ROXICODONE) 5 mg immediate release tablet Take 1 tablet (5 mg total) by mouth every 6 (six) hours if needed for severe pain for up to 10 doses. Max Daily Amount: 20 mg 10 tablet 05/31/19 25 Active ibuprofen (ADVIL,MOTRIN) 600 mg tablet Take 1 tablet (600 mg total) by mouth 3 (three) times a day with meals for 15 doses. 15 tablet 05/31/19 25 025 Discontinued ibuprofen (ADVIL,MOTRIN) 600 mg tablet TAKE 1 TABLET (600 MG TOTAL) BY MOUTH 3 (THREE) TIMES A DAY WITH MEALS FOR 15 DOSES. 15 tablet 09/12/19 25 025 Active Problems Problem Noted Date Diagnosed Date Post-operative state 06/18/2024 Carpal tunnel syndrome of left wrist 01/25/2024 Radial styloid tenosynovitis 01/25/2024 Rupture of extensor tendon of left hand 01/25/20 24 Encounters Date Type Department Care Team Description 07/31/2024 11:00 AM EDT Office Visit Orthopedic Surgery - [place] 175 [facility] [address] [place] [phone] Kellie Dickerson MD Post-operative state (Primary Dx); Radial styloid tenosynovitis; Carpal tunnel syndrome of left wrist 07/31/2024 9:00 AM EDT [facility] 175 [facility] [address] [place] [phone] Jenna Garcia OT Rupture of extensor tendon of left hand, subsequent encounter (Primary Dx) 07/27/2024 9:15 AM EDT Treatment [facility] Occupational Therapy [address] [phone] Jenna Garcia, OT Rupture of extensor tendon of left hand, subsequent encounter (Primary Dx); Carpal tunnel syndrome of left wrist 07/16/2024 [place] [facility] [place] [address] 175 [facility] [address] [place] [phone] Kati Hernandez 07/12/2024 9:30 AM EDT Treatment [facility] Occupational Therapy [address] [phone] Jenna Garcia, OT Rupture of extensor tendon of left hand, subsequent encounter (Primary Dx) 07/02/2024 9:30 AM EDT Treatment [facility] Occupational Therapy [address] [phone] Jenna Garcia, OT Rupture of extensor tendon of left hand, subsequent encounter (Primary Dx) from Last 3 Months Surgical History Surgery Date Site/Laterality Comments BACK SURGERY PROCEDURE: HISTORICAL BACK SURGERY CARPAL TUNNEL RELEASE Right SPINE SURGERY SECTION, LOW TRANSVERSE KIDNEY STONE SURGERY SPINAL CORD STIMULATOR IMPLANT HAND SURGERY 05/30/2024 Left eCTR and dorsal compartment release Medical History Medical History Date Comments Arthritis DX:Arthritis Sleep apnea Asthma Hypertension Hyperlipidemia Diabetes mellitus ([facility] V24, [facility] V28) Chronic kidney disease GERD (gastroesophageal reflux disease) Seizures ([facility] V24, [facility] V28) Anxiety Chronic pain disorder [...] 07/31/2024 10:47 AM EDT Plan of Treatment Health Maintenance [...] TO 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
== END 2024-10-01 12:22 | disposition home or self-care (01) ==
LOC: HO.HMCH 10:50
PROVIDERS: PCP Internal Medicine; Visit Provider Internal Medicine
DX: Z00.00 Encounter for general adult medical examination without abnormal findings (principal); E11.65 Type 2 diabetes mellitus with hyperglycemia; E78.00 Pure hypercholesterolemia, unspecified; I10 Essential (primary) hypertension; E66.3 Overweight; K21.9 Gastro-esophageal reflux disease without esophagitis; M34.9 Systemic sclerosis, unspecified; M96.1 Postlaminectomy syndrome, not elsewhere classified; J45.909 Unspecified asthma, uncomplicated; G47.33 Obstructive sleep apnea (adult) (pediatric)

== ENCOUNTER → 2024-10-01 10:49 | Outpatient (BNVA) | payer OTHER, SELFPAY | PROVIDERS: PCP Internal Medicine; Visit Provider Internal Medicine | DX: Z00.00 Encounter for general adult medical examination without abnormal findings (principal); E11.65 Type 2 diabetes mellitus with hyperglycemia; E78.00 Pure hypercholesterolemia, unspecified; I10 Essential (primary) hypertension; K21.9 Gastro-esophageal reflux disease without esophagitis; M34.9 Systemic sclerosis, unspecified; M96.1 Postlaminectomy syndrome, not elsewhere classified; J45.909 Unspecified asthma, uncomplicated; G47.33 Obstructive sleep apnea (adult) (pediatric); E66.3 Overweight; Z68.29 Body mass index [BMI] 29.0-29.9, adult | CPT/HCPCS: 96127; 99396 ==

== ENCOUNTER 2024-10-09 09:05 | Outpatient (REF) | payer OTHER, SELFPAY ==
--- OUTSIDE RECORDS SUMMARY | 2024-10-09 09:28 | XMS_ITS | Clinical Summary ---
Author Organization [facility] Address [address] [place] [address] Care Team Providers Care Health Care Analyst Name Role Phone Margie Leonard Primary Care Provider [phone] Allergies No known active allergies Medications Medication Sig Dispensed Refills Start Date End Date Status ergocalciferol (VITAMIN D2) capsule 87770 units TAKE ONE CAPSULE BY MOUTH ONCE [...] age to complete this topic Care Teams Health Care Analyst Relationship Specialty Start Date End Date Margie Leonard DO PCP - General Family Medicine 03/25/17
--- OUTSIDE RECORDS SUMMARY | 2024-10-09 09:28 | XMS_ITS | Clinical Summary ---
Author Organization [facility] Address [address] [place] [phone] Phone Care Team Providers Care Missileman Name Role Phone Duke Hale MD Primary Care Provider [phone] Allergies Active Allergy Reactions Criticality Noted Date [...] ACO ACO ACO ACO ACO Care Teams Missileman Relationship Specialty Start Date End Date Po, Duke Collins MD [address] [place] [phone] PCP - General Internal Medicine 07/18/22 Additional Source Comments The information contained in this document represents components of the legal health record. It is not the complete legal health record.[facility]
--- OUTSIDE RECORDS SUMMARY | 2024-10-09 09:28 | XMS_ITS | Encounter Summary ---
Author Organization [facility] Address [address] [place] [address] Phone Care Team Providers Care Hot Roller Name Role Phone Duke Hale MD Primary Care Provider [phone] Encounter Details Date Type Department Care Team (Late st Contact Info) Description 08/19/2023 Documentation Only [facility], [address] [place] [address] [place], [place] [address] [place] [address] Social History Tobacco Use Types [...] on filedocumented in this encounter Care Teams Hot Roller Relationship Specialty Start Date End Date Duke Hale MD [facility] [place] [address] [place], [place] PCP - General Internal Medicine 03/07/19 documented as of this encounter
--- OUTSIDE RECORDS SUMMARY | 2024-10-09 09:28 | XMS_ITS | Clinical Summary ---
Author Organization 175 [facility] Address [address] [place] [address] Phone Care Team Providers Care Radio Repairman Name Role Phone Duke Hale MD Primary Care Provider [phone] Allergies Active Allergy Reactions Criticality Noted Date [...] AM EDT Office Visit Orthopedic Surgery - [place] 175 [facility] [address] [place] [phone] Kellie Dickerson MD Post-operative state (Primary Dx); Radial styloid tenosynovitis; Carpal tunnel syndrome of left wrist 07/31/2024 9:00 AM EDT [facility] 175 [facility] [address] [place] [phone] Jenna Garcia OT Rupture of extensor tendon of left hand, subsequent encounter (Primary Dx) 07/27/2024 9:15 AM EDT Treatment [facility] Occupational Therapy [address] [phone] eJnna Garcia, OT Rupture of extensor tendon of left hand, subsequent encounter (Primary Dx); Carpal tunnel syndrome of left wrist 07/16/2024 [place] [facility] [place] [address] [facility] [address] [place] [phone] Kati Hernandez 07/12/2024 9:30 AM EDT Treatment [facility] Occupational Therapy 175 [facility] [address] [place] [phone] Jenna Garcia, OT Rupture of extensor tendon [...] Sleep apnea Asthma Hypertension Hyperlipidemia Diabetes mellitus ([facility] V24, [facility] V28) Chronic kidney disease GERD (gastroesophageal reflux disease) Seizures ([facility] V24, [facility] V28) Anxiety Chronic pain [...] 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
--- OUTSIDE RECORDS SUMMARY | 2024-10-09 09:28 | XMS_ITS | Clinical Summary ---
Author Organization [facility], Address [address] [place] [address] [place] [address] Phone Care Team Providers Care Employee Communications Intern Name Role Phone Duke Hale MD Primary Care Provider [phone] Allergies Active Allergy Reactions Criticality Noted Date [...] (1 of 3 - 19+ 3-dose series) 03/24 Colorectal Cancer Screening: Annual FOBT 2019 Colorectal Cancer Screening: Colonoscopy 2019 Colorectal Cancer Screening: Sigmoidoscopy 2019 Pneumococcal Vaccine: 50+ Years (1 of 1 - PCV) 021 Influenza Vaccine (#1) 2024 Insurance [employer] Care Teams Employee Communications Intern Relationship Specialty Start Date End Date Duke Hale MD [facility] [place] [address] [place], [place] PCP - General Internal Medicine 03/07/19
[2024-10-09 09:31] LABS: MANUAL DIFF FLAG NO
[2024-10-09 10:02] LABS: Hematocrit 39.2 % (37.0-47.0); Hemoglobin 13.0 g/dl (12.0-16.0); Imm Gran Abs Auto 0.07 X10*3/uL (0.00-0.03); Imm Gran Pct Auto 0.6 % (0.0-0.4); Lymphocytes Absolute Auto 2.4 X10*3/uL (1.2-4.9); Mean Corpuscular HGB Conc 33.2 g/dl (31.0-35.0); Mean Corpuscular Hemoglobin 30.7 pg (27.0-33.0); Mean Corpuscular Volume 92.5 fL (80.0-98.0); NRBC Abs Auto 0.000 X10*3/uL (0.0-0.012); NRBC Pct Auto 0.0 /100WBC (0.0-0.2); Platelet Count 270 X10*3/uL (160-400); Red Blood Count 4.24 X10*6/uL (4.20-5.50); White Blood Count 12.4 X10*3/uL (4.8-10.8)
[2024-10-09 10:08] LABS: Hemoglobin A1C 164.3257 umol/L; Total Hemoglobin (HGBA1C) 3386.4729 umol/L
[2024-10-09 10:46] LABS: Appearance Urine Clear; Glucose Urine UA 250 mg/dL (Negative); PH 5.5 (5.0-9.0); Specific Gravity - Urine 1.025 (1.005-1.025); UMIC TRIGGER UACC YES
[2024-10-09 10:58] LABS: Alanine Aminotransferase 29 U/L (0-31); Aspartate Amino Transferase 24 U/L (5-31)
[2024-10-09 11:09] LABS: Alanine Aminotransferase 28 U/L (0-31); Albumin Level 4.3 g/dL (3.5-5.0); Alkaline Phosphatase 81 U/L (39-117); Anion Gap 14 (12-20); Aspartate Amino Transferase 49 U/L (5-31); Blood Urea Nitrogen 12 mg/dL (9-16); Calcium 9.0 mg/dL (8.4-10.2); Carbon Dioxide 24 mmol/L (22-29); Chloride 103 mmol/L (96-108); Cholesterol 208 mg/dL (<200); Estimated Glomerular Filt Rate > 60; Free T4 (Free Thyroxine) 0.90 ng/dL (0.71-1.85); HDL Cholesterol 51 mg/dL (>40); Potassium 4.4 mmol/L (3.3-5.1); Sodium 137 mmol/L (135-145); Thyroid Stimulating Hormone 0.39 uIU/mL (0.32-4.0); Total Protein 6.9 g/dL (6.5-8.0); Triglycerides 227 mg/dL (<150)
[2024-10-09 11:21] LABS: Folate 4.3 ng/mL (> or = 4.0); Vitamin B12 351 pg/mL (200-900)
[2024-10-09 11:41] LABS: Microalbum/Creatinine Ratio Ur 12.4 ug/mg cr (<30)
== END 2024-10-09 09:06 | disposition home or self-care (01) ==
LOC: HO.LAB 09:05
PROVIDERS: Absent Provider Internal Medicine; PCP Internal Medicine; Visit Provider Internal Medicine Rheumatology
DX: Z12.11 Encounter for screening for malignant neoplasm of colon (principal); K21.9 Gastro-esophageal reflux disease without esophagitis; E11.65 Type 2 diabetes mellitus with hyperglycemia; M19.90 Unspecified osteoarthritis, unspecified site; E78.00 Pure hypercholesterolemia, unspecified; Z79.60 Long term (current) use of unspecified immunomodulators and immunosuppressants; Z79.899 Other long term (current) drug therapy
CPT/HCPCS: 36415; 80053; 80061; 81001; 81003; 82043; 82306; 82570; 82607; 82746; 83036; 84153; 84439; 84443; 84450; 84460; 85025; 99202

== ENCOUNTER 2024-10-09 09:37 | Outpatient (AMB) | payer OTHER, SELFPAY ==
--- NOTE | 2024-10-09 09:39 | MHC.OFFVIS ---
Vital Signs 10/09/24 09:45 Height 5 ft 1 in Weight 157 lb BMI 29.7 BP 150/82 H Blood Pressure Location Rt brachial Position Sitting Pulse 86 Pulse Source Pulse Oximeter Pulse Oximetry (%) 99 Oxygen Delivery Method Room Air Intake Visit Reasons: [place] Screening r/s 2x 06/20/24 & 04/05/24 Intake Note: New pt for initial colo screening. CC; Pt denies any GI sx or concerns at this time. Pt denies any pertinent FMHx. Manager Nuclear Required: No Accompanied by: Self / Same As Patient Allergies topiramate (From TOPAMAX) Allergy (Severe, Verified 10/09/24 09:40) RASH, ITCH, DIFF BREATHING pineapple (Pineapple) Allergy (Mild, Verified 10/09/24 09:40) THROAT SWELLING duloxetine (Cymbalta) Allergy (Unknown, Verified 10/09/24 09:40) dizziness,vomiting levetiracetam Allergy (Unknown, Verified 10/09/24 09:40) Hives milnacipran ([place]) Allergy (Unknown, Verified 10/09/24 09:40) rash pregabalin Allergy (Unknown, Verified 10/09/24 09:40) nausous quetiapine (Seroquel) Allergy (Unknown, Verified 10/09/24 09:40) Hives sumatriptan (Imitrex) Allergy (Unknown, Verified 10/09/24 09:40) rash simvastatin Adverse Reaction (Intermediate, Verified 10/09/24 09:40) Nausea and Vomiting Seafood Allergy (Mild, Uncoded 10/09/24 09:40) RASH HPI HPI [place] Screening r/s 2x 06/20/24 & 04/05/24: Details: 54 year old? female with past medical history of diabetes, arthritis carpal tunnel, iliac aneurysm, fibromyalgia, leukocytosis, hypertension, asthma, GERD, hyperlipidemia is here today for pre colonoscopy screening.? Patient was sent to us by her PCP.? This is her first colonoscopy screening.? Patient denies any gastrointestinal symptoms in the past or at present.? Patient is taking omeprazole and reports that her symptoms of acid reflux are suppressed. Has been on it for while she go for upper endoscopy. Denies any personal or family history of gastrointestinal disease, colon polyps, or CRC.? Denies history of difficulty with sedation or anesthesia in the past.? Patient reports anxiety with any procedures in the past. Patient reports that she always needs to get some sort of a sedative before going for procedure.? Denies any history of cardiac, renal, pulmonary, or hepatic disease.?? No history of infectious? diseases like hepatitis A, B, C, HIV or tuberculosis.? Patient is not on any anticoagulation [facility] Medical History (Updated 10/09/24 @ 10:16 by Zaira Amin, [facility]) De Quervain's tenosynovitis, left Tendonitis of wrist, left Colon cancer screening Breast cancer screening by mammogram Tobacco abuse Acute bacterial tonsillitis Acute bacterial pharyngitis Acute gastroenteritis Shingles Encounter for removal of maria r Scalp laceration Knee effusion, left Blood pressure elevated without history of HTN Wrist pain COVID-19 virus infection Witnessed apneic spells Dysuria Bilateral hand pain Folliculitis Headache Leukocytosis Palpitations Vitamin B 12 deficiency Groin abscess Closed fibular fracture Microscopic hematuria Insomnia Subclinical hyperthyroidism History of CREST syndrome Lateral malleolar fracture Chronic interstitial cystitis Uterine fibroid History of seizures Bipolar disorder Asthma Gastroesophageal reflux disease Hypercholesterolemia Failed back syndrome Surgical History History of pelvic surgery History of carpal tunnel release History of section History of tubal ligation Family History Father CVD (cardiovascular disease) Myocardial infarction Mother COPD (chronic obstructive pulmonary disease) Rheumatoid arthritis Renal failure Family/Other History of uterine cancer History of breast cancer History of ovarian cancer Daughter Lupus Brother Lupus Other Mental health disorder Mental illness in member of household Social History Housing: Apartment Alcohol intake: former Comment: last 2004 Patient Tobacco Use Status: Former Tobacco user Tobacco use type: Cigarette Cigarette Packs Per Day: 1 Cigarettes Per Day: 20.0 Years Smoked: had puff of cigaretttes once @ 2 weeks e-Cigarette/Vaping Use: Never Used Second Hand Smoke Exposure: Yes service: No Current occupational status: disabled Cognitive needs: No Hearing needs: No Vision needs: Yes Physical Exam Vital Signs: Last Vital Signs Pulse 86 10/09/24 09:45 BP 150/82 H 10/09/24 09:45 Pulse Ox 99 10/09/24 09:45 Oxygen Delivery Method Room Air 10/09/24 09:45 BMI result Body Mass Index 29.7 Const General: healthy appearing, no acute distress and well developed Nutritional Appearance: well nourished Orientation/consciousness: patient oriented x3 Resp Effort & Inspection: normal respiratory effort, able to speak in complete sentences, no tracheal deviation and symmetric chest movement Auscultation: clear to auscultation bilaterally Cardio Rate: regular rate GI Inspection: Yes normal to inspection and No distended Palpation (GI): Soft to palpation, not firm, nontender and No hepatosplenomegaly present Auscultation: normal bowel sounds General: Yes no CVA tenderness Back/Spine/Pelvis Back: no CVA tenderness Skin General skin exam: elasticity normal, turgor normal and dry skin Neuro General: patient oriented x3 Psych Appearance: grossly normal Mental Status: mental status grossly normal Assessment & Plan Assessment & Plan (1) Gastroesophageal reflux disease: Code(s): K21.9 - Gastro-esophageal reflux disease without esophagitis Category: Medical Qualifiers: Esophagitis presence: without esophagitis Qualified Code(s): K21.9 - Gastro-esophageal reflux disease without esophagitis (2) Colon cancer screening: Code(s): Z12.11 - Encounter for screening for malignant neoplasm of colon Category: Medical Plan Patient denies any GI, cardiac or respiratory symptoms.? However patient is on omeprazole for quite some time. Patient is taking twice a day and reports that her symptoms of acid reflux are suppressed for the most part. Patient will be sent for upper endoscopy to evaluate esophagus stomach and duodenum. Denies any issues with anesthesia in the past.? However patient is very anxious when it comes to procedures and anesthesia. Please discussed with patient prior to procedure. Patient might need Ativan to help with her anxiety No history infectious diseases in the past or present.? Not on any anticoagulation therapy.? No family or personal history of colon cancer or polyps.? Patient denies melena, hematochezia, unintentional weight loss or ribbon like stools.? Discussed at length the pre-procedure,? prep, diet & medications as well as what to expect prior, during and after the procedure.?? Stressed the importance of good bowel prep.? Recommended the use of Vaseline or Calmoseptine OTC & baby wipes with bowel movements to promote comfort.? ?Patient verbalizes understanding and agrees to plan of care.? She was given the opportunity to ask questions and all questions answered.? We will see her after the procedure.? Medications: New bisacodyl (Dulcolax (bisacodyl)) take 4 tabs at noon the day before your colonoscopy 20 mg (4 x 5 mg) PO ONCE 4 tabs 0RF constipation 1 day Z12.11 - Encounter for screening for malignant neoplasm of colon polyethylene glycol 3350 (Miralax) As directed by gastro[facility]ology department at [facility] 238 grams PO ONCE 238 grams 0RF Z12.11 - Encounter for screening for malignant neoplasm of colon Coding Level of Care Code New Pt Level 4 (77959) Diagnoses Gastroesophageal reflux disease without esophagitis K21.9 Esophagitis presence: without esophagitis Colon cancer screening Z12.11 Time Spent (min) 45 Comment 35 minutes spent with patient and additional 10 minutes spent reviewing her records
[2024-10-09 09:45] VITALS: BP 150/82; PULSE 86; O2SAT 99; BMI 29.7
== END 2024-10-09 10:27 | disposition home or self-care (01) ==
LOC: HO.HGI 09:38
PROVIDERS: PCP Internal Medicine; Visit Provider Nurse Practitioner Family
DX: Z01.818 Encounter for other preprocedural examination (principal); Z12.11 Encounter for screening for malignant neoplasm of colon; K21.9 Gastro-esophageal reflux disease without esophagitis
CPT/HCPCS: 99203

== ENCOUNTER 2024-11-01 10:50 | Outpatient (AMB) | payer OTHER, SELFPAY ==
[2024-11-01 10:52] VITALS: BP 138/76; PULSE 90; O2SAT 98
--- NOTE | 2024-11-01 10:52 | A.OFFPC_ITS ---
Vital Signs 11/01/24 10:52 Height 5 ft 1 in Weight 159 lb BMI 30.0 BP 138/76 Blood Pressure Location Lt brachial Position Sitting Pulse 90 Pulse Source Pulse Oximeter Pulse Oximetry (%) 98 Oxygen Delivery Method Room Air Intake Visit Reasons: med f/u Allergies topiramate (From TOPAMAX) Allergy (Severe, Verified 11/01/24 10:52) RASH, ITCH, DIFF BREATHING pineapple (Pineapple) Allergy (Mild, Verified 11/01/24 10:52) THROAT SWELLING duloxetine (Cymbalta) Allergy (Unknown, Verified 11/01/24 10:52) dizziness,vomiting levetiracetam Allergy (Unknown, Verified 11/01/24 10:52) Hives milnacipran (Savella) Allergy (Unknown, Verified 11/01/24 10:52) rash pregabalin Allergy (Unknown, Verified 11/01/24 10:52) nausous quetiapine (Seroquel) Allergy (Unknown, Verified 11/01/24 10:52) Hives sumatriptan (Imitrex) Allergy (Unknown, Verified 11/01/24 10:52) rash simvastatin Adverse Reaction (Intermediate, Verified 11/01/24 10:52) Nausea and Vomiting Seafood Allergy (Mild, Uncoded 11/01/24 10:52) RASH Tobacco use date assessed: 08/31/24 Dental Screening Dental Screen Date: 08/03/24 PENDING SALE TO [facility] Medical History (Updated 11/01/24 @ 11:25 by Duke Hale MD) De Quervain's tenosynovitis, left Tendonitis of wrist, left Colon cancer screening Breast cancer screening by mammogram Tobacco abuse Acute bacterial tonsillitis Acute bacterial pharyngitis Acute gastroenteritis Shingles Encounter for removal of maria r Scalp laceration Knee effusion, left Blood pressure elevated without history of HTN Wrist pain COVID-19 virus infection Witnessed apneic spells Dysuria Bilateral hand pain Folliculitis Headache Leukocytosis Palpitations Vitamin B 12 deficiency Groin abscess Closed fibular fracture Microscopic hematuria Insomnia Subclinical hyperthyroidism History of CREST syndrome Lateral malleolar fracture Chronic interstitial cystitis Uterine fibroid History of seizures Bipolar disorder Asthma Gastroesophageal reflux disease Hypercholesterolemia Failed back syndrome Surgical History History of pelvic surgery History of carpal tunnel release History of section History of tubal ligation Family History Father CVD (cardiovascular disease) Myocardial infarction Mother COPD (chronic obstructive pulmonary disease) Rheumatoid arthritis Renal failure Family/Other History of uterine cancer History of breast cancer History of ovarian cancer Daughter Lupus Brother Lupus Other Mental health disorder Mental illness in member of household Social History Housing: Apartment Alcohol intake: former Comment: last 2004 Patient Tobacco Use Status: Former Tobacco user Tobacco use type: Cigarette Cigarette Packs Per Day: 1 Cigarettes Per Day: 20.0 Years Smoked: had puff of cigaretttes once @ 2 weeks Packs Per Year: 0 Packs per year/per ci.00 e-Cigarette/Vaping Use: Never Used Second Hand Smoke Exposure: Yes service: No Current occupational status: disabled Cognitive needs: No Hearing needs: No Vision needs: Yes Questionnaire Thrive Questionnaire Date Thrive assessed: 10/01/24 I am a: Patient What is your living situation today?: I have a steady place to live Within the past 12 months, did the food you bought not last and you didn't have the money to get more?: Never true Within the past 12 months, did you worry whether your food would run out before you got money to buy more?: Never true Do you have trouble paying for medicines?: No Do you have trouble getting transportation to medical appointments?: Yes Do you have trouble paying your heating and electricity bill?: No Do you have trouble taking care of your child, family member or friend?: No Do you have trouble with day-to-day activities such as bathing, preparing meals, shopping, managing finances, etc.?: Yes Are you currently unemployed and looking for a job?: No Are you interested in more education?: No Please select the resources that you would like help with: None Currently or been in a relationship where the following occur: No concerns reported THRIVE Score: 1 OLGA-7 AMB Questionnaire OLGA-7 Date OLGA - 7 assessed: 10/01/24 Source: Developed by Drs. Joshua Sorensen, Salma Nagy, Scot Luciano and colleagues, with an educational georges from [employer]. Physical exam (Primary Care) Vital Signs: Last Vital Signs Pulse 90 11/01/24 10:52 BP 138/76 11/01/24 10:52 Pulse Ox 98 11/01/24 10:52 Oxygen Delivery Method Room Air 11/01/24 10:52 BMI result Body Mass Index 30.0 Tobacco/Smoking Status: Tobacco use Status Tobacco use date assessed 08/31/24 11/01/24 10:53 Patient Tobacco Use Status Former Tobacco user 11/01/24 10:53 Tobacco use type Cigarette 11/01/24 10:53 e-Cigarette/Vaping Use Never Used 11/01/24 10:53 Thrive Assessment: Date of Thrive Assessment Date Thrive assessed 10/01/24 11/01/24 10:53 Currently or been in a relationship where the following occur: No concerns reported Const General: alert; No acute distress Eyes Conjunctivae: conjunctivae normal Resp Auscultation: clear to auscultation bilaterally Cardio Rate: regular rate Rhythm: regular rhythm GI Inspection: Yes normal to inspection Extrem General: Yes normal to inspection and No edema Coding Level of Care Code Est Pt Level 4 (68073) Complex EM visit Add On G2211 Diagnoses Type 2 diabetes mellitus with hyperglycemia E11.65 Hypercholesterolemia E78.00 Hypertension I10 Obesity (BMI 30.0-34.9) E66.9 Obstructive sleep apnea hypopnea, severe G47.33 Failed back syndrome M96.1 Tinea corporis B35.4 Pharyngitis J02.9 Assessment & Plan Assessment & Plan (1) Type 2 diabetes mellitus with hyperglycemia: Comment: [facility] Code(s): E11.65 - Type 2 diabetes mellitus with hyperglycemia Category: Medical Plan: Decrease the amount of carbohydrate intake, pasta, bread, rice and potatoes are all sugar and that is aside from all the sweet stuff, remember that fruits are good but they are Sweet also. Hemoglobin A1c goal of less than 6.5. Patient is taking Jardiance and a Farxiga 10 mg once a day metformin a 1000 mg twice a day and Januvia 100 mg once a day. Declined any new medication for now and discussed that she had blood work when she was sick. She will repeat the blood work (2) Hypercholesterolemia: Code(s): E78.00 - Pure hypercholesterolemia, unspecified Category: Medical Plan: Avoid fried foods, chicken skin, eggs, butter margarine, pastries and meat. Be it pork or beef they have a lot of cholesterol LDL goal of less than 100 and triglyceride of less than 150 on pravastatin 80 mg once a day. Declined any changes to medication for now as the patient stated she was sick when she got the blood work. Will repeat the blood work (3) Hypertension: Code(s): I10 - Essential (primary) hypertension Category: Medical Plan: Continue with blood pressure medication. Decrease salt intake and exercise takes lisinopril 5 mg once a day (4) Obesity (BMI 30.0-34.9): Code(s): E66.9 - Obesity, unspecified Category: Medical Plan: Diet and exercise (5) Obstructive sleep apnea hypopnea, severe: Comment: CPAP Code(s): G47.33 - Obstructive sleep apnea (adult) (pediatric) Category: Medical Plan: Continue to use the CPAP more than 4 hours a night and benefits from this. 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 Novak, dorsal column stimulator Dr. Herrera 09/15/2011, 11/2015 Code(s): M96.1 - Postlaminectomy syndrome, not elsewhere classified Category: Medical Plan: Narcotic pain meds: Is being prescribed with the understanding that these medications are potentially addictive and should be used only when absolutely necessary and must always be secured. Any remaining pills should be safely disposed off appropriately. Patient is advised that narcotics can impaired judgment and one should not drive or operate heavy machinery while taking these medications. Never share these medications with anybody and do not leave them unattended. They will not be replaced under any circumstances. (7) Tinea corporis: Code(s): B35.4 - Tinea corporis Category: Medical (8) Pharyngitis: Code(s): J02.9 - Acute pharyngitis, unspecified Category: Medical Plan: keep hydrated, rest.. Discussed that this is viral. If persist to call Plan History of Present Illness The patient is a 54-year-old female presenting for a follow-up visit. She has a history of failed back syndrome and is on narcotic pain medication. She also has diabetes mellitus, with a hemoglobin A1c of 6.6 noted during her last visit on October 01, 2024. Her fasting blood sugar was recorded at 225 mg/dL, indicating poor glycemic control. The patient has hypercholesterolemia, with an LDL cholesterol level of 112 mg/dL, which has increased from a previous level of 71 mg/dL. She is currently on pravastatin 80 mg once daily to manage her cholesterol levels. She has been diagnosed with gastroesophageal reflux disease (GERD) and is taking omeprazole for management. She has a planned esophagogastroduodenoscopy (EGD) and colonoscopy for further evaluation. The patient has a history of asthma and uses a CPAP machine for obstructive sleep apnea, which she uses for more than 4 hours a day, reporting benefits from its use. She also has a history of depression and hypertension, for which she takes lisinopril 5 mg once daily. Recently, she has developed a viral infection, presenting with a sore throat and cough, but no fever. The throat examination revealed a pinkish appearance, consistent with a viral infection. Health Maintenance - Mammogram is up to date - Planned esophagogastroduodenoscopy (EGD) and colonoscopy Social History - Uses CPAP machine for more than 4 hours a day for obstructive sleep apnea Review of Systems - General: Denies fever - Respiratory: Reports cough - ENT: Reports sore throat, denies pain on swallowing Physical Exam - Throat: Pinkish, not red, indicating viral infection - Respiratory: Regular breathing observed Results - Labs: Hemoglobin A1c 6.6, fasting blood sugar 225 mg/dL, LDL cholesterol 112 mg/dL - Tests: Planned esophagogastroduodenoscopy (EGD) and colonoscopy Plan Patient was informed and verbally consented to the use of an ambient scribe for clinic note documentation during this visit. 1. Diabetes Mellitus The patient's diabetes mellitus is currently managed with a combination of medications including Farxiga 10 mg once daily, metformin 1000 mg twice daily, and Januvia 100 mg once daily. The goal is to achieve a hemoglobin A1c of less than 6.5%. 2. Hypercholesterolemia The patient's hypercholesterolemia is being managed with pravastatin 80 mg once daily, with a target LDL cholesterol level of less than 100 mg/dL. 3. Gastroesophageal Reflux Disease (Gerd) The patient is taking omeprazole for GERD management and has a planned esophagogastroduodenoscopy (EGD) for further evaluation. 4. Hypertension Hypertension is managed with lisinopril 5 mg once daily. 5. Viral Infection The patient is advised to maintain hydration and monitor symptoms, as the viral infection is expected to resolve without antibiotic treatment. Discussion Notes During the visit, I discussed with the patient the management of her diabetes, emphasizing the importance of medication adherence to achieve a hemoglobin A1c goal of less than 6.5%. We also reviewed her cholesterol management plan, aiming for an LDL level of less than 100 mg/dL, and the need for continued use of pravastatin. For her GERD, I explained the necessity of the upcoming EGD and colonoscopy for further evaluation. Regarding her viral infection, I advised maintaining hydration and monitoring symptoms, as it is likely to resolve without antibiotics. Patient Instructions - Continue taking diabetes medications as prescribed: Farxiga, metformin, and Januvia. - Maintain cholesterol management with pravastatin. - Follow up with planned EGD and colonoscopy. - Stay hydrated and monitor symptoms of viral infection. Orders: Orders Thyroid Stimulating Hormone 2 Months E11.65 - Type 2 diabetes mellitus with hyperglycemia Hemoglobin A1c 2 Months E11.65 - Type 2 diabetes mellitus with hyperglycemia Varicella IgG Antibody 2 Months E11.65 - Type 2 diabetes mellitus with hype rglycemia, Z02.0 - Encounter for examination for admission to [facility] Complete Blood Count Auto Diff 2 Months E11.65 - Type 2 diabetes mellitus with hyperglycemia Comprehensive Met. Panel 2 Months E11.65 - Type 2 diabetes mellitus with hyperglycemia Free T4 (Free Thyroxine) 2 Months E11.65 - Type 2 diabetes mellitus with hyperglycemia Lipid Panel 2 Months E11.65 - Type 2 diabetes mellitus with hyperglycemia, E78.00 - Pure hypercholesterolemia, unspecified Medications: New clotrimazole 1% 1 appl topical BID 45 grams 0RF 4 weeks E11.65 - Type 2 diabetes mellitus with hyperglycemia
--- OUTSIDE RECORDS SUMMARY | 2024-11-01 12:56 | XMS_ITS | Encounter Summary ---
Author Organization [facility] Address [address] [place] [address] Phone Care Team Providers Care Apparel Fashion Designer Name Role Phone Duke Hale MD Primary Care Provider [phone] Encounter Details Date Type Department Care Team (Late st Contact Info) Description 08/19/2023 Documentation Only [facility], [address] [place] [address] [place]ax [place], [place] [address] [place] [address] Social History Tobacco Use Types [...] on filedocumented in this encounter Care Teams Apparel Fashion Designer Relationship Specialty Start Date End Date Duke Hale MD [facility] [place] [address] [place], [place] PCP - General Internal Medicine 03/07/19 documented as of this encounter
--- OUTSIDE RECORDS SUMMARY | 2024-11-01 12:56 | XMS_ITS | Clinical Summary ---
Author Organization [facility] Address [address] [place] [id number] Phone Care Team Providers Care Sketcher Name Role Phone Duke Hale MD Primary Care Provider [phone] Allergies Active Allergy Reactions Criticality Noted Date [...] DEPRESSION SCREENING 1982 SMOKING Hx and SMOKELESS TOBACCO SCREENING 1983 HEPATITIS C SCREENING 1988 HIV ONE-TIME SCREENING (18-65 YEARS) 1988 PAP SMEAR 1991 SCREENING FOR DIABETES 2005 MAMMOGRAM 2010 COLOGUARD 2015 COLONOSCOPY 2015 COLORECTAL CANCER SCREENING 2015 FIT TEST 2015 FOBT 2015 SIGMOIDOSCOPY 2015 VIRTUAL COLONOSCOPY 2015 PNEUMOCOCCAL VACCINES (50+ years) (2 of 2 - PCV) 2020 12/16/2015 ZOSTER VACCINES (1 of 2) 2020 INFLUENZA VACCINE (#1) 2024 9, 11/24/2017, 10/20/2016, Additional history exists COVID-19 VACCINE ( season) 2024 Adult Td,Tdap Booster 10/29/2031 10/28/2021 HEPATITIS A [...] ACO ACO ACO ACO ACO Care Teams Sketcher Relationship Specialty Start Date End Date Duke Hale MD [address] [facility] [address] [place] [id number] PCP - General Internal Medicine 07/18/22 Additional Source Comments The information contained in this document represents components of the legal health record. It is not the complete legal health record.[facility]
--- OUTSIDE RECORDS SUMMARY | 2024-11-01 12:56 | XMS_ITS | Clinical Summary ---
Author Organization [facility] Address [address] [place] [address] Phone Care Team Providers Care Game Manager Name Role Phone Duke Hale MD Primary Care Provider [phone] Allergies Active Allergy Reactions Criticality Noted Date [...] WHEEZING 4 Active oxycodone HCl,terephth/as pirin (OXYCODONE [id number] SA ORAL) Active acetaminophen (TYLENOL 8 HOUR) [...] Sleep apnea Asthma Hypertension Hyperlipidemia Diabetes mellitus ([facility] V24, [facility] V28) Chronic kidney disease GERD (gastroesophageal reflux disease) Seizures ([facility] V24, [facility] V28) Anxiety Chronic pain disorder Social [...] TO THE [facility] # 9 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
--- OUTSIDE RECORDS SUMMARY | 2024-11-01 12:56 | XMS_ITS | Clinical Summary ---
Author Organization [facility], Address [address] [place] [address] [place] [address] Phone Care Team Providers Care Principal Secretary Name Role Phone Duke Hale MD Primary Care Provider [phone] Allergies Active Allergy Reactions Criticality Noted Date [...] Vaccine (#1) 2024 Insurance [employer] Care Teams Principal Secretary Relationship Specialty Start Date End Date Duke Hale MD [facility] [place] [address] [place], [place] PCP - General Internal Medicine 03/07/19
--- OUTSIDE RECORDS SUMMARY | 2024-11-01 12:56 | XMS_ITS | Clinical Summary ---
Author Organization [facility] Address [address] [place] [address] Care Team Providers Care Slash Trimmer Name Role Phone Margie Leonard Primary Care Provider [phone] Allergies No known active allergies Medications Medication Sig Dispensed Refills Start Date End Date Status ergocalciferol (VITAMIN D2) capsule 35775 units TAKE ONE CAPSULE BY MOUTH ONCE [...] age to complete this topic Care Teams Slash Trimmer Relationship Specialty Start Date End Date Margie Leonard DO PCP - General Family Medicine 03/25/17
== END 2024-11-01 12:33 | disposition home or self-care (01) ==
LOC: HO.HMCH 10:50
PROVIDERS: PCP Internal Medicine; Visit Provider Internal Medicine
DX: E11.65 Type 2 diabetes mellitus with hyperglycemia (principal); E78.00 Pure hypercholesterolemia, unspecified; E66.9 Obesity, unspecified; Z68.30 Body mass index [BMI] 30.0-30.9, adult; I10 Essential (primary) hypertension; G47.33 Obstructive sleep apnea (adult) (pediatric); M96.1 Postlaminectomy syndrome, not elsewhere classified; B35.4 Tinea corporis; J02.9 Acute pharyngitis, unspecified

== ENCOUNTER → 2024-11-01 10:50 | Outpatient (BNVA) | payer OTHER, SELFPAY | PROVIDERS: PCP Internal Medicine; Visit Provider Internal Medicine | DX: E11.65 Type 2 diabetes mellitus with hyperglycemia (principal); E78.00 Pure hypercholesterolemia, unspecified; I10 Essential (primary) hypertension; E66.9 Obesity, unspecified; G47.33 Obstructive sleep apnea (adult) (pediatric); M96.1 Postlaminectomy syndrome, not elsewhere classified; B35.4 Tinea corporis; J02.9 Acute pharyngitis, unspecified; K21.9 Gastro-esophageal reflux disease without esophagitis; J45.909 Unspecified asthma, uncomplicated; Z99.89 Dependence on other enabling machines and devices | CPT/HCPCS: 99212 ==

== ENCOUNTER 2024-11-30 | Outpatient (REF) | payer OTHER, SELFPAY ==
--- OUTSIDE RECORDS SUMMARY | 2024-11-05 10:07 | XMS_ITS | Clinical Summary ---
Author Organization [facility], Address [address] [place] [address] [place] [address] Phone Care Team Providers Care Reliability Technician Name Role Phone Duke Hale MD Primary Care Provider [phone] Allergies Active Allergy Reactions Criticality Noted Date [...] Vaccine (#1) 2024 Insurance [employer] Care Teams Reliability Technician Relationship Specialty Start Date End Date Duke Hale MD [facility] [place] [address] [place], [place] PCP - General Internal Medicine 03/07/19
--- OUTSIDE RECORDS SUMMARY | 2024-11-05 10:07 | XMS_ITS | Clinical Summary ---
Author Organization [facility] Address [address] [place] [address] Care Team Providers Care Manager Academic Name Role Phone Margie Leonard Primary Care Provider [phone] Allergies No known active allergies Medications Medication Sig Dispensed Refills Start Date End Date Status ergocalciferol (VITAMIN D2) capsule 44661 units TAKE ONE CAPSULE BY MOUTH ONCE [...] age to complete this topic Care Teams Manager Academic Relationship Specialty Start Date End Date Margie Leonard DO PCP - General Family Medicine 03/25/17
--- OUTSIDE RECORDS SUMMARY | 2024-11-05 10:07 | XMS_ITS | Clinical Summary ---
Author Organization [facility] Address [address] [place] [address] Phone Care Team Providers Care Salon Professional Name Role Phone Duke Hale MD Primary Care Provider [phone] Allergies Active Allergy Reactions Criticality Noted Date [...] WHEEZING 4 Active oxycodone HCl,terephth/as pirin (OXYCODONE OEA-[id number]-X SA ORAL) Active acetaminophen (TYLENOL 8 HOUR) [...] Sleep apnea Asthma Hypertension Hyperlipidemia Diabetes mellitus ([facility] V24, [facility] V28) Chronic kidney disease GERD (gastroesophageal reflux disease) Seizures ([facility] V24, [facility] V28) Anxiety Chronic pain disorder Social History [...] TO THE [facility]PC # 9 ACHIVE LEFT 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
--- OUTSIDE RECORDS SUMMARY | 2024-11-05 10:07 | XMS_ITS | Clinical Summary ---
Author Organization [facility] Address [address] [place] [address] Phone Care Team Providers Care Hazardous Waste Technician Name Role Phone Duke Hale MD Primary Care Provider [phone] Allergies Active Allergy Reactions Criticality Noted Date [...] ACO ACO ACO ACO ACO Care Teams Hazardous Waste Technician Relationship Specialty Start Date End Date Duke Hale MD 2 [facility] [address] [place] [id number] PCP - General Internal Medicine 07/18/22 Additional Source Comments The information contained in this document represents components of the legal health record. It is not the complete legal health record.[facility]
--- OUTSIDE RECORDS SUMMARY | 2024-11-05 10:07 | XMS_ITS | Encounter Summary ---
Author Organization [facility] Address [address] [place] [address] Phone Care Team Providers Care Silver Plater Name Role Phone Duke Hale MD Primary Care Provider [phone] Encounter Details Date Type Department Care Team (Late st Contact Info) Description 08/19/2023 Documentation Only [facility] [place], [address] [place] [address] [place]ax [place], [place] [address] [place] [address] Social History Tobacco Use Types [...] on filedocumented in this encounter Care Teams Silver Plater Relationship Specialty Start Date End Date Duke Hale MD [facility] [place] [address] [place], [place] PCP - General Internal Medicine 03/07/19 documented as of this encounter
--- NOTE | 2024-11-28 11:21 | P.CONAN_ITS ---
HPI - Anesthesia Eval Consult details Narrative: 54 yr old female for colonoscopy Seen at [facility] 11/27/24 with acute lumbar back pain, h/o indwelling spinal stiumulator; given rx for oxycodone. Type 2 DM: A1C 6.6% Smokes cigarettes daily Anesthesia Pre-Procedure Meds Is the patient on any of the following meds?: SGLT2 Inhib PMFSH Active Problems Active Problems: All Active Problems Pharyngitis (Acute) Tinea corporis (Acute) Annual physical exam (Acute) Inflammatory arthritis (Acute) Knee pain, bilateral (Acute) Raynaud's phenomenon without gangrene (Acute) Otitis externa of right ear (Acute) Eczematous dermatitis (Acute) Left carpal tunnel syndrome (Acute) Colon cancer screening (Acute) Long-term use of hydroxychloroquine (Acute) Limited scleroderma (Acute) Breast cancer screening by mammogram (Acute) Tendon cysts (Acute) Left groin pain (Acute) Leg numbness (Acute) Iliac aneurysm (Acute) Fibromyalgia (Acute) Ingrown toenail (Acute) Burn (Acute) Overweight (BMI 25.0-29.9) (Acute) Leukocytosis (Chronic) Hypertension (Acute) Abnormal TSH (Acute) Type 2 diabetes mellitus with hyperglycemia (Acute) Situational depression (Acute) Obesity (BMI 30.0-34.9) (Acute) Obstructive sleep apnea hypopnea, severe (Acute) Knee pain (Acute) Vitamin B 12 deficiency (Acute) Asthma (Acute) Gastroesophageal reflux disease (Acute) Hypercholesterolemia (Acute) Failed back syndrome (Acute) Past Medical History Medical History (Updated 11/01/24 @ 11:25 by Duke Hale MD) De Quervain's tenosynovitis, left Tendonitis of wrist, left Colon cancer screening Breast cancer screening by mammogram Tobacco abuse Acute bacterial tonsillitis Acute bacterial pharyngitis Acute gastroenteritis Shingles Encounter for removal of maria r Scalp laceration Knee effusion, left Blood pressure elevated without history of HTN Wrist pain COVID-19 virus infection Witnessed apneic spells Dysuria Bilateral hand pain Folliculitis Headache Leukocytosis Palpitations Vitamin B 12 deficiency Groin abscess Closed fibular fracture Microscopic hematuria Insomnia Subclinical hyperthyroidism History of CREST syndrome Lateral malleolar fracture Chronic interstitial cystitis Uterine fibroid History of seizures Bipolar disorder Asthma Gastroesophageal reflux disease Hypercholesterolemia Failed back syndrome Family History Family History Father CVD (cardiovascular disease) Myocardial infarction Mother COPD (chronic obstructive pulmonary disease) Rheumatoid arthritis Renal failure Family/Other History of uterine cancer History of breast cancer History of ovarian cancer Daughter Lupus Brother Lupus Other Mental health disorder Mental illness in member of household Surgical History Surgical History History of pelvic surgery History of carpal tunnel release History of section History of tubal ligation Social History Social History Housing: Apartment Alcohol intake: former Comment: last 2004 Patient Tobacco Use Status: Former Tobacco user Tobacco use type: Cigarette Cigarette Packs Per Day: 1 Cigarettes Per Day: 20.0 Years Smoked: had puff of cigaretttes once @ 2 weeks e-Cigarette/Vaping Use: Never Used Second Hand Smoke Exposure: Yes service: No Current occupational status: disabled Cognitive needs: No Hearing needs: No Vision needs: Yes Meds Allergies Allergy/AdvReac Type Severity Reaction Status Date / Time topiramate (From TOPAMAX) Allergy Severe RASH, Verified 11/01/24 10:52 ITCH, DIFF BREATHING pineapple (Pineapple) Allergy Mild THROAT Verified 11/01/24 10:52 SWELLING duloxetine (Cymbalta) Allergy Unknown dizziness,v Verified 11/01/24 10:52 omiting levetiracetam Allergy Unknown Hives Verified 11/01/24 10:52 milnacipran (Savella) Allergy Unknown rash Verified 11/01/24 10:52 pregabalin Allergy Unknown nausous Verified 11/01/24 10:52 quetiapine (Seroquel) Allergy Unknown Hives Verified 11/01/24 10:52 sumatriptan (Imitrex) Allergy Unknown rash Verified 11/01/24 10:52 simvastatin AdvReac Intermediate Nausea and Verified 11/01/24 10:52 Vomiting Seafood Allergy Mild RASH Uncoded 11/01/24 10:52 Home Medications ?Medication ?Instructions ?Recorded ?Confirmed ?Last Taken ?Type ketotifen fumarate 0.025 % (0.035 1 drp ophthalmic (ey e) BID 11/26/19 10/01/24 Unknown History %) eye drops
--- OUTSIDE RECORDS SUMMARY | 2025-01-08 11:23 | XMS_ITS | Clinical Summary ---
[facility] Organization [facility] Address [address] [place] [address] Care Team Providers Care Addictions Recovery Specialist Name Role Phone Margie Leonard Primary Care Provider [phone] Allergies No known active allergies Medications Medication Sig Dispensed Refills Start Date End Date Status ergocalciferol (VITAMIN D2) capsule 40154 units TAKE ONE CAPSULE BY MOUTH ONCE [...] age to complete this topic Care Teams Addictions Recovery Specialist Relationship Specialty Start Date End Date Margie Leonard DO PCP - General Family Medicine 03/25/17
--- OUTSIDE RECORDS SUMMARY | 2025-01-08 11:23 | XMS_ITS | Clinical Summary ---
Author Organization [facility] Address [address] [place] [address] Phone Care Team Providers Care It Quality Assurance Analyst Name Role Phone Duke Hale MD Primary Care Provider [phone] Allergies Active Allergy Reactions Criticality Noted Date [...] WHEEZING 4 Active oxycodone HCl,terephth/as pirin (OXYCODONE [id number] SA ORAL) Active acetaminophen (TYLENOL 8 HOUR) [...] Sleep apnea Asthma Hypertension Hyperlipidemia Diabetes mellitus ([facility] V24, [facility] V28) Chronic kidney disease GERD (gastroesophageal reflux disease) Seizures ([facility] [place], [facility] V28) Anxiety Chronic pain disorder [...] TO THE DPC # 9 ACHIVE LEFT SUPERVISOR SOUND TECHNICIAN TO 23 POUNDS = 50 PERCENT OF THE RIGHT Insurance PLAN Care Teams It Quality Assurance Analyst Relationship Specialty Start Date End Date Duke Hale MD [address] [place] [address] [address] [facility] [place] [address] PCP - General Internal Medicine 05/03/11
== END 2024-11-30 00:01 | disposition home or self-care (01) ==
LOC: CF
PROVIDERS: PCP Internal Medicine; Visit Provider Internal Medicine
DX: K21.9 Gastro-esophageal reflux disease without esophagitis (principal); E11.65 Type 2 diabetes mellitus with hyperglycemia; I10 Essential (primary) hypertension; E78.00 Pure hypercholesterolemia, unspecified; E66.9 Obesity, unspecified; M34.9 Systemic sclerosis, unspecified; G47.33 Obstructive sleep apnea (adult) (pediatric); M96.1 Postlaminectomy syndrome, not elsewhere classified; Z68.30 Body mass index [BMI] 30.0-30.9, adult
CPT/HCPCS: 99212

== ENCOUNTER 2024-11-30 10:45 | Outpatient (AMB) | payer OTHER, SELFPAY ==
--- NOTE | 2024-11-30 11:02 | A.OFFPC_ITS ---
Vital Signs 11/30/24 11:04 Height 5 ft 1 in Weight 162 lb BMI 30.6 BP 152/90 H Blood Pressure Location Lt brachial Position Sitting Temp 97.3 F Temp Source Temporal Artery Scan Intake Visit Reasons: med f/u Intake Note: Patient is here to follow up on Med f/u. Disintegrator Required: No Mechanical Engineering Coop: Not Required per policy Accompanied by: Self / Same As Patient Allergies topiramate (From TOPAMAX) Allergy (Severe, Verified 11/30/24 11:03) RASH, ITCH, DIFF BREATHING pineapple (Pineapple) Allergy (Mild, Verified 11/30/24 11:03) THROAT SWELLING duloxetine (Cymbalta) Allergy (Unknown, Verified 11/30/24 11:03) dizziness,vomiting levetiracetam Allergy (Unknown, Verified 11/30/24 11:03) Hives milnacipran (Savella) Allergy (Unknown, Verified 11/30/24 11:03) rash pregabalin Allergy (Unknown, Verified 11/30/24 11:03) nausous quetiapine (Seroquel) Allergy (Unknown, Verified 11/30/24 11:03) Hives sumatriptan (Imitrex) Allergy (Unknown, Verified 11/30/24 11:03) rash simvastatin Adverse Reaction (Intermediate, Verified 11/30/24 11:03) Nausea and Vomiting Seafood Allergy (Mild, Uncoded 11/30/24 11:03) RASH Tobacco use date assessed: 11/30/24 Dental Screening Dental Screen Date: 08/03/24 [facility] Medical History (Updated 11/01/24 @ 11:25 by Duke Hale MD) De Quervain's tenosynovitis, left Tendonitis of wrist, left Colon cancer screening Breast cancer screening by mammogram Tobacco abuse Acute bacterial tonsillitis Acute bacterial pharyngitis Acute gastroenteritis Shingles Encounter for removal of maria r Scalp laceration Knee effusion, left Blood pressure elevated without history of HTN Wrist pain COVID-19 virus infection Witnessed apneic spells Dysuria Bilateral hand pain Folliculitis Headache Leukocytosis Palpitations Vitamin B 12 deficiency Groin abscess Closed fibular fracture Microscopic hematuria Insomnia Subclinical hyperthyroidism History of CREST syndrome Lateral malleolar fracture Chronic interstitial cystitis Uterine fibroid History of seizures Bipolar disorder Asthma Gastroesophageal reflux disease Hypercholesterolemia Failed back syndrome Surgical History History of pelvic surgery History of carpal tunnel release History of section History of tubal ligation Family History Father CVD (cardiovascular disease) Myocardial infarction Mother COPD (chronic obstructive pulmonary disease) Rheumatoid arthritis Renal failure Family/Other History of uterine cancer History of breast cancer History of ovarian cancer Daughter Lupus Brother Lupus Other Mental health disorder Mental illness in member of household Social History Housing: Apartment Alcohol intake: former Comment: last 2004 Patient Tobacco Use Status: Former Tobacco user Tobacco use type: Cigarette Cigarette Packs Per Day: 1 Cigarettes Per Day: 20.0 Years Smoked: had puff of cigaretttes once @ 2 weeks e-Cigarette/Vaping Use: Never Used Second Hand Smoke Exposure: Yes service: No Current occupational status: disabled Cognitive needs: No Hearing needs: No Vision needs: Yes Questionnaire Thrive Questionnaire Date Thrive assessed: 07/27/24 I am a: Patient What is your living situation today?: I have a steady place to live Within the past 12 months, did the food you bought not last and you didn't have the money to get more?: Never true Within the past 12 months, did you worry whether your food would run out before you got money to buy more?: Never true Do you have trouble paying for medicines?: No Do you have trouble getting transportation to medical appointments?: Yes Do you have trouble paying your heating and electricity bill?: No Do you have trouble taking care of your child, family member or friend?: No Do you have trouble with day-to-day activities such as bathing, preparing meals, shopping, managing finances, etc.?: Yes Are you currently unemployed and looking for a job?: No Are you interested in more education?: No Please select the resources that you would like help with: None Currently or been in a relationship where the following occur: No concerns repo rted THRIVE Score: 1 OLGA-7 AMB Questionnaire OLGA-7 Date OLGA - 7 assessed: 10/01/24 Source: Developed by Drs. Joshua Sorensen, Salma Nagy, Scot Luciano and colleagues, with an educational georges from [employer]. Physical exam (Primary Care) Vital Signs: Last Vital Signs Temp 97.3 F 11/30/24 11:04 BP 152/90 H 11/30/24 11:04 BMI result Body Mass Index 30.6 Tobacco/Smoking Status: Tobacco use Status Tobacco use date assessed 11/30/24 11/30/24 11:05 Patient Tobacco Use Status Former Tobacco user 11/30/24 11:02 Tobacco use type Cigarette 11/30/24 11:02 e-Cigarette/Vaping Use Never Used 11/30/24 11:02 Thrive Assessment: Date of Thrive Assessment Date Thrive assessed 07/27/24 11/30/24 11:02 Currently or been in a relationship where the following occur: No concerns reported Const General: alert; No acute distress Eyes Conjunctivae: conjunctivae normal Resp Auscultation: clear to auscultation bilaterally Cardio Rate: regular rate Rhythm: regular rhythm GI Inspection: Yes normal to inspection Extrem General: Yes normal to inspection and No edema Coding Level of Care Code Est Pt Level 4 (09484) Complex EM visit Add On G2211 Diagnoses Type 2 diabetes mellitus with hyperglycemia E11.65 Hypertension I10 Hypercholesterolemia E78.00 Obesity (BMI 30.0-34.9) E66.9 Gastroesophageal reflux disease without esophagitis K21.9 Esophagitis presence: without esophagitis Limited scleroderma M34.9 Obstructive sleep apnea hypopnea, severe G47.33 Failed back syndrome M96.1 Assessment & Plan Assessment & Plan (1) Type 2 diabetes mellitus with hyperglycemia: Comment: Panchito duggan Code(s): E11.65 - Type 2 diabetes mellitus with hyperglycemia Category: Medical Plan: Decrease the amount of carbohydrate intake, pasta, bread, rice and potatoes are all sugar and that is aside from all the sweet stuff, remember that fruits are good but they are Sweet also. Hemoglobin A1c goal of less than 6.5. September 2024 last tested on [facility] metformin and Januvia (2) Hypertension: Code(s): I10 - Essential (primary) hypertension Category: Medical Plan: Continue with blood pressure medication. Decrease salt intake and exercise continue with lisinopril 5 mg once a day (3) Hypercholesterolemia: Code(s): E78.00 - Pure hypercholesterolemia, unspecified Category: Medical Plan: Avoid fried foods, chicken skin, eggs, butter margarine, pastries and meat. Be it pork or beef they have a lot of cholesterol LDL goal of less than 100 and tri glyceride of less than 150 on pravastatin 80 mg once a day (4) Obesity (BMI 30.0-34.9): Code(s): E66.9 - Obesity, unspecified Category: Medical Plan: Diet and exercise (5) Gastroesophageal reflux disease: Code(s): K21.9 - Gastro-esophageal reflux disease without esophagitis Category: Medical Qualifiers: Esophagitis presence: without esophagitis Qualified Code(s): K21.9 - Gastro-esophageal reflux disease without esophagitis Plan: Avoid the foods that causes that usually spicy foods, tomato products, juices, coffee, soda and foods that your sensitive to. After eating do not lie down, allow 3-4 hours before in lie down. And keep the head of bed above 30 degrees to avoid the acid from going up. 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 Synovitis in her hands have returned. No benefit with Celebrex. She tolerated methotrexate without side effect but did not return for labs for drug monitoring. I will restart methotrexate with goal of further improving her joint symptoms. I discussed side effects of prednisone use in patients with sy stemic sclerosis. She had benefit on prednisone in the past and is requesting it. I will monitor kidney function closely and prescriber [id number] dose prednisone course with taper. Patient agrees with berry. Rheumatology history: Dx 2018 (arthralgias, Raynaud's, sclerodactyly, telangiectasias, ++ centromere antibody). HCQ 09/2023-. Failed Celebrex and meloxicam. 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 Novak, dorsal column stimulator Dr. Herrera 09/15/2011, 11/2015 Code(s): M96.1 - Postlaminectomy syndrome, not elsewhere classified Category: Medical Plan: Narcotic pain meds: Is being prescribed with the understanding that these medications are potentially addictive and should be used only when absolutely necessary and must always be secured. Any remaining pills should be safely disposed off appropriately. Patient is advised that narcotics can impaired judgment and one should not drive or operate heavy machinery while taking these medications. Never share these medications with anybody and do not leave them unattended. They will not be replaced under any circumstances. Plan History of Present Illness The patient is a 54-year-old female presenting for follow-up of multiple chronic conditions including failed back syndrome, diabetes mellitus, and hypertension. The patient has a history of failed back syndrome and is currently on narcotic pain medication. She has an indwelling spinal stimulator since 2010, which is currently malfunctioning and causing shocks without being turned on. The patient reports left lower and midline lumbar back pain radiating into the left lower extremity, with no signs of cauda equina syndrome. The patient has a history of diabetes mellitus with a recent blood sugar level of 132 mg/dL and a hemoglobin A1c of 6.6% as of September 2024. She is currently on Farxiga, metformin, and Januvia, with a goal to maintain hemoglobin A1c below 6.5%. The patient has hypertension and is currently taking lisinopril 5 mg daily. She also has hypercholesterolemia with an LDL goal of less than 100 mg/dL and is on pravastatin 80 mg. The patient has a history of asthma, GERD, obstructive sleep apnea managed with CPAP, depression, limited scleroderma, and inflammatory arthritis. Her preventative care includes an up-to-date mammogram and a scheduled colon cancer screening. Health Maintenance - Mammogram is up to date - Colon cancer screening scheduled for November 30, 2024 Social History Review of Systems - Musculoskeletal: Reports left lower and midline lumbar back pain radiating into the left lower extremity. Denies signs of cauda equina syndrome. Physical Exam Results - Labs: Blood sugar 132 mg/dL, Hemoglobin A1c 6.6% (September 2024) - Labs: No anemia, normal electrolytes, renal function 0.73, liver numbers normal Plan Patient was informed and verbally consented to the use of an ambient scribe for clinic note documentation during this visit. 1. Failed Back Syndrome The patient is experiencing malfunctioning of the spinal stimulator, causing shocks without being turned on, and reports significant back pain radiating to the left lower extremity. An MRI has been ordered to assess the situation, and a referral to pain management has been made for further evaluation and management of the spinal stimulator. 2. Diabetes Mellitus The patient's diabetes management includes maintaining a hemoglobin A1c goal of less than 6.5%, with current medications including Farxiga, metformin, and Januvia. 3. Hypertension The patient is on lisinopril 5 mg daily for hypertension management. 4. Hypercholesterolemia The patient is on pravastatin 80 mg with an LDL goal of less than 100 mg/dL. 5. Obstructive Sleep Apnea The patient is advised to continue using CPAP for more than 4 hours a night, whi ch has been beneficial. 6. Preventative Care The patient's mammogram is up to date, and a colon cancer screening is scheduled for November 30, 2024. Discussion Notes I discussed with the patient the malfunctioning of her spinal stimulator and the need for an MRI to evaluate the issue further. We also talked about the referral to pain management for further assessment and management of her back pain. The importance of maintaining her diabetes and hypertension goals was emphasized, along with the continuation of her current medication regimen. I advised her to continue using CPAP for her obstructive sleep apnea and discussed the benefits she has experienced. Patient Instructions - Continue taking your diabetes medications as prescribed and aim to keep your hemoglobin A1c below 6.5%. - Take lisinopril 5 mg daily for blood pressure management. - Continue using CPAP for more than 4 hours each night. - Attend the scheduled colon cancer screening on November 30, 2024. - Follow up with pain management as referred for your back pain and spinal stimulator issues. Orders: Orders MR lumbar spine wo/w con Today M96.1 - Postlaminectomy syndrome, not elsewhere classified Referrals Pain Management Referral M96.1 - Postlaminectomy syndrome, not elsewhere classified
[2024-11-30 11:04] VITALS: BP 152/90; TEMP 36.3; BMI 30.6
== END 2024-11-30 12:24 | disposition home or self-care (01) ==
LOC: HO.HMCH 10:46
PROVIDERS: PCP Internal Medicine; Visit Provider Internal Medicine
DX: E11.65 Type 2 diabetes mellitus with hyperglycemia (principal); I10 Essential (primary) hypertension; E78.00 Pure hypercholesterolemia, unspecified; E66.9 Obesity, unspecified; K21.9 Gastro-esophageal reflux disease without esophagitis; M34.9 Systemic sclerosis, unspecified; G47.33 Obstructive sleep apnea (adult) (pediatric); M96.1 Postlaminectomy syndrome, not elsewhere classified

== ENCOUNTER 2024-12-13 09:09 | Outpatient (AMB) | payer OTHER, SELFPAY ==
--- NOTE | 2024-12-13 09:16 | A.OFFVIS_ITS ---
Vital Signs 12/13/24 09:18 BP 150/90 H Blood Pressure Location Lt brachial Position Sitting Comment pt denied weight and is unable to get pulse and O2 due to nails Intake Visit Reasons: 3 Months Intake Note: Patient is here for follow up on scleroderma. Accompanied by: Self / Same As Patient Allergies topiramate (From TOPAMAX) Allergy (Severe, Verified 12/13/24 09:19) RASH, ITCH, DIFF BREATHING pineapple (Pineapple) Allergy (Mild, Verified 12/13/24 09:19) THROAT SWELLING duloxetine (Cymbalta) Allergy (Unknown, Verified 12/13/24 09:19) dizziness,vomiting levetiracetam Allergy (Unknown, Verified 12/13/24 09:19) Hives milnacipran (Savella) Allergy (Unknown, Verified 12/13/24 09:19) rash pregabalin Allergy (Unknown, Verified 12/13/24 09:19) nausous quetiapine (Seroquel) Allergy (Unknown, Verified 12/13/24 09:19) Hives sumatriptan (Imitrex) Allergy (Unknown, Verified 12/13/24 09:19) rash simvastatin Adverse Reaction (Intermediate, Verified 12/13/24 09:19) Nausea and Vomiting Seafood Allergy (Mild, Uncoded 11/30/24 11:03) RASH HPI HPI 3 Months: Details: She has been to ER at least on 2 occasions due to her rash that started after our last visit. She has a pruritic rash on her anterior chest and left hip area. She has been using nystatin prescribed by both PCP and ER without benefit. She has been referred to Dermatology and has an appointment in May 2025. She had relief in joint symptoms after prednisone course before the summer. Her symptoms have returned and she has swelling in her hands. She has lost function with using her hands. She is also experiencing pain in her lower back. ON LICENSE OF [facility] Medical History De Quervain's tenosynovitis, left Tendonitis of wrist, left Colon cancer screening Breast cancer screening by mammogram Tobacco abuse Acute bacterial tonsillitis Acute bacterial pharyngitis Acute gastroenteritis Shingles Encounter for removal of maria r Scalp laceration Knee effusion, left Blood pressure elevated without history of HTN Wrist pain COVID-19 virus infection Witnessed apneic spells Dysuria Bilateral hand pain Folliculitis Headache Leukocytosis Palpitations Vitamin B 12 deficiency Groin abscess Closed fibular fracture Microscopic hematuria Insomnia Subclinical hyperthyroidism History of CREST syndrome Lateral malleolar fracture Chronic interstitial cystitis Uterine fibroid History of seizures Bipolar disorder Asthma Gastroesophageal reflux disease Hypercholesterolemia Failed back syndrome Surgical History History of pelvic surgery History of carpal tunnel release History of section History of tubal ligation Family History Father CVD (cardiovascular disease) Myocardial infarction Mother COPD (chronic obstructive pulmonary disease) Rheumatoid arthritis Renal failure Family/Other History of uterine cancer History of breast cancer History of ovarian cancer Daughter Lupus Brother Lupus Other Mental health disorder Mental illness in member of household Social History Housing: Apartment Alcohol intake: former Comment: last 2004 Patient Tobacco Use Status: Former Tobacco user Tobacco use type: Cigarette Cigarette Packs Per Day: 1 Cigarettes Per Day: 20.0 Years Smoked: had puff of cigaretttes once @ 2 weeks e-Cigarette/Vaping Use: Never Used Second Hand Smoke Exposure: Yes service: No Current occupational status: disabled Cognitive needs: No Hearing needs: No Vision needs: Yes Physical Exam Vital Signs: Last Vital Signs BP 150/90 H 12/13/24 09:18 Const Other: General: Comfortable CVS: RRR Respiratory: clear to auscultation bilaterally. Good respiratory effort Skin: No lesions seen. No discoloration of fingertips. No digital ulcers. Sclerodactyly present. MSK: Synovitis R 2-3 MCPs and bilateral PIPS with tender bilateral MCPs and PIPs, wrists and shoulders. Good range of motion of shoulders. Limited full external rotation of bilateral hips. She has mild valgus deformity of knees bilaterally. Crepitus of bilateral knees. Knee flexion 90 degrees bilateral. Tender bilateral ankles and MTPs. 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 Inflammatory arthritis is not controlled. Rheumatology history: Dx 2018 (arthralgias, Raynaud's, sclerodactyly, telangiectasias, ++ centromere antibody). HCQ 09/2023-. Failed Celebrex and meloxicam. Methotrexate 08/2024- Code(s): M34.9 - Systemic sclerosis, unspecified Category: Medical Plan: Increase methotrexate to 17.5 mg once weekly Continue folic acid 1 mg daily Continue hydroxychloroquine 400 mg daily 5 days a week and 200 mg daily 2 days a week. She had eye exam April 2024. 11/2024 OCT okay. Prednisone course prescribed with close monitoring of renal crisis in individuals with systemic sclerosis PFTs and echocardiogram ordered to evaluate for pulmonary hypertension in systemic sclerosis. I have asked her to contact central scheduling to set up appointments. Return to clinic in 3 months (2) Inflammatory arthritis: Code(s): M19.90 - Unspecified osteoarthritis, unspecified site Category: Medical Plan: See above (3) Long-term use of hydroxychloroquine: Code(s): Z79.899 - Other long term care phlebotomist (current) drug therapy Category: Medical Plan: See above Orders: Orders C Reactive Protein Today M32.9 - Systemic lupus erythematosus, unspecified Erythrocyte Sedimentation Rate Today Z79.899 - Other long term care phlebotomist (current) drug therapy Medications: New prednisone Take 3 tablets daily 1 week, 2 tablets daily 1 week, 1 tablet daily 1 week then stop 5 mg PO DIRECTED 42 tabs 0RF Changed From methotrexate sodium 12.5 mg (5 x 2.5 mg) PO QWEEK 28 days 20 tabs 2RF To methotrexate sodium 17.5 mg (7 x 2.5 mg) PO QWEEK 28 tabs 2RF 28 days Coding Level of Care Code Est Pt Level 4 (60884) Complex EM visit Add On G2211 Diagnoses Limited scleroderma M34.9 Inflammatory arthritis M19.90 Long-term use of hydroxychloroquine Z79.899
[2024-12-13 09:18] VITALS: BP 150/90
--- OUTSIDE RECORDS SUMMARY | 2024-12-13 10:20 | XMS_ITS | Clinical Summary ---
Author Organization [facility] Address [address] [place] [address] Care Team Providers Care School Business Administrator Name Role Phone Margie Leonard Primary Care Provider [phone] Allergies No known active allergies Medications Medication Sig Dispensed Refills Start Date End Date Status ergocalciferol (VITAMIN D2) capsule 72614 units TAKE ONE CAPSULE BY MOUTH ONCE [...] age to complete this topic Care Teams School Business Administrator Relationship Specialty Start Date End Date Margie Leonard DO PCP - General Family Medicine 03/25/17
--- OUTSIDE RECORDS SUMMARY | 2024-12-13 10:20 | XMS_ITS | Clinical Summary ---
Author Organization [facility] Address [address] [place] [address] Phone Care Team Providers Care As400 Programmer Analyst Name Role Phone Duke Hale MD Primary Care Provider [phone] Allergies Active Allergy Reactions Criticality Noted Date [...] 10/20/2016, Additional history exists COVID-19 VACCINE ( - 2024- season) 2024 Adult Td,Tdap Booster 10/29/2031 10/28/2021 RSV VACCINE (1 - 1-dose 75+ series) 2045 HEPATITIS A VACCINES Aged Out No long [...] ACO ACO ACO ACO ACO Care Teams As400 Programmer Analyst Relationship Specialty Start Date End Date Duke Hale MD [address] [place] [address] PCP - General Internal Medicine 07/18/22 Additional Source Comments The information contained in this document represents components of the legal health record. It is not the complete legal health record.[facility]
== END 2024-12-13 09:52 | disposition home or self-care (01) ==
LOC: HO.RHES 09:10
PROVIDERS: PCP Internal Medicine; Visit Provider Internal Medicine Rheumatology
DX: M34.9 Systemic sclerosis, unspecified (principal); M19.90 Unspecified osteoarthritis, unspecified site; Z79.899 Other long term (current) drug therapy
CPT/HCPCS: 99214

== ENCOUNTER → 2024-12-13 09:09 | Outpatient (BNVA) | payer OTHER, SELFPAY | PROVIDERS: PCP Internal Medicine; Visit Provider Internal Medicine Rheumatology | DX: M34.9 Systemic sclerosis, unspecified (principal); M19.90 Unspecified osteoarthritis, unspecified site; Z79.899 Other long term (current) drug therapy | CPT/HCPCS: 99212 ==

== ENCOUNTER 2024-12-24 09:06 | Outpatient (AMB) | payer OTHER, SELFPAY ==
--- NOTE | 2024-12-24 09:10 | A.OFFVIS_ITS ---
Vital Signs 3 12/24/24 09:15 Height 5 ft 1 in Weight 162 lb 2 oz BMI 30.6 BP 189/89 H Blood Pressure Location Lt brachial Position Sitting Pulse 89 Pulse Source Pulse Oximeter Pulse Oximetry (%) 96 Oxygen Delivery Method Room Air Intake Visit Reasons: Postlaminectomy syndrome, not elsewhere classified Intake Note: Pain today 8 Vocational Ed Instructor Required: No Accompanied by: Self / Same As Patient Allergies topiramate (From TOPAMAX) Allergy (Severe, Verified 12/24/24 09:14) RASH, ITCH, DIFF BREATHING pineapple (Pineapple) Allergy (Mild, Verified 12/24/24 09:14) THROAT SWELLING duloxetine (Cymbalta) Allergy (Unknown, Verified 12/24/24 09:14) dizziness,vomiting levetiracetam Allergy (Unknown, Verified 12/24/24 09:14) Hives milnacipran (Savella) Allergy (Unknown, Verified 12/24/24 09:14) rash pregabalin Allergy (Unknown, Verified 12/24/24 09:14) nausous quetiapine (Seroquel) Allergy (Unknown, Verified 12/24/24 09:14) Hives sumatriptan (Imitrex) Allergy (Unknown, Verified 12/24/24 09:14) rash simvastatin Adverse Reaction (Intermediate, Verified 12/24/24 09:14) Nausea and Vomiting Seafood Allergy (Mild, Uncoded 11/30/24 11:03) RASH HPI Comments Details: The patient is a 54-year-old female presenting with chronic low back pain. 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 A dorsal column stimulator was placed in September 2011 and revised in November 2015. Patient reports she went through four difference spinal cord stimulator implants and currently [facility] SCS is not relieving her pain and causing her electrical shock like sensations on left side of her back and into her left groin. She requests today to schedule her for SCS removal. However, it was neurosurgically placed by Dr. Herrera and patient will be referred to [facility] for SCS removal by Neurosurgeon. The patient's back pain is chronic and constant, rated at 8/10, and is localized to the upper and lower back, radiating down to her left groin and legs, with the left side being more affected. The pain is described as a shooting, stabbing, shock like and burning sensation. She is currently on Percocet, prescribed by her primary care physician, and has tried gabapentin and lidocaine patches with limited success. The patient has a complex medical and surgical history, including fibromyalgia, scleroderma, and arthritis. She also has a history of pelvic surgery for a pelvic sling in 2008 and 2011, and carpal tunnel release in 2013. She reports that her pain has been present since 1989's and has progressively worsened, leading to multiple emergency room visits. - Onset: Chronic pain since 1989 - Quality: Shooting, stabbing, burning, cramping, jumping, tingling, sore, heavy, sharp, shock-like sensations - Location: Upper and lower back radiating to left groin and legs, worse on the left side - Severity: Rated at 8/10, constant, worse with activities and movements - Exacerbating factors: Movement, inability to lean backwards or forwards - Relieving factors: Percocet, taking it for life due to chronic pain and malfunctioning SCS device - Interference: Affects mobility, requires assistance with daily activities - Affect: Pain impacts mood and psychological wellbeing, causing distress and frustration - Analgesia: Currently using Percocet, rated pain at 8/10, mild to moderate analgesia depending on activities - Adverse Effects: Reports transient nausea and vomiting with pain medications - Activities of Daily Living: Pain limits mobility, requires assistance with bathing and other activities - Aberrant Drug Related Behaviors: None reported [facility] History De Quervain's tenosynovitis, left Tendonitis of wrist, left Colon cancer screening Breast cancer screening by mammogram Tobacco abuse Acute bacterial tonsillitis Acute bacterial pharyngitis Acute gastroenteritis Shingles Encounter for removal of maria r Scalp laceration Knee effusion, left Blood pressure elevated without history of HTN Wrist pain COVID-19 virus infection Witnessed apneic spells Dysuria Bilateral hand pain Folliculitis Headache Leukocytosis Palpitations Vitamin B 12 deficiency Groin abscess Closed fibular fracture Microscopic hematuria Insomnia Subclinical hyperthyroidism History of CREST syndrome Lateral malleolar fracture Chronic interstitial cystitis Uterine fibroid History of seizures Bipolar disorder Asthma Gastroesophageal reflux disease Hypercholesterolemia Failed back syndrome Surgical History History of pelvic surgery History of carpal tunnel release History of section History of tubal ligation Family History Father CVD (cardiovascular disease) Myocardial infarction Mother COPD (chronic obstructive pulmonary disease) Rheumatoid arthritis Renal failure Family/Other History of uterine cancer History of breast cancer History of ovarian cancer Daughter Lupus Brother Lupus Other Mental health disorder Mental illness in member of household Social History Housing: Apartment Alcohol intake: former Comment: last 2004 Patient Tobacco Use Status: Former Tobacco user Tobacco use type: Cigarette Cigarette Packs Per Day: 1 Cigarettes Per Day: 20.0 Years Smoked: had puff of cigaretttes once @ 2 weeks e-Cigarette/Vaping Use: Never Used Second Hand Smoke Exposure: Yes service: No Current occupational status: disabled Cognitive needs: No Hearing needs: No Vision needs: Yes Review of Systems Const Details: - Musculoskeletal: Reports chronic back pain, difficulty with mobility, and falls - Neurological: Reports shooting pain radiating to legs, worse on the left side - Dermatological: Reports healing bruising in right upper extremity from falls - General: Denies fever, reports headaches and fatigue due to lack of sleep All systems reviewed & are unremarkable except as noted in HPI and below Physical Exam Vital Signs: Last Vital Signs Pulse 89 12/24/24 09:15 BP 189/89 H 12/24/24 09:15 Pulse Ox 96 12/24/24 09:15 Oxygen Delivery Method Room Air 12/24/24 09:15 BMI result Body Mass Index 30.6 General: Appears afebrile. Alert and oriented. Mood and affect appropriate. Follows and participates in conversation appropriately. Respiratory effort is unlabored. No cough. Able to transition from sit to stand unassisted. Ambulates with bilaterally normal heel strike and toe off. General: Yes no CVA tenderness Back/Spine/Pelvis Other: Limited lumbar ROM due to pain. Lumbar flexion and extension reproduces moderate pain. Demonstrates 5/5 strength of quadriceps bilaterally as well as flexion/dorsiflexion of bilateral feet against resistance. 2+ pedal pulses bilaterally. Straight leg rise with dorsiflexion positive on the left. +1 patellar and achilles reflexes bilaterally. Facet loading test positive bilaterally. Alexandra sign, Macario?s, Gaenslen, Pelvic compression and Stinchfield tests are positive bilaterally. Minimal groin pain with I/E hip rotations on the left. Valsalva maneuver negative. Back: no CVA tenderness Cervical Spine: cervical ROM normal, cervical muscular tenderness and Cervical spine tenderness Thoracic/Lumbar Spine: thoracic and lumbar spine normal to inspection, Thoracic/lumbar spine scar(s), Lasegue's sign positive on the left and diffuse, pain with thoraco-lumbar ROM, paraspinal muscle tenderness, thoraco-lumbar ROM limited, No thoracic spinal tenderness and lumbar spinal tenderness (L4-S1) Sacroiliac joints: bilaterally tender to palpation Skin General skin exam: dry skin (LLQ healing rash, dry skin) and ecchymosis (healing bruise x2 right upper arm and lower arm) Extrem General: Yes capillary refill normal, Yes no clubbing, cyanosis or edema and Yes no calf tenderness Results Reviewed Results Reviewed: Assessment & Plan Assessment & Plan (1) Failed back syndrome: Comment: L5-S1 a LIF 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 Novak, dorsal column stimulator Dr. Herrera 09/15/2011, 11/2015 Code(s): M96.1 - Postlaminectomy syndrome, not elsewhere classified Category: Medical (2) Spinal cord stimulator dysfunction: Code(s): T85.192A - Other mechanical complication of implanted electronic neurostimulator of spinal cord electrode (lead), initial encounter Category: Medical (3) Chronic pain syndrome: Code(s): G89.4 - Chronic pain syndrome Category: Medical (4) Lumbosacral spondylosis: Code(s): M47.817 - Spondylosis without myelopathy or radiculopathy, lumbosacral region Category: Medical (5) Left groin pain: Code(s): R10.32 - Left lower quadrant pain Category: Medical (6) Left hip pain: Code(s): M25.552 - Pain in left hip Category: Medical Plan The plan includes obtaining thoracic and lumbar x-rays to rule out spinal cord stimulator leads migration, as the patient reports continued pain and dysfunction despite the device being turned off. We will also follow up with left hip xray on persistent chronic left groin pain. An MRI has been ordered by her PCP to further evaluate the patient's condition and SCS dysfunction. The patient is advised to contact the MRI department to schedule the imaging and to ensure that the x-rays are completed. The patient is encouraged to continue using her cane for mobility and she also receives SENIOR DATA DEVELOPER assistance with daily activities to prevent further falls. Follow-up with Neurosurgery is recommended to discuss the potential removal of the spinal cord stimulator, and the patient is advised to contact Dr. Herrera for SCS removal as it was neurosurgically implanted. All questions and concerns have been answered and patient agreed with the treatment plan. Follow up for xray results and sooner as needed. Patient was informed and verbally consented to the use of an ambient scribe for clinic note documentation during this visit. Orders: Orders 2 XR lumbar spine 4V min Today M96.1 - Postlaminectomy syndrome, not elsewhere classified, T85.192A - Other mechanical complication of implanted electronic neurostimulator of spinal cord electrode (lead), initial encounter XR thoracic spine 3V Today M96.1 - Postlaminectomy syndrome, not elsewhere classified, T85.192A - Other mechanical complication of implanted electronic neurostimulator of spinal cord electrode (lead), initial encounter XR hip LT min 2V Today M25.552 - Pain in left hip, R10.32 - Left lower quadrant pain Referrals 2 Neurosurgery Referral G89.4 - Chronic pain syndrome, M47.817 - Spondylosis without myelopathy or radiculopathy, lumbosacral region, M96.1 - Postlaminectomy syndrome, not elsewhere classified, T85.192A - Other mechanical complication of implanted electronic neurostimulator of spinal cord electrode (lead), initial encounter Coding Level of Care Code New Pt Level 4 (46407) Diagnoses Failed back syndrome M96.1 Spinal cord stimulator dysfunction T85.192A Chronic pain syndrome G89.4 Lumbosacral spondylosis M47.817 Left groin pain R10.32 Left hip pain M25.552
[2024-12-24 09:15] VITALS: BP 189/89; PULSE 89; O2SAT 96; BMI 30.6
--- OUTSIDE RECORDS SUMMARY | 2024-12-24 09:48 | XMS_ITS | Clinical Summary ---
Author Organization [facility] Address [address] [place] [address] Care Team Providers Care Grocery Cashier Name Role Phone Margie Leonard Primary Care Provider [phone] Allergies No known active allergies Medications Medication Sig Dispensed Refills Start Date End Date Status ergocalciferol (VITAMIN D2) capsule 62698 units TAKE ONE CAPSULE BY MOUTH ONCE [...] age to complete this topic Care Teams Grocery Cashier Relationship Specialty Start Date End Date Margie Leonard DO PCP - General Family Medicine 03/25/17
--- OUTSIDE RECORDS SUMMARY | 2024-12-24 09:48 | XMS_ITS | Clinical Summary ---
Author Organization [facility], Address [address] [place] [address] [place] [address] Phone Care Team Providers Care Purchasing Buyer Name Role Phone Duke Hale MD Primary Care Provider [phone] Allergies Active Allergy Reactions Criticality Noted Date [...] Vaccine (#1) 2024 Insurance [employer] Care Teams Purchasing Buyer Relationship Specialty Start Date End Date Duke Hale MD [facility] [place] [address] [place], [place] PCP - General Internal Medicine 03/07/19
--- OUTSIDE RECORDS SUMMARY | 2024-12-24 09:48 | XMS_ITS | Encounter Summary ---
Author Organization [facility] Address [address] [place] [address] Phone Care Team Providers Care Cryolite Recovery Operator Name Role Phone Duke Hale MD Primary Care Provider [phone] Encounter Details Date Type Department Care Team (Late st Contact Info) Description 08/19/2023 Documentation Only [facility], [address] [place] [address] [place] [address] [place] [address] Social History Tobacco Use Types [...] on filedocumented in this encounter Care Teams Cryolite Recovery Operator Relationship Specialty Start Date End Date Duke Hale MD [facility] [place] [address] [place], [place] PCP - General Internal Medicine 03/07/19 documented as of this encounter
--- OUTSIDE RECORDS SUMMARY | 2024-12-24 09:48 | XMS_ITS | Clinical Summary ---
Author Organization [facility] Address [address] [place] [address] Phone Care Team Providers Care Surgical Assistant Name Role Phone Duke Hale MD Primary Care Provider [phone] Allergies Active Allergy Reactions Criticality Noted Date [...] WHEEZING 4 Active oxycodone HCl,terephth/as pirin (OXYCODONE [id number] SA ORAL) Active acetaminophen (TYLENOL 8 HOUR) [...] Sleep apnea Asthma Hypertension Hyperlipidemia Diabetes mellitus ([facility] V24, [facility] V28) Chronic kidney disease GERD (gastroesophageal reflux disease) Seizures ([facility] [place], [facility] V28) Anxiety Chronic pain disorder Social History Tobacco Use Types Packs/Day Years Used Date Smoking Tobacco: Every Day Smokeless Tobacco: Never Alcohol Use Standard Drinks/Week Comments Never 0 (1 standard drink = 0.6 oz pur e alcohol) Interpersonal Safety Answer Date Record ed Physical Abuse Unrecognized value 05/30/2024 Verbal Abuse Unrecognized value 05/30/2024 Comments No Sex and Gender Information [...] Last Done Comments Breast Cancer Screening 1970 Colorectal Cancer Screening: Colonoscopy 1970 COVID-19 Vaccine (#1) 1975 Hepatitis B Vaccines (1 of 3 - 19+ 3-dose series) 1989 Zoster Vaccines (1 of 2) 1989 Cervical Cancer Screening: Pap Smear 1991 Pneumococcal Vaccine: 50+ Years (2 of 2 - PCV) 12/15/2016 12/16/2015 RSV Immunization Adult Patients (1 - Risk 50-74 years 1-dose series) 2020 Cholesterol Screening (Lipid Panel) 01/24/2022 HIV Screening 01/24/2022 Hepatitis C Screening [...] TO THE DPC # 9 ACHIVE LEFT LENS ASSORTER TO 23 POUNDS = 50 PERCENT OF THE RIGHT Insurance PLAN Care Teams Surgical Assistant Relationship Specialty Start Date End Date Duke Hale MD [address] [place] [address] [address] [facility] [place] [address] PCP - General Internal Medicine 05/03/11
== END 2024-12-24 09:47 | disposition home or self-care (01) ==
LOC: HO.PMC 09:07
PROVIDERS: PCP Internal Medicine; Visit Provider Nurse Practitioner Family
DX: M96.1 Postlaminectomy syndrome, not elsewhere classified (principal); T85.192A Other mechanical complication of implanted electronic neurostimulator of spinal cord electrode (lead), initial encounter; G89.4 Chronic pain syndrome; M47.817 Spondylosis without myelopathy or radiculopathy, lumbosacral region; R10.32 Left lower quadrant pain; M25.552 Pain in left hip
CPT/HCPCS: 99204

== ENCOUNTER → 2024-12-24 09:06 | Outpatient (BNVA) | payer OTHER, SELFPAY | PROVIDERS: PCP Internal Medicine; Visit Provider Nurse Practitioner Family | DX: G89.4 Chronic pain syndrome (principal); M96.1 Postlaminectomy syndrome, not elsewhere classified; M47.817 Spondylosis without myelopathy or radiculopathy, lumbosacral region; R10.32 Left lower quadrant pain; M25.552 Pain in left hip; T85.192A Other mechanical complication of implanted electronic neurostimulator of spinal cord electrode (lead), initial encounter | CPT/HCPCS: 99202 ==

== ENCOUNTER 2025-01-16 09:33 | Outpatient (REF) | payer OTHER, SELFPAY ==
--- OUTSIDE RECORDS SUMMARY | 2025-01-16 10:35 | XMS_ITS | Encounter Summary ---
Author Organization [facility] Address [address] [place] [address] Phone Care Team Providers Care Director Home Health Name Role Phone Duke Hale MD Primary Care Provider [phone] Encounter Details Date Type Department Care Team (Late st Contact Info) Description 08/19/2023 Documentation Only [facility], [address] [place] [place] [address] [place], [place] [address] [place] [address] Social History Tobacco Use Types [...] on filedocumented in this encounter Care Teams Director Home Health Relationship Specialty Start Date End Date Duke Hale MD [facility] [place] [address] [place], [place] PCP - General Internal Medicine 03/07/19 documented as of this encounter
--- OUTSIDE RECORDS SUMMARY | 2025-01-16 10:35 | XMS_ITS | Clinical Summary ---
Author Organization [facility] Address [address] [place] [address] Phone Care Team Providers Care Plaster Foreman Name Role Phone Duke Hale MD Primary Care Provider [phone] Allergies Active Allergy Reactions Criticality Noted Date [...] ACO ACO ACO ACO ACO Care Teams Plaster Foreman Relationship Specialty Start Date End Date Duke Hale MD [address] [place] [address] PCP - General Internal Medicine 07/18/22 Additional Source Comments The information contained in this document represents components of the legal health record. It is not the complete legal health record.[facility]
--- OUTSIDE RECORDS SUMMARY | 2025-01-16 10:35 | XMS_ITS | Clinical Summary ---
Author Organization [facility] Address [address] [place] [address] Phone Care Team Providers Care Deputy Coroner Name Role Phone Duke Hale MD Primary Care Provider [phone] Allergies Active Allergy Reactions Criticality Noted Date [...] WHEEZING 4 Active oxycodone HCl,terephth/as pirin (OXYCODONE [id number] SA ORAL) Active acetaminophen (TYLENOL 8 HOUR) [...] Sleep apnea Asthma Hypertension Hyperlipidemia Diabetes mellitus ([facility] V24, [facility] V28) Chronic kidney disease GERD (gastroesophageal reflux disease) Seizures ([facility] V24, [facility] V28) Anxiety Chronic pain disorder [...] TO THE DPC # 9 ACHIVE LEFT CRIMINAL ATTORNEY TO 23 POUNDS = 50 PERCENT OF THE [place] [address] Care Teams Deputy Coroner Relationship Specialty Start Date End Date Duke Hale MD [address] [place] [address] [address] [facility] [place] [address] PCP - General Internal Medicine 05/03/11
--- OUTSIDE RECORDS SUMMARY | 2025-01-16 10:35 | XMS_ITS | Clinical Summary ---
Author Organization [facility], Address [address] [place] [address] [place] [address] Phone Care Team Providers Care Tv Production Assistant Name Role Phone Duke Hale MD Primary Care Provider [phone] Allergies Active Allergy Reactions Criticality Noted Date [...] Vaccine (#1) 2024 Insurance [employer] Care Teams Tv Production Assistant Relationship Specialty Start Date End Date Duke Hale MD [facility] [place] [address] [place], [place] PCP - General Internal Medicine 03/07/19
--- OUTSIDE RECORDS SUMMARY | 2025-01-16 10:35 | XMS_ITS | Clinical Summary ---
Author Organization [facility] Address [address] [place] [address] Care Team Providers Care Selling Specialist Name Role Phone Margie Leonard Primary Care Provider [phone] Allergies No known active allergies Medications Medication Sig Dispensed Refills Start Date End Date Status ergocalciferol (VITAMIN D2) capsule 58488 units TAKE ONE CAPSULE BY MOUTH ONCE [...] age to complete this topic Care Teams Selling Specialist Relationship Specialty Start Date End Date Margie Leonard DO PCP - General Family Medicine 03/25/17
[2025-01-16 13:16] LABS: MANUAL DIFF FLAG NO
[2025-01-16 13:23] LABS: Hematocrit 40.9 % (37.0-47.0); Hemoglobin 13.3 g/dl (12.0-16.0); Imm Gran Abs Auto 0.05 X10*3/uL (0.00-0.03); Imm Gran Pct Auto 0.5 % (0.0-0.4); Lymphocytes Absolute Auto 3.0 X10*3/uL (1.2-4.9); Mean Corpuscular HGB Conc 32.5 g/dl (31.0-35.0); Mean Corpuscular Hemoglobin 29.8 pg (27.0-33.0); Mean Corpuscular Volume 91.5 fL (80.0-98.0); NRBC Abs Auto 0.000 X10*3/uL (0.0-0.012); NRBC Pct Auto 0.0 /100WBC (0.0-0.2); Platelet Count 289 X10*3/uL (160-400); Red Blood Count 4.47 X10*6/uL (4.20-5.50); White Blood Count 10.2 X10*3/uL (4.8-10.8)
[2025-01-16 14:06] LABS: Alanine Aminotransferase 25 U/L (0-31); Aspartate Amino Transferase 23 U/L (5-31); Estimated Glomerular Filt Rate > 60
== END 2025-01-16 09:34 | disposition home or self-care (01) ==
LOC: HO.HKASLDS 09:33
PROVIDERS: Internal Medicine Rheumatology; PCP Internal Medicine; Visit Provider Internal Medicine
DX: M32.9 Systemic lupus erythematosus, unspecified (principal); Z79.899 Other long term (current) drug therapy; Z79.60 Long term (current) use of unspecified immunomodulators and immunosuppressants
CPT/HCPCS: 36415; 82565; 84450; 84460; 85025; 85652; 86140

== ENCOUNTER 2025-01-29 09:20 | Outpatient (REF) | payer OTHER, SELFPAY ==
--- NOTE | ~2025-01-29 | XR_ITS ---
EXAMINATION: XR LUMBOSACRAL SPINE CLINICAL INFORMATION: M96.1 - Postlaminectomy syndrome, not elsewhere classified COMPARISON: 10/28/2014 TECHNIQUE: Three views of the lumbosacral spine. FINDINGS: T-shaped IUD projects in the midline of the pelvis. Atherosclerotic calcifications are present in the abdominal aorta There are 5 nonrib-bearing lumbar segments Spiral generator is present in the left gluteal region with wires extending to the midline at T11. There are sternotomy compatible is present in the dorsal epidural space at T8-T9. T11-12: There is moderate disc space narrowing with endplate sclerosis and osteophytes. There is vacuum phenomena. Degenerative changes have increased T12-L1: There is mild disc space narrowing with anterior osteophytes. Degenerative changes of increased L1-L2: There is mild disc space narrowing and small anterior osteophytes. Degenerative changes of increased L2-L3: Unremarkable L3-L4: Unremarkable L4-L5: There is mild disc space narrowing with subtle grade 1 anterolisthesis and facet sclerosis. Degenerative changes of increased L5-S1: There is interbody fusion with mature bone across the interbody space. There is facet sclerosis and osteophytes XR/XR lumbar spine 2-3V IMPRESSION: Degenerative disc disease and facet osteoarthritis has increased since the prior. Electronically signed by: Kody Parson MD 01/29/2025 09:50 AM CADEN ANTHONY
--- OUTSIDE RECORDS SUMMARY | 2025-01-29 10:47 | XMS_ITS | Clinical Summary ---
Author Organization [facility] Prior to 07/14/24 Address [address] [place] [id number] Care Team Providers Care House Director Name Role Phone Margie Leonard Primary Care Provider [phone] Allergies No known active allergies Medications Medication Sig Dispensed Refills Start Date End Date Status ergocalciferol (VITAMIN D2) capsule 54737 units TAKE ONE CAPSULE BY MOUTH ONCE [...] age to complete this topic Care Teams House Director Relationship Specialty Start Date End Date Margie Leonard DO PCP - General Family Medicine 03/25/17
--- OUTSIDE RECORDS SUMMARY | 2025-01-29 10:47 | XMS_ITS | Clinical Summary ---
Author Organization [address] [facility] Address [address] [place] [address] Phone Care Team Providers Care Automobile Carpets Molder Name Role Phone Duke Hale MD Primary Care Provider [phone] Allergies Active Allergy Reactions Criticality Noted Date [...] WHEEZING 4 Active oxycodone HCl,terephth/as pirin (OXYCODONE [id number] SA ORAL) Active acetaminophen (TYLENOL 8 HOUR) [...] Sleep apnea Asthma Hypertension Hyperlipidemia Diabetes mellitus ([facility] V24, [facility] V28) Chronic kidney disease GERD (gastroesophageal reflux disease) Seizures ([facility] V24, [facility] V28) Anxiety Chronic pain disorder [...] Orientation Straight 05/29/2024 12 :18 PM EDT Last Filed Vital Signs Vital Sign Reading [...] TO THE [facility] # 9 ACHIVE LEFT APPRENTICE/LINEMAN TO 23 POUNDS = 50 PERCENT OF THE RIGHT Insurance PLAN Care Teams Automobile Carpets Molder Relationship Specialty Start Date End Date Duke Hale MD [address] [place] [address] [address] [facility] [place] [address] PCP - General Internal Medicine 05/03/11
--- OUTSIDE RECORDS SUMMARY | 2025-01-29 10:47 | XMS_ITS | Clinical Summary ---
Author Organization [facility] Address [address] [place] [id number] Phone Care Team Providers Care Residential Support Specialist Name Role Phone Duke Hale MD Primary Care Provider [phone] Allergies Active Allergy Reactions Criticality Noted Date [...] ACO ACO ACO ACO ACO Care Teams Residential Support Specialist Relationship Specialty Start Date End Date Duke Hale MD [address] [place] [id number] PCP - General Internal Medicine 07/18/22 Additional Source Comments The information contained in this document represents components of the legal health record. It is not the complete legal health record.[facility]
== END 2025-01-29 09:21 | disposition home or self-care (01) ==
LOC: HO.XRAY 09:20
PROVIDERS: PCP Internal Medicine; Visit Provider Nurse Practitioner Family
DX: M96.1 Postlaminectomy syndrome, not elsewhere classified (principal)
CPT/HCPCS: 72100

== ENCOUNTER → 2025-01-29 09:29 | Outpatient (BNV) | payer OTHER, SELFPAY | PROVIDERS: PCP Internal Medicine; Visit Provider Radiology Diagnostic Radiology | DX: M51.369 Other intervertebral disc degeneration, lumbar region without mention of lumbar back pain or lower extremity pain (principal); M47.816 Spondylosis without myelopathy or radiculopathy, lumbar region | CPT/HCPCS: 72100 ==